=== PATIENT | female | born 1965 | race Caucasian/White ===

== ENCOUNTER 2023-07-28 06:09 | Outpatient (REF) | payer OTHER, SELFPAY ==
--- NOTE | ~2023-07-28 | US_ITS ---
EXAMINATION: US ABDOMEN COMPLETE CLINICAL INFORMATION: Chest pain. COMPARISON: None available. TECHNIQUE: Real-time imaging of the abdominal viscera. FINDINGS: PANCREAS: Visualized portions of the pancreas are unremarkable however portions are obscured by bowel gas limiting evaluation. ABDOMINAL AORTA: The proximal, mid, and distal segments are nonaneurysmal in caliber. INFERIOR VENA CAVA: Visualized portions are normal. LIVER: The liver is normal in size. The liver contour is normal. Parenchymal echogenicity is normal. No focal hepatic lesion. There is no intrahepatic biliary duct dilatation seen. GALLBLADDER: Gallbladder polyps measuring up to 4 mm. The gallbladder is physiologically distended without evidence of stones, sludge, wall thickening or pericholecystic fluid. COMMON BILE DUCT: Normal in caliber measuring 0.6 cm in diameter. RIGHT KIDNEY: Normal. No hydronephrosis. No renal calculi or focal parenchymal lesions. The kidney measures 11.1 cm in maximum dimension. LEFT KIDNEY: Normal. No hydronephrosis. No renal calculi or focal parenchymal lesions. The kidney measures 11.6 cm in maximum dimension. SPLEEN: Normal. The spleen measures 10.3 cm in maximum dimension. FREE FLUID: None. US/US abdomen complete IMPRESSION: Gallbladder polyps measuring up to 4 mm. Recommend follow-up ultrasound 6 months and one, 2, 3, 4, and 5 years.
== END 2023-07-28 06:10 | disposition home or self-care (01) ==
LOC: HO.UMASIMG 06:09
PROVIDERS: PCP Family Medicine; Visit Provider Family Medicine
DX: R07.9 Chest pain, unspecified (principal)
CPT/HCPCS: 76700

== ENCOUNTER 2023-08-25 09:43 | Outpatient (REF) | payer OTHER, SELFPAY ==
--- NOTE | ~2023-08-25 | US_ITS ---
EXAMINATION: US CHEST CLINICAL INFORMATION: Left upper chest lump of approximately 3 cm in size palpable. COMPARISON: None available. TECHNIQUE: Targeted ultrasound images were obtained by the glass wool blanket machine feeder of the area of concern as indicated by the patient in the anterior left shoulder. Radiologist was not in attendance. Images were later provided for interpretation. FINDINGS: No discrete mass or fluid collection identified in the area of concern indicated by the patient to the glass wool blanket machine feeder along the anterior aspect of the left shoulder. US/US chest IMPRESSION: 1. No discrete mass or fluid collection identified in the area of concern indicated by the patient to the glass wool blanket machine feeder along the anterior aspect of the left shoulder. 2. Decisions regarding further management such as additional imaging with MRI should be based on the clinical exam, as not all abnormalities are detectable on ultrasound studies.
== END 2023-08-25 09:44 | disposition home or self-care (01) ==
LOC: HO.UMASIMG 09:43
PROVIDERS: Visit Provider Family Medicine
DX: R07.9 Chest pain, unspecified (principal); K21.9 Gastro-esophageal reflux disease without esophagitis; M79.602 Pain in left arm; J02.9 Acute pharyngitis, unspecified; R07.81 Pleurodynia; H66.92 Otitis media, unspecified, left ear
CPT/HCPCS: 76604

== ENCOUNTER 2023-09-05 14:01 | Outpatient (AMB) | payer OTHER, SELFPAY ==
[2023-09-05 14:12] VITALS: BP 140/81; PULSE 72; BMI 40.0
--- NOTE | 2023-09-05 14:12 | MHC.OFFVIS ---
Intake Vital Signs 09/05/23 14:12 Height 5 ft 5 in Weight 240 lb 4.862 oz BMI 40.0 BP 140/81 H Blood Pressure Location Rt brachial Position Sitting Pulse 72 Intake Visit Reasons: r/s from 08/10 GERD Intake Note: New patient in office for evaluation and management of GERD. CC:Patient c/o acid reflux, epigastric pressure and feeling like she can't take a deep breath, epigastric pain, fullness sensation after eating from upper abdomen. Also, reports occasional lose stools. 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 History of colonoscopy benign polyp in 2019. Patient is here today for initial consultation. Patient was seen in the past by Dr. Caruso, however would like to switch to this office. Patient reports postprandial epigastric discomfort and fullness. Patient reports that she has symptoms of feeling breathless like in the evening when she lays down. Patient does not eat late at night. Patient reports that she feels better after burping. Patient states that she is not on any particular diet. In 2019 patient had sleep study and ABBEY was ruled out. Since then patient states that she gain weight. Patient states that she has an appointment for another sleep study soon. Patient was diagnosed with hiatal hernia on upper endoscopy in the past. Patient has not had barium swallow done to rule out acid reflux, GE stricture, sliding hiatal hernia. Currently patient is on omeprazole 20 mg daily and she is using famotidine on as needed basis. Patient denies any nausea or vomiting. Patient brought all her lab work from her PCP. Her A1c was 5.3. Patient had normal liver enzymes and normal lipase. [facility] Medical History (Updated 09/05/23 @ 15:02 by RENETTA Love) Hiatal hernia Fibromyalgia Surgical History (Updated 09/05/23 @ 15:02 by SALINAS LoveJABARI) S/P laparoscopy Hx of tonsillectomy History of esophagogastroduodenoscopy (EGD) H/O colonoscopy Social History Alcohol intake: former Patient Tobacco Use Status: Never used Tobacco Review of Systems Const Denies weight gain and Denies weight loss ENT Reports no additional complaints, Denies dysphagia and Denies odynophagia Card Reports no additional complaints Resp Reports no additional complaints GI Denies abdominal pain, Denies belching, Denies melena, Denies bloating, Denies change in bowel habits, Denies dysphagia, Denies excessive flatus, Denies dyspepsia, Denies heartburn, Denies diarrhea, Denies loose stools, Denies nausea, Denies odynophagia and Denies vomiting Musc Reports no additional complaints Neuro Reports no additional complaints Psych Reports no additional complaints Endo Reports no additional complaints Physical Exam Vital Signs: BMI result Body Mass Index 40.0 Const General: healthy appearing, no acute distress and well developed Nutritional Appearance: well nourished Orientation/consciousness: patient oriented x3 Resp Effort & Inspection: normal respiratory effort, able to speak in complete sentences, no tracheal deviation and symmetric chest movement Auscultation: clear to auscultation bilaterally Cardio Rate: regular rate GI Inspection: Yes normal to inspection and No distended Palpation (GI): Soft to palpation, not firm, nontender and No hepatosplenomegaly present Auscultation: normal bowel sounds General: Yes no CVA tenderness Back/Spine/Pelvis Back: no CVA tenderness Skin General skin exam: elasticity normal, turgor normal and dry skin Neuro General: patient oriented x3 Psych Appearance: grossly normal Mental Status: mental status grossly normal Assessment & Plan Assessment & Plan (1) Postprandial epigastric pain: Code(s): R10.13 - Epigastric pain (2) GERD (gastroesophageal reflux disease): Code(s): K21.9 - Gastro-esophageal reflux disease without esophagitis Qualifiers: Esophagitis presence: esophagitis presence not specified Qualified Code(s): K21.9 - Gastro-esophageal reflux disease without esophagitis (3) Hiatal hernia: Code(s): K44.9 - Diaphragmatic hernia without obstruction or gangrene (4) Postprandial abdominal bloating: Code(s): R14.0 - Abdominal distension (gaseous) Plan Last EGD in 2019 showed inactive gastritis, no Lofton's no H pylori. Patient currently is on omeprazole 20 mg. Will stop that and start her on pantoprazole 40 mg every morning. Patient was encouraged to avoid dietary triggers and snacking. Staying upright for minimum 3 hours after meals discussed with patient. Patient does report feeling breathless, better after burping. Suspicion for sliding hiatal hernia versus reflux does not managed. Will send her for upper endoscopy to rule out Lofton's, esophagitis, gastritis, peptic or gastric ulcers, H pylori. We will send her also for for barium swallow to rule out reflux, sliding hiatal hernia. Will send her for blood work. Will check H pylori, rule out pancreatic insufficiency. Patient does report bloating. Her lipase was normal. Will rule out celiac. I will see patient after upper endoscopy. Patient had colonoscopy the same time as she had her upper endoscopy and benign polyps found. Ten year recall recommended. Patient is agreeable to current plan of care and verbalizes understanding of instructions. She was given the opportunity to ask questions and all questions answered Thank you for allowing me to participate in her care Orders: Orders FL barium swallow Today R13.10 - Dysphagia, unspecified Pancreatic Elastase-1 Today R10.9 - Unspecified abdominal pain H pylori Ag Stool Today K21.9 - Gastro-esophageal reflux disease without esophagitis Transglutaminase Ab IgG Today R10.9 - Unspecified abdominal pain Transglutaminase IgA Today R10.9 - Unspecified abdominal pain Medications: New pantoprazole take one tablet half an hour before breakfast 40 mg PO DAILY 30 tabs 2RF K21.9 - Gastro-esophageal reflux disease without esophagitis Coding Level of Care Code New Pt Level 4 (84743) Diagnoses Postprandial epigastric pain R10.13 Gastroesophageal reflux disease, unspecified whether esophagitis present K21.9 Esophagitis presence: esophagitis presence not specified Hiatal hernia K44.9 Postprandial abdominal bloating R14.0 Time Spent (min) 45 Comment 30 minutes spent with patient and additional 15 minutes spent reviewing her records
== END 2023-09-05 14:57 | disposition home or self-care (01) ==
PROVIDERS: PCP Family Medicine; Visit Provider Nurse Practitioner Family
DX: R10.13 Epigastric pain (principal); K21.9 Gastro-esophageal reflux disease without esophagitis; K44.9 Diaphragmatic hernia without obstruction or gangrene; R14.0 Abdominal distension (gaseous)
CPT/HCPCS: 99204

== ENCOUNTER → 2023-09-05 14:01 | Outpatient (BNVA) | payer OTHER, SELFPAY | PROVIDERS: PCP Family Medicine; Visit Provider Nurse Practitioner Family ==

== ENCOUNTER 2023-10-25 08:41 | Outpatient (REF) | payer OTHER, SELFPAY ==
--- NOTE | ~2023-10-25 | US_ITS ---
EXAMINATION: US EXTREMITY, NONVASCULAR CLINICAL INFORMATION: Palpable soft mass superior to the left medial malleolus with question of cyst or solid mass. COMPARISON: None available. TECHNIQUE: High-frequency linear ultrasound transducer was used to examine the area of clinical concern. FINDINGS: No abnormality is seen. No fluid collections or abnormal masses are identified. US/US extremity nonvascular IMPRESSION: No abnormality is seen in the area of clinical concern.
== END 2023-10-25 08:42 | disposition home or self-care (01) ==
LOC: HO.UMASIMG 08:41
PROVIDERS: Visit Provider Family Medicine
DX: R22.9 Localized swelling, mass and lump, unspecified (principal)
CPT/HCPCS: 76882

== ENCOUNTER 2023-12-15 08:15 | Outpatient (REF) | payer OTHER, SELFPAY ==
--- NOTE | ~2023-12-15 | FL_ITS ---
EXAMINATION: XR FLUOROSCOPY UPPER GI WITH AIR CLINICAL INFORMATION: Epigastric pain COMPARISON: None TECHNIQUE: Fluoroscopic air contrast upper GI examination was performed utilizing standard techniques with thin and thick barium and effervescent granules. Numerous spot images were obtained. FINDINGS: Dual and single contrast images of the esophagus demonstrate normal caliber, contour, and mucosal pattern. No evidence of stricture, mass, or ulcerations identified. Esophageal peristalsis was normal. A small type I hiatal hernia is present. Gastroesophageal reflux is seen up to the midesophagus. Dual contrast and single contrast images of the stomach demonstrated a normal contour. The gastric rugal folds have a mildly thickened appearance. No masses or ulcerations are seen. Contrast freely passed into the gastric antrum and duodenal bulb without delay. Single and air-contrast images of the duodenal bulb demonstrate no abnormality. The duodenal sweep has a normal appearance, course, and mucosal fold appearance. No malrotation. The imaged proximal jejunum has a normal fold pattern and caliber. FLUOROSCOPY TIME: 3 minutes 51 seconds Number of Spot Images: 14 Number of Cine: 10 DOSE AREA PRODUCT: 3019 uGy-m2 (microgray-meter squared) FL/FL barium swallow with air IMPRESSION: 1. Small type I hiatal hernia. 2. Moderate gastroesophageal reflux. 3. Mildly thickened gastric rugal folds could suggest suggest mild gastritis. This procedure was performed by Ramez Jones PA-C, and supervised by Dr. Chilel
== END 2023-12-15 08:16 | disposition home or self-care (01) ==
LOC: HO.XRAY 08:15
PROVIDERS: PCP Family Medicine; Visit Provider Nurse Practitioner Family
DX: R13.10 Dysphagia, unspecified (principal)
CPT/HCPCS: 74221

== ENCOUNTER → 2023-12-15 08:17 | Outpatient (BNV) | payer OTHER, SELFPAY | PROVIDERS: PCP Family Medicine; Visit Provider Physician Assistant Surgical | DX: R10.13 Epigastric pain (principal) | CPT/HCPCS: 74246 ==

== ENCOUNTER 2024-08-15 09:49 | Day surgery (SDC) | payer OTHER, SELFPAY ==
--- NOTE | 2024-08-14 09:19 | HO.ANESPROP2 ---
HPI - Anesthesia Eval Consult details Narrative: 59yo F for Upper Endoscopy PMFSH Past Medical History Medical History (System 12/20/23 @ 11:31 by Ana Tate) Hiatal hernia Fibromyalgia Surgical History Surgical History (System 12/20/23 @ 11:31 by Ana Tate) S/P laparoscopy Hx of tonsillectomy History of esophagogastroduodenoscopy (EGD) H/O colonoscopy Social History Social History (System 12/20/23 @ 11:31 by Ana Tate) Alcohol intake: former Patient Tobacco Use Status: Never used Tobacco Meds Allergies Allergy/AdvReac Type Severity Reaction Status Date / Time amoxicillin Allergy Severe GI distress Verified 12/20/23 11:31 clavulanic acid Allergy Severe GI distress Verified 12/20/23 11:31 [From Augmentin] Home Medications ?Medication ?Instructions ?Recorded ?Confirmed ?Last Taken ?Type atenolol 25 mg tablet 25 mg PO DAILY 09/05/23 09/05/23 Unknown History famotidine 20 mg tablet 20 mg PO DAILY 09/05/23 09/05/23 Unknown History lorazepam 0.5 mg tablet 0.5 mg PO DAILY PRN 09/05/23 09/05/23 Unknown History Assessment and Plan Assessment Anesthesia Assessment: Chart Reviewed
[2024-08-15 05:18] VITALS: BMI 40.1
[2024-08-15 10:25] VITALS: BP 164/91; PULSE 70; RESP 20; TEMP 36; O2SAT 99; BMI 40.7
--- NOTE | 2024-08-15 11:03 | HO.ANESPROP2 ---
[facility] Past Medical History Medical History Hiatal hernia Fibromyalgia Functional capacity: independent ambulation Patient : No Family History Family history of problems with anesthesia: No Surgical History Surgical History S/P laparoscopy Hx of tonsillectomy History of esophagogastroduodenoscopy (EGD) H/O colonoscopy History of Problems with Anesthesia: No Social History Social History Alcohol intake: former Patient Tobacco Use Status: Never used Tobacco Advance Directives: No Advance Directives Information Provided: Yes Meds Allergies Allergy/AdvReac Type Severity Reaction Status Date / Time amoxicillin Allergy Severe GI distress Verified 12/20/23 11:31 clavulanic acid Allergy Severe GI distress Verified 12/20/23 11:31 [From Augmentin] Active Medications: Current Medications Lactated Ringer's (Lr) 1,000 mls @ 100 mls/hr IVCONT .Q10H [facility] Home Medications ?Medication ?Instructions ?Recorded ?Confirmed ?Last Taken ?Type atenolol 25 mg tablet 25 mg PO DAILY 09/05/23 08/15/24 Unknown History famotidine 20 mg tablet 20 mg PO DAILY 09/05/23 08/15/24 Unknown History Exam Height,Weight and Vital Signs: Height 5 ft 5 in Weight 111 kg Last Vital Signs Temp 96.8 F 08/15/24 10:25 Pulse 70 08/15/24 10:25 Resp 20 08/15/24 10:25 BP 164/91 H 08/15/24 10:25 Pulse Ox 20 L 08/15/24 10:25 O2 Del Method Room Air 08/15/24 10:25 Airway Mallampati Class: II TM Dist: >3cm Neck ROM: Full Heart: RRR Lungs: CTA Assessment and Plan Assessment Anesthesia Assessment: Anesthesia Plan Discussed and Chart Reviewed Final Anesthetic Review Family History of Problems with Anesthesia: No History of Problems with Anesthesia: No NPO: Yes ASA Class: II Final Preanesthetic Review: Meds/Allgs Chart Reviewed, Consent Obtained/Reviewed and Anes Risks/Benef Reviewed Patient Risk: Low Procedure Risk: Low Anesthetic Plan Anesthetic Plan: MAC: Disposition: Standard PACU
--- NOTE | 2024-08-15 11:09 | MHC.SHP ---
Pre-Procedural Eval Section A - 24 Hr Update-Section A only Date of Service: 08/15/24 Section B - Complete if H&P > 30 days Chief Complaint: Gastro-esophageal reflux disease without esophagit Relevant Family History (Specify if Yes): No Relevant Social History: None Present Medications: see Short Stay Collaborative assessment Medical History: Significant History (Hiatal hernia Fibromyalgia) History of Previous Operations: Relevant previous surgery/procedure and date(s) (S/P laparoscopy Hx of tonsillectomy History of esophagogastroduodenoscopy (EGD) H/O colonoscopy) Allergies: Allergies Allergy/AdvReac Type Severity Reaction Status Date / Time amoxicillin Allergy Severe GI distress Verified 12/20/23 11:31 clavulanic acid Allergy Severe GI distress Verified 12/20/23 11:31 [From Augmentin] Review of Systems Sugical H&P ROS: Negative: Constitution, Cardiovascular, Respiratory, Neurological, Psychiatric, Hem-Onc, Allergic/Immunologic, Gastrointestinal, Genitourinary, Musculoskeletal, Integumentary, Endocrine and Eyes/Ears/Nose/Throat Exam Surgical H&P Exam: Normal: HEENT, Normal: Heart, Normal: Lungs, Normal: Extremities, Normal: Abdomen, Normal: Skin and Normal: Neurological Plan Diagnosis/Plan: Unchanged I have reviewed the history and physical and performed a pertinent physical examination on my patient. No changes have occurred unless specified. Time Spent With Patient Time: Total time managing care of this patient today ____ minutes.
[2024-08-15] MEDS: Lactated Ringers 1,000 ML 100 ML IVCONT (11:10)
--- OUTSIDE RECORDS SUMMARY | 2024-08-15 11:24 | XMS_ITS | Data Portability ---
Author Organization [facility], , [facility] Address [address] [place] [address] Assessment No assessment recorded. Plan of Treatment Reminders Order Date Submit Date Provider Last Modified By Organization Details Last Modified Time Details Appointments None record ed. Lab None record ed. Referral None record ed. Procedures None record ed. Surgeries None record ed. Imaging None record ed. Medication Orders None record ed. Patient TargetsNo targets recorded. Patient InstructionsNo instructions recorded. Reason for Referral None Reported. Results Created Date Observation Date Name Description Value Unit Range Abnormal Flag Note LastModifiedBy Organization Detail LastModifiedTime Result Notes None recorded. Problems Name Problem SNOMED Code Status Onset Date Resolution Date Notes Provider Name and Address Organization Details Recorded Time Essential hypertensi on 10350259 Active 2001 Not Available [facility] 3 03:09:42 Gastroesop hageal reflux disease 876921724 Active 2002 Not Available [facility] 3 03:09:42 Contact dermatitis 77087723 Completed 200205/23/2013 Not Available [facility] 3 02:02:37 Migraine without aura 49488364 Active 2001 Not Available [facility] 3 03:09:42 Palpitatio ns 33283627 Active 2002 Not Available [facility] 3 03:09:42 Migraine with aura 9080368 Active 2001 Not Available [facility] 3 03:09:42 Acute cystitis 49993380 Completed 200105/23/2013 Not Available [facility] 3 02:02:32 Benign essential hypertensi on 4525622 Active 2001 Not Available [facility] 3 03:09:42 Skin sensation disturbanc e 91357833 Completed 200305/23/2013 Not Available [facility] 3 02:03:10 Impacted cerumen 43430083 Completed 200105/23/2013 Not Available [facility] 3 02:02:11 Anxiety state 322978689 Active 2001 Not Available [facility] 3 03:09:42 Sprain of spinal ligament 822818048 Completed 200005/23/2013 Not Available [facility] 3 02:04:07 Insomnia 310066321 Active 2001 Not Available [facility] 3 03:09:42 Atopic dermatitis 25268501 Active 2002 Not Available [facility] 3 03:09:42 Nonvenomou s insect bite of multiple sites 439580064 Completed 200205/23/2013 Not Available [facility] 3 02:02:58 Common cold 59756464 Completed 200105/23/2013 Not Available [facility] 3 02:00:26 Knee pain Completed 200405/23/2013 Not Available [facility] 3 02:00:40 Panic disorder without agoraphobi a 41577744 Active 2001 Not Available [facility] 3 03:09:42 Dysmenorrh ea 572612261 Completed 200105/23/2013 Not Available [facility] 3 02:03:01 On examinatio n - a rash Completed 200205/23/2013 Not Available [facility] 3 02:00:47 Female genital organ symptoms 246631557 Completed 200105/23/2013 Not Available [facility] 3 02:03:07 Acute maxillary sinusitis 11020522 Completed 200205/23/2013 Not Available [facility] 3 02:01:41 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 Medical Equipment None Reported. Vitals None Recorded Social History None recorded. Functional Status None recorded. Mental Status None recorded. Family History Nothing Reported. Medical History No medical history recorded. Gynecological HistoryNo gynecological history recorded. Obstetrics History GPAL:G 0 P 0 0 0 0 Immunizations Vaccine Type Date Status Note Provider Nam e and Address Organization Details Recorded Time COVID-19, mRNA, LNP-S, PF, 100 mcg/0.5mL dose or 50 mcg/0.25mL dose 08/08/2020 completed LEE Scott [facility] 08/08/2020 11:11:24 COVID-19, mRNA, LNP-S, PF, 100 mcg/0.5mL dose or 50 mcg/0.25mL dose 09/06/2020 completed LEE Scott [facility] 09/06/2020 14:48:54 Past Encounters Encounter ID Performer Location Encounter Start Date Encounter Closed Date Diagnosis/Indication Diagnosis SNOMED-CT Code Diagnosis ICD10 Code Diagnosis Note [id number] [place] [facility] [place] [address] [place] [address] 05/26/2001 17:30:00 07/24/2008 02:02:29 [id number] [place] [facility] [place] [address] [place] [address] 07/19/2001 15:15:00 07/24/2008 02:02:29 [id number] [place] [facility] [place] [address] [place] [address] 1 07/21/2001 10:30:00 07/24/2008 02:02:29 [id number] [place] [facility] [place] [address] [place] [address] 1 10/10/2001 14:45:00 07/24/2008 02:02:29 [id number] [place] [facility] [place] [address] [place] [id number] 1 02/06/2002 15:23:05 07/24/2008 02:02:29 [id number] [facility], OFFICE [address] [place] [id number] 1 04/18/2002 16:45:04 07/24/2008 02:02:29 [id number] [place] [facility] [place] [address] [place] [id number] 1 04/16/2002 14:53:38 07/24/2008 02:02:29 [id number] [place] [facility] [place] [address] [place] [id number] 1 05/14/2002 11:04:10 07/24/2008 02:02:29 [id number] FP [facility] [place] [address] [place] [id number] 1 05/14/2002 10:32:27 07/24/2008 02:02:29 [id number] FP [facility] [place] [address] [place] [id number] 1 05/28/2002 16:51:58 07/24/2008 02:02:29 [id number] FP [facility] [place] [address] [place] [id number] 1 06/12/2002 16:59:44 07/24/2008 02:02:29 [id number] LAB - [address] [place] [id number] 1 06/29/2002 07:50:35 07/24/2008 02:02:29 [id number] [place] [facility] [place] [address] [place] [id number] 1 07/27/2002 16:41:59 07/24/2008 02:02:29 [id number] FP [facility] [place] [address] [place] [id number] 1 08/06/2002 16:30:32 07/24/2008 02:02:29 [id number] FP [facility] [place] [address] [place] [id number] 1 08/13/2002 16:53:55 07/24/2008 02:02:29 [id number] [place] [facility] [place] [address] [place] [id number] 1 08/15/2002 08:21:52 07/24/2008 02:02:29 [id number] [place] [facility] [place] [address] [place] [id number] 1 10/19/2002 16:43:16 07/24/2008 02:02:29 [id number] [place] [facility] [place] [address] [place] [id number] 1 10/29/2002 15:02:50 07/24/2008 02:02:29 [id number] [place] [facility] [place] [address] [place] [id number] 1 12/10/2002 14:59:06 07/24/2008 02:02:29 [id number] [place] [facility] [place] [address] [place] [id number] 1 12/21/2002 15:47:16 07/24/2008 02:02:29 [id number] [place] [facility] [place] [address] [place] [id number] 1 04/16/2003 16:35:08 04/17/2003 10:44:42 [id number] [place] [facility] [place] [address] [place] [id number] 1 07/23/2003 16:48:23 07/24/2003 08:55:20 [id number] [place] [facility] [place] [address] [place] [id number] 1 09/18/2003 17:08:36 09/20/2003 08:59:19 [id number] [place] [facility] [place] [address] [place] [id number] 1 09/19/2003 14:29:53 09/20/2003 09:22:55 [id number] [facility] [place] [address] [place] [id number] 1 09/19/2003 12:37:13 09/19/2003 13:34:23 [id number] [place] [facility] [place] [address] [place] [id number] 1 09/25/2003 16:26:37 09/26/2003 09:20:14 [id number] Physical Therapy, [facility] [address] [place] [id number] 08/17/2004 10:22:41 08/17/2004 16:53:47 [id number] Physical Therapy, [facility] [address] [place] [id number] 1 08/31/2004 13:28:51 08/31/2004 16:56:57 [id number] Physical Therapy, [facility] [place] [id number] 08/16/2007 09:58:35 08/16/2007 09:58:38 [id number] Physical Therapy, [facility] [place] [id number] 08/25/2007 07:21:07 08/25/2007 07:21:21 [id number] Physical Therapy, [facility] [place] [id number] 09/06/2007 08:16:51 09/06/2007 08:16:58 [id number] Physical Therapy, [facility] [place] [id number] 09/13/2007 09:20:25 09/13/2007 09:20:29 [id number] Physical Therapy, [facility] [place] [id number] 1 09/29/2007 08:29:22 09/29/2007 08:29:35 Health Concerns Section Related Observation LastModified by Organization Detai ls LastModified Time None Recorded Concern Status LastModified by Organization Details LastModified Time None Recorded Advance Directives Directive None Recorded Payers Encounter Date Sequence Insurance Name Policy Number Policy Alejandre Covered Member ID Alejandre Member ID Guarantor Name 08/15/2007 1 [facility] Jaime [id number] Katerin [place] Jaime 08/24/2007 1 [facility] Cameron Jaime [id number] Katerin [place] Jaime 09/05/2007 1 [facility] IN[employer] - [employer] Cameron Jaime [id number] Katerin A Jaime 09/12/2007 1 [facility] [employer] - [employer] Jaime [id number] Katerin A Jaime 09/28/2007 1 [facility] INDEMNITY PLAN - [facility] Cameron Jaime [id number] Katerin Nuñez Jaime OBGyn Episode No OBEpisode recorded.
--- NOTE | 2024-08-15 11:49 | W.PM.OPN ---
Operative Note Operative Note Date of Service: 08/15/24 Narrative: Procedure Description: EGD Indication: satiety Anesthesia: MAC FLEXIBLE TRANSORAL UPPER GASTROINTESTINAL ENDOSCOPY UPPER ENDOSCOPY Consent: Indications for the procedure and potential complications of bleeding, perforation, reaction to medications and missed diagnosis were discussed with the patient and informed consent was obtained. Instrument: Olympus GIF H 190 J mid size upper endoscope Monitoring: Vital signs and clinical assessment, continuous EKG monitoring, Pulse oximetry, Carbon Dioxide monitoring and blood pressure monitoring were done throughout the procedure. Procedure: The patient was placed in the left lateral decubitis position and pre-procedure medications were administered and a bite block was placed. The endoscope was inserted into the mouth and advanced under direct vision to the third part of duodenum. A careful inspection was made as the upper endoscope was withdrawn including a retroflexed examination of the proximal stomach; Findings and interventions are described below. Findings: Larynx:normal Esophagus: GE junction at 37 cm, diaphragm hiatus at 40 cm, consistent with 3 cm sliding hiatal hernia, with schatzki ring noted, polypoid lesion noted at GEJ about 5-7 mm removed with cold snare, bx also taken from GEJ to possible short segment barretts as well as distal and proximal esophagus. LES was lax Stomach: few fundic gland polyps noted with mild erythema . Biopsies were obtained. Grade 2 flap valve on retroflexed examination of the cardia. The outlet was a little tight and dilated using a wire guided balloon to 20 mm. No tears seen. Duodenum: mild bulbar duodenitis - bx taken Intervention: Biopsies as noted above, cold snare, balloon dilation Impression/Findings: gastritis fundic gland polyps possible barretts hiatal hernia schatzki ring lax LES PLAN: check PPI compliance GERD precautions consider GES if ongoing sx also consider referral for hernia repair and fundoplication
--- NOTE | 2024-08-15 11:51 | HO.ANESPROP2 ---
[facility] Past Medical History Medical History Hiatal hernia Fibromyalgia Functional capacity: independent ambulation Family History Family history of problems with anesthesia: No Surgical History Surgical History S/P laparoscopy Hx of tonsillectomy History of esophagogastroduodenoscopy (EGD) H/O colonoscopy History of Problems with Anesthesia: No Social History Social History Alcohol intake: former Patient Tobacco Use Status: Never used Tobacco Advance Directives: No Advance Directives Information Provided: Yes Patient : No Meds Allergies Allergy/AdvReac Type Severity Reaction Status Date / Time amoxicillin Allergy Severe GI distress Verified 12/20/23 11:31 clavulanic acid Allergy Severe GI distress Verified 12/20/23 11:31 [From Augmentin] Active Medications: Current Medications Lactated Ringer's (Lr) 1,000 mls @ 100 mls/hr IVCONT .Q10H GIOVANNA Last Admin: 08/15/24 11:10 Dose: 100 mls/hr Naloxone HCl (Naloxone Hcl 0.4 Mg/Ml Vial) 0.04 mg IVPUSH Q5M PRN PRN Reason: Excessive sedation or RR < 8 Home Medications ?Medication ?Instructions ?Recorded ?Confirmed ?Last Taken ?Type atenolol 25 mg tablet 25 mg PO DAILY 09/05/23 08/15/24 Unknown History famotidine 20 mg tablet 20 mg PO DAILY 09/05/23 08/15/24 Unknown History Exam Height,Weight and Vital Signs: Height 5 ft 5 in Weight 111 kg Last Vital Signs Temp 96.8 F 08/15/24 10:25 Pulse 70 08/15/24 10:25 Resp 20 08/15/24 10:25 BP 164/91 H 08/15/24 10:25 Pulse Ox 99 08/15/24 10:25 O2 Del Method Room Air 08/15/24 10:25 Airway Mallampati Class: III TM Dist: >3cm Neck ROM: Full Heart: RRR Lungs: CTA Assessment and Plan Assessment Anesthesia Assessment: Anesthesia Plan Discussed and Chart Reviewed Final Anesthetic Review Family History of Problems with Anesthesia: No History of Problems with Anesthesia: No NPO: Yes ASA Class: II Final Preanesthetic Review: Meds/Allgs Chart Reviewed, Consent Obtained/Reviewed and Anes Risks/Benef Reviewed Patient Risk: Low Procedure Risk: Low Anesthetic Plan Anesthetic Plan: MAC: Disposition: Standard PACU
[2024-08-15 11:59] VITALS: BP 118/79; PULSE 85; RESP 16; TEMP 36.1; O2SAT 98
[2024-08-15 12:14] VITALS: BP 124/80; PULSE 74; RESP 16; O2SAT 98
== END 2024-08-15 13:00 | disposition home or self-care (01) ==
PROVIDERS: PCP Family Medicine; Visit Provider Internal Medicine Gastroenterology
PROC: 0DJ08ZZ Inspection of Upper Intestinal Tract, Via Natural or Artificial Opening Endoscopic (ICD-10-PCS; CPT 43235; principal; 2024-08-15 12:50)
DX: K21.9 Gastro-esophageal reflux disease without esophagitis (principal); R68.81 Early satiety; K22.2 Esophageal obstruction; K20.80 Other esophagitis without bleeding; K29.80 Duodenitis without bleeding; K31.7 Polyp of stomach and duodenum; K29.50 Unspecified chronic gastritis without bleeding; K44.9 Diaphragmatic hernia without obstruction or gangrene; M79.7 Fibromyalgia; Z79.899 Other long term (current) drug therapy; Z88.1 Allergy status to other antibiotic agents; Z98.890 Other specified postprocedural states
CPT/HCPCS: 43251; 43245; 43239; 88305; 88313; 88342; C1726; J2003; J2704

== ENCOUNTER → 2024-08-15 09:49 | Outpatient (BNV) | payer OTHER, SELFPAY | PROVIDERS: PCP Family Medicine; Visit Provider Internal Medicine Gastroenterology | DX: R68.81 Early satiety (principal); K22.2 Esophageal obstruction; K31.7 Polyp of stomach and duodenum; K29.70 Gastritis, unspecified, without bleeding | CPT/HCPCS: 43239; 43249; 43251 ==

== ENCOUNTER 2024-08-29 07:57 | Outpatient (AMB) | payer OTHER, SELFPAY ==
--- OUTSIDE RECORDS SUMMARY | 2024-08-29 08:04 | XMS_ITS | Data Portability ---
Author Organization [facility], , [facility] Address [address] [place] [address] Assessment No assessment recorded. Plan of Treatment [...] Organization Details Recorded Time Essential hypertensi on 12802382 Active 2001 Not Available [facility] 3 03:09:42 Gastroesop hageal reflux disease 892036194 Active 2002 Not Available [facility] 3 03:09:42 Contact dermatitis 10486088 Completed 200205/23/2013 Not Available [facility] 3 02:02:37 Migraine without aura 26027637 Active 2001 Not Available [facility] 3 03:09:42 Palpitatio ns 59778394 Active 2002 Not Available [facility] 3 03:09:42 Migraine with aura 4967285 Active 2001 Not Available [facility] 3 03:09:42 Acute cystitis 91710683 Completed 200105/23/2013 Not Available [facility] 3 02:02:32 Benign essential hypertensi on 9467739 Active 2001 Not Available [facility] 3 03:09:42 Skin sensation disturbanc e 00848904 Completed 200305/23/2013 Not Available [facility] 3 02:03:10 Impacted cerumen 13652185 Completed 200105/23/2013 Not Available [facility] 3 02:02:11 Anxiety state 763164002 Active 2001 [facility] Available [facility] 3 03:09:42 Sprain of spinal ligament 094317572 Completed 200005/23/2013 Not Available [facility] 3 02:04:07 Insomnia 458589187 Active 2001 Not Available [facility] 3 03:09:42 Atopic dermatitis 91286220 Active 2002 Not Available [facility] 3 03:09:42 Nonvenomou s insect bite of multiple sites 257516435 Completed 200205/23/2013 Not Available [facility] 3 02:02:58 Common cold 62952944 Completed 200105/23/2013 Not Available [facility] 3 02:00:26 Knee pain Completed 200405/23/2013 Not Available [facility] 3 02:00:40 Panic disorder without agoraphobi a 92836252 Active 2001 Not Available [facility] 3 03:09:42 Dysmenorrh ea 933153260 Completed 200105/23/2013 Not Available [facility] 3 02:03:01 On examinatio n - a rash Completed 200205/23/2013 Not Available [facility] 3 02:00:47 Female genital organ symptoms 997923868 Completed 200105/23/2013 Not Available [facility] 3 02:03:07 Acute maxillary sinusitis 68624113 Completed 200205/23/2013 Not Available [facility] 3 02:01:41 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 Medical [...] 50 mcg/0.25mL dose 08/08/2020 completed LEE Scott [facility] 08/08/2020 11:11:24 COVID-19, mRNA, LNP-S, PF, 100 mcg/0.5mL dose or 50 mcg/0.25mL dose 09/06/2020 completed LEE Scott [facility] 09/06/2020 14:48:54 Past Encounters Encounter ID Performer Location Encounter Start Date Encounter Closed Date Diagnosis/Indication Diagnosis SNOMED-CT Code Diagnosis ICD10 Code Diagnosis Note [id number] ALICIA [facility] [place] [address] [place] [address] 05/26/2001 17:30:00 07/24/2008 02:02:[id number] [facility] [place] [place] [address] [place] [address] 1 07/19/2001 15:15:00 07/24/2008 02:02:[id number] [facility] [place] [place] [address] [place] [address] 1 07/21/2001 10:30:00 07/24/2008 02:02:[id number] [facility] [place] [place] [address] [place] [address] 1 10/10/2001 14:45:00 07/24/2008 02:02:[id number] [facility] [place] OFF[place] [address] [place] [id number] 1 02/06/2002 15:23:05 07/24/2008 02:02:29 [id number] [facility], OFFICE [address] [place] [id number] 1 04/18/2002 16:45:04 07/24/2008 02:02:[id number] [facility] [place] OFF[place] [address] [place] [id number] 1 04/16/2002 14:53:38 07/24/2008 02:02:29 [id number] LAB - [facility] [place] [address] [place] [id number] 1 05/14/2002 11:04:10 07/24/2008 02:02:[id number] [facility] [place] OFFICE [address] [place] [id number] 1 05/14/2002 10:32:27 07/24/2008 02:02:[id number] [facility] [place] OFFICE [address] [place] [id number] 1 05/28/2002 16:51:58 07/24/2008 02:02:[id number] [facility] [place] OFFICE [address] [place] [id number] 1 06/12/2002 16:59:44 07/24/2008 02:02:29 [id number] LAB - [address] [place] [id number] 1 06/29/2002 07:50:35 07/24/2008 02:02:[id number] [facility] [place] OFFICE [address] [place] [id number] 1 07/27/2002 16:41:59 07/24/2008 02:02:[id number] [facility] [place] OFF[place] [address] [place] [id number] 1 08/06/2002 16:30:32 07/24/2008 02:02:[id number] [facility] [place] OFFICE [address] [place] [id number] 1 08/13/2002 16:53:55 07/24/2008 02:02:29 [id number] LAB - [facility] [address] [place] [id number] 1 08/15/2002 08:21:52 07/24/2008 02:02:[id number] [facility] [place] OFF[place] [address] [place] [id number] 1 10/19/2002 16:43:16 07/24/2008 02:02:[id number] [facility] [place] OFF[place] [address] [place] [id number] 1 10/29/2002 15:02:50 07/24/2008 02:02:[id number] [facility] [place] OFF[place] [address] [place] [id number] 1 12/10/2002 14:59:06 07/24/2008 02:02:[id number] [facility] [place] [place] [address] [place] [id number] 1 12/21/2002 15:47:16 07/24/2008 02:02:[id number] [facility] [place] OFFICE [address] [place] [id number] 1 04/16/2003 16:35:08 04/17/2003 10:44:[id number] [facility] [place] OFFICE [address] [place] [id number] 1 07/23/2003 16:48:23 07/24/2003 08:55:[id number] [facility] [place] OFFICE [address] [place] [id number] 1 09/18/2003 17:08:36 09/20/2003 08:59:[id number] [facility] [place] OFFICE [address] [place] [id number] 1 09/19/2003 14:29:53 09/20/2003 09:22:55 [id number] [facility] - [facility] [address] [place] [id number] 1 09/19/2003 12:37:13 09/19/2003 13:34:[id number] [facility] [place] OFFICE [address] [place] [id number] 1 09/25/2003 16:26:37 09/26/2003 09:20:14 [id number] Physical Therapy, [facility] [address] [place] [id number] 08/17/2004 10:22:41 08/17/2004 16:53:47 [id number] Physical Therapy, [facility] [address] [place] [id number] 08/31/2004 13:28:51 08/31/2004 16:56:57 [id number] Physical Therapy, [facility] [place] [id number] 1 08/16/2007 09:58:35 08/16/2007 09:58:38 [id number] Physical Therapy, [facility] [place] [id number] 1 08/25/2007 07:21:07 08/25/2007 07:21:21 [id number] Physical Therapy, [facility] [place] [id number] 1 09/06/2007 08:16:51 09/06/2007 08:16:58 [id number] Physical Therapy, [facility] [place] [id number] 1 09/13/2007 09:20:25 09/13/2007 09:20:29 [id number] Physical Therapy, [facility] [place] [id number] 1 09/29/2007 08:29:22 09/29/2007 08:29:35 Health Concerns Section Related Observation LastModified by Organization Detai ls LastModified Time None Recorded Concern Status LastModified by Organization Details LastModified Time None Recorded Advance Directives Directive None Recorded Payers Encounter Date Sequence Insurance Name Policy Number Policy Alejandre Covered Member ID Alejandre Member ID Guarantor Name 08/15/2007 1 [facility] INDEMN[facility] PLAN - [facility] Cameron Jaime [id number] Katerin [place] Jaime 08/24/2007 1 [facility] Cameron Jaime [id number] Katerin [place] Jaime 09/05/2007 1 [facility] INDE[employer]ITY PLAN - [employer] Cameron Jaime [id number] Katerin A Jaime 09/12/2007 1 [facility] IN[employer] PL[employer] - UNICRE[employer]I Jaime [id number] Katerin A Jaime 09/28/2007 1 [facility] IN[facility]MNITY [facility] - [facility] Cameron Jaime [id number] Katerin Nuñez Jaime OBGyn Episode No OBEpisode recorded.
--- NOTE | 2024-08-29 08:06 | A.OFFVIS_ITS ---
Vital Signs 08/29/24 08:07 Height 5 ft 5 in Weight 243 lb 6.245 oz BMI 40.5 BP 142/78 H Blood Pressure Location Rt brachial Position Sitting Pulse 70 Pulse Source Pulse Oximeter Pulse Oximetry (%) 98 Oxygen Delivery Method Room Air Intake Visit Reasons: S/P EGD; Dr. Irwin Intake Note: ESTABLISHED PATIENT for s/p egd. Chief Complaint; c/o intermittent reflux sx which seem to be heavily affected by trigger foods. Pt is attempting lifestyle changes which seem to be helpful. Pt also wishes to discuss a particular apnea episode which occurred during the procedure. Director Of Recruitment Required: No Accompanied by: Self / Same As Patient Allergies amoxicillin Allergy (Severe, Verified 08/29/24 08:06) GI distress clavulanic acid [From Augmentin] Allergy (Severe, Verified 08/29/24 08:06) GI distress HPI HPI S/P EGD; Dr. Irwin: Details: LAST VISIT: Postprandial epigastric pain GERD (gastroesophageal reflux disease) Hiatal hernia Postprandial abdominal bloating Plan Last EGD in 2018 showed inactive gastritis, no Lofton's no H pylori. Patient currently is on omeprazole 20 mg. Will stop that and start her on pantoprazole 40 mg every morning. Patient was encouraged to avoid dietary triggers and snacking. Staying upright for minimum 3 hours after meals discussed with patient. Patient does report feeling breathless, better after burping. Suspicion for sliding hiatal hernia versus reflux does not managed. Will send her for upper endoscopy to rule out Lofton's, esophagitis, gastritis, peptic or gastric ulcers, H pylori. We will send her also for for barium swallow to rule out reflux, sliding hiatal hernia. Will send her for blood work. Will check H pylori, rule out pancreatic insufficiency. Patient does report bloating. Her l ipase was normal. Will rule out celiac. I will see patient after upper endoscopy. Patient had colonoscopy the same time as she had her upper endoscopy and benign polyps found. Ten year recall recommended. Patient is agreeable to current plan of care and verbalizes understanding of instructions. She was given the opportunity to ask questions and all questions answered ? Thank you for allowing me to participate in her care Orders Orders FL barium swallow Today R13.10 Pancreatic Elastase-1 Today R10.9 H pylori Ag Stool Today K21.9 Transglutaminase Ab IgG Today R10.9 Transglutaminase IgA Today R10.9 UPPER ENDOSCOPY: Findings: Larynx:normal Esophagus: GE junction at 37 cm, diaphragm hiatus at 40 cm, consistent with 3 cm sliding hiatal hernia, with schatzki ring noted, polypoid lesion noted at GEJ about 5-7 mm removed with cold snare, bx also taken from GEJ to possible short segment barretts as well as distal and proximal esophagus. LES was lax Stomach: few fundic gland polyps noted with mild erythema . Biopsies were obtained. Grade 2 flap valve on retroflexed examination of the cardia. The outlet was a little tight and dilated using a wire guided balloon to 20 mm. No tears seen. Duodenum: mild bulbar duodenitis - bx taken Intervention: Biopsies as noted above, cold snare, balloon dilation Impression/Findings: gastritis fundic gland polyps possible barretts hiatal hernia schatzki ring lax LES PLAN: check PPI compliance GERD precautions consider GES if ongoing sx also consider referral for hernia repair and fundoplication PATHOLOGY: Diagnosis A. Duodenum, biopsy: Duodenal mucosa within normal limits. B. Stomach, biopsy: Antral-type and oxyntic mucosa with mild chronic inactive inflammation; no Helicobacter organisms seen. C. GE junction, biopsy: - Cardiofundic-type mucosa with moderate chronic inactive inflammation; no intestinal metaplasia seen. - Squamous mucosa within normal limits. D. GE junction, polypectomies: - Cardiofundic-type mucosa with mild chronic inactive inflammation and surface hyperplastic changes; no intestinal metaplasia seen. - No squamous epithelium identified. E. Esophagus, distal, biopsy: Squamous epithelium within normal limits; no inflammation seen. F. Esophagus, proximal, biopsy: Squamous epithelium within normal limits; no inflammation seen TODAY'S VISIT: Patient is here today for follow-up and to discuss upper endoscopy results. Patient denies any ill effects from procedure or anesthesia, however patient was told that she had apneic episode during procedure and had to get medication to reverse it. Patient would like to get medical records for future reference. Patient reports that she will be going for 2nd opinion regarding her sleep apnea study. Patient was sent over a year ago for sleep study and she was diagnosed with mild sleep apnea then. Patient reports that her symptoms of acid reflux are suppressed for the most part with pantoprazole. Patient is taking that in the morning and takes famotidine at bedtime. Occasionally depending on what she eats patient is having epigastric pain and reflux. Patient is also reporting that she is going through a lot of stress at work. 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 Patient is otherwise doing well. Denies melena, hematochezia. Patient denies dysphagia or odynophagia. Patient is working on losing weight as well. [facility] Medical History Hiatal hernia Fibromyalgia Surgical History S/P laparoscopy Hx of tonsillectomy History of esophagogastroduodenoscopy (EGD) H/O colonoscopy Social History Alcohol intake: former Patient Tobacco Use Status: Never used Tobacco Review of Systems Const Denies weight gain and Denies weight loss ENT Reports no additional complaints, Denies dysphagia and Denies odynophagia Card Reports no additional complaints Resp Reports no additional complaints GI Denies abdominal pain, Denies belching, Denies melena, Reports bloating, Denies change in bowel habits, Denies dysphagia, Denies excessive flatus, Denies dyspepsia, Reports heartburn, Denies diarrhea, Denies loose stools, Denies nausea, Denies odynophagia and Denies vomiting Reports no additional complaints Musc Reports no additional complaints Neuro Reports no additional complaints Psych Reports no additional complaints Endo Reports no additional complaints Physical Exam Vital Signs: Last Vital Signs Pulse 70 08/29/24 08:07 BP 142/78 H 08/29/24 08:07 Pulse Ox 98 08/29/24 08:07 Oxygen Delivery Method Room Air 08/29/24 08:07 BMI result Body Mass Index 40.5 Const General: healthy appearing and no acute distress Nutritional Appearance: obese Orientation/consciousness: patient oriented x3 Resp Effort & Inspection: normal respiratory effort, able to speak in complete sentences, no tracheal deviation and symmetric chest movement Auscultation: clear to auscultation bilaterally Cardio Rate: regular rate GI Inspection: Yes normal to inspection, No distended and Yes obesity Palpation (GI): Soft to palpation, not firm, nontender and No hepatosplenomegaly present Auscultation: normal bowel sounds General: Yes no CVA tenderness Back/Spine/Pelvis Back: no CVA tenderness Skin General skin exam: elasticity normal, turgor normal and dry skin Neuro General: patient oriented x3 Psych Appearance: grossly normal Mental Status: mental status grossly normal Assessment & Plan Assessment & Plan (1) Postprandial epigastric pain: Code(s): R10.13 - Epigastric pain (2) GERD (gastroesophageal reflux disease): Code(s): K21.9 - Gastro-esophageal reflux disease without esophagitis Qualifiers: Esophagitis presence: without esophagitis Qualified Code(s): K21.9 - Gastro-esophageal reflux disease without esophagitis (3) Hiatal hernia: Code(s): K44.9 - Diaphragmatic hernia without obstruction or gangrene (4) Postprandial abdominal bloating: Code(s): R14.0 - Abdominal distension (gaseous) Plan Continue current treatment with pantoprazole and famotidine. Avoid dietary triggers and late night snacking. Staying upright for minimum 3 hours after meals discussed with patient. Patient will follow-up in 6 months, sooner on as needed basis. She is agreeable to this plan and verbalizes understanding of instructions. She was given the opportunity to ask questions and all questions answered. Thank you for allowing me to participate in her care Coding Level of Care Code Est Pt Level 4 (42481) Complex EM visit Add On G2211 Diagnoses Postprandial epigastric pain R10.13 Gastroesophageal reflux disease without esophagitis K21.9 Esophagitis presence: without esophagitis Hiatal hernia K44.9 Postprandial abdominal bloating R14.0 Time Spent (min) 34 Comment 20 minutes spent with patient and additional 15 minutes spent reviewing her records
[2024-08-29 08:07] VITALS: BP 142/78; PULSE 70; O2SAT 98; BMI 40.5
== END 2024-08-29 08:44 | disposition home or self-care (01) ==
PROVIDERS: PCP Family Medicine; Visit Provider Nurse Practitioner Family
DX: R10.13 Epigastric pain (principal); K21.9 Gastro-esophageal reflux disease without esophagitis; K44.9 Diaphragmatic hernia without obstruction or gangrene; R14.0 Abdominal distension (gaseous)
CPT/HCPCS: 99214

== ENCOUNTER → 2024-08-29 07:57 | Outpatient (BNVA) | payer OTHER, SELFPAY | PROVIDERS: PCP Family Medicine; Visit Provider Nurse Practitioner Family ==

== ENCOUNTER 2025-01-01 06:37 | Outpatient (REF) | payer OTHER, SELFPAY ==
--- NOTE | ~2025-01-01 | US_ITS ---
EXAMINATION: US RETROPERITONEUM HISTORY: MICROHEMATURIA TECHNIQUE: Real-time grayscale ultrasound imaging of the kidneys was performed and images were reviewed. COMPARISON: Correlation is made with an abdominal ultrasound dated 07/28/2023. FINDINGS: Right kidney: The right kidney measures 10.3 x 5.4 x 4.6 cm. Renal parenchymal echotexture and thickness are normal. There are no masses. There is no hydronephrosis or renal calculi. Left Kidney: The left kidney measures 12.0 x 6.0 x 5.7 cm. Renal parenchymal echotexture and thickness are normal. There are no masses. There is no hydronephrosis or renal calculi. The urinary bladder is unremarkable. Bilateral ureteral jets are identified. Before voiding, the urinary bladder measured 9.5 x 6.2 x 8.6 cm, for an estimated volume of 267 mL. After voiding, the urinary bladder measured 1.9 x 2.7 x 1.3 cm, for an estimated volume of 3.6 mL. US/US retroperitoneal comp IMPRESSION: Unremarkable retroperitoneal ultrasound. Post void bladder residual of 3.6 mL. Electronically signed by: Sukh Osborne MD 01/02/2025 06:57 AM EDT
--- OUTSIDE RECORDS SUMMARY | 2025-01-01 06:39 | XMS_ITS | Data Portability ---
Author Organization [facility], , [facility] Address [address] [place] [address] Assessment No assessment recorded. Plan of Treatment [...] Organization Details Recorded Time Essential hypertensi on 23022839 Active 2001 Not Available [facility] 3 03:09:42 Gastroesop hageal reflux disease 976601820 Active 2002 Not Available [facility] 3 03:09:42 Contact dermatitis 20538787 Completed 200205/23/2013 Not Available [facility] 3 02:02:37 Migraine without aura 46590110 Active 2001 Not Available [facility] 3 03:09:42 Palpitatio ns 24263016 Active 2002 Not Available [facility] 3 03:09:42 Migraine with aura 6905025 Active 2001 Not Available [facility] 3 03:09:42 Acute cystitis 22016922 Completed 200105/23/2013 Not Available [facility] 3 02:02:32 Benign essential hypertensi on 5115075 Active 2001 Not Available [facility] 3 03:09:42 Skin sensation disturbanc e 24735798 Completed 200305/23/2013 Not Available [facility] 3 02:03:10 Impacted cerumen 39942640 Completed 200105/23/2013 Not Available [facility] 3 02:02:11 Anxiety state 257685189 Active 2001 Not Available [facility] 3 03:09:42 Sprain of spinal ligament 544088020 Completed 200005/23/2013 Not Available [facility] 3 02:04:07 Insomnia 525106039 Active 2001 Not Available [facility] 3 03:09:42 Atopic dermatitis 51705559 Active 2002 Not Available [facility] 3 03:09:42 Nonvenomou s insect bite of multiple sites 771597491 Completed 200205/23/2013 Not Available [facility] 3 02:02:58 Common cold 06259601 Completed 200105/23/2013 Not Available [facility] 3 02:00:26 Knee pain Completed 200405/23/2013 Not Available [facility] 3 02:00:40 Panic disorder without agoraphobi a 99992212 Active 2001 Not Available [facility] 3 03:09:42 Dysmenorrh ea 162715006 Completed 200105/23/2013 Not Available [facility] 3 02:03:01 On examinatio n - a rash Completed 200205/23/2013 Not Available [facility] 3 02:00:47 Female genital organ symptoms 900502477 Completed 200105/23/2013 Not Available [facility] 3 02:03:07 Acute maxillary sinusitis 01568267 Completed 200205/23/2013 Not Available [facility] 3 02:01:41 Displaceme nt of interverte bral disc without myelopathy 06580161 Completed 200705/23/2013 Not Available [facility] 3 02:04:08 Elevated blood-pres sure reading without diagnosis of hypertensi on 606593537 Active 2001 Not Available [facility] 3 03:09:42 Abnormal cervical Papanicola ou smear with human papillomav irus deoxyribon ucleic acid detected 147203162 Active 2001 Not Available [facility] 3 03:09:42 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 Medical [...] 50 mcg/0.25mL dose 08/08/2020 completed LEE Scott [facility] 08/08/2020 11:11:24 COVID-19, mRNA, LNP-S, PF, 100 mcg/0.5mL dose or 50 mcg/0.25mL dose 09/06/2020 [facility] 14:48:54 Past Encounters Encounter ID Performer Location Encounter Start Date Encounter Closed Date Diagnosis/Indication Diagnosis SNOMED-CT Code Diagnosis ICD10 Code Diagnosis Note [id number] Erik Scott. , [facility], OFFICE [address] [place] [address] 05/26/2001 17:30:00 07/24/2008 02:02:29 [id number] Corinne Oconnor MD [facility], OFFICE [address] [place] [address] 07/19/2001 15:15:00 07/24/2008 02:02:29 [id number] TREATMENT NURSE [facility], OFFICE [address] [place] [address] 07/21/2001 10:30:00 07/24/2008 02:02:29 [id number] Corinne VARGAS, [facility], OFFICE [address] [place] [address] 10/10/2001 14:45:00 07/24/2008 02:02:29 [id number] Kevan Bernard MD , [facility], OFFICE [address] [place] [address] 02/06/2002 15:23:05 07/24/2008 02:02:29 [id number] Guadalupe VALDES , [facility], OFFICE [address] [place] [address] 04/18/2002 16:45:04 07/24/2008 02:02:29 [id number] FP TREATMENT NURSE [facility], [facility], OFFICE [address] [place] [address] 04/16/2002 14:53:38 07/24/2008 02:02:29 [id number] [facility] - [facility] [address] [place] [address] 05/14/2002 11:04:10 07/24/2008 02:02:29 [id number] Corinne VARGAS, [facility], OFFICE [address] [place] [address] 05/14/2002 10:32:27 07/24/2008 02:02:29 [id number] Corinne VARGAS, [facility], OFFICE [address] [place] [address] 05/28/2002 16:51:58 07/24/2008 02:02:29 [id number] Corinne VARGAS [facility], OFFICE [address] [place] [address] 06/12/2002 16:59:44 07/24/2008 02:02:29 [id number] [facility] - [facility] [address] [place] [id number] 06/29/2002 07:50:35 07/24/2008 02:02:29 [id number] Corinne VARGAS [facility], OFFICE [address] [place] [address] 07/27/2002 16:41:59 07/24/2008 02:02:29 [id number] Corinne VARGAS [facility], OFFICE [address] [place] [address] 08/06/2002 16:30:32 07/24/2008 02:02:29 [id number] Corinne VARGAS, [facility], OFFICE [address] [place] [address] [address] [place] [id number] 08/13/2002 16:53:55 07/24/2008 02:02:29 [id number] [facility] - [facility] [address] [place] [id number] 08/15/2002 08:21:52 07/24/2008 02:02:29 [id number] Corinne VARGAS, [facility] OFFICE [address] [place] [address] [address] [place] [id number] 10/19/2002 16:43:16 07/24/2008 02:02:29 [id number] Darvin Bradley PA-C , [facility], [address] [place] [address] 10/29/2002 15:02:50 07/24/2008 02:02:29 [id number] Corinne VARGAS [address] [place] [address] 12/10/2002 14:59:06 07/24/2008 02:02:29 [id number] Corinne VARGAS, [facility] OFFICE [address] [place] [address] [address] [place] [id number] 12/21/2002 15:47:16 07/24/2008 02:02:29 [id number] Darvin Bradley PA-C , [address] [place] [address] 04/16/2003 16:35:08 04/17/2003 10:44:42 [id number] Corinne VARGAS, [address] [place] [id number] 07/23/2003 16:48:23 07/24/2003 08:55:20 [id number] Erik Scott , [facility], [address] [place] [id number] 09/18/2003 17:08:36 09/20/2003 08:59:19 [id number] Jason Anderson III, MD , [facility], OFFICE [address] [place] [address] [address] [place] [id number] 09/19/2003 14:29:53 09/20/2003 09:22:55 [id number] [facility] - [address] [place] [id number] 09/19/2003 12:37:13 09/19/2003 13:34:23 [id number] Erik Scott. , [facility], OFFICE [address] [place] [address] 09/25/2003 16:26:37 09/26/2003 09:20:14 [id number] Ant Valiente i, PT Physical Therapy, [facility] [place] [address] 08/17/2004 10:22:41 08/17/2004 16:53:47 [id number] Ant Valiente i, PT Physical Therapy, [address] [place] [address] 08/31/2004 13:28:51 08/31/2004 16:56:57 [id number] Ant Valiente i, PT Physical Therapy, [address] [place] [address] 08/16/2007 09:58:35 08/16/2007 09:58:38 [id number] Ant Valiente i, PT Physical Therapy, [address] [place] [address] 08/25/2007 07:21:07 08/25/2007 07:21:21 [id number] Ant Valiente i, PT Physical Therapy, [facility] [place] [address] 09/06/2007 08:16:51 09/06/2007 08:16:58 [id number] Ant Valiente i, PT Physical Therapy, [address] [place] [address] 09/13/2007 09:20:25 09/13/2007 09:20:29 [id number] Ant Valiente i, PT Physical Therapy, [address] [place] [address] 09/29/2007 08:29:22 09/29/2007 08:29:35 Health Concerns Section Related Observation LastModified by Organization Detai ls LastModified Time None Recorded Concern Status LastModified by Organization Details LastModified Time None Recorded Advance Directives Directive None Recorded Payers Insurance Date Sequence Insurance Name Policy Number Policy Alejandre Covered Member ID Alejandre Member ID Guarantor Name 07/18/2020 1 [facility] [id number] Katerin Hernandez [id number] Katerin Jaime 09/28/2012 1 [facility] Cameron Jaime [id number] Katerin Jaime 09/08/2020 1 [facility] [id number] Cameron Jaime [id number] Katerin Jaime OBGyn Episode No OBEpisode recorded.
== END 2025-01-01 06:38 | disposition home or self-care (01) ==
LOC: HO.UMASIMG 06:37
PROVIDERS: Visit Provider Family Medicine
DX: R11.0 Nausea (principal)
CPT/HCPCS: 76770

== ENCOUNTER → 2025-01-01 15:30 | Outpatient (BNV) | payer OTHER, SELFPAY | PROVIDERS: Visit Provider Radiology Diagnostic Radiology | DX: R31.29 Other microscopic hematuria (principal) | CPT/HCPCS: 76770 ==

== ENCOUNTER → 2025-01-08 07:39 | Outpatient (BNV) | payer OTHER, SELFPAY | PROVIDERS: Visit Provider Radiology Diagnostic Radiology | DX: K82.4 Cholesterolosis of gallbladder (principal); K76.0 Fatty (change of) liver, not elsewhere classified; R16.0 Hepatomegaly, not elsewhere classified | CPT/HCPCS: 76705 ==

== ENCOUNTER 2025-01-08 08:16 | Outpatient (REF) | payer OTHER, SELFPAY ==
--- NOTE | ~2025-01-08 | US_ITS ---
EXAMINATION: US ABDOMEN LIMITED HISTORY: Gallbladder polyp TECHNIQUE: Real-time grayscale ultrasound imaging of the right upper quadrant was performed and images were reviewed. COMPARISON: There are no prior studies available for comparison. FINDINGS: Liver: The right lobe of the liver measures 16.4 cm in size. The left lobe of the liver measures 11.6 cm in size. The liver demonstrates increased echotexture, consistent with steatosis. No focal mass or intrahepatic biliary ductal dilatation is identified. There is normal hepatopedal flow in the portal vein. Gallbladder and biliary tree: There is a 7 mm gallbladder polyp. Previously a gallbladder polyp was measured at 4 mm. The gallbladder is otherwise unremarkable, without evidence of calculi, wall thickening, or pericholecystic fluid. There is no sonographic Choudhury sign. The common bile duct is normal in caliber measuring 3 mm. Pancreas: The pancreatic head, neck, and body are unremarkable. The pancreatic tail is obscured by bowel gas. Abdominal aorta and inferior vena cava: The visualized portions of the abdominal aorta and inferior vena cava are normal in caliber. There is no free fluid in the right upper quadrant. US/US abdomen limited IMPRESSION: 1. Hepatomegaly and hepatic steatosis. 2. 7 mm gallbladder polyp, previously measured at 4 mm. Continued follow-up is recommended. Electronically signed by: Sukh Osborne MD 01/08/2025 09:09 AM EDT
--- OUTSIDE RECORDS SUMMARY | 2025-01-08 08:19 | XMS_ITS | Data Portability ---
Author Organization [facility], , [facility] Address [address] [place] [address] Assessment No assessment recorded. Plan of Treatment [...] Organization Details Recorded Time Essential hypertensi on 92105203 Active 2001 Not Available [facility] 3 03:09:42 Gastroesop hageal reflux disease 525593841 Active 2002 Not Available [facility] 3 03:09:42 Contact dermatitis 97909783 Completed 200205/23/2013 Not Available [facility] 3 02:02:37 Migraine without aura 26025064 Active 2001 Not Available [facility] 3 03:09:42 Palpitatio ns 46729229 Active 2002 Not Available [facility] 3 03:09:42 Migraine with aura 0200324 Active 2001 Not Available [facility] 3 03:09:42 Acute cystitis 81501776 Completed 200105/23/2013 Not Available [facility] 3 02:02:32 Benign essential hypertensi on 7188647 Active 2001 Not Available [facility] 3 03:09:42 Skin sensation disturbanc e 22082149 Completed 200305/23/2013 Not Available [facility] 3 02:03:10 Impacted cerumen 68533853 Completed 200105/23/2013 Not Available [facility] 3 02:02:11 Anxiety state 417353629 Active 2001 Not Available [facility] 3 03:09:42 Sprain of spinal ligament 454035990 Completed 200005/23/2013 Not Available [facility] 3 02:04:07 Insomnia 661771903 Active 2001 Not Available [facility] 3 03:09:42 Atopic dermatitis 83057722 Active 2002 Not Available [facility] 3 03:09:42 Nonvenomou s insect bite of multiple sites 496553918 Completed 200205/23/2013 Not Available [facility] 3 02:02:58 Common cold 33285837 Completed 200105/23/2013 Not Available [facility] 3 02:00:26 Knee pain Completed 200405/23/2013 Not Available [facility] 3 02:00:40 Panic disorder without agoraphobi a 25468605 Active 2001 Not Available [facility] 3 03:09:42 Dysmenorrh ea 215315382 Completed 200105/23/2013 Not Available [facility] 3 02:03:01 On examinatio n - a rash Completed 200205/23/2013 Not Available [facility] 3 02:00:47 Female genital organ symptoms 580551559 Completed 200105/23/2013 Not Available [facility] 3 02:03:07 Acute maxillary sinusitis 56353521 Completed 200205/23/2013 Not Available [facility] 3 02:01:41 Displaceme nt of interverte bral disc without myelopathy 64064883 Completed 200705/23/2013 Not Available [facility] 3 02:04:08 Elevated blood-pres sure reading without diagnosis of hypertensi on 149214108 Active 2001 Not Available [facility] 3 03:09:42 Abnormal cervical Papanicola ou smear with human papillomav irus deoxyribon ucleic acid detected 816703223 Active 2001 Not Available [facility] 3 03:09:42 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 Medical [...] 50 mcg/0.25mL dose 08/08/[address] [facility] 08/08/2020 11:11:24 COVID-19, mRNA, LNP-S, PF, 100 mcg/0.5mL dose or 50 mcg/0.25mL dose 09/06/2020 [facility] 14:48:54 Past Encounters Encounter ID Performer Location Encounter Start Date Encounter Closed Date Diagnosis/Indication Diagnosis SNOMED-CT Code Diagnosis ICD10 Code Diagnosis Note [id number] Erik Scott. , [facility] [place], OFFICE [address] [place] [address] 05/26/2001 17:30:00 07/24/2008 02:02:29 [id number] Corinne Oconnor MD [facility], OFFICE [address] [place] [address] 07/19/2001 15:15:00 07/24/2008 02:02:29 [id number] TREATMENT NURSE [facility], OFFICE [address] [place] [address] 07/21/2001 10:30:00 07/24/2008 02:02:29 [id number] Corinne VARGAS, [facility] [place], OFFICE [address] [place] [address] 10/10/2001 14:45:00 07/24/2008 02:02:29 [id number] Kevan Bernard MD , [facility], OFFICE [address] [place] [address] 02/06/2002 15:23:05 07/24/2008 02:02:29 [id number] Guadalupe VALDES , [facility] [place], OFFICE [address] [place] [address] 04/18/2002 16:45:04 07/24/2008 02:02:29 [id number] FP TREATMENT NURSE [facility], [facility] [place], OFFICE [address] [place] [address] 04/16/2002 14:53:38 07/24/2008 02:02:29 [id number] [facility] - [facility] [address] [place] [id number] 05/14/2002 11:04:10 07/24/2008 02:02:29 [id number] Corinne VARGAS, [facility] [place], OFFICE [address] [place] [address] 05/14/2002 10:32:27 07/24/2008 02:02:29 [id number] Corinne VARGAS, [facility] [place], OFFICE [address] [place] [address] 05/28/2002 16:51:58 07/24/2008 02:02:29 [id number] Corinne VARGAS [facility] [place], OFFICE [address] [place] [address] 06/12/2002 16:59:44 07/24/2008 02:02:29 [id number] [facility] - [facility] [place] [address] [place] [id number] 06/29/2002 07:50:35 07/24/2008 02:02:29 [id number] Corinne VARGAS [facility] [place], OFFICE [address] [place] [address] 07/27/2002 16:41:59 07/24/2008 02:02:29 [id number] Corinne VARGAS [facility] [place], OFFICE [address] [place] [address] 08/06/2002 16:30:32 07/24/2008 02:02:29 [id number] Corinne VARGAS, [facility] [place], OFFICE [address] [place] [address] [address] [place] [id number] 08/13/2002 16:53:55 07/24/2008 02:02:29 [id number] [facility] - [facility] [place] [address] [place] [id number] 08/15/2002 08:21:52 07/24/2008 02:02:29 [id number] Corinne VARGAS, [facility] OFFICE [address] [place] [address] DR [place]ima DAS[place] [id number] 10/19/2002 16:43:16 07/24/2008 02:02:29 [id number] Darvin Bradley PA-C , [facility] [place], [address] [place] [id number] 10/29/2002 15:02:50 07/24/2008 02:02:29 [id number] Corinne VARGAS [address] [place] [id number] 12/10/2002 14:59:06 07/24/2008 02:02:29 [id number] Corinne VARGAS, [facility] OFFICE [address] [place] [address] DR [place]ima [place] [id number] 12/21/2002 15:47:16 07/24/2008 02:02:29 [id number] Darvin Bradley PA-C , [address] [place]I[address] [id number] 04/16/2003 16:35:08 04/17/2003 10:44:42 [id number] Corinne VARGAS, [address] [place] [id number] 07/23/2003 16:48:23 07/24/2003 08:55:20 [id number] Erik Scott , [facility] [place], [address] [place] [id number] 09/18/2003 17:08:36 09/20/2003 08:59:19 [id number] Jason Anderson III, MD , [facility] [place], OFFICE [address] [place] [address] [address] [place] [id number] 09/19/2003 14:29:53 09/20/2003 09:22:55 [id number] [facility] - [address] [place] [id number] 09/19/2003 12:37:13 09/19/2003 13:34:23 [id number] Erik Scott. , [facility] [place], OFFICE [address] [place] [address] 09/25/2003 16:26:37 09/26/2003 09:20:14 [id number] Ant Valiente i, PT Physical Therapy, [facility] [place] [address] 08/17/2004 10:22:41 08/17/2004 16:53:47 [id number] Ant Valiente i, PT Physical Therapy, [address] [place] [address] 08/31/2004 13:28:51 08/31/2004 16:56:57 [id number] Ant Valiente i, PT Physical Therapy, [address] [place] [address] 08/16/2007 09:58:35 08/16/2007 09:58:38 [id number] Ant Valiente i, PT Physical Therapy, [address] [place] [address] 08/25/2007 07:21:07 08/25/2007 07:21:21 [id number] Ant Valiente i, PT Physical Therapy, [facility] [place] [address] 09/06/2007 08:16:51 09/06/2007 08:16:58 [id number] Ant Valiente i, PT Physical Therapy, [address] [place] [address] 09/13/2007 09:20:25 09/13/2007 09:20:29 [id number] Ant Valiente i, PT Physical Therapy, [address] [place] [address] 09/29/2007 08:29:22 09/29/2007 08:29:35 Health Concerns Section Related Observation LastModified by Organization Detai ls LastModified Time None Recorded Concern Status LastModified by Organization Details LastModified Time None Recorded Advance Directives Directive None Recorded Payers Insurance Date Sequence Insurance Name Policy Number Policy Alejandre Covered Member ID Alejandre Member ID Guarantor Name 07/18/2020 1 [facility] [id number] Katerin Hernandez [id number] Katerin Jaime 09/28/2012 1 [facility] Cameron Jaime [id number] Katerin Jaime 09/08/2020 1 [facility] [id number] Cameron Jaime [id number] Katerin Jaime OBGyn Episode No OBEpisode recorded.
--- OUTSIDE RECORDS SUMMARY | 2025-01-08 08:19 | XMS_ITS | Patient Health Record ---
Author Organization [facility] Address [address] [place] [address] Care Team Providers Care Beef Killer Name Role Phone SEAN CRAIG Primary Care Provider Sukh Hall [phone] Allergies Allergen (clinical drug ingredient) Drug/Non Drug Allergy documented on EMR Reaction Allergy Type Onset Date Status amoxicillin / clavulanate Augmentin Unknown Drug Allergy Active amoxicillin Amoxicillin Unknown Drug Allergy Act ivan fentanyl Fentanyl (uncoded) N/V Allergy A ctive some adhesives (uncoded) Unknown Allergy Active Reason For Referral No Information Medications Medication SIG (Take, Route, Fr equency, Duration) Notes Start Date End Date Status Gabapentin 500 mg 1 tablet QHS Once a day Active Omeprazole 20 MG TAKE 1 CAPSULE BY [facility] EVERY DAY IN THE MORNING for 90 Active Vitamin B12 1000 MCG 1 tablet Orally Once a day Active Ranitidine HCl 150 MG 1 capsule Orally T wice a day for 30 day(s) 12/06/2018 Active Vitamin D 2000 UNIT 1 tablet Orally Once a day Active Immunizations Vaccine Route Administration Date Status Comme nts Influenza Unknown 06/20/2018 Administered Social History Tobacco Use: Social History Observation Description Date Details (start date - stop date) Never Smoker NA - NA Tobacco Use/Smoking Question Answer Notes Patient is a nonsmoker Alcohol Screen Question Answer Notes Did you have a drink containing alcohol in the p ast year? No Points 0 Interpretation Negative Section Notes: Nonsmoker; no sig alcohol Nonsmoker; no sig alcohol Problems Problem Type SNOMED Code ICD Code Onset Dates Problem Status W/U Status Risk Notes Problem 017225720 Encounter for screening for malignant neoplasm of colon (Z12.11) Active confirmed Problem 419279119 Gastroesophageal reflux disease without esophagitis (K21.9) Active confirmed Problem 92508274 Constipation, unspecified constipation type (K59.00) Active confirmed Problem 0961718 Chronic gastriti s without bleeding, unspecified gastritis type (K29.50) Active confirmed Plan Of Treatment Future Test Test Name Order Date COLONOSCOPY 06/20/2018 Insurance Providers Payer Name Payer Address Payer Phone Subscriber Number Group Number Insured Name Patient Relationship to Insured Coverage Start Date Coverage End Date [facility] [address] [place] [address] [id number] RAMOS LOBATO Self - patient is the insured Medical (General) History Medical History History ICD Code Melanoma Denies ID,DM,CVA,Lung disease,renal dise ase Mild sleep apnea--not using CPAP Negative EGD(small hiatal he rnia) and Colonoscopy in 11/2009 at [facility] with Dr. Solorzano---normal esophageal and colon biopsies Vestibiular migraines and Fibromyalgia-- -takes Gabapentin Colonoscopy August of 2018-nonadenomat ous polyps EGD in 08/2018--small hiatal hernia and gastritis, but no esophagitis-- biopsies negative for H. pylori and Lofton's esophagus, Surgical History Surgery Date(Month/Year) Laproscopy - endometreosis 2002 Melanoma--left calf 2008
== END 2025-01-08 08:17 | disposition home or self-care (01) ==
LOC: HO.UMASIMG 08:16
PROVIDERS: Visit Provider Family Medicine
DX: R11.0 Nausea (principal)
CPT/HCPCS: 76705

== ENCOUNTER 2025-01-15 06:40 | Outpatient (REF) | payer OTHER, SELFPAY ==
--- NOTE | ~2025-01-15 | US_ITS ---
EXAMINATION: US ABDOMEN LIMITED CLINICAL INFORMATION: Hepatomegaly.. COMPARISON: January 08, 2025 TECHNIQUE: Real-time ultrasound upper quadrant abdomen using grayscale technique. FINDINGS: Liver measures 15 cm there are technologist. Coarse echotexture. No gross solid or cystic lesion detected. No intrahepatic biliary ductal dilatation. Spleen measures 10 cm. No focal lesion. No peripancreatic fluid collections. No gross ascites. US/US abdomen limited IMPRESSION: Normal liver size, according toTechnologist measurements. Normal-sized spleen. No ascites. Electronically signed by: Adryan Isaac MD 01/15/2025 12:58 PM EDT
== END 2025-01-15 06:41 | disposition home or self-care (01) ==
LOC: HO.UMASIMG 06:40
PROVIDERS: Visit Provider Family Medicine
DX: K76.0 Fatty (change of) liver, not elsewhere classified (principal)
CPT/HCPCS: 76705

== ENCOUNTER → 2025-01-15 08:39 | Outpatient (BNV) | payer OTHER, SELFPAY | PROVIDERS: Visit Provider Radiology Diagnostic Radiology | DX: R16.0 Hepatomegaly, not elsewhere classified (principal) | CPT/HCPCS: 76705 ==

== ENCOUNTER 2025-05-14 12:24 | Outpatient (AMB) | payer OTHER, SELFPAY ==
--- NOTE | 2025-05-14 12:25 | A.OFFVIS_ITS ---
Vital Signs 05/14/25 12:26 Height 5 ft 5 in Weight 233 lb BMI 38.8 BP 140/82 H Blood Pressure Location Rt brachial Position Sitting Pulse 70 Pulse Source Pulse Oximeter Pulse Oximetry (%) 99 Oxygen Delivery Method Room Air Intake Visit Reasons: pt requested new provider, gerd, fatty liver Intake Note: Est pt for mgmt of GERD + fatty liver. CC; Pt wishes to discuss new diagnosis of fatty liver per most recent US in December of this year. Reports that she has been taking steps to address this on her own while waiting for the appt. Has seen a high energy forming equipment operator and is working on losing weight. Pt also wishes to discuss gallbladder polyp which appears to have increased in size since last imaging according to the most recent report. Oil Winterizer Required: No Accompanied by: Self / Same As Patient Allergies amoxicillin Allergy (Severe, Verified 05/14/25 12:26) GI distress clavulanic acid (From Augmentin) Allergy (Severe, Verified 05/14/25 12:26) GI distress HPI HPI pt requested new provider, gerd, fatty liver: Details: 60-year-old female seen in the past by Ivy talbert here for a 2nd opinion for management of GERD and fatty liver. Her primary care provider is [facility]. PMX Obesity Fibromyalgia syndrome Migraines Anxiety GERD Cervical degenerative disc disease Paresthesias of the upper extremities * SURGICAL HISTORY Laparoscopy for endometriosis Tonsillectomy EGD 2019-son Colonoscopy 2019-son normal * ALLERGIES Augmentin [employer] LABS: Labs from [facility] 07/06/2023 relatively unremarkable CBC with mildly elevated MCH but no anemia per se, normal renal panel, the AST/ALT TSH 2.139, B12 normal at over 1000 US ABD 01/15/2025 FINDINGS: Liver measures 15 cm there are technologist. Coarse echotexture. No gross solid or cystic lesion detected. No intrahepatic biliary ductal dilatation. Spleen measures 10 cm. No focal lesion. No peripancreatic fluid collections. No gross ascites. US/US abdomen limited IMPRESSION: Normal liver size, according toTechnologist measurements. Normal-sized spleen. No ascites. TODAYS VISIT [facility] Medical History Hiatal hernia Fibromyalgia Surgical History S/P laparoscopy Hx of tonsillectomy History of esophagogastroduodenoscopy (EGD) H/O colonoscopy Social History Alcohol intake: former Patient Tobacco Use Status: Never used Tobacco Review of Systems Const Denies fatigue, Denies fever(s), Denies night sweats, Denies poor appetite and Reports weight loss (Intentional dieting) Eyes Details: glasses Reports requires corrective lenses ENT Reports Normal hearing present, Denies dental pain, Denies dysphagia, Denies hearing loss, Denies mouth pain, Denies odynophagia, Denies throat swelling, Denies tongue swelling and Reports other (Dentition adequate) Card Reports no additional complaints Resp Reports no additional complaints GI Details: Denies abdominal pain, Denies melena, Denies bloating, Denies hematochezia, Denies constipation, Denies GI cramping, Denies dysphagia, Denies excessive flatus, Denies early satiety, Reports heartburn, Denies diarrhea, Reports loose stools, Denies nausea, Denies odynophagia, Denies vomiting and Denies hematemesis Skin/Breast Denies pruritus, Denies lesions, Denies rash and Denies jaundice Neuro Reports Normal hearing present and Denies Abnormal speech present Endo Denies fatigue Aller/Immun Denies throat swelling and Denies tongue swelling Physical Exam Vital Signs: Last Vital Signs Pulse 70 05/14/25 12:26 BP 140/82 H 05/14/25 12:26 Pulse Ox 99 05/14/25 12:26 Oxygen Delivery Method Room Air 05/14/25 12:26 BMI result Body Mass Index 38.8 Const General: cooperative, no acute distress, well developed and well groomed Nutritional Appearance: well nourished and obese Orientation/consciousness: oriented to person, oriented to place and oriented to time Limitations: No language barrier HEENT Head: Yes normocephalic and Yes atraumatic Eyes General: appearance normal, both eyes and all related structures Pupils: Equal, round and reactive pupils present Neck Neck: Yes normal visual inspection and Yes no lymphadenopathy Thyroid: Thyroid normal Resp Effort & Inspection: normal respiratory effort and able to speak in complete sentences Auscultation: clear to auscultation bilaterally Cardio Rate: regular rate Rhythm: regular rhythm Heart sounds: Normal, physiologic split S2 sound present Peripheral pulses: radial pulses present and posterior tibial pulses present GI Inspection: No distended, No Abdominal panniculus present and Yes obesity Palpation (GI): Soft to palpation, nontender, no guarding, not rigid and No hepatosplenomegaly present Percussion: Yes normal to percussion Auscultation: normal bowel sounds Rectal Exam - Female: deferred Skin General skin exam: no rashes or lesions noted, turgor normal, skin not dry, no jaundice, No spider nevi and no striae Rashes: no rashes Nails: normal Neuro General: oriented to person, oriented to place and oriented to time Cranial nerves: Yes Equal, round and reactive pupils present and Yes Normal hearing present Speech: No Abnormal speech present Extrem General: Yes normal to inspection, No clubbing, No cyanosis and No edema Psych Appearance: grossly normal and well kempt Mental Status: mental status grossly normal Speech and movement: Normal speech and movement present Affect: normal affect Attitude: cooperative Thought process: Normal thought process present and not confabulating Thought content: Normal thought content present Insight: Good insight present (Psych) Judgement: Good judgement present (Psych) Assessment & Plan Assessment & Plan (1) Hepatic steatosis: Code(s): K76.0 - Fatty (change of) liver, not elsewhere classified Category: Medical Plan A 60-YEAR-OLD FEMALE seen in the past by Ivy Gonzalez and treated in the past for GERD and gastritis history discuss new concerns a possible fatty liver and a gallbladder polyp. Apparently, she was upset after her endoscopy because the nurse practitioner at that time, when she asked about why they used ketamine on her told her that they absolutely would not do that and that did not happen. However, it is clearly in her record that they did utilize ketamine because she had apneic periods for the propofol. I reassure her that I can see this in her record and I am not questioning her report. Unfortunately, this seem to adversely affect the patient provider relationship so she requested CBCs different provider. She continues to do well on her pantoprazole in the morning and famotidine at night. 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 She is currently in the process of losing weight, mostly in response to her be en told she had fatty liver, and this may help to control her GERD and we could then discuss PPI weaning strategies. She was educated about the PPI rebound effect. With regards to the gallbladder polyp it appears it was about 4 mm a year 2 ago (she gets a lot of her testing done at [facility] so the inclusive 80 in the chart is sketchy) but a repeat ultrasound by her primary care provider seems to indicate has grown to 7 mm. We discussed the differential diagnosis for this, this could potentially be a calcification similar to a gallstone growing with her weight loss but the worse case scenario would be that it was a form of gallbladder cancer. She is very much against the idea of cholecystectomy. Apparently she worked in [employer] for many years and she seems to feel that most people suffer greatly after having a cholecystectomy. I explained to her that too many people do suffer because they over produce bile and no one seems to remember that a simple bile binding agent only cholestyramine or sucralfate can treat this problem. However, she is agreeable to getting a little more of a workup in terms of an autoimmune workup to exclude CBC etc.. Her last ultrasound does not show fatty replacement but does so some coarse contours of the liver with it mildly enlarged. This could just be genetic, but we will get a fibrosis panel to try to give her a better idea about this. It appears that her transaminases were normal about a year ago. She is educated that most people who go on to develop cirrhosis and liver cancer with fatty liver tend to be those that either gain a great deal more weight, drink alcohol daily basis, or have uncontrolled blood sugars. It is also possible that there is another confounding factor like an undiagnosed autoimmune problems etc.. However those things aside only tend to 20% of people who have fatty liver we will go on to develop cirrhosis or liver cancer in their lifetime. I say this because she was very upset about the diagnosis and was feeling very guilty that she ruined her own health. I believe that she should continue her dietary restrictions for her best overall health but I do not think she needs guilt or anxiety around this particular condition. She has had some changes in her bowels recently from softer stools to at times loose stools but this may be related to her more healthful diet. Prior to this she was undergoing a great deal of stress at work and was eating more on the run, snacking and generally not participating in his helpful a diet. Being that her last colonoscopy was fiber less years ago I do not think this is a harbinger of any severe disease. At this time her primary care provider is ordering her ultrasounds and prescribing her acid reducing therapy. But she would like to follow with our service for the gallbladder polyp and I recommend that repeat repeat the ultrasound or even consider CAT scan sometime mid next summer. The meantime I will see her again in a few weeks to go over the blood tests I am ordering today. Return office visit in 4-6 weeks Orders: Orders Mitochondrial Antibody Today K76.0 - Fatty (change of) liver, not elsewhere classified Liver Fibrosis Pnl Today K76.0 - Fatty (change of) liver, not elsewhere classified EMILEE Reflex Titer and Pattern Today K76.0 - Fatty (change of) liver, not elsewhere classified Smooth Muscle Antibody Today K76.0 - Fatty (change of) liver, not elsewhere classified Liver Panel Today K76.0 - Fatty (change of) liver, not elsewhere classified Coding Level of Care Code Est Pt Level 4 (16606) Diagnoses Hepatic steatosis K76.0 Time Spent (min) 45
[2025-05-14 12:26] VITALS: BP 140/82; PULSE 70; O2SAT 99; BMI 38.8
--- OUTSIDE RECORDS SUMMARY | 2025-05-14 14:10 | XMS_ITS | Encounter Summary ---
Author Organization [facility] Address [address] [place] [address] Phone Care Team Providers Care Oral Surgery Physician Name Role Phone Evens Escalante MD Unavailable [phone] Indy Gaytan MD Unavailable [phone] Wendy Torres MD Primary Care Provider + Encounter Details Date Type Department Care Team (Late st Contact Info) Description 09/13/2023 Procedure Pass [facility] [place] [address] Social History Tobacco Use Types Packs/Day Years Used Date Smoking Tobacco: Never Passive Smoke Exposure: Never Smokeless Tobacco: Never Alcohol Use Standard Drinks/Week Comments No 0 (1 standard drink = 0.6 oz pur e alcohol) Education Answer Date Recorded Are you interested in more education? Not on héctor e 10/28/2022 Are you concerned about learning? Not on file 10/28/2022 No 10/28/2022 No 10/28/2022 Digital Access Answer Date Recorded No 11/27/2022 No 11/27/2022 Reliable internet access at home? Not on file 11/27/2022 Device with a working camera? Not on file Intimate Partner Violence Answer Date R ecorded Are you denied basic needs s uch as food, clothing, or medical care? No 07/15/2023 In the past 12 months have y ou been in a relationship with a person who hurts, threatens, or tries to control you? No 07/15/2023 Are you denied basic needs s uch as food, clothing, or medical care? No 07/15/2023 In the past 12 months have y ou been in a relationship with a person who hurts, threatens, or tries to control you? No 07/15/2023 Comments No Sex and Gender Information Value Date Recorded Sex Assigned at Female 03/29/2018 9:50 AM EDT Legal Sex Female 6:49 PM EST Gender Identity Female 03/29/2018 9:50 AM EDT Sexual Orientation Straight 03/29/2018 9: 50 AM EDT documented as of this encounter Plan of Treatment Upcoming Encounters Date Type Department Care Team (Late st Contact Info) Description 07/12/2024 Procedure Pass [address] [address] 06/14/2025 2:15 PM EST Office Visit [facility] [address] [place] [address] Wendy Torres MD [address] [place] [phone] [email or web address] Chris Barrientos, PT [address] [place] [address] 07/02/2025 2:15 PM EST Office Visit [facility] [address] [place] [address] Wendy Torres MD [address] [place] [phone] [email or web address] Chris Barrientos, PT [address] [place] [address] 07/05/2025 8:15 AM EST Appointment [address] [address] Todd Breen MD [address] [place] [address], [address] [place] [address] 07/10/2025 10:30 AM EST Office Visit [address] [address] Wendy Torres MD [address] [place] [phone] [email or web address] Chris Barrientos, PT [address] [place] [address] 07/12/2025 10:30 AM EST Office Visit [address] [address] Wendy Torres MD [address] [place] [phone] [email or web address] Chris Barrientos, PT [address] [place] [address] 07/16/2025 10:30 AM EST Office Visit [address] [address] Wendy Torres MD [address] [place] [address] [email or web address] Chris Barrientos, PT [address] [place] [address] 07/18/2025 10:30 AM EST Office Visit [address] [phone] Wendy Torres MD [address] [place] [address] [email or web address] Chris Barrientos, PT [address] [place] [address] 07/24/2025 10:30 AM EST Office Visit [address] [address] Wendy Torres MD [address] [place] [address] [email or web address] Chris Barrientos, PT [address] [place] [address] 07/26/2025 10:30 AM EST Office Visit [address] [address] Wendy Torres MD [address] [place] [phone] [email or web address] Chris Barrientos, PT [address] [place] [address] 08/08/2025 12:00 PM EST Office Visit [facility] [address] [place] [address] Todd Bailey MD [address] [place] [address], 2nd [place] [address] 08/28/2025 9:30 AM EST Office Visit [facility] [address] [place] [address] Srinivas Pemberton MD [address] [place] [phone] 09/02/2025 11:00 AM EST Office Visit [facility] [address] [place] [address] Raheem Vaughn MD [address] [place] [phone] documented as of this encounter Visit Diagnoses Not on filedocumented in this encounter Care Teams Oral Surgery Physician Relationship Specialty Start Date End Date Wendy Torres MD [address] [place] [address] PCP - General Family Medicine 05/14/21 Evens Esaclante MD [address] [place] [address], [address] [place] [address] Historical LMR Provider 04/24/17 Indy Gaytan MD [address] [place] [address] Orthopedics & Sports Medicine, [place] [address] Historical LMR Provider 04/24/17 documented as of this encounter Additional Source Comments The information contained in this document represents components of the legal health record. It is not the complete legal health record.[facility]
--- OUTSIDE RECORDS SUMMARY | 2025-05-14 14:10 | XMS_ITS | Encounter Summary ---
Author Organization [facility] Address [address] [place] [address] Phone Care Team Providers Care Photographer'S Model Name Role Phone Evens Escalante MD Unavailable [phone] Indy Gaytan MD Unavailable [phone] Wendy Torres MD Primary Care Provider + Encounter Details Date Type Department Care Team (Late st Contact Info) Description 06/09/2023 Procedure Pass [facility] - [address] [place] [address] Social History Tobacco Use Types Packs/Day Years Used Date Smoking Tobacco: Never Smokeless Tobacco: Never Alcohol Use Standard [...] with a working camera? Not on file Comments No Sex and Gender Information Value Date Recorded Sex Assigned at Female 03/29/2018 9:50 AM EDT Legal Sex Female 6:49 PM EST Gender Identity Female 03/29/2018 9:50 AM EDT Sexual Orientation Straight 03/29/2018 9: 50 AM EDT documented as of this encounter Plan of Treatment Upcoming Encounters Date Type Department Care Team (Late st Contact Info) Description 07/12/2024 Procedure Pass [address] [address] 06/14/2025 2:15 PM EST Office Visit [facility] [address] [place] [address] Wendy Torres MD [address] [place] [phone] [email or web address] Chris Barrientos, PT [address] [place] [address] 07/02/2025 2:15 PM EST Office Visit [address] [address] Wendy Torres MD [address] [place] [address] [email or web address] Chris Barrientos, PT [address] [place] [address] 07/05/2025 8:15 AM EST Appointment [address] [address] Todd Breen MD [address] [place] [address], [facility] [address] [place] [address] 07/10/2025 10:30 AM EST Office Visit [address] [address] Wendy Torres MD [address] [place] [phone] [email or web address] Chris Barrientos, PT [address] [place] [address] [email or web address] 07/12/2025 10:30 AM EST Office Visit [address] [address] Wendy Torres MD [address] [place] [address] [email or web address] Chris Barrientos, PT [address] [place] [address] [email or web address] 07/16/2025 10:30 AM EST Office Visit [address] [address] Wendy Torres MD [address] [place] [phone] [email or web address] Chris Barrientos, PT [address] [place] [address] [email or web address] 07/18/2025 10:30 AM EST Office Visit [address] [address] Wendy Torres MD [address] [place] [address] [email or web address] Chris Barrientos, PT [address] [place] [address] [email or web address] 07/24/2025 10:30 AM EST Office Visit [address] [phone] Wendy Torres MD [address] [place] [phone] [email or web address] IlianaChris, PT [address] [place] [address] 07/26/2025 10:30 AM EST Office Visit [facility] [address] [place] [address] Wendy Torres MD [address] [place] [address] [email or web address] Iliana Chris, PT [address] [place] [address] 08/08/2025 12:00 PM EST Office Visit [facility] [address] [place] [address] Todd Bailey MD [address] [place] [address] 08/28/2025 9:30 AM EST Office Visit [facility] [address] [place] [address] Srinivas Pemberton MD [address] [place] [address] 09/02/2025 11:00 AM EST Office Visit [facility] [address] [place] [address] Raheem Vaughn MD [address] [place] [phone] documented as of this encounter Visit Diagnoses Not on filedocumented in this encounter Care Teams Photographer'S Model Relationship Specialty Start Date End Date Wendy Torres MD [address] [place] [address] PCP - General Family Medicine 05/14/21 Evens Escalante MD [address] [place] [address] [address] [place] [address] Historical LMR Provider 04/24/17 Indy Gaytan MD [address] [place] [address] Orthopedics & Sports Medicine, [place] [address] Historical LMR Provider 04/24/17 documented as of this encounter Additional Source Comments The information contained in this document represents components of the legal health record. It is not the complete legal health record.[facility]
--- OUTSIDE RECORDS SUMMARY | 2025-05-14 14:10 | XMS_ITS | Encounter Summary ---
Author Organization [facility] Address [address] [place] [address] Phone Care Team Providers Care Office Machines Wirer Name Role Phone Jamila Steele MD Unavailable [email or web address] Gisel Liu MD Unavailable [phone] Evens Escalante MD Unavailable [phone] Indy Gaytan MD Unavailable [phone] Wendy Torres MD Primary Care Provider + Wendy Torres MD Primary Care Provider + Encounter Details Date Type Department Care Team (Late st Contact Info) Description 09/01/2018 Transcribe Orders [address] [place] [address] Wendy Torres MD [address] [place] [address] [email or web address] General medical exam (Primary Dx); Encounter for immunization; Gastroesophageal reflux disease without esophagitis; Fibromyalgia Social History Tobacco Use Types Packs/Day Years Used Date Smoking Tobacco: Never Smokeless Tobacco: Never Alcohol Use Standard Drinks/Week Comments No 0 (1 standard drink = 0.6 oz pur e alcohol) Comments No Sex and Gender Information Value Date Recorded Sex Assigned at Female 03/29/2018 9:50 AM EDT Legal Sex Female 6:49 PM EST Gender Identity Female 03/29/2018 9:50 AM EDT Sexual Orientation Straight 03/29/2018 9: 50 AM EDT documented as of this encounter Plan of Treatment Upcoming Encounters Date Type Department Care Team (Late st Contact Info) Description 07/12/2024 Procedure Pass [facility], [address] [address] 06/14/2025 2:15 PM EST Office Visit [facility] Services [address] [place] [address] Wendy Torres MD [address] [place] [address] [email or web address] Chris Barrientos, PT [address] [place] [address] [email or web address] 07/02/2025 2:15 PM EST Office Visit [facility] Services [address] [place] [address] Wendy Torres MD [address] [place] [address] [email or web address] Chris Barrientos, PT [address] [place] [address] [email or web address] 07/05/2025 8:15 AM EST Appointment [facility], [address] [address] Todd Breen MD [address] [place] [address], [facility] [address] [place] [address] 07/10/2025 10:30 AM EST Office Visit [address] [address] Wendy Torres MD [address] [place] [address] [place] [address] [email or web address] Chris Barrientos, PT [address] [place] [address] 07/12/2025 10:30 AM EST Office Visit [address] [address] Wendy Torres MD [address] [place] [address] [email or web address] Chris Barrientos, PT [address] [place] [address] 07/16/2025 10:30 AM EST Office Visit [address] [address] Wendy Torres MD [address] [place] [address] [email or web address] Chris Barrientos, PT 4 [place] [address] [email or web address] 07/18/2025 10:30 AM EST Office Visit [address] [address] Wendy Torres MD [address] [place] [address] [email or web address] Chris Barrientos, PT [address] [place] [address] 07/24/2025 10:30 AM EST Office Visit [address] [address] Wendy Torres MD [address] [place] [address] [email or web address] Chris Barrientos, PT [address] [place] [address] 07/26/2025 10:30 AM EST Office Visit [facility] [address] [place] [address] Wendy Torres MD [address] [place] [address] [email or web address] Chris Barrientos, PT [address] [place] [address] 08/08/2025 12:00 PM EST Office Visit [facility] Neurology [address] [place] [address] Todd Bailey MD [address] [place] [address] 08/28/2025 9:30 AM EST Office Visit [facility] [address] [place] [address] Srinivas Pemberton MD [address] [place] [address] 09/02/2025 11:00 AM EST Office Visit [facility] [address] [place] [address] Raheem Vaughn MD [address] [place] [address] documented as of this encounter Results * 25-OH vitamin D (09/01/2018 7:40 AM EST) 25 [place] VIT D (TOTAL) 47 30 - 60 ng/mL [facility] Blood 09/01/2018 7:40 AM EST 09/01/2018 7:44 AM EST us Wendy Torres MD LAB BLOOD BKR ORDERABLES Final Result Performing Organization Address [facility] Co de Phone Number [address] [address] * Vitamin B12 (09/01/2018 7:40 AM EST) Pathologist [facility] VITAMIN B12 618 232 - 1,245 pg/mL [facility] Blood 09/01/2018 7:40 AM EST 09/01/2018 7:44 AM EST us Wendy Torres MD LAB BLOOD BKR ORDERABLES Final Result Performing Organization Address [facility] Co de Phone Number [address] [address] * TSH with reflex (09/01/2018 7:40 AM EST) Pathologist [facility] TSH 3.48 0.27 - 4.20 uIU/mL [facility] Blood 09/01/2018 7:40 AM EST 09/01/2018 7:44 AM EST us Wendy Torres MD LAB BLOOD BKR ORDERABLES Final Result Performing Organization Address [facility] Co de Phone Number [address] [address] * (ABNORMAL) Lipid panel (09/01/2018 7:40 AM EST) Pathologist [facility] HDL 67 mg/dL [facility] Comment: Interpretation <40 mg/dL: Low HDL cholesterol (major risk factor for CHD) Greater than or equal to 60 mg/dL: High HDL cholesterol ( negative risk factor for CHD) HDL - cholesterol is affected by a number of factors, e.g. smoking, excerise, hormones, sex and age. CHOLESTEROL 171 0 - 240 mg/dL [facility] TRIGLYCERIDES 49 30 - 160 mg/dL [facility] LDL 94 50 - 129 mg/dL [facility] Comment: LDL levels in terms of risk for coronary heart disease: <100 mg/dL: Optimal 100-129 mg/dL: Near or above optimal 130-159 mg/dL: Borderline high 160-189 mg/dL: High >190 mg/dL: Very High CARDIAC RISK RATIO 2.6(L) 3.3 - 4.4 C [facility] Blood 09/01/2018 7:40 AM EST 09/01/2018 7:44 AM EST us Wendy Torres MD LAB BLOOD BKR ORDERABLES Final Result [facility] [address] [place] [address] * Comprehensive metabolic panel (09/01/2018 7:40 AM EST) SODIUM 142 133 - 146 mmol/L [facility] POTASSIUM 4.3 3.3 - 5.1 mmol/L [facility] CHLORIDE 105 96 - 108 mmol/L [facility] CO2 27 21 - 35 mmol/L [facility] BUN 12 6 - 19 mg/dL [facility] CREATININE 0.60 0.5 - 1.5 mg/dL [facility] GLUCOSE 86 70 - 99 mg/dL [facility] ALBUMIN 4.7 3.9 - 4.8 g/dL [facility] TOTAL PROTEIN 7.2 6.5 - 8.0 g/dL [facility] CALCIUM 9.5 8.4 - 10.3 mg/dL [facility] ALKALINE PHOSPHATASE 93 39 - 117 U/L [facility] TOTAL BILIRUBIN 0.3 0.0 - 1.2 mg/dL [facility] Comment: Results from certain multiple myeloma patients may show a positive bias in recovery. Not all multiple myeloma patients show the bias and severity of the bias may vary between patients. In very rare cases, gammopathy, in particular type IgM (Waldenstrom's macroglobulinemia), may cause unreliable results. AST 20 0 - 37 U/L [facility] ALT 20 0 - 40 U/L [facility] GLOBULIN 2.5 1 - 4.8 g/dL [facility] EGFR 106 >59 mL/min/1.7 3m2 [facility] Comment:If patient is black, multiply result by 1.159. Estimated glomerular filtration rate calculated using the CKD-EPI equation. ANION GAP 14 10 - 20 mmol/L [facility] Blood 09/01/2018 7:40 AM EST 09/01/2018 7:44 AM EST us Wendy Torres MD LAB BLOOD BKR ORDERABLES Final Result [address] [address] * (ABNORMAL) CBC and differential (09/01/2018 7:40 AM EST) WBC 3.85 3.40 - 11.20 K/uL [facility] RBC 3.65(L) 3.80 - 4.80 M/uL [facility] HGB 12.2 12.0 - 15.0 g/dL [facility] HCT 36.1 36.0 - 46.0 % [facility] PLT 226 130 - 400 K/uL [facility] MCV 98.9(H) 79.0 - 98.0 fL [facility] MCH 33.4 27.0 - 34.8 pg [facility] MCHC 33.8 31.5 - 36.0 g/dL [facility] RDW 11.7 10.8 - 14.6 % [facility] MPV 10.2 9.4 - 12.4 fl [facility] NRBC 0.00 0.00 /100 WBCs [facility] ABSOLUTE NRBC 0.00 0.00 K/uL [facility] DIFF METHOD Auto [facility] NEUTS 51.5 45.30 - 77.70 % [facility] LYMPHS 35.1 12.30 - 39.70 % [facility] MONOS 9.4 4.10 - 12.80 % [facility] EOS 2.1 0 - 7.2 % [facility] BASOS 1.6 0 - 2.80 % [facility] Granulocytes, immature (%) 0.3 0.0 - 0.9 % [facility] ABSOLUTE NEUTS 1.99 1.40 - 7.70 K/uL [facility] ABSOLUTE LYMPHS 1.35 0.60 - 3.20 K/uL [facility] ABSOLUTE MONOS 0.36 0.11 - 0.59 K/uL [facility] ABSOLUTE EOS 0.08 0.01 - 0.50 K/uL [facility] ABSOLUTE BASOS 0.06 0.00 - 0.08 K/uL [facility] Granulocytes, immature 0.01 0.00 - 0.05 K/uL [facility] Blood 09/01/2018 7:40 AM EST 09/01/2018 7:44 AM EST us Wendy Torres MD LAB BLOOD BKR ORDERABLES Final Result Performing Organization Address City/State/[facility] Co de Phone Number [address] [address] documented in this encounter Visit Diagnoses Diagnosis General medical exam- Primary Unspecified general medical examination Encounter for immunization Gastroesophageal reflux disease without esophagitis Esophageal reflux Fibromyalgia Unspecified myalgia and myositis documented in this encounter Care Teams Office Machines Wirer Relationship Specialty Start Date End Date Wendy Torres MD [address] [place] [address] [email or web address] PCP - General Family Medicine 03/17/18 05/13/21 Wendy Torres MD [address] [place] [address] PCP - General Family Medicine 05/14/21 Jamila Steele MD [email or web address] Historical LMR Provider 04/24/1707/11 Gisel Liu MD [address] [facility], 2nd [place] [address] Historical LMR Provider 04/24/17 Evens Escalante MD [address] [facility], [address] [place] [address] Historical LMR Provider 04/24/17 Indy Gaytan MD [address] [place] [address] [facility], [place] [address] Historical LMR Provider 04/24/17 documented as of this encounter Additional Source Comments The information contained in this document represents components of the legal health record. It is not the complete legal health record.[facility]
--- OUTSIDE RECORDS SUMMARY | 2025-05-14 14:10 | XMS_ITS | Encounter Summary ---
Author Organization [facility] Address [address] [place] [address] Phone Care Team Providers Care Wig Stylist Name Role Phone Evens Escalante MD Unavailable [phone] Indy Gaytan MD Unavailable Wendy Torres MD Primary Care Provider + Encounter Details Date Type Department Care Team (Late st Contact Info) Description 06/09/2023 Transcribe Orders Virtual Department 30 [place] [address] Wendy Torres MD [address] [place] [address] [email or web address] Breast screening (Primary Dx) Social History Tobacco Use Types Packs/Day Years [...] st Contact Info) Description 07/12/2024 Procedure Pass [address] [address] 06/14/2025 2:15 PM EST Office Visit [address] [address] Wendy Torres MD [address] [place] [address] [email or web address] Chris Barrientos, PT 4 [place] [address] 07/02/2025 2:15 PM EST Office Visit [address] [address] Wendy Torres MD [address] [place] [address] [email or web address] Chris Barrientos, PT 4 [place] [address] 07/05/2025 8:15 AM EST Appointment [address] [address] Todd Breen MD [address] [place] [address], [address] [place] [address] 07/10/2025 10:30 AM EST Office Visit [facility] Services [address] [place] [address] Wendy Torres MD [address] [place] [address] [email or web address] Chris Barrientos, PT 4 [place] [address] 07/12/2025 10:30 AM EST Office Visit [address] [address] Wendy Torres MD [address] [place] [address] [email or web address] Chris Barrientos, PT 4 [place] [address] 07/16/2025 10:30 AM EST Office Visit [address] [address] Wendy Torres MD [address] [place] [address] [email or web address] Chris Barrientos, PT [address] [place] [address] 07/18/2025 10:30 AM EST Office Visit [address] [address] Wendy Torres MD [address] [place] [address] [email or web address] Chris Barrientos, PT 4 [place] [address] 07/24/2025 10:30 AM EST Office Visit [address] [address] Wendy Torres MD [address] [place] [address] [email or web address] Chris Barrientos, PT 4 [place] [address] 07/26/2025 10:30 AM EST Office Visit [facility] [address] [place] [address] Wendy Torres MD [address] [place] [address] [email or web address] Chris Barrientos, PT 4 [place] [address] 08/08/2025 12:00 PM EST Office Visit [facility] Neurology [address] [place] [address] Todd Bailey MD [address] [place] [address] 08/28/2025 9:30 AM EST Office Visit [facility] [address] [place] [address] Srinivas Pemberton MD [address] [place] [address] 09/02/2025 11:00 AM EST Office Visit [facility] [address] [place] [address] Raheem Vaughn MD [address] [place] [address] documented as of this encounter Results * BI MAMMOGRAM SCREENING WITH TOMOSYNTHESIS WITH CAD (BILATERAL) (07/29/2023 7:38 AM EST) Anatomical Region Laterality Modality Breast Left, Breast Right, Breast Bilateral Bila teral Mammography 08/02/2023 10:3 0 AM EST Impressions 08/02/2023 4:34 PM EST No mammographic signs of malignancy. Annual screening is recommended. BI-RADS CATEGORY: 1 - Negative. DENSITY: There are scattered fibroglandular densities. Narrative 08/02/2023 4:34 PM EST Bilateral mammography is performed in conjunction with computed aided detection. 3-D tomography along with 2-D C view imaging was also performed. Comparison made to previous dated as far back as 05/27/2017 and as recent as 06/07/2022. No suspicious masses, areas of architectural distortion or suspicious microcalcifications. Procedure Note Marco Antonio Lyman MD - 08/02/2023 Bilateral mammography is performed in conjunction with computed aideddetection. 3-D tomography along with 2-D C view imaging was alsoperformed. Comparison made to previous dated as far back as 05/27/2017 andas recent as 06/07/2022. No suspicious masses, areas of architectural distortion or suspiciousmicrocalcifications. IMPRESSION: No mammographic signs of malignancy. Annual screening is recommended. BI-RADS CATEGORY: 1 - Negative. DENSITY: There are scattered fibroglandular densities. us Wendy Torres MD IMG MG EXAMS Final Re sult documented in this encounter Visit Diagnoses Diagnosis Breast screening- Primary Breast screening, unspecified Breast screening Breast screening, unspecified documented in this encounter Care Teams Wig Stylist Relationship Specialty Start Date End Date Wendy Torres MD [address] [place] [address] PCP - General Family Medicine 05/14/21 Evens Escalante MD [address] [facility], [address] [place] [address] [email or web address] Historical LMR Provider 04/24/17 Indy Gaytan MD [address] [place] [address] Orthopedics & Sports Medicine, [place] [address] [email or web address] Historical LMR Provider 04/24/17 documented as of this encounter Additional Source Comments The information contained in this document represents components of the legal health record. It is not the complete legal health record.[facility]
--- OUTSIDE RECORDS SUMMARY | 2025-05-14 14:10 | XMS_ITS | Encounter Summary ---
Author Organization [facility] Address [address] [facility] [address] [place] [address] Phone Care Team Providers Care Manager Physical Name Role Phone Evens Escalante MD Unavailable [phone] Indy Gaytan MD Unavailable Wendy Torres MD Primary Care Provider + Encounter Details Date Type Department Care Team (Late st Contact Info) Description 08/18/2023 Transcribe Orders Virtual Department 30 [place] [address] Wendy Torres MD [address] [place] [address] [email or web address] Localized swelling, mass and lump, trunk (Primary Dx) Social History Tobacco Use Types [...] st Contact Info) Description 07/12/2024 Procedure Pass [facility], Ct Scan - [address] [address] 06/14/2025 2:15 PM EST Office Visit [facility] [address] [place] [address] Wendy Torres MD [address] [place] [address] [email or web address] Chris Barrientos, PT 4 [place] [address] 07/02/2025 2:15 PM EST Office Visit [facility] [address] [place] [phone] Wendy Torres MD [address] [place] [address] [email or web address] Chris Barrientos, PT 4 [place] [address] 07/05/2025 8:15 AM EST Appointment [facility], Ct Scan - [address] [address] Todd Breen MD 22 [facility], [address] [place] [address] 07/10/2025 10:30 AM EST Office Visit [address] [address] Wendy Torres MD [address] [place] [address] [email or web address] Chris Barrientos, PT 4 [place] [address] 07/12/2025 10:30 AM EST Office Visit [address] [address] Wendy Torres MD [address] [place] [address] [email or web address] Chris Barrientos, PT 4 [place] [address] 07/16/2025 10:30 AM EST Office Visit [address] [address] Wendy Torres MD [address] [place] [address] [email or web address] Chris Barrientos, PT 4 [place] [address] 07/18/2025 10:30 AM EST Office Visit [address] [address] Wendy Torres MD [address] [place] [address] [email or web address] Chris Barrientos, PT 4 [place] [address] 07/24/2025 10:30 AM EST Office Visit [address] [address] Wendy Torres MD [address] [place] [address] [email or web address] Chris Barrientos, PT 4 [place] [address] 07/26/2025 10:30 AM EST Office Visit [address] [address] Wendy Torres MD [address] [place] [address] [email or web address] Chris Barrientos, PT 4 [place] [address] 08/08/2025 12:00 PM EST Office Visit [facility] Neurology [address] [place] [address] Todd Bailey MD [address] [place] [address], 2nd [place] [address] 08/28/2025 9:30 AM EST Office Visit [facility] [address] [place] [address] Srinivas Pemberton MD 30 [place] [address] 09/02/2025 11:00 AM EST Office Visit [facility] Medicine [address] [facility] [place] [address] [place] [address] Raheem Vaughn MD 10 [facility] 2nd [place] [address] documented as of this encounter Visit Diagnoses Diagnosis Localized swelling, mass and lump, trunk- Primary documented in this encounter Care Teams Manager Physical Relationship Specialty Start Date End Date Wendy Torres MD [address] [place] [address] PCP - General Family Medicine 05/14/21 Evens Escalante MD [address] [address] Historical LMR Provider 04/24/17 Indy Gaytan MD [address] [place] [address] Orthopedics & Sports Medicine, [facility] [place] [address] Historical LMR Provider 04/24/17 documented as of this encounter Additional Source Comments The information contained in this document represents components of the legal health record. It is not the complete legal health record.[facility]
--- OUTSIDE RECORDS SUMMARY | 2025-05-14 14:12 | XMS_ITS | Encounter Summary ---
Author Organization [facility] Address [address] [place] [address] Phone Care Team Providers Care Proofsheet Corrector Name Role Phone Evens Escalante MD Unavailable [phone] Indy Gaytan MD Unavailable [phone] Wendy Torres MD Primary Care Provider + Encounter Details Date Type Department Care Team (Late st Contact Info) Description 07/26/2023 Transcribe [facility] [address] [place] [address] 3rd Floor, [address] [place] [address] Wendy Torres MD [address] [place] [address] [email or web address] Social History Tobacco Use Types Packs/Day Years [...] st Contact Info) Description 07/12/2024 Procedure Pass [facility], Ct Scan - [address] [address] 06/14/2025 2:15 PM EST Office Visit [facility] [address] [place] [address] Wnedy Torres MD [address] [place] [address] [email or web address] Chris Barrientos, PT 4 [place] [address] 07/02/2025 2:15 PM EST Office Visit [facility] [address] [place] [address] [phone] Wendy Torres MD [address] [place] [address] [email or web address] Chris Barrientos, PT 4 [place] [address] 07/05/2025 8:15 AM EST Appointment [facility], Ct Scan - [address] [address] Todd Breen MD [address] [place] [address], [address] [place] [address] 07/10/2025 10:30 AM EST Office Visit [facility] [address] [place] [address] Wendy Torres MD [address] [place] [address] [email or web address] Chris Barrientos, PT 4 [place] [address] 07/12/2025 10:30 AM EST Office Visit [address] [address] Wendy Torres MD [address] [place] [address] [email or web address] Chris Barrientos, PT 4 [place] [address] 07/16/2025 10:30 AM EST Office Visit [address] [address] Wendy Torres MD [address] [place] [address] [email or web address] Chris Barrientos, PT 4 [place] [address] 07/18/2025 10:30 AM EST Office Visit [address] [address] Wendy Torres MD [address] [place] [address] [email or web address] Chris Barrientos, PT 4 [place] [address] 07/24/2025 10:30 AM EST Office Visit [address] [address] Wendy Torres MD [address] [place] [address] [email or web address] Chris Barrientos, PT 4 [place] [address] 07/26/2025 10:30 AM EST Office Visit [address] [address] Wendy Torres MD [address] [place] [address] [email or web address] Chris Barrientos, PT 4 [place] [address] 08/08/2025 12:00 PM EST Office Visit [facility] [address] [place] [address] Todd Bailey MD [address] [place] [address], 2nd [place] [address] 08/28/2025 9:30 AM EST Office Visit [facility] [address] [place] [address] Srinivas Pemberton MD [address] [place] [address] 09/02/2025 11:00 AM EST Office Visit [facility] [address] [facility] [address] [place] [address] Raheem Vaughn MD [address] [facility] 2nd [place] [address] documented as of this encounter Visit Diagnoses Not on filedocumented in this encounter Care Teams Proofsheet Corrector Relationship Specialty Start Date End Date Wendy Torres MD [address] [place] [address] PCP - General Family Medicine 05/14/21 Evens Escalanet MD [address] [place] [address] [address] [place] [address] Historical LMR Provider 04/24/17 Indy Gaytan MD [address] [place] [address] [facility] [place] [address] Historical LMR Provider 04/24/17 documented as of this encounter Additional Source Comments The information contained in this document represents components of the legal health record. It is not the complete legal health record.[facility]
--- OUTSIDE RECORDS SUMMARY | 2025-05-14 14:12 | XMS_ITS | Encounter Summary ---
Author Organization [facility] Address [address] [place] [address] Phone Care Team Providers Care Book Agent Name Role Phone Jamila Steele MD Unavailable [email or web address] Gisel Liu MD Unavailable [phone] Evens Escalante MD Unavailable [phone] Indy Gaytan MD Unavailable [phone] Jamila Steele MD Primary Care Provider [email or web address] Wendy Torres MD Primary Care Provider + Wendy Torres MD Primary Care Provider + Reason for Referral * Physical Therapy (Elective) - Closed Specialty Diagnoses / Procedures Referred By Gamaliel farrar Referred To Contact Physical Therapy Diagnoses Encounter for rehabilitation Low Back Pain Procedures Evaluate & Treat Wendy Torres MD Phone: tel: fax: [email or web address] [address] [address] Phone: tel: Referral ID Status Reason Start Date Expiration Date Visits Re quested Visits Authorized [id number] Closed 02/23/2018 09/10/2018 16 16 Encounter Details Date Type Department Care Team (Latest Contact Info) Description 02/23/2018 Transcribe Orders [facility] [address] [place] [address] Wendy Torres MD [address] [place] [address] [email or web address] Encounter for rehabilitation (Primary Dx) Social History Tobacco Use Types Packs/Day Years Used Date Smoking Tobacco: Never Assessed Comments No Sex and Gender Information Value Date Recorded Sex Assigned at Female 03/29/2018 9:50 AM EDT Legal Sex Female 6:49 PM EST Gender Identity Female 03/29/2018 9:50 AM EDT Sexual Orientation Straight 03/29/2018 9: 50 AM EDT documented as of this encounter Plan of Treatment Upcoming Encounters Date Type Department Care Team (Late st Contact Info) Description 07/12/2024 Procedure Pass [facility], Ct Scan - [address] [address] 06/14/2025 2:15 PM EST Office Visit [facility] [address] [place] [address] Wendy Torres MD [address] [place] [address] [email or web address] Chris Barrientos, PT 4 [place] [address] 07/02/2025 2:15 PM EST Office Visit [address] [address] Wendy Torres MD [address] [place] [address] [email or web address] Chris Barrientos, PT 4 [place] [address] 07/05/2025 8:15 AM EST Appointment [facility], Ct Scan - [address] [address] Todd Breen MD [address] [facility] [address] [place] [address] 07/10/2025 10:30 AM EST Office Visit [facility] [address] [place] [address] Wendy Torres MD [address] [place] [address] [email or web address] Chris Barrientos, PT 4 [place] [address] 07/12/2025 10:30 AM EST Office Visit [address] [address] Wendy Torres MD [address] [place] [address] [email or web address] Chris Barrientos, PT 4 [place] [address] 07/16/2025 10:30 AM EST Office Visit [address] [address] Wendy Torres MD [address] [place] [address] [email or web address] Chris Barrientos, PT 4 [place] [address] 07/18/2025 10:30 AM EST Office Visit [address] [address] Wendy Torres MD [address] [place] [address] [email or web address] Chris Barrientos, PT 4 [place] [address] 07/24/2025 10:30 AM EST Office Visit [address] [address] Wendy Torres MD [address] [place] [address] [email or web address] Chris Barrientos, PT 4 [place] [address] 07/26/2025 10:30 AM EST Office Visit [address] [address] Wendy Torres MD [address] [place] [address] [email or web address] Chris Barrientos, PT 4 [place] [address] 08/08/2025 12:00 PM EST Office Visit [facility] Neu[facility] [address] [place] [address] Todd Bailey MD [address] [place] [address], 2nd Floor [place], [place] [phone] 08/28/2025 9:30 AM EST Office Visit [facility] [address] [place] [address] Srinivas Pemberton MD [address] [place] [address] 09/02/2025 11:00 AM EST Office Visit [facility] 10 [place] [address] Raheem Vaughn MD [address] [address] Scheduled Referrals Name Type Priority Associated Diagnoses Orde r Schedule Ambulatory referral to [facility] Physical Therapy Outpatient Referral Routine Encounter for rehabilitation Ordered: 02/23/2018 documented as of this encounter Visit Diagnoses Diagnosis Encounter for rehabilitation- Primary documented in this encounter Care Teams Book Agent Relationship Specialty Start Date End Date Jamila Steele MD [address] [place] [address] [facility], [place] [address] [email or web address] PCP - General Family Medicine 05/27/17 03/16/18 Wendy Torres MD [address] [place] [address] PCP - General Family Medicine 03/17/18 05/13/21 Wendy Torres MD [address] [place] [address] PCP - General Family Medicine 05/14/21 Jamila Steele MD [email or web address] Historical LMR Provider 04/24/1707/11 Gisel Liu MD [address] [place] [address] Historical LMR Provider 04/24/17 Evens Escalante MD [address] [place] [address], [address] [place] [address] [email or web address] Historical LMR Provider 04/24/17 Indy Gaytan MD [address] [place] [address] [facility], [place] [address] [email or web address] Historical LMR Provider 04/24/17 documented as of this encounter Additional Source Comments The information contained in this document represents components of the legal health record. It is not the complete legal health record.[facility]
--- OUTSIDE RECORDS SUMMARY | 2025-05-14 14:12 | XMS_ITS | Encounter Summary ---
Author Organization [facility] Address [address] [place] [address] Phone Care Team Providers Care Pencil Sorter Name Role Phone Jamila Steele MD Unavailable [email or web address] Gisel Liu MD Unavailable [phone] Evens Escalante MD Unavailable [phone] Indy Gaytan MD Unavailable [phone] Wendy Torres MD Primary Care Provider + Wendy Torres MD Primary Care Provider + Encounter Details Date Type Department Care Team (Late st Contact Info) Description 03/17/2018 Ancillary Orders Virtual Department [address] [place] [address] Wendy Torres MD [address] [place] [address] [email or web address] Breast screening Social History Tobacco Use Types Packs/Day Years [...] st Contact Info) Description 07/12/2024 Procedure Pass [address] [address] 06/14/2025 2:15 PM EST Office Visit [address] [address] Wendy Torres MD [address] [place] [address] [email or web address] Chris Barrientos, PT 4 [place] [address] 07/02/2025 2:15 PM EST Office Visit [address] [address] Wendy Torres MD [address] [place] [address] [email or web address] Chris Barrientos, PT 4 [place] [address] 07/05/2025 8:15 AM EST Appointment [address] [address] Todd Breen MD [address] [place] [address], [address] [place] [address] 07/10/2025 10:30 AM EST Office Visit [address] [address] Wendy Torres MD [address] [place] [address] [email or web address] Chris Barrientos, PT 4 [place] [address] 07/12/2025 10:30 AM EST Office Visit [address] [phone] Wendy Torres MD [address] [place] [address] [email or web address] Chris Barrientos, PT 4 [place] [address] 07/16/2025 10:30 AM EST Office Visit [address] [address] Wendy Torres MD [address] [place] [address] [email or web address] Chris Barrientos, PT 4 [place] [address] 07/18/2025 10:30 AM EST Office Visit [address] [address] Wendy Torres MD [address] [place] [address] [email or web address] Chris Barrientos, PT 4 [place] [address] 07/24/2025 10:30 AM EST Office Visit [address] [phone] Wendy Torres MD [address] [place] [address] [email or web address] Chris Barrientos, PT 4 [place] [address] 07/26/2025 10:30 AM EST Office Visit [facility] 4 [place] [address] Wendy Torres MD [address] [place] [address] [email or web address] Chris Barrientos, PT 4 [place] [address] 08/08/2025 12:00 PM EST Office Visit [facility] [address] [place] [address] Todd Bailey MD [address] [place] [address] 08/28/2025 9:30 AM EST Office Visit [facility] 10 [place] [address] Srinivas Pemberton MD [address] [place] [address] 09/02/2025 11:00 AM EST Office Visit [facility] [address] [place] [address] Raheem Vaughn MD [address] [place] [address] documented as of this encounter Results * BI MAMMOGRAM SCREENING WITH TOMOSYNTHESIS WITH CAD (BILATERAL) (05/29/2018 8:04 AM EST) Anatomical Region Laterality Modality Breast Left, Breast Right, Breast Bilateral Bila teral Mammography 05/29/2018 8:59 AM EST Impressions 05/29/2018 9:01 AM EST No mammographic change indicative of malignancy. Annual screening is recommended. BI-RADS CATEGORY: 1 - Negative. DENSITY: There are scattered fibroglandular densities. POS -CDHMAMA Narrative 05/29/2018 9:01 AM EST Bilateral full-field digital screening mammography is obtained and read in conjunction with computer-aided detection. Tomosynthesis as well as 2-D C view imaging of both breasts in two planes also obtained. Comparison made to multiple prior, most recent 05/27/2017, and most remote 05/10/2012. No dominant mass, architectural distortion, worrisome asymmetry, or suspicious calcification is identified. No skin or nipple finding of concern is appreciated. Procedure Note Carleen Chao MD - 05/29/2018 Bilateral full-field digital screening mammography is obtained and read inconjunction with computer-aided detection. Tomosynthesis as well as 2-D Cview imaging of both breasts in two planes also obtained. Comparison madeto multiple prior, most recent 05/27/2017, and most remote 05/10/2012. No dominant mass, architectural distortion, worrisome asymmetry, orsuspicious calcification is identified. No skin or nipple finding ofconcern is appreciated. IMPRESSION: No mammographic change indicative of malignancy. Annual screening isrecommended. BI-RADS CATEGORY: 1 - Negative. DENSITY: There are scattered fibroglandular densities. POS -CDHMAMA us Wendy Torres MD IMG MG EXAMS Final Re sult documented in this encounter Visit Diagnoses Diagnosis Breast screening Breast screening, unspecified Breast screening Breast screening, unspecified documented in this encounter Care Teams Pencil Sorter Relationship Specialty Start Date End Date Wendy Torres MD [address] [place] [address] PCP - General Family Medicine 03/17/18 05/13/21 Wendy Torres MD [address] [place] [address] PCP - General Family Medicine 05/14/21 Jamila Steele MD [email or web address] Historical LMR Provider 04/24/1707/11 Gisel Liu MD [address] [facility], 2nd [place] [address] Historical LMR Provider 04/24/17 Evens Escalante MD [address] [facility], [address] [place] [address] Historical LMR Provider 04/24/17 Indy Gaytan MD [address] [place] [address] [facility], [place] [address] Historical LMR Provider 04/24/17 documented as of this encounter Additional Source Comments The information contained in this document represents components of the legal health record. It is not the complete legal health record.[facility]
--- OUTSIDE RECORDS SUMMARY | 2025-05-14 14:13 | XMS_ITS | Clinical Summary ---
Author Organization [facility] Address [email or web address] [place] [address] Phone Care Team Providers Care Quantitative Analyst Developer Name Role Phone Evens Escalante MD Unavailable [phone] Indy Gaytan MD Unavailable [phone] Wendy Torres MD Primary Care Provider + Allergies Active Allergy Reactions Criticality Noted Date Comments Amoxicillin GI Upset 12/08/2016 Amoxicillin-Pot Clavulanate GI Upset 12/09/19 17 Medications cyanocobalamin (VITAMIN B-12) 1000 MCG tablet 1 tablet under the tongue and allow to dissolve Orally Once a day Active Medication-Free Text daily. Vitamin D 2000 UNIT Tablet, Sig: as directed Orally Active ondansetron (ZOFRAN-ODT) 8 MG disintegrating tabletIndications: Benign paroxysmal positional vertigo, unspecified laterality Take 1 tablet (8 mg total) by mouth every 8 (eight) hours as needed for nausea. 30 tablet 1 08/30/19 20 Active ascorbic acid (VITAMIN C ORAL) Take 500 mg by mouth daily. Active cetirizine (ZYRTEC) 10 MG tablet Take 10 mg by mouth as needed. Active fluticasone propionate (FLONASE) 50 mcg/actuation nasal spray 2 sprays by Nasal route as needed. Active meclizine (ANTIVERT) 25 mg tabletIndications: Benign paroxysmal positional vertigo, unspecified laterality Take 1 tablet (25 mg total) by mouth 3 (three) times a day as needed. 30 tablet 1 07/23/19 22 Active ZOLMitriptan (ZOMIG) 2.5 MG tabletIndications: Intractable migraine without aura and without status migrainosus TAKE 1 TABLET (2.5 MG TOTAL) BY MOUTH NEEDED FOR MIGRAINE. May repeat a dose in 2 hours if needed. Do not exceed 5mg per day. 6 tablet 11 03/22/20 22 Active Additional Information Patient not taking.Reported on 03/06/2025 atenolol (TENORMIN) 25 MG tablet Take 25 mg by mouth daily. Active cyclobenzaprine (FLEXERIL) 5 MG tablet as needed. 09/09/19 24 Active famotidine (PEPCID) 20 MG tablet Take 20 mg by mouth nightly at bedtime. 08/18/19 24 Active pantoprazole (PROTONIX) 40 MG tablet Take 40 mg by mouth daily. Active ubrogepant (UBRELVY) 100 mg tabletIndications: Intractable migraine without aura and without status migrainosus Take 1 tablet (100 mg total) by mouth once as needed for migraine. May repeat in 2 hrs if needed. Do not exceed 200mg in a day. 10 tablet 5 05/11/20 24 Active eszopiclone (LUNESTA) 2 MG Tab Take 1 tablet (2 mg total) by mouth daily. Take immediately before bedtime 1 tablet 03/06/20 Active Active Problems Problem Noted Date Diagnosed Date GERD (gastroesophageal reflux disease) Right upper lobe pulmonary nodule 02/25/2025 Chronic GERD 02/25/2025 Allergic rhinitis 02/25/2025 Encounters Date Type Department Care Team Description 05/01/2025 Transcribe Orders [facility] Rehabilitation Services [address] [place] [address] Wendy Torres MD Encounter for rehabilitation (Primary Dx) 03/18/2025 Telephone [facility] All[facility] Critical [facility] Medicine [address] [place], [place] [id number] Raheem Vaughn MD 03/12/2025 5:18 PM EDT - 03/12/2025 7:05 PM EDT Emergency [facility] [address] [place] [address] Pradeep Chavarria MD Discharge Disposition: Home or Self Care 03/07/2025 Telephone [facility] [address] [place] [address] Raheem Vaughn MD Sleep Study (HST internal); PA 03/06/2025 10:00 AM EDT Office Visit [facility] [address] [place] [address] Raheem Vaughn MD ABBEY (obstructive sleep apnea) (Primary Dx) 02/25/2025 1:00 PM EDT Office Visit [facility] [address] [place] [address] Srinivas Pemberton MD Right upper lobe pulmonary nodule (Primary Dx); Pulmonary nodule, right; Chronic GERD; Allergic rhinitis, unspecified seasonality, unspecified trigger from Last 3 Months Family History Medical History Relation Comments Breast cancer Cousin Hypertension Father Breast cancer Maternal Aunt postmenopausal Cancer Maternal Aunt Ovarian cancer Maternal Aunt Breast cancer Maternal Grandmother postmenopau renetta Diabetes mellitus Maternal Grandmother Hypertension Mother Breast cancer Paternal Aunt Cancer Paternal Aunt Diabetes mellitus Paternal Grandmother Relation Status Comments Cousin Father Alive Maternal Aunt Maternal Grandmother Mother Alive Paternal Aunt Paternal Grandmother Social History Tobacco Use Types Packs/Day Years Used Date Smoking Tobacco: Never Passive Smoke Exposure: Never Smokeless Tobacco: Never Tobacco Cessation:Counseling Given: Not Answered Alcohol Use Standard Drinks/Week Comments No 0 [...] as food, clothing, or medical care? No 03/12/2025 In the past 12 months have y ou been in a relationship with a person who hurts, threatens, or tries to control you? No 03/12/2025 Are you denied basic needs s uch as food, clothing, or medical care? No 03/12/2025 In the past 12 months have y ou been in a relationship with a person who hurts, threatens, or tries to control you? No 03/12/2025 Comments No Sex and Gender Information Value Date Recorded Sex Assigned at Female 03/29/2018 9:50 AM EDT Legal Sex Female 6:49 PM EST Gender Identity Female 03/29/2018 9:50 AM EDT Sexual Orientation Straight 03/29/2018 9: 50 AM EDT Last Filed Vital Signs Vital Sign Reading Time Taken Comments Blood Pressure 129/79 03/12/2025 6:20 PM EDT Pulse 70 03/12/2025 6:20 PM EDT Temperature 36.6 C (97.8 F) 03/12/2025 6:20 PM EDT Respiratory Rate 10 03/12/2025 6:20 PM EDT Oxygen Saturation 98% 03/12/2025 6:20 PM EDT Inhaled Oxygen Concentration - - Weight 109.5 kg (241 lb 4.8 oz) 03/12/2025 3:38 PM EDT Height 166.4 cm (5' 5.5 ) 03/12/2025 3:38 PM EDT Body Mass Index 39.54 03/12/2025 3:38 PM EDT Plan of Treatment Upcoming Encounters Date Type Department Care Team (Late st Contact Info) Description 07/12/2024 Procedure Pass [facility], Ct Scan - [address] [address] 06/14/2025 2:15 PM EST Office Visit [facility] Rehabilitation Services [address] [place] [address] Wendy Torres MD [address] [place] [phone] [email or web address] Chris Barrientos, PT [address] [place] [address] [email or web address] 07/02/2025 2:15 PM EST Office Visit [address] [address] Wendy Torres MD [address] [place] [phone] [email or web address] Chris Barrientos, PT [address] [place] [address] 07/05/2025 8:15 AM EST Appointment [facility], Ct Scan - [address] [address] Todd Breen MD [address] [place] [phone] 07/10/2025 10:30 AM EST Office Visit [address] [address] Wendy Torres MD [address] [place] [phone] [email or web address] Chris Barrientos, PT [address] [place] [address] [email or web address] 07/12/2025 10:30 AM EST Office Visit [address] [address] Wendy Torres MD [address] [place] [phone] [email or web address] Chris Barrientos, PT [address] [place], [place] [phone] 07/16/2025 10:30 AM EST Office Visit [address] [phone] LazWendy Man MD [address] [place] [phone] [email or web address] Chris Barrientos, PT [address] [place] [address] [email or web address] 07/18/2025 10:30 AM EST Office Visit [address] [address] Wendy Torres MD [address] [place] [phone] [email or web address] Chris Barrientos, PT [address] [place] [phone] [email or web address] 07/24/2025 10:30 AM EST Office Visit [address] [address] Wendy Torres MD [address] [place] [address] [email or web address] Chris Barrientos, PT [address] [place] [phone] [email or web address] 07/26/2025 10:30 AM EST Office Visit [address] [address] Wendy Torres MD [address] [place] [phone] [email or web address] Chris Barrientos, PT [address] [place] [address] [email or web address] 08/08/2025 12:00 PM EST Office Visit [facility] Neurology [address] [place] [address] Todd Bailey MD [address] [place] [phone] 08/28/2025 9:30 AM EST Office Visit [facility] [address] [place] [address] Srinivas Pemberton MD [address] [place] [address] 09/02/2025 11:00 AM EST Office Visit [facility] [address] [place] [address] Raheem Vaughn MD [address] [place] [address] Health Maintenance Due Date Last Done Comments DEPRESSION SCREENING 12/23/1978 HEPATITIS C SCREENING 12/23/1984 HIV ONE-TIME SCREENING (18-65 YEARS) 12/23/1984 COLOGUARD 12/24/2011 COLONOSCOPY 12/24/2011 COLORECTAL CANCER SCREENING 12/24/2011 FIT TEST 12/24/2011 FOBT 12/24/2011 SIGMOIDOSCOPY 12/24/2011 VIRTUAL COLONOSCOPY 12/24/2011 PNEUMOCOCCAL VACCINES (50+ years) (1 of 1 - PCV) 12/23/2016 ZOSTER VACCINES (1 of 2) 12/23/2016 LIPID PANEL 09/02/2023 09/01/2018, 06/29/2002 INFLUENZA VACCINE (#1) 2025 06/06/2023 COVID-19 VACCINE ( season) 2025 06/11/2021, 09/06/2020, 08/08/2020 PAP SMEAR 08/05/2026 08/05/2023, 07/04, 07/13/2018, Additional history exists MAMMOGRAM 10/03/2026 10/03/2024, 07/05, 06/07/2022, Additional history exists SCREENING FOR DIABETES 03/12/2028 03/12/2025 Adult Td,Tdap Booster 07/10/2028 07/10/2018 RSV VACCINE (1 - 1-dose 75+ series) 12/23/2041 SMOKING STATUS SCREENING (Once After 26 Yrs) Completed 03/12/2025 HEPATITIS A VACCINES Aged Out No long er eligible based on patient's age to complete this topic HIB VACCINES Aged Out No longer eligi ble based on patient's age to complete this topic IPV VACCINES Aged Out No longer eligi ble based on patient's age to complete this topic MENINGOCOCCAL VACCINES (ACWY) Aged Out No longer eligible based on patient's age to complete this topic MENINGOCOCCAL VACCINES (B) Aged Out N o longer eligible based on patient's age to complete this topic Medical Devices Not on file Procedures Procedure Name Priority Date/Time Associated Diagnosis Comments AMB REFERRAL TO [facility] PULMONOLOGY Routine 03/18/2025 7:18 AM EDT TROPONIN STAT 03/12/2025 6:12 PM EDT TROPONIN STAT 03/12/2025 5:19 PM EDT BASIC METABOLIC PANEL (BMP) STAT 03/12/2025 5:19 PM EDT CBC AND DIFFERENTIAL STAT 03/12/2025 5:19 PM EDT ECG 12-LEAD STAT 03/12/2025 3:41 PM EDT BI MAMMOGRAM DIAGNOSTIC WITH TOMOSYNTHESIS WITH CAD (BILATERAL) Routine 10/03/2024 3:17 PM EDT Disorder of the skin and subcutaneous tissue, unspecified Skin lesion PAP TEST Routine 08/05/2023 12:00 AM EST LIPID PANEL Routine 09/01/2018 7:40 AM EST General medical exam Encounter for immunization Gastroesophageal reflux disease without esophagitis Fibromyalgia from Last 3 Months or Most Recently Relevant to Health Maintenance Results * Ambulatory referral to [facility] Pulmonology (03/18/2025 7:18 AM EDT) Other us Wendy M Lazarz-Ciesla MD [facility]B [facility] REFERRALS Final Result * Troponin (03/12/2025 6:12 PM EDT) Only the most recent of2 resultswithin the time period is included. Troponin-T, HS Gen5 9 0 - 9 ng/L [facility] Blood 03/12/2025 6:12 PM EDT 03/12/2025 6:17 PM EDT us Erick Castellanos MD LAB BLOOD BKR ORDERABLES Final Result [address] [phone] * (ABNORMAL) CBC and differential (03/12/2025 5:19 PM EDT) WBC 6.90 4.00 - 11.00 K/uL [facility] RBC 4.08 4.00 - 5.20 M/uL [facility] HGB 13.0 12.0 - 16.0 g/dL [facility] HCT 39.1 36.0 - 46.0 % [facility] PLT 275 150 - 450 K/uL [facility] MCV 95.8 80.0 - 100.0 fL [facility] MCH 31.9(H) 27.0 - 31.0 pg [facility] MCHC 33.2 32.0 - 36.0 g/dL [facility] RDW 12.6 11.5 - 14.5 % [facility] MPV 9.5 8.4 - 12.0 fL [facility] NRBC 0.00 0.00 /100 WBCs [facility] ABSOLUTE NRBC 0.00 0.00 K/uL [facility] DIFF METHOD Auto [facility] NEUTS 65.6 48.0 - 76.0 % [facility] LYMPHS 26.1 18.0 - 41.0 % [facility] MONOS 6.1 4.0 - 11.0 % [facility] EOS 1.4 0.0 - 5.0 % [facility] BASOS 0.7 0.0 - 1.5 % [facility] Granulocytes, immature (%) 0.1 0.0 - 0.9 % [facility] ABSOLUTE NEUTS 4.52 1.92 - 7.60 K/uL [facility] ABSOLUTE LYMPHS 1.80 0.72 - 4.10 K/uL [facility] ABSOLUTE MONOS 0.42 0.16 - 1.10 K/uL [facility] ABSOLUTE EOS 0.10 0.00 - 0.50 K/uL [facility] ABSOLUTE BASOS 0.05 0.00 - 0.15 K/uL [facility] Granulocytes, immature 0.01 0.00 - 0.09 K/uL [facility] Blood 03/12/2025 5:19 PM EDT 03/12/2025 5:24 PM EDT us Erick Castellanos MD LAB BLOOD BKR ORDERABLES Final Result Performing Organization Address City/State/[facility] Co de Phone Number [address] [address] * (ABNORMAL) Basic metabolic panel (03/12/2025 5:19 PM EDT) SODIUM 142 133 - 146 mmol/L [facility] CHLORIDE 106 96 - 108 mmol/L [facility] POTASSIUM 4.8 3.3 - 5.1 mmol/L [facility] CO2 26 21 - 35 mmol/L [facility] BUN 13 6 - 19 mg/dL [facility] CREATININE 0.60 0.5 - 1.5 mg/dL [facility] GLUCOSE 108(H) 70 - 99 mg/dL [facility] CALCIUM 9.8 8.4 - 10.3 mg/dL [facility] EGFR 104 >59 mL/min/1.7 3m2 [facility] Comment:Estimated glomerular filtration rate calculated using the CKD-EPI refit equation. ANION GAP 15 10 - 20 mmol/L [facility] Blood 03/12/2025 5:19 PM EDT 03/12/2025 5:24 PM EDT us Erick Castellanos MD LAB BLOOD BKR ORDERABLES Final Result Performing Organization Address City/State/[facility] Co de Phone Number [facility] [address] [place] [address] * ECG 12-LEAD (03/12/2025 3:41 PM EDT) Ventricular Rate EKG/MIN 60 BPM [facility] Atrial Rate 60 BPM [facility] AK Interval 170 ms [facility] QRS Duration 80 ms [facility] QT Interval 400 ms [facility] QTC Interval 400 ms [facility] P Adamant 57 degrees [facility] R Wave Adamant -7 degrees [facility] T Wave Adamant 5 degrees [facility] 03/12/2025 3:41 PM EDT 03/13/2025 11:47 AM EDT Narrative [facility] - 03/13/2025 11:47 AM EDT Normal sinus rhythm Normal ECG When compared with ECG of 15-Jul-2023 05:38, No significant change was found Confirmed by Ricardo John ([id number]) on 03/13/2025 11:47:07 AM us Erick Castellanos MD ECG ORDERABLES Final Re sult Performing Organization Address [facility] Co de Phone Number [email or web address] * BI MAMMOGRAM DIAGNOSTIC WITH TOMOSYNTHESIS WITH CAD (BILATERAL) (10/03/2024 3:17 PM EDT) Anatomical Region Laterality Modality Breast Left, Breast Right, Breast Bilateral Bila teral Mammography 10/03/2024 3:31 PM EDT Impressions 10/03/2024 4:11 PM EDT 5 mm linear area of hypoechogenicity within the skin of the right breast at the 4:00 position 7 cm deep to the nipple which may be a trace of intradermal fluid. No imaging findings suspicious for breast malignancy. Clinical follow-up recommended. Bilateral screening mammography recommended in one year. BI-RADS 2 BENIGN Results and recommendations were communicated to the patient at time of examination. Narrative 10/03/2024 4:11 PM EDT BI MAMMOGRAM DIAGNOSTIC WITH TOMOSYNTHESIS WITH CAD (BILATERAL), BI US BREAST LIMITED (RIGHT) Additional patient information: Focal area of skin change in superficial palpable lump in the 5:00 position of the right breast COMPARISON: Comparison is made with relevant prior imaging. Breast composition: There are scattered areas of fibroglandular density. FINDINGS: Right Mammogram: No abnormal masses, suspicious calcifications, or other significant findings are identified mammographically in the right breast. There is no change since previous examination. Right Ultrasound: Targeted ultrasound was performed in the area of clinical concern as indicated by the patient. Located within the skin at the 4:00 position 7 cm deep to the nipple correlating with the palpable lump is a 5 mm x 4 mm x 1 mm linear area of hypoechogenicity, possibly a trace of fluid. No other abnormalities demonstrated. Left Mammogram: No abnormal masses, suspicious calcifications, or other significant findings are identified mammographically in the left breast. There is no change since previous examination. us Wendy Torres MD IMG MG EXAMS Final Re sult * Pap Test (08/05/2023 12:00 AM EST) [place] [address] Blower Operator: Wendy Dunn MD BOND WRITER Cytology Report FINAL DIAGNOSIS A. PAP SMEAR (SUREPATH) CE: SPECIMEN ADEQUACY: Satisfactory for evaluation; transformation zone present. INTERPRETATION: NEGATIVE FOR INTRAEPITHELIAL LESION OR MALIGNANCY. Electronically Signed Out By: RADAMES Rothman(ASCP) The Pap test is a screening test primarily for squamous cancers and precursors and has associated false-negative and false-positive results. New technologies such as liquid-based preparations may decrease but will not eliminate all false-negative results. Regular sampling and follow-up of unexplained clinical signs and symptoms are recommended to minimize false negative results. PROCEDURES/ADDENDA HPV Testing (Requested) Ordered Date: 08/08/2023 A. PAP SMEAR (SUREPATH) CE: Human Papilloma Virus Test NEGATIVE for high-risk Human Papilloma Virus types 16, 18, 45 and the Other high risk probe set (Includes 31, 33, 35, 39, 51, 52, 56, 58, 59, 66, 68) Note: Testing performed by [employer] HR-HPV analysis. Clinical correlation is advised. This HPV test was performed at [facility], [address] [place] [address]. This test has been FDA approved for SurePath cervical cytology specimens. The accuracy and precision of this test for all other specimen sources has been verified in the Cytopathology Laboratory of the [facility] and has not been cleared or approved by the U.S. Food and Drug Administration. Clinical correlation is advised. CLINICAL HISTORY Date of Last Menstrual Period: Not Provided Menstrual History: Post Menopausal Other Clinical Conditions: Screening Pap SPECIMEN SOURCE A: PAP SMEAR (SUREPATH) CE Patient Name: RAMOS LOBATO : 12/23/1964 (Age: 58) Sex: F Institution: [facility] Location: [facility] Date of Collection: 08/05/2023 Date of Reported: 08/10/2023 13:14 Results to: Evens Escalante MD, BS [facility] Final Diagnosis A. PAP SMEAR (SUREPATH) CE: SPECIMEN ADEQUACY: Satisfactory for evaluation; transformation zone present. INTERPRETATION: NEGATIVE FOR INTRAEPITHELIAL LESION OR MALIGNANCY. [facility] Results\Inter pretation A. PAP SMEAR (SUREPATH) CE: Human Papilloma Virus TestNEGATIVE for high-risk Human Papilloma Virus types 16, 18, 45 and the Other high risk probe set (Includes 31, 33, 35, 39, 51, 52, 56, 58, 59, 66, 68)Note: Testing performed by [employer] HR-HPV analysis. Clinical correlation is advised. This HPV test was performed at [facility], [address] [place] [address]. This test has been FDA approved for SurePath cervical cytology specimens. The accuracy and precision of this test for all other specimen sources has been verified in the Cytopathology Laboratory of the [facility] and has not been cleared or approved by the U.S. Food and Drug Administration. Clinical correlation is advised. [facility] Conversion Type (Conversion Source) 08/05/2023 08/08/2023 9:35 AM EST us Evens Escalante MD CYTOLOGY ORDERABLES Edited Re sult - Final Performing Organization Address [facility]/ZIP Co de Phone Number [address] [address] * (ABNORMAL) Lipid panel (09/01/2018 7:40 AM EST) HDL 67 mg/dL [facility] Comment: Interpretation <40 mg/dL: Low HDL cholesterol (major risk factor for CHD) Greater than or equal to 60 mg/dL: High HDL cholesterol ( negative risk factor for CHD) HDL - cholesterol is affected by a number of factors, e.g. smoking, excerise, hormones, sex and age. CHOLESTEROL 171 0 - 240 mg/dL [facility] TRIGLYCERIDES 49 30 - 160 mg/dL [facility] LDL 94 50 - 129 mg/dL [facility] Comment: LDL levels in terms of risk for coronary heart disease: <100 mg/dL: Optimal 100-129 mg/dL: Near or above optimal 130-159 mg/dL: Borderline high 160-189 mg/dL: High >190 mg/dL: Very High CARDIAC RISK RATIO 2.6(L) 3.3 - 4.4 [facility] Blood 09/01/2018 7:40 AM EST 09/01/2018 7:44 AM EST us Wendy Torres MD LAB BLOOD BKR ORDERABLES Final Result Performing Organization Address [facility] Co de Phone Number [address] [address] from Last 3 Months or Most Recently Relevant to Health Maintenance [facility] [employer] TOTAL CHOICE INDEMNITY [employer] TOTAL CHOICE INDEMNITY [employer] TOTAL CHOICE INDEMNITY [employer] TOTAL CHOICE INDEMNITY [employer] TOTAL CHOICE INDEMNITY [employer] TOTAL CHOICE INDEMNITY [employer] TOTAL CHOICE INDEMNITY [facility] TOTAL CHOICE INDEMNITY [employer] Care Teams Quantitative Analyst Developer Relationship Specialty Start Date End Date Wendy Torres MD [address] [place] [phone] PCP - General Family Medicine 05/14/21 Evens Escalante MD [address] [place] [address], [address] [place] [address] Historical LMR Provider 04/24/17 Indy Gaytan MD [address] [place] [address] Orthopedics & Sports Medicine, [place] [address] Historical LMR Provider 04/24/17 Additional Source Comments The information contained in this document represents components of the legal health record. It is not the complete legal health record.[facility]
--- OUTSIDE RECORDS SUMMARY | 2025-05-14 14:13 | XMS_ITS | Encounter Summary ---
Author Organization [facility] Address [address] [place] [address] Phone Care Team Providers Care Director Of Social Media Marketing Name Role Phone Evens Escalante MD Unavailable [phone] Indy Gaytan MD Unavailable [phone] Wendy Torres MD Primary Care Provider + Encounter Details Date Type Department Care Team (Late st Contact Info) Description 05/05/2022 Procedure Pass [facility] - [address] [place] [address] Social History Tobacco Use Types Packs/Day Years [...] st Contact Info) Description 07/12/2024 [facility] Ct Scan - [facility] [address] [place] [address] 06/14/2025 2:15 PM EST Office Visit [facility] [address] [place] [address] Wendy Torres MD [address] [place] [address] [email or web address] Chris Barrientos, PT 4 [place] [address] 07/02/2025 2:15 PM EST Office Visit [address] [address] Wendy Torres MD [address] [place] [address] [email or web address] Chris Barrientos, PT 4 [place] [address] 07/05/2025 8:15 AM EST Appointment [facility] - [address] [address] Todd Breen MD [address] [place] [address], [address] [address] 07/10/2025 10:30 AM EST Office Visit [address] [address] Wendy Torres MD [address] [place] [address] [email or web address] Chris Barrientos, PT 4 [place] [address] 07/12/2025 10:30 AM EST Office Visit [address] [address] Wendy Torres MD [address] [place] [address] [email or web address] Chris Barrientos, PT 4 [place] [address] 07/16/2025 10:30 AM EST Office Visit [address] [address] Wendy Torres MD [address] [place] [address] [email or web address] Chris Barrientos, PT 4 [place] [address] 07/18/2025 10:30 AM EST Office Visit [address] [address] Wendy Torres MD [address] [place] [address] [email or web address] Chris Barrientos, PT 4 [place] [address] 07/24/2025 10:30 AM EST Office Visit [address] [address] Wendy Torres MD [address] [place] [address] [email or web address] Chris Barrientos, PT 4 [place] [address] 07/26/2025 10:30 AM EST Office Visit [address] [address] Wendy Torres MD [address] [place] [address] [email or web address] Chris Barrientos, PT 4 [place] [address] 08/08/2025 12:00 PM EST Office Visit [facility] [address] [place] [address] Todd Bailey MD [address] [place] [address] 08/28/2025 9:30 AM EST Office Visit [facility] [address] [place] [address] Srinivas Pemberton MD [address] [place] [address] 09/02/2025 11:00 AM EST Office Visit [facility] [address] [place] [address] Raheem Vaughn MD [address] [place] [address] documented as of this encounter Visit Diagnoses Not on filedocumented in this encounter Care Teams Director Of Social Media Marketing Relationship Specialty Start Date End Date Wendy Torres MD [address] [place] [address] PCP - General Family Medicine 05/14/21 Evens Escalante MD [address] [place] [address], [address] [address] Historical LMR Provider 04/24/17 Indy Gaytan MD [address] [place] [address] Orthopedics & Sports Medicine, [facility] [place] [address] [email or web address] Historical LMR Provider 04/24/17 documented as of this encounter Additional Source Comments The information contained in this document represents components of the legal health record. It is not the complete legal health record.[facility]
--- OUTSIDE RECORDS SUMMARY | 2025-05-14 14:13 | XMS_ITS | Encounter Summary ---
Author Organization [facility] Address [address] [place] [address] Phone Care Team Providers Care Contracting Analyst Name Role Phone Evens Escalante MD Unavailable [phone] Indy Gaytan MD Unavailable [phone] Wendy Torres MD Primary Care Provider + Encounter Details Date Type Department Care Team (Late st Contact Info) Description 01/12/2024 Procedure Pass [facility], Ct Scan - [address] [id number] Social History Tobacco Use Types Packs/Day Years [...] st Contact Info) Description 07/12/2024 Procedure Pass [address] [address] 06/14/2025 2:15 PM EST Office Visit [facility] [address] [place] [address] Wendy Torres MD [address] [place] [address] [email or web address] Chris Barrientos, PT 4 [place] [address] 07/02/2025 2:15 PM EST Office Visit [facility] [address] [place] [address] Wendy Torres MD [address] [place] [address] [email or web address] Chris Barrientos, PT 4 [place] [address] 07/05/2025 8:15 AM EST Appointment [address] [address] Todd Breen MD [address] [facility], [address] [place] [address] 07/10/2025 10:30 AM EST Office Visit [address] [address] Wendy Torres MD [address] [place] [address] [email or web address] Chris Barrientos, PT 4 [place] [address] 07/12/2025 10:30 AM EST Office Visit [address] [address] Wendy Torres MD [address] [place] [address] [email or web address] Chris Barrientos, PT 4 [place] [address] 07/16/2025 10:30 AM EST Office Visit [address] [address] Wendy Torres MD [address] [place] [address] [email or web address] Chris Barrientos, PT 4 [place] [address] 07/18/2025 10:30 AM EST Office Visit [address] [address] Wendy Torres MD [address] [place] [address] [email or web address] Chris Barrientos, PT 4 [place] [address] 07/24/2025 10:30 AM EST Office Visit [address] [address] Wendy Torres MD [address] [place] [address] [email or web address] Chris Barrientos, PT 4 [place] [address] 07/26/2025 10:30 AM EST Office Visit [address] [address] Wendy Torres MD [address] [place] [address] [email or web address] Chris Barrientos, PT 4 [place] [address] 08/08/2025 12:00 PM EST Office Visit [facility] Neurology [address] [place] [address] Todd Bailey MD [address] [place] [address], 2nd [place] [address] 08/28/2025 9:30 AM EST Office Visit [facility] [address] [place] [address] Srinivas Pemberton MD [address] [place] [address] 09/02/2025 11:00 AM EST Office Visit [facility] [address] [place] [address] Raheem Vaughn MD [address] [place] [address] 2nd [place] [address] documented as of this encounter Visit Diagnoses Not on filedocumented in this encounter Care Teams Contracting Analyst Relationship Specialty Start Date End Date Wendy Torres MD [address] [place] [address] PCP - General Family Medicine 05/14/21 Evens Escalante MD [address] [place] [address] Historical LMR Provider 04/24/17 Indy Gaytan MD [address] [place] [address] Orthopedics & Sports Medicine, [facility] [place] [address] Historical LMR Provider 04/24/17 documented as of this encounter Additional Source Comments The information contained in this document represents components of the legal health record. It is not the complete legal health record.[facility]
--- OUTSIDE RECORDS SUMMARY | 2025-05-14 14:13 | XMS_ITS | Encounter Summary ---
Author Organization [facility] Address [address] [place] [address] Phone Care Team Providers Care Employment Director Name Role Phone Jamila Steele MD Unavailable [email or web address] Gisel Liu MD Unavailable [phone] Evens Escalante MD Unavailable [phone] Indy Gaytan MD Unavailable [phone] Wendy Torres MD Primary Care Provider + Encounter Details Date Type Department Care Team (Late st Contact Info) Description 05/14/2021 Procedure Pass [facility] - [address] [place] [address] Social History Tobacco Use Types Packs/Day Years [...] st Contact Info) Description 07/12/2024 Procedure Pass [facility], Ct Scan - [address] [address] 06/14/2025 2:15 PM EST Office Visit [address] [address] Wendy Torres MD [address] [place] [address] [email or web address] Chris Barrientos, PT 4 [place] [address] 07/02/2025 2:15 PM EST Office Visit [address] [address] Wendy Torres MD [address] [place] [address] [email or web address] Chris Barrientos, PT 4 [place] [address] 07/05/2025 8:15 AM EST Appointment [facility], Ct Scan - [address] [address] Todd Breen MD [address] [place] [address], [address] [address] 07/10/2025 10:30 AM EST Office Visit [address] [address] Wendy Torres MD [address] [place] [address] [email or web address] Chris Barrientos, PT 4 [place] [address] 07/12/2025 10:30 AM EST Office Visit [address] [address] Wendy Torres MD [address] [place] [address] [email or web address] Chris Barrientos, PT 4 [place] [address] 07/16/2025 10:30 AM EST Office Visit [address] [address] Wendy Torres MD [address] [place] [address] [email or web address] Chris Barrientos, PT 4 [place] [address] 07/18/2025 10:30 AM EST Office Visit [address] [address] Wendy Torres MD [address] [place] [address] [email or web address] Chris Barrientos, PT 4 [place] [address] 07/24/2025 10:30 AM EST Office Visit [address] [address] Wendy Torres MD [address] [place] [address] [email or web address] Chris Barrientos, PT 4 [place] [address] 07/26/2025 10:30 AM EST Office Visit [address] [address] Wendy Torres MD [address] [place] [address] [email or web address] Iliana Chris, PT 4 [place] [address] 08/08/2025 12:00 PM EST Office Visit [facility] Neurology [address] [place] [address] Todd Bailey MD [address] [place] [address] 08/28/2025 9:30 AM EST Office Visit [facility] 10 [place] [address] Srinivas Pemberton MD [address] [place] [address] 09/02/2025 11:00 AM EST Office Visit [facility] 10 [place] [address] Raheem Vaughn MD [address] [place] [address] documented as of this encounter Visit Diagnoses Not on filedocumented in this encounter Care Teams Employment Director Relationship Specialty Start Date End Date Wendy Torres MD [address] [place] [address] PCP - General Family Medicine 05/14/21 Jamila Steele MD [email or web address] Historical LMR Provider 04/24/1707/11 Gisel Liu MD [address] [facility], 2nd [place] [address] Historical LMR Provider 04/24/17 Evens Escalante MD [address] [facility], [address] [place] [address] Historical LMR Provider 04/24/17 Indy Gaytan MD [address] [place] [address] Orthopedics & Sports Medicine, [place] [address] Historical LMR Provider 04/24/17 documented as of this encounter Additional Source Comments The information contained in this document represents components of the legal health record. It is not the complete legal health record.[facility]
--- OUTSIDE RECORDS SUMMARY | 2025-05-14 14:13 | XMS_ITS | Encounter Summary ---
Author Organization [facility] Address [address] [place] [address] Phone Care Team Providers Care Process Design Engineer Name Role Phone Jamila Steele MD Unavailable [email or web address] Gisel Liu MD Unavailable [phone] Evens Escalante MD Unavailable [phone] Indy Gaytan MD Unavailable [phone] Wendy Torres MD Primary Care Provider + Wendy Torres MD Primary Care Provider + Reason for Referral * Physical Therapy (Elective) - Closed Specialty Diagnoses / Procedures Referred By Contac t Referred To Contact Physical Therapy Diagnoses Encounter for rehabilitation Neck & Upper/Mid Back Procedures Evaluate & Treat System, Provider Not In, PhD [address] [place] [address] Phone: tel: Referral ID Status Reason Start Date Expiration Date Visits Re quested Visits Authorized [id number] Closed 07/25/2018 01/22/2019 16 16 Encounter Details Date Type Department Care Team (Latest Contact Info) Description 07/12/2018 Transcribe Orders [facility] [address] [place] [address] Wendy Torres MD [address] [place] [address] [email or web address] Encounter for rehabilitation (Primary Dx) Social History [...] st Contact Info) Description 07/12/2024 Procedure Pass [facility], Ct Scan [address] [address] 06/14/2025 2:15 PM EST Office Visit [facility] [address] [place] [address] Wendy Torres MD [address] [place] [address] [email or web address] Chris Barrientos, PT 4 [place] [address] 07/02/2025 2:15 PM EST Office Visit [facility] [address] [place] [address] Wendy Torres MD [address] [place] [address] [email or web address] Chris Barrientos, PT 4 [place] [address] 07/05/2025 8:15 AM EST Appointment [facility], Ct Scan - [address] [address] Todd Breen MD [address] [facility], [address] [place] [address] 07/10/2025 10:30 AM EST Office Visit [facility] [address] [place] [address] Wendy Torres MD [address] [place] [address] [email or web address] Chris Barrientos, PT 4 [place] [address] 07/12/2025 10:30 AM EST Office Visit [address] [address] Wendy Torres MD [address] [place] [address] [email or web address] Chris Barrientos, PT 4 [place] [address] 07/16/2025 10:30 AM EST Office Visit [address] [address] Wendy Torres MD [address] [place] [address] [email or web address] Chris Barrientos, PT 4 [place] [address] 07/18/2025 10:30 AM EST Office Visit [address] [address] Wendy Torres MD [address] [place] [address] [email or web address] Chris Barrientos, PT 4 [place] [address] 07/24/2025 10:30 AM EST Office Visit [address] [address] Wendy Torres MD [address] [place] [address] [email or web address] Chris Barrientos, PT 4 [place] [address] 07/26/2025 10:30 AM EST Office Visit [address] [address] Wendy Torres MD [address] [place] [address] [email or web address] Chris Barrientos, PT 4 [place] [address] 08/08/2025 12:00 PM EST Office Visit [facility] Neu[facility] [address] [place] [address] Todd Bailey MD [address] [place] [address] 08/28/2025 9:30 AM EST Office Visit [facility] [address] [place] [address] Srinivas Pemberton MD [address] [place] [address] 09/02/2025 11:00 AM EST Office Visit [facility] [address] [facility] [place] [address] Raheem Vaughn MD [address] [place] [address] documented as of this encounter Procedures Procedure Name Priority Date/Time Associated Diagnosis Comments AMB REFERRAL TO [facility] PHYSICAL THERAPY Routine 07/25/2018 8:21 AM EST Encounter for rehabilitation documented in this encounter Results * Ambulatory referral to [facility] Physical Therapy (07/25/2018 8:21 AM EST) us Provider Not In System PhD AMB [facility] REFERRALS Fin al Result documented in this encounter Visit Diagnoses Diagnosis Encounter for rehabilitation- Primary documented in this encounter Care Teams Process Design Engineer Relationship Specialty Start Date End Date Wendy Torres MD [address] [place] [address] PCP - General Family Medicine 03/17/18 05/13/21 Wendy Torres MD [address] [place] [address] PCP - General Family Medicine 05/14/21 Jamila Steele MD [email or web address] Historical LMR Provider 04/24/1707/11 Gisel Liu MD [address] [facility], 2nd [place] [address] [email or web address] Historical LMR Provider 04/24/17 Evens Escalante MD [address] [facility], [address] [place] [address] Historical LMR Provider 04/24/17 Indy Gaytan MD [address] [place] [address] Orthopedics & Sports Medicine, [place] [address] [email or web address] Historical LMR Provider 04/24/17 documented as of this encounter Additional Source Comments The information contained in this document represents components of the legal health record. It is not the complete legal health record.[facility]
--- OUTSIDE RECORDS SUMMARY | 2025-05-14 14:13 | XMS_ITS | Encounter Summary ---
Author Organization [facility] Address [email or web address] [place] [address] Phone Care Team Providers Care Lens Coating Technician Name Role Phone Evens Escalante MD Unavailable [phone] Indy Gaytan MD Unavailable [phone] Wendy Torres MD Primary Care Provider + Encounter Details Date Type Department Care Team (Late st Contact Info) Description 09/24/2022 Procedure Pass [facility], [address] [address] Social History Tobacco Use Types Packs/Day Years [...] st Contact Info) Description 07/12/2024 Procedure Pass [facility], Ct Scan - [address] [address] 06/14/2025 2:15 PM EST Office Visit [facility] [address] [place] [address] Wendy Torres MD [address] [place] [address] [email or web address] Chris Barrientos, PT 4 [place] [address] 07/02/2025 2:15 PM EST Office Visit [address] [address] Wendy Torres MD [address] [place] [address] [email or web address] Chris Barrientos, PT 4 [place] [address] [email or web address] 07/05/2025 8:15 AM EST Appointment [facility], Ct Scan - [address] [address] Todd Breen MD [address] [place] [address], [address] [address] 07/10/2025 10:30 AM EST Office Visit [address] [address] Wendy Torres MD [address] [place] [address] [email or web address] Chris Barrientos, PT 4 [place] [address] 07/12/2025 10:30 AM EST Office Visit [address] [address] Wendy Torres MD [address] [place] [address] [email or web address] Chris Barrientos, PT 4 [place] [address] 07/16/2025 10:30 AM EST Office Visit [address] [address] Wendy Torres MD [address] [place] [address] [email or web address] Chris Barrientos, PT 4 [place] [address] 07/18/2025 10:30 AM EST Office Visit [address] [address] Wendy Torres MD [address] [place] [address] [email or web address] Chris Barrientos, PT 4 [place] [address] 07/24/2025 10:30 AM EST Office Visit [address] [address] Wendy Torres MD [address] [place] [address] [email or web address] Chris Barrientos, PT 4 [place] [address] 07/26/2025 10:30 AM EST Office Visit [address] [address] Wendy Torres MD [address] [place] [address] [email or web address] Chris Barrientos, PT 4 [place] [address] 08/08/2025 12:00 PM EST Office Visit [facility] Neurology [address] [place] [address] Todd Bailey MD [address] [place] [address] 08/28/2025 9:30 AM EST Office Visit [facility] [address] [place] [address] Srinivas Pemberton MD [address] [place] [address] 09/02/2025 11:00 AM EST Office Visit [facility] [address] [place] [address] Raheem Vaughn MD [address] [place] [address] documented as of this encounter Visit Diagnoses Not on filedocumented in this encounter Care Teams Lens Coating Technician Relationship Specialty Start Date End Date Wendy Torres MD [address] [place] [address] PCP - General Family Medicine 05/14/21 Evens Escalante MD [address] [place] [address] Historical LMR Provider 04/24/17 Indy Gaytan MD [address] [place] [address] Orthopedics & Sports Medicine, [place] [address] [email or web address] Historical LMR Provider 04/24/17 documented as of this encounter Additional Source Comments The information contained in this document represents components of the legal health record. It is not the complete legal health record.[facility]
--- OUTSIDE RECORDS SUMMARY | 2025-05-14 14:13 | XMS_ITS | Encounter Summary ---
Author Organization [facility] Address [address] [place] [address] Phone Care Team Providers Care Steamfitter Name Role Phone Evens Escalante MD Unavailable [phone] Indy Gaytan MD Unavailable [phone] Wendy Torres MD Primary Care Provider + Reason for Referral * Outpatient Procedure - Closed Specialty Diagnoses / Procedures Referred By Contac t Referred To Contact Radiology Diagnoses Edema, unspecified type Procedures US Lower Extremity Veins Duplex (Right) Marci Ross CNP [address] [place] [address] Phone: tel: fax: mailto: Referral ID Status Reason Start Date Expiration Date Visits Re quested Visits Authorized [id number] Closed 03/15/2024 03/15/2025 1 1 Encounter Details Date Type Department Care Team (Late st Contact Info) Description 03/15/2024 Transcribe Orders Virtual Department 30 [place] [address] Marci Ross CNP [address] [place] [address] Edema, unspecified type (Primary Dx) Social History Tobacco Use Types [...] st Contact Info) Description 07/12/2024 Procedure Pass [facility], Ct Scan - [facility] [address] [place] [address] 06/14/2025 2:15 PM EST Office Visit [facility] Rehabilitation Services [address] [place] [address] Wendy Torres MD [address] [place] [address] [email or web address] Chris Barrientos, PT 4 [place] [address] 07/02/2025 2:15 PM EST Office Visit [address] [address] Wendy Torres MD [address] [place] [address] [email or web address] Chris Barrientos, PT 4 [place] [address] 07/05/2025 8:15 AM EST Appointment [facility], Ct Scan - [address] [address] Todd Breen MD [address] [place] [address], [address] [address] 07/10/2025 10:30 AM EST Office Visit [address] [address] Wendy Torres MD [address] [place] [address] [email or web address] Chris Barrientos, PT 4 [place] [address] 07/12/2025 10:30 AM EST Office Visit [address] [address] Wendy Torres MD [address] [place] [address] [email or web address] Chris Barrientos, PT 4 [place] [address] 07/16/2025 10:30 AM EST Office Visit [address] [address] Wendy Torres MD [address] [place] [address] [email or web address] Chris Barrientos, PT 4 [place] [address] 07/18/2025 10:30 AM EST Office Visit [address] [address] Wendy Torres MD [address] [place] [address] [email or web address] Chris Barrientos, PT 4 [place] [address] 07/24/2025 10:30 AM EST Office Visit [address] [address] Wendy Torres MD [address] [place] [address] [email or web address] Chris Barrientos, PT 4 [place] [address] 07/26/2025 10:30 AM EST Office Visit [address] [address] Wendy Torres MD [address] [place] [address] [email or web address] Chris Barrientos, PT 4 [place] [address] 08/08/2025 12:00 PM EST Office Visit [facility] Neurology [address] [place] [address] Todd Bailey MD [address] [address] 08/28/2025 9:30 AM EST Office Visit [facility], Allergy and Critical Care Medicine 10 [place] [address] Srinivas Pemberton MD [address] [place] [address] 09/02/2025 11:00 AM EST Office Visit [facility], Allergy and Critical Care Medicine 10 [place] [address] Raheem Vaughn MD [address] [place] [address] documented as of this encounter Results * US Lower Extremity Veins Duplex (Right) (03/16/2024 2:06 PM EDT) Anatomical Region Laterality Modality Hip Right, Thigh Right, Knee Right, Leg Right, Ankle Right, Foot Right Ultrasound 03/16/2024 3:17 PM EDT Impressions 03/16/2024 3:42 PM EDT * No evidence of deep or superficial venous thrombosis in the visualized veins of the right lower extremity. Narrative 03/16/2024 3:42 PM EDT US LOWER EXTREMITY VEINS DUPLEX (RIGHT) Referring clinician's provided indication for this examination in Epic: Outside Radiology Order; edema TECHNIQUE: Lower extremity venous ultrasound with color and spectral Doppler. COMPARISON: None. FINDINGS: Exam Quality: Technically adequate exam demonstrates: Right lower extremity Common femoral vein: Normal compressibility and flow characteristics. Femoral vein: Normal compressibility and flow characteristics. Proximal profunda femoral vein: Normal compressibility. Popliteal vein: Normal compressibility and flow characteristics. Posterior tibial veins: Normal compressibility. Peroneal veins: Normal compressibility. Great saphenous vein: Normal compressibility at the saphenofemoral junction. Contralateral common femoral vein: Normal compressibility. Procedure Note Maximo Shannon MD, HUYEN - 03/16/2024 US LOWER EXTREMITY VEINS DUPLEX (RIGHT) Referring clinician's provided indication for this examination in Epic:Outside Radiology Order; edema TECHNIQUE: Lower extremity venous ultrasound with color and spectralDoppler. COMPARISON: None. FINDINGS: Exam Quality: Technically adequate exam demonstrates: Right lower extremity Common femoral vein: Normal compressibility and flow characteristics. Femoral vein: Normal compressibility and flow characteristics. Proximal profunda femoral vein: Normal compressibility. Popliteal vein: Normal compressibility and flow characteristics. Posterior tibial veins: Normal compressibility. Peroneal veins: Normal compressibility. Great saphenous vein: Normal compressibility at the saphenofemoraljunction. Contralateral common femoral vein: Normal compressibility. IMPRESSION: * No evidence of deep or superficial venous thrombosis in the visualizedveins of the right lower extremity. Marci Ross EMAIL ENGINEER CV US VASCULAR Final Res ult documented in this encounter Visit Diagnoses Diagnosis Edema, unspecified type- Primary Edema, unspecified type documented in this encounter Care Teams Steamfitter Relationship Specialty Start Date End Date Wendy Torres MD [address] [place] [address] PCP - General Family Medicine 05/14/21 Evens Escalante MD [address] [place] [address], [address] [place] [address] Historical LMR Provider 04/24/17 Indy Gaytan MD [address] [place] [address] Orthopedics & Sports Medicine, [place] [address] [email or web address] Historical LMR Provider 04/24/17 documented as of this encounter Additional Source Comments The information contained in this document represents components of the legal health record. It is not the complete legal health record.[facility]
--- OUTSIDE RECORDS SUMMARY | 2025-05-14 14:13 | XMS_ITS | Encounter Summary ---
Author Organization [facility] Address [address] [place] [address] Phone Care Team Providers Care Rehab Technician Name Role Phone Evens Escalante MD Unavailable Indy Gaytan MD Unavailable [phone] Wendy Torres MD Primary Care Provider + Encounter Details Date Type Department Care Team (Late st Contact Info) Description 05/01/2024 Transcribe Orders Virtual Department 30 [place] [address] Wendy Torres MD [address] [place] [address] [email or web address] Breast screening (Primary Dx) Social History [...] st Contact Info) Description 07/12/2024 Procedure Pass [facility], Ct Scan - [address] [address] 06/14/2025 2:15 PM EST Office Visit [facility] Services [address] [place] [address] Wendy Torres MD [address] [place] [address] [email or web address] Chris Barrientos, PT 4 [place] [address] 07/02/2025 2:15 PM EST Office Visit [facility] Services [address] [place] [address] [phone] Wendy Torres MD [address] [place] [address] [email or web address] Chris Barrientos, PT 4 [place] [address] 07/05/2025 8:15 AM EST Appointment [facility], Ct Scan - [address] [address] Todd Breen MD [address] [facility], [address] [place] [address] 07/10/2025 10:30 AM EST Office Visit [address] [address] Wendy Torres MD [address] [place] [address] [email or web address] Chris Barrientos, PT 4 [place] [address] 07/12/2025 10:30 AM EST Office Visit [address] [address] Wendy Torres MD [address] [place] [address] [email or web address] Chris Barrientos, PT 4 [place] [address] 07/16/2025 10:30 AM EST Office Visit [address] [address] Wendy Torres MD [address] [place] [address] [email or web address] Chris Barrientos, PT 4 [place] [address] 07/18/2025 10:30 AM EST Office Visit [address] [place] [address] Wendy Torres MD [address] [place] [address] [email or web address] Chris Barrientos, PT 4 [place] [address] 07/24/2025 10:30 AM EST Office Visit [address] [address] Wendy Torres MD [address] [place] [address] [email or web address] Chris Barrientos, PT 4 [place] [address] 07/26/2025 10:30 AM EST Office Visit [address] [address] Wendy Torres MD [address] [place] [address] [email or web address] Chris Barrientos, PT 4 [place] [address] 08/08/2025 12:00 PM EST Office Visit [facility] Neurology [address] [place] [address] Todd Bailey MD [address] [place] [address], 2[address] [place] [address] 08/28/2025 9:30 AM EST Office Visit [facility] Pulmonary, Allergy and Critical Care Medicine [address] [place] [address] [phone] Srinivas Pemberton MD [address] [place] [address] 09/02/2025 11:00 AM EST Office Visit [facility] Pulmonary, Allergy and Critical Care Medicine [address] [facility] [place] [address] [place] [address] Raheem Vaughn MD 10 [facility] 2nd [place] [address] documented as of this encounter Visit Diagnoses Diagnosis Breast screening- Primary Breast screening, unspecified documented in this encounter Care Teams Rehab Technician Relationship Specialty Start Date End Date Wendy Torres MD [address] [place] [address] PCP - General Family Medicine 05/14/21 Evens Escalante MD [address] [place] [address] Historical LMR Provider 04/24/17 Indy Gaytan MD [address] [place] [address] [facility] [place] [address] Historical LMR Provider 04/24/17 documented as of this encounter Additional Source Comments The information contained in this document represents components of the legal health record. It is not the complete legal health record.[facility]
--- OUTSIDE RECORDS SUMMARY | 2025-05-14 14:13 | XMS_ITS | Encounter Summary ---
Author Organization [facility] Address [address] [place] [address] Phone Care Team Providers Care Animated Cartoons Painter Name Role Phone Unknown, Unknown Primary Care Provider Jamila Gonzalez MD Unavailable [email or web address] Gisel Liu MD Unavailable [phone] Evens Escalante MD Unavailable [phone] Indy Gaytan MD Unavailable [phone] Jamila Steele MD Primary Care Provider [email or web address] Wendy Torres MD Primary Care Provider + Wendy Torres MD Primary Care Provider + Encounter Details Date Type Department Care Team (Late st Contact Info) Description 04/23/2017 Ancillary Orders [address] [address] Jamila Steele MD [email or web address] Screening breast examination Social History Tobacco Use Types Packs/Day Years Used Date Smoking Tobacco: Never Assessed Comments Unknown Sex and Gender Information Value Date Recorded Sex Assigned at Female 03/29/2018 9:50 AM EDT Legal Sex Female 6:49 PM EST Gender Identity Female 03/29/2018 9:50 AM EDT Sexual Orientation Straight 03/29/2018 9: 50 AM EDT documented as of this encounter Plan of Treatment Upcoming Encounters Date Type Department Care Team (Late st Contact Info) Description 07/12/2024 Procedure Pass [address] [address] 06/14/2025 2:15 PM EST Office Visit [address] [address] Wendy Torres MD [address] [place] [address] [email or web address] Chris Barrientos, PT 4 [place] [address] 07/02/2025 2:15 PM EST Office Visit [address] [address] Wendy Torres MD [address] [place] [address] [email or web address] Chris Barrientos, PT 4 [place] [address] 07/05/2025 8:15 AM EST Appointment [address] [address] Todd Breen MD [address] [place] [address], [address] [place] [address] 07/10/2025 10:30 AM EST Office Visit [address] [address] Wendy Torres MD [address] [place] [address] [email or web address] Chris Barrientos, PT 4 [place] [address] 07/12/2025 10:30 AM EST Office Visit [address] [phone] Wendy Torres MD [address] [place] [address] [email or web address] Chris Barrientos, PT 4 [place] [address] 07/16/2025 10:30 AM EST Office Visit [address] [address] Wendy Torres MD [address] [place] [address] [email or web address] Chris Barrientos, PT 4 [place] [address] 07/18/2025 10:30 AM EST Office Visit [address] [address] Wendy Torres MD [address] [place] [address] [email or web address] Chris Barrientos, PT 4 [place] [address] 07/24/2025 10:30 AM EST Office Visit [address] [phone] Wendy Torres MD [address] [place] [address] [email or web address] Chris Barrientos, PT 4 [place] [address] 07/26/2025 10:30 AM EST Office Visit [facility] Services 4 [place] [address] Wendy Torres MD [address] [place] [address] [email or web address] Chris Barrientos, PT 4 [place] [address] 08/08/2025 12:00 PM EST Office Visit [facility] Neurology [address] [place] [address] Todd Bailey MD [address] [place] [address] 08/28/2025 9:30 AM EST Office Visit [facility] Pulmonary, Allergy and Critical Care Medicine [address] [place] [address] Srinivas Pemberton MD [address] [place] [address] 09/02/2025 11:00 AM EST Office Visit [facility] Pulmonary, Allergy and Critical Care Medicine [address] [place] [address] Raheem Vaughn MD [address] [place] [place] [address] documented as of this encounter Results * BI MAMMOGRAM SCREENING WITH TOMOSYNTHESIS WITH CAD (BILATERAL) (05/27/2017 11:25 AM EST) Anatomical Region Laterality Modality Breast Left, Breast Right, Breast Bilateral Bila teral Mammography 05/27/2017 11:5 9 AM EST Impressions 05/27/2017 12:03 PM EST Stable appearance of the breasts. No radiographic evidence of malignancy. In the absence of a suspicious palpable abnormality, annual screening mammography is recommended. BI-RADS CATEGORY: 1 - Negative. DENSITY: There are scattered fibroglandular densities. POS CDHMAMA Narrative 05/27/2017 12:03 PM EST COMPARISON: 04/29/2010 through 05/25/2016. Bilateral 3-D tomosynthesis with 2-D reconstructions in the CC and MLO projection of each breast was obtained. Computer-aided detection system also utilized. The overall appearance of the breasts is unchanged. No new mass, asymmetry, calcifications, or skin findings of concern have become apparent. Procedure Note Kevan Echols MD - 05/27/2017 COMPARISON: 04/29/2010 through 05/25/2016. Bilateral 3-D tomosynthesis with 2-D reconstructions in the CC and MLOprojection of each breast was obtained. Computer-aided detection systemalso utilized. The overall appearance of the breasts is unchanged. No new mass,asymmetry, calcifications, or skin findings of concern have becomeapparent. IMPRESSION: Stable appearance of the breasts. No radiographic evidence of malignancy.In the absence of a suspicious palpable abnormality, annual screeningmammography is recommended. BI-RADS CATEGORY: 1 - Negative. DENSITY: There are scattered fibroglandular densities. POS CDHMAMA Jamila Steele MD IM MG EXAMS Final Result documented in this encounter Visit Diagnoses Diagnosis Screening breast examination Other screening breast examination Screening breast examination Other screening breast examination documented in this encounter Care Teams Animated Cartoons Painter Relationship Specialty Start Date End Date Unknown, Unknown, MD PCP - General 04/23/17 05/26/17 Jamila Steele MD [address] [place] [address] Orthopedics & Sports Medicine, [facility] [place] [address] [email or web address] PCP - General Family Medicine 05/27/17 03/16/18 Wendy Torres MD [address] [place] [address] PCP - General Family Medicine 03/17/18 05/13/21 Wendy Torres MD [address] [place] [address] PCP - General Family Medicine 05/14/21 Jamila Steele MD [email or web address] Historical LMR Provider 04/24/1707/11 Gisel Liu MD [address] [place] [address], 2nd [place] [address] Historical LMR Provider 04/24/17 Evens Escalante MD 22 [facility], [address] [place] [address] Historical LMR Provider 04/24/17 Indy Gaytan MD [address] [place] [address] Orthopedics & Sports Medicine, [place] [address] Historical LMR Provider 04/24/17 documented as of this encounter Additional Source Comments The information contained in this document represents components of the legal health record. It is not the complete legal health record.[facility]
--- OUTSIDE RECORDS SUMMARY | 2025-05-14 14:15 | XMS_ITS | Encounter Summary ---
Author Organization [facility] Address [address] [place] [address] Phone Care Team Providers Care Salesperson Parts Name Role Phone Evens Escalante MD Unavailable Indy Gaytan MD Unavailable [phone] Wendy Torres MD Primary Care Provider + Encounter Details Date Type Department Care Team (Late st Contact Info) Description 05/05/2022 Transcribe Orders Virtual Department 30 [place] [address] Wendy Torres MD [address] [place] [address] [email or web address] Breast screening (Primary Dx) Social History [...] st Contact Info) Description 07/12/2024 Procedure Pass [facility], Ct Scan [address] [address] 06/14/2025 2:15 PM EST Office Visit [address] [address] Wendy Torres MD [address] [place] [address] [email or web address] Chris Barrientos, PT 4 [place] [address] 07/02/2025 2:15 PM EST Office Visit [address] [address] Wendy Torres MD [address] [place] [address] [email or web address] Chris Barrientos, PT 4 [place] [address] 07/05/2025 8:15 AM EST Appointment [address] [address] Todd Breen MD [address] [place] [address], [facility] [address] [place] [address] 07/10/2025 10:30 AM EST Office Visit [address] [address] Wendy Torres MD [address] [place] [address] [email or web address] Chris Barrientos, PT 4 [place] [address] 07/12/2025 10:30 AM EST Office Visit [address] [address] Wendy Torres MD [address] [place] [address] [email or web address] Chris Barrientos, PT 4 [place] [address] 07/16/2025 10:30 AM EST Office Visit [address] [address] Wendy Torres MD [address] [place] [address] [email or web address] Chris Barrientos, PT 4 [place] [address] 07/18/2025 10:30 AM EST Office Visit [address] [address] Wendy Torres MD [address] [place] [address] [email or web address] Chris Barrientos, PT 4 [place] [address] 07/24/2025 10:30 AM EST Office Visit [address] [address] Wendy Torres MD [address] [place] [address] [email or web address] Chris Barrientos, PT 4 [place] [address] 07/26/2025 10:30 AM EST Office Visit [facility] Services 4 [place] [address] Wendy Torres MD [address] [place] [address] [email or web address] Chris Barrientos, PT 4 [place] [address] 08/08/2025 12:00 PM EST Office Visit [facility] Neurology [address] [place] [address] Todd Bailey MD [address] [place] [address] 08/28/2025 9:30 AM EST Office [facility], Allergy and Critical Care Medicine [address] [place] [address] Srinivas Pemberton MD [address] [place] [address] 09/02/2025 11:00 AM EST Office [facility]monary, Allergy and Critical Care Medicine [address] [place] [address] Raheem Vaughn MD [address] [place] [address] documented as of this encounter Results * BI MAMMOGRAM SCREENING WITH TOMOSYNTHESIS WITH CAD (BILATERAL) (06/07/2022 7:44 AM EST) Anatomical Region Laterality Modality Breast Left, Breast Right, Breast Bilateral Bila teral Mammography 06/08/2022 3:35 PM EST Impressions 06/08/2022 4:42 PM EST No mammographic signs of malignancy. Annual screening is recommended. BI-RADS CATEGORY: 1 - Negative. DENSITY: There are scattered fibroglandular densities. Narrative 06/08/2022 4:42 PM EST Bilateral mammography is performed in conjunction with computed aided detection. 3-D tomography along with 2-D C view imaging was also performed. Comparison made to previous dated as far back as 02/16/2005 and as recent as 06/05/2021. No suspicious masses, areas of architectural distortion or suspicious microcalcifications. Procedure Note Marco Antonio Lyman MD - 06/08/2022 Bilateral mammography is performed in conjunction with computed aideddetection. 3-D tomography along with 2-D C view imaging was alsoperformed. Comparison made to previous dated as far back as 02/16/2005 andas recent as 06/05/2021. No suspicious masses, areas of architectural distortion [...] unspecified documented in this encounter Care Teams Salesperson Parts Relationship Specialty Start Date End Date Wendy Torres MD [address] [place] [address] PCP - General Family Medicine 05/14/21 Evens Escalante MD [address] [place] [address], [address] [place] [address] Historical LMR Provider 04/24/17 Indy Gaytan MD [address] [place] [address] Orthopedics & Sports Medicine, [place] [address] [email or web address] Historical LMR Provider 04/24/17 documented as of this encounter Additional Source Comments The information contained in this document represents components of the legal health record. It is not the complete legal health record.[facility]
--- OUTSIDE RECORDS SUMMARY | 2025-05-14 14:15 | XMS_ITS | Encounter Summary ---
Author Organization [facility] Address [address] [place] [address] Phone Care Team Providers Care Software Quality Tester Name Role Phone Evens Escalante MD Unavailable [phone] Indy Gaytan MD Unavailable [phone] Wendy Torres MD Primary Care Provider + Encounter Details Date Type Department Care Team (Late st Contact Info) Description 11/23/2023 Procedure Pass [facility], Ct Scan - [address] [id number] Social History Tobacco Use Types Packs/Day Years [...] st Contact Info) Description 07/12/2024 Procedure Pass [address] [address] 06/14/2025 2:15 PM EST Office Visit [facility] [address] [place] [address] Wendy Torres MD [address] [place] [address] [email or web address] Chris Barrientos, PT 4 [place] [address] 07/02/2025 2:15 PM EST Office Visit [facility] [address] [place] [address] Wendy Torres MD [address] [place] [address] [email or web address] Chris Barrientos, PT 4 [place] [address] 07/05/2025 8:15 AM EST Appointment [address] [address] Todd Breen MD [address] [facility], [address] [place] [address] 07/10/2025 10:30 AM EST Office Visit [address] [address] Wendy Torres MD [address] [place] [address] [email or web address] Chris Barrientos, PT 4 [place] [address] 07/12/2025 10:30 AM EST Office Visit [address] [address] Wendy Torres MD [address] [place] [address] [email or web address] Chris Barrientos, PT 4 [place] [address] 07/16/2025 10:30 AM EST Office Visit [address] [address] Wendy Torres MD [address] [place] [address] [email or web address] Chris Barrientos, PT 4 [place] [address] 07/18/2025 10:30 AM EST Office Visit [address] [address] Wendy Torres MD [address] [place] [address] [email or web address] Chris Barrientos, PT 4 [place] [address] 07/24/2025 10:30 AM EST Office Visit [address] [address] Wendy Torres MD [address] [place] [address] [email or web address] Chris Barrientos, PT 4 [place] [address] 07/26/2025 10:30 AM EST Office Visit [address] [address] Wendy Torres MD [address] [place] [address] [email or web address] Chris Barrientos, PT 4 [place] [address] 08/08/2025 12:00 PM EST Office Visit [facility] Neurology [address] [place] [address] Todd Bailey MD [address] [place] [address], 2nd [place] [address] 08/28/2025 9:30 AM EST Office Visit [facility] 10 [place] [address] Srinivas Pemberton MD [address] [place] [address] 09/02/2025 11:00 AM EST Office Visit [facility] 10 [place] [address] Raheem Vaughn MD [address] [place] [address] 2nd [place] [address] documented as of this encounter Visit Diagnoses Not on filedocumented in this encounter Care Teams Software Quality Tester Relationship Specialty Start Date End Date Wendy Torres MD [address] [place] [address] PCP - General Family Medicine 05/14/21 Evens Escalante MD [address] [place] [address] Historical LMR Provider 04/24/17 Indy Gaytan MD [address] [place] [address] Orthopedics & Sports Medicine, [facility] [place] [address] Historical LMR Provider 04/24/17 documented as of this encounter Additional Source Comments The information contained in this document represents components of the legal health record. It is not the complete legal health record.[facility]
--- OUTSIDE RECORDS SUMMARY | 2025-05-14 14:15 | XMS_ITS | Encounter Summary ---
Author Organization [facility] Address [address] [place] [address] Phone Care Team Providers Care Slot Ambassador Name Role Phone Jamila Steele MD Unavailable [email or web address] Gisel Liu MD Unavailable [phone] Evens Escalante MD Unavailable [phone] Indy Gaytan MD Unavailable [phone] Wendy Torres MD Primary Care Provider + Wendy Torres MD Primary Care Provider + Encounter Details Date Type Department Care Team (Late st Contact Info) Description 03/24/2020 Procedure Pass [facility] - [address] [place] [address] Social History Tobacco Use Types Packs/Day Years [...] st Contact Info) Description 07/12/2024 Procedure Pass [facility], Ct Scan [address] [address] 06/14/2025 2:15 PM EST Office Visit [address] [address] Wendy Torres MD [address] [place] [address] [email or web address] Chris Barrientos, PT 4 [place] [address] 07/02/2025 2:15 PM EST Office Visit [address] [address] Wendy Torres MD [address] [place] [address] [email or web address] Chris Barrientos, PT 4 [place] [address] 07/05/2025 8:15 AM EST Appointment [place], Ct Scan [address] [address] Todd Breen MD [address] [place] [address], [address] [place] [address] 07/10/2025 10:30 AM EST Office Visit [address] [address] Wendy Torres MD [address] [place] [address] [email or web address] Chris Barrientos, PT 4 [place] [address] 07/12/2025 10:30 AM EST Office Visit [address] [address] Wendy Torres MD [address] [place] [address] [email or web address] Chris Barrientos, PT 4 [place] [address] 07/16/2025 10:30 AM EST Office Visit [address] [address] Wendy Torres MD [address] [place] [address] [email or web address] Chris Barrientos, PT 4 [place] [address] 07/18/2025 10:30 AM EST Office Visit [address] [address] Wendy Torres MD [address] [place] [address] [email or web address] Chris Barrientos, PT 4 [place] [address] 07/24/2025 10:30 AM EST Office Visit [address] [address] Wendy Torres MD [address] [place] [address] [email or web address] Chris Barrientos, PT 4 [place] [address] 07/26/2025 10:30 AM EST Office Visit [facility] 4 [place] [address] Wendy Torres MD [address] [place] [address] [email or web address] Chris Barrientos, PT 4 [place] [address] 08/08/2025 12:00 PM EST Office Visit [facility] Neurology [address] [place] [address] Todd Bailey MD [address] [place] [address] 08/28/2025 9:30 AM EST Office Visit [facility] 10 [place] [address] Srinivas Pemberton MD [address] [place] [address] 09/02/2025 11:00 AM EST Office Visit [facility] 10 [place] [address] Raheem Vaughn MD [address] [place] [address] documented as of this encounter Visit Diagnoses Not on filedocumented in this encounter Care Teams Slot Ambassador Relationship Specialty Start Date End Date Wendy Torres MD [address] [place] [address] PCP - General Family Medicine 03/17/18 05/13/21 Wendy Torres MD [address] [place] [address] PCP - General Family Medicine 05/14/21 Jamila Steele MD [email or web address] Historical LMR Provider 04/24/1707/11 Gisel Liu MD [address] [facility], 2nd [place] [address] Historical LMR Provider 04/24/17 Evens Escalante MD 22 [facility], [address] [place] [address] Historical LMR Provider 04/24/17 Indy Gaytan MD [address] [place] [address] Orthopedics & Sports Medicine, [place] [address] Historical LMR Provider 04/24/17 documented as of this encounter Additional Source Comments The information contained in this document represents components of the legal health record. It is not the complete legal health record.[facility]
--- OUTSIDE RECORDS SUMMARY | 2025-05-14 14:15 | XMS_ITS | Encounter Summary ---
Author Organization [facility] Address [address] [place] [address] Phone Care Team Providers Care Engineering Programmer Name Role Phone Jamila Steele MD Unavailable [email or web address] Gisel Liu MD Unavailable [phone] Evens Escalante MD Unavailable [phone] Indy Gaytan MD Unavailable [phone] Wendy Torres MD Primary Care Provider + Wendy Torres MD Primary Care Provider + Encounter Details Date Type Department Care Team (Late st Contact Info) Description 03/24/2020 Ancillary Orders Virtual Department 30 [place] [address] Wendy Torres MD [address] [place] [address] [email or web address] Breast screening Social History Tobacco [...] st Contact Info) Description 07/12/2024 Procedure Pass [address] [address] 06/14/2025 2:15 PM EST Office Visit [facility] [address] [place] [address] Wendy Torres MD [address] [place] [address] [email or web address] Chris Barrientos, PT 4 [place] [address] 07/02/2025 2:15 PM EST Office Visit [facility] [address] [place] [address] Wendy Torres MD [address] [place] [address] [email or web address] Chris Barrientos, PT 4 [place] [address] 07/05/2025 8:15 AM EST Appointment [address] [address] Todd Breen MD [address] [place] [address], [address] [place] [address] 07/10/2025 10:30 AM EST Office Visit [address] [address] Wendy Torres MD [address] [place] [address] [email or web address] Chris Barrientos, PT 4 [place] [address] 07/12/2025 10:30 AM EST Office Visit [address] [address] Wendy Torres MD [address] [place] [address] [email or web address] Chris Barrientos, PT 4 [place] [address] 07/16/2025 10:30 AM EST Office Visit [address] [address] Wendy Torres MD [address] [place] [address] [email or web address] Chris Barrientos, PT 4 [place] [address] 07/18/2025 10:30 AM EST Office Visit [address] [address] Wendy Torres MD [address] [place] [address] [email or web address] Chris Barrientos, PT 4 [place] [address] 07/24/2025 10:30 AM EST Office Visit [address] [address] Wendy Torres MD [address] [place] [address] [email or web address] Chris Barrientos, PT 4 [place] [address] 07/26/2025 10:30 AM EST Office Visit [facility] [address] [place] [address] Wendy Torres MD [address] [place] [address] [email or web address] Chris Barrientos, PT 4 [place] [address] 08/08/2025 12:00 PM EST Office Visit [facility] Neurology [address] [place] [address] Todd Bailey MD [address] [place] [address] 08/28/2025 9:30 AM EST Office Visit [facility] [address] [place] [address] Srinivas Pemberton MD [address] [place] [address] 09/02/2025 11:00 AM EST Office Visit [facility] [address] [place] [address] Raheem Vaughn MD [address] [place] [address] documented as of this encounter Results * BI MAMMOGRAM SCREENING WITH TOMOSYNTHESIS WITH CAD (BILATERAL) (06/04/2020 11:42 AM EST) Anatomical Region Laterality Modality Breast Left, Breast Right, Breast Bilateral Bila teral Mammography 06/04/2020 4:24 PM EST Impressions 06/04/2020 4:27 PM EST BILATERAL BREASTS: Negative, no evidence of malignancy. Normal interval follow- up is recommended in 12 months. Bi-RADS: BI-RADS CATEGORY: 1 - Negative. DENSITY: There are scattered fibroglandular densities. Narrative 06/04/2020 4:27 PM EST STUDY: Bilateral screening mammography with tomosynthesis and CAD TECHNIQUE: Bilateral full-field digital screening mammography is obtained and read in conjunction with computer-aided detection. Tomosynthesis as well as 2-D C view imaging were obtained. COMPARISON: Comparison made to multiple prior, most recent May 30, 2019, and most remote May 20, 2014. BREAST COMPOSITION: There are scattered areas of fibroglandular density BILATERAL BREASTS: No significant masses, suspicious calcifications or other abnormalities are seen. Procedure Note Bala Handley MD - 06/04/2020 STUDY: Bilateral screening mammography with tomosynthesis and CAD TECHNIQUE: Bilateral full-field digital screening mammography is obtainedand read in conjunction with computer-aided detection. Tomosynthesis aswell as 2-D C view imaging were obtained. COMPARISON: Comparison made to multiple prior, most recent May, and most remote May 20, 2014. BREAST COMPOSITION: There are scattered areas of fibroglandulardensity BILATERAL BREASTS: No significant masses, suspicious calcifications orother abnormalities are seen. IMPRESSION: BILATERAL BREASTS: Negative, no evidence of malignancy. Normal intervalfollow-up is recommended in 12 months. Bi-RADS: BI-RADS CATEGORY: 1 - Negative. DENSITY: There are scattered fibroglandular densities. us Wendy Torres MD IMG MG EXAMS Final Re sult documented in this encounter Visit Diagnoses Diagnosis Breast screening Breast screening, unspecified Breast screening Breast screening, unspecified documented in this encounter Care Teams Engineering Programmer Relationship Specialty Start Date End Date Wendy Torres MD [address] [place] [address] PCP - General Family Medicine 03/17/18 05/13/21 Wendy Torres MD [address] [place] [address] PCP - General Family Medicine 05/14/21 Jamila Steele MD [email or web address] Historical LMR Provider 04/24/1707/11 Gisel Liu MD [address] [place] [address], 2nd [place] [address] Historical LMR Provider 04/24/17 Evens Escalante MD [address] [facility], [address] [place] [address] Historical LMR Provider 04/24/17 Indy Gaytan MD [address] [place] [address] Orthopedics & Sports Medicine, [place] [address] Historical LMR Provider 04/24/17 documented as of this encounter Additional Source Comments The information contained in this document represents components of the legal health record. It is not the complete legal health record.[facility]
--- OUTSIDE RECORDS SUMMARY | 2025-05-14 14:15 | XMS_ITS | Encounter Summary ---
Author Organization [facility] Address [address] [facility] [address] [place] [address] Phone Care Team Providers Care Slabber Light Name Role Phone Jamila Steele MD Unavailable [email or web address] Gisel Liu MD Unavailable [phone] Evens Escalante MD Unavailable [phone] Indy Gaytan MD Unavailable [phone] Jamila Steele MD Primary Care Provider [email or web address] Wendy Torres MD Primary Care Provider + Wendy Torres MD Primary Care Provider + Reason for Referral * Physical Therapy (Routine) - Closed Specialty Diagnoses / Procedures Referred By Gamaliel farrar Referred To Contact Physical Therapy Diagnoses Encounter for rehabilitation Neck and Arm Pain Procedures Evaluate and Treat Sandee Mosqueda, VINCENT [address] [facility] [address] [place] [address] Phone: tel: fax: [email or web address] [address] [place] [address] Phone: tel: Referral ID Status Reason Start Date Expiration Date Visits Re quested Visits Authorized [id number] Closed 07/21/2017 09/04/2017 10 10 Encounter Details Date Type Department Care Team (Latest Contact Info) Description 07/15/2017 Transcribe Orders [facility] [address] [place] [address] Sandee Mosqueda NP [address] [facility] [address] [place] [address] [email or web address] Encounter for rehabilitation (Primary Dx) Social History [...] st Contact Info) Description 07/12/2024 Procedure Pass [facility], Ct Scan - [facility] [address] [place] [address] 06/14/2025 2:15 PM EST Office Visit [facility] [address] [place] [address] Wendy Torres MD [address] [place] [address] [email or web address] Chris Barrientos, PT 4 [place] [address] 07/02/2025 2:15 PM EST Office Visit [address] [phone] Wendy Torres MD [address] [place] [address] [email or web address] Chris Barrientos, PT 4 [place] [address] [email or web address] 07/05/2025 8:15 AM EST Appointment [facility], Ct Scan - [address] [address] Todd Breen MD [address] [place] [address], [address] [place] [address] 07/10/2025 10:30 AM EST Office Visit [address] [address] Wendy Torres MD [address] [place] [address] [email or web address] Chris Barrientos, PT 4 [place] [address] [email or web address] 07/12/2025 10:30 AM EST Office Visit [address] [address] Wendy Torres MD [address] [place] [address] [email or web address] Chris Barrientos, PT 4 [place] [address] 07/16/2025 10:30 AM EST Office Visit [address] [address] Wendy Torres MD [address] [place] [address] [email or web address] Chris Barrientos, PT 4 [place] [address] 07/18/2025 10:30 AM EST Office Visit [address] [address] Wendy Torres MD [address] [place] [address] [email or web address] Chris Barrientos, PT 4 [place] [address] 07/24/2025 10:30 AM EST Office Visit [address] [address] Wendy Torres MD [address] [place] [address] [email or web address] Chris Barrientos, PT 4 [place] [address] 07/26/2025 10:30 AM EST Office Visit [address] [address] Wendy Torres MD [address] [place] [address] [email or web address] Chris Barrientos, PT 4 [place] [address] 08/08/2025 12:00 PM EST Office Visit [facility] Neurology [address] [place] [address] Todd Bailey MD [address] [place] [address], 2nd [place] [address] 08/28/2025 9:30 AM EST Office Visit [facility] [address] [place] [address] Srinivas Pemberton MD [address] [place] [address] 09/02/2025 11:00 AM EST Office Visit [facility] 10 [place] [address] Raheem Vaughn MD [address] [address] documented as of this encounter Procedures Procedure Name Priority Date/Time Associated Diagnosis Comments AMB REFERRAL TO [facility] PHYSICAL THERAPY Routine 07/21/2017 9:00 AM EST Encounter for rehabilitation documented in this encounter Results * Ambulatory referral to [facility] Physical Therapy (07/21/2017 9:00 AM EST) Sandee Mosqueda CYTOLOGIST [facility]B [facility] REFERRALS Final Result documented in this encounter Visit Diagnoses Diagnosis Encounter for rehabilitation- Primary documented in this encounter Care Teams Slabber Light Relationship Specialty Start Date End Date Jamila Steele MD [address] [place] [address] Orthopedics & Sports Medicine, [facility] [place] [address] [email or web address] PCP - General Family Medicine 05/27/17 03/16/18 Wendy Torres MD [address] [place] [address] PCP - General Family Medicine 03/17/18 05/13/21 Wendy Torres MD [address] [place] [address] PCP - General Family Medicine 05/14/21 Jamila Steele MD [email or web address] Historical LMR Provider 04/24/1707/11 Gisel Liu MD [address] [place] [address] [place] [address] Historical LMR Provider 04/24/17 Evens Escalante MD [address] [facility], [address] [place] [address] Historical LMR Provider 04/24/17 Indy Gaytan MD [address] [place] [address] Orthopedics & Sports Medicine, [place] [address] [email or web address] Historical LMR Provider 04/24/17 documented as of this encounter Additional Source Comments The information contained in this document represents components of the legal health record. It is not the complete legal health record.[facility]
--- OUTSIDE RECORDS SUMMARY | 2025-05-14 14:15 | XMS_ITS | Encounter Summary ---
Author Organization [facility] Address [address] [place] [address] Phone Care Team Providers Care Product Development Actuary Name Role Phone Evens Escalante MD Unavailable [phone] Indy Gaytan MD Unavailable [phone] Wendy Torres MD Primary Care Provider + Reason for Referral * Physical Therapy (Routine) - Closed Specialty Diagnoses / Procedures Referred By Gamaliel farrar Referred To Contact Physical Therapy Diagnoses Encounter for rehabilitation low back pain Procedures evaluate & treat Shavonne Vazquez PA-C Phone: tel: fax: [email or web address] [address] [address] Phone: tel: Referral ID Status Reason Start Date Expiration Date Visits Re quested Visits Authorized [id number] Closed 03/29/2022 07/03/2022 20 20 Encounter Details Date Type Department Care Team (Latest Contact Info) Description 02/17/2022 Transcribe Orders [facility] [address] [place] [address] Shavonne Vazquez PA-C [address] [place] [address] [email or web address] Encounter for rehabilitation (Primary Dx) Social History [...] st Contact Info) Description 07/12/2024 Procedure Pass [facility], [address] [address] 06/14/2025 2:15 PM EST Office Visit [facility] [address] [place] [address] Wendy Torres MD 150 [place] [address] [email or web address] Chris Barrientos, PT 4 [place] [address] [email or web address] 07/02/2025 2:15 PM EST Office Visit [facility] [address] [place] [address] Wendy Torres MD 150 [place] [address] [email or web address] Chris Barrientos, PT 4 [place] [address] [email or web address] 07/05/2025 8:15 AM EST Appointment [facility], [address] [address] Todd Breen MD 22 [facility], [address] [place] [address] 07/10/2025 10:30 AM EST Office Visit [address] [address] Wendy Torres MD [address] [place] [address] [email or web address] Chris Barrientos, PT 4 [place] [address] [email or web address] 07/12/2025 10:30 AM EST Office Visit [address] [address] Wendy Torres MD [address] [place] [address] [email or web address] Chris Barrientos, PT 4 [place] [address] [email or web address] 07/16/2025 10:30 AM EST Office Visit [address] [address] Wendy Torres MD [address] [place] [address] [email or web address] Chris Barrientos, PT 4 [place] [address] [email or web address] 07/18/2025 10:30 AM EST Office Visit [address] [address] Wendy Torres MD [address] [place] [address] [email or web address] Chris Barrientos, PT 4 [place] [address] 07/24/2025 10:30 AM EST Office Visit [address] [address] Wendy Torres MD [address] [place] [address] [email or web address] Chris Barrientos, PT 4 [place] [address] 07/26/2025 10:30 AM EST Office Visit [address] [address] Wendy Torres MD [address] [place] [address] [email or web address] Chris Barrientos, PT 4 [place] [address] 08/08/2025 12:00 PM EST Office Visit [facility] Neurology [address] [place] [address] Todd Bailey MD [address] [place] [address] 08/28/2025 9:30 AM EST Office Visit [facility] [address] [place] [address] Srinivas Pemberton MD [address] [place] [address] 09/02/2025 11:00 AM EST Office Visit [facility] 10 [facility] [place] [address] Raheem Vaughn MD 10 [facility] 2nd [place] [address] Scheduled Referrals Name Type Priority Associated Diagnoses Orde r Schedule Ambulatory referral to [facility] Physical Therapy Outpatient Referral Routine Encounter for rehabilitation Ordered: 02/17/2022 documented as of this encounter Visit Diagnoses Diagnosis Encounter for rehabilitation- Primary documented in this encounter Care Teams Product Development Actuary Relationship Specialty Start Date End Date Wendy Torres MD [address] [place] [address] PCP - General Family Medicine 05/14/21 Evens Escalante MD [address] [place] [address] Historical LMR Provider 04/24/17 Indy Gaytan MD [address] [place] [address] Orthopedics & Sports Medicine, [facility] [place] [address] Historical LMR Provider 04/24/17 documented as of this encounter Additional Source Comments The information contained in this document represents components of the legal health record. It is not the complete legal health record.[facility]
--- OUTSIDE RECORDS SUMMARY | 2025-05-14 14:15 | XMS_ITS | Encounter Summary ---
Author Organization [facility] Address [address] [address] [facility] [address] [place] [address] Phone Care Team Providers Care Automotive Power Electronics Engineer Name Role Phone Evens Escalante MD Unavailable [phone] Indy Gaytan MD Unavailable [phone] Wendy Torres MD Primary Care Provider + Encounter Details Date Type Department Care Team (Late st Contact Info) Description 08/30/2024 Procedure Pass [facility], [address] [id number] Social History Tobacco Use Types Packs/Day Years [...] st Contact Info) Description 07/12/2024 Procedure Pass [address] [address] 06/14/2025 2:15 PM EST Office Visit [facility] [address] [place] [address] Wendy Torres MD [address] [place] [address] [email or web address] Chris Barrientos, PT 4 [place] [address] [email or web address] 07/02/2025 2:15 PM EST Office Visit [facility] [address] [place] [address] Wendy Torres MD [address] [place] [address] [email or web address] Chris Barrientos, PT 4 [place] [address] [email or web address] 07/05/2025 8:15 AM EST Appointment [address] [address] Todd Breen MD 22 [facility], [address] [place] [address] 07/10/2025 10:30 AM EST Office Visit [address] [address] Wendy Torres MD [address] [place] [address] [email or web address] Chris Barrientos, PT 4 [place] [address] [email or web address] 07/12/2025 10:30 AM EST Office Visit [address] [address] Wendy Torres MD [address] [place] [address] [email or web address] Chris Barrientos, PT 4 [place] [address] [email or web address] 07/16/2025 10:30 AM EST Office Visit [address] [address] Wendy Torres MD [address] [place] [address] [email or web address] Chris Barrientos, PT 4 [place] [address] [email or web address] 07/18/2025 10:30 AM EST Office Visit [address] [address] Wendy Torres MD [address] [place] [address] [email or web address] Chris Barrientos, PT 4 [place] [address] 07/24/2025 10:30 AM EST Office Visit [address] [address] Wendy Torres MD [address] [place] [address] [email or web address] Chris Barrientos, PT 4 [place] [address] 07/26/2025 10:30 AM EST Office Visit [address] [address] Wendy Torres MD [address] [place] [address] [email or web address] Chris Barrientos, PT 4 [place] [address] 08/08/2025 12:00 PM EST Office Visit [facility] Neurology [address] [place] [address] Todd Bailey MD [address] [place] [address], 2nd [place] [address] 08/28/2025 9:30 AM EST Office Visit [facility] 10 [place] [address] Srinivas Pemberton MD [address] [place] [address] 09/02/2025 11:00 AM EST Office Visit [facility] 10 [place] [address] Raheem Vaughn MD 10 [facility] 2nd [place] [address] documented as of this encounter Visit Diagnoses Not on filedocumented in this encounter Care Teams Automotive Power Electronics Engineer Relationship Specialty Start Date End Date Wendy Torres MD [address] [place] [address] PCP - General Family Medicine 05/14/21 Evens Escalante MD [address] [place] [address] Historical LMR Provider 04/24/17 Indy Gaytan MD [address] [place] [address] Orthopedics & Sports Medicine, [facility] [place] [address] Historical LMR Provider 04/24/17 documented as of this encounter Additional Source Comments The information contained in this document represents components of the legal health record. It is not the complete legal health record.[facility]
--- OUTSIDE RECORDS SUMMARY | 2025-05-14 14:15 | XMS_ITS | Encounter Summary ---
Author Organization [facility] Address [address] [place] [address] Phone Care Team Providers Care Software Test Engineer Name Role Phone Evens Escalante MD Unavailable [phone] Indy Gaytan MD Unavailable [phone] Wendy Torres MD Primary Care Provider + Encounter Details Date Type Department Care Team (Late st Contact Info) Description 08/30/2024 Procedure Pass [facility], [address] [phone] Social History Tobacco Use Types Packs/Day Years [...] st Contact Info) Description 07/12/2024 Procedure Pass [address] [address] 06/14/2025 2:15 PM EST Office Visit [facility] [address] [place] [address] Wendy Torres MD [address] [place] [address] [email or web address] Chris Barrientos, PT 4 [place] [address] [email or web address] 07/02/2025 2:15 PM EST Office Visit [facility] [address] [place] [address] Wendy Torres MD [address] [place] [address] [email or web address] Chris Barrientos, PT 4 [place] [address] [email or web address] 07/05/2025 8:15 AM EST Appointment [address] [address] Todd Breen MD 22 [facility], [address] [place] [address] 07/10/2025 10:30 AM EST Office Visit [address] [address] Wendy Torres MD [address] [place] [address] [email or web address] Chris Barrientos, PT 4 [place] [address] [email or web address] 07/12/2025 10:30 AM EST Office Visit [address] [address] Wendy Torres MD [address] [place] [address] [email or web address] Chris Barrientos, PT 4 [place] [address] [email or web address] 07/16/2025 10:30 AM EST Office Visit [address] [address] Wendy Torres MD [address] [place] [address] [email or web address] Chris Barrientos, PT 4 [place] [address] [email or web address] 07/18/2025 10:30 AM EST Office Visit [address] [address] Wendy Torres MD [address] [place] [address] [email or web address] Chris Barrientos, PT 4 [place] [address] 07/24/2025 10:30 AM EST Office Visit [address] [address] Wendy Torres MD [address] [place] [address] [email or web address] Chris Barrientos, PT 4 [place] [address] 07/26/2025 10:30 AM EST Office Visit [address] [address] Wendy Torres MD [address] [place] [address] [email or web address] Chris Barrientos, PT 4 [place] [address] 08/08/2025 12:00 PM EST Office Visit [facility] Neurology [address] [place] [address] Todd Bailey MD [address] [place] [address], 2nd [place] [address] 08/28/2025 9:30 AM EST Office Visit [facility] 10 [place] [address] Srinivas Pemberton MD [address] [place] [address] 09/02/2025 11:00 AM EST Office Visit [facility] 10 [place] [address] Raheem Vaughn MD 10 [facility] 2nd [place] [address] documented as of this encounter Visit Diagnoses Not on filedocumented in this encounter Care Teams Software Test Engineer Relationship Specialty Start Date End Date Wendy Torres MD [address] [place] [address] PCP - General Family Medicine 05/14/21 Evens Escalante MD [address] [place] [address] Historical LMR Provider 04/24/17 Indy Gaytan MD [address] [place] [address] Orthopedics & Sports Medicine, [facility] [place] [address] Historical LMR Provider 04/24/17 documented as of this encounter Additional Source Comments The information contained in this document represents components of the legal health record. It is not the complete legal health record.[facility]
--- OUTSIDE RECORDS SUMMARY | 2025-05-14 14:15 | XMS_ITS | Encounter Summary ---
Author Organization [facility] Address [address] [place] [address] Phone Care Team Providers Care Product Marketer Name Role Phone Evens Escalante MD Unavailable [phone] Indy Gaytan MD Unavailable [phone] Wendy Torres MD Primary Care Provider + Encounter Details Date Type Department Care Team (Late st Contact Info) Description 12/13/2023 Procedure Pass [address] [place] [address] Social History Tobacco Use Types Packs/Day Years [...] st Contact Info) Description 07/12/2024 Procedure Pass [address] [address] 06/14/2025 2:15 PM EST Office Visit [facility] [address] [place] [address] Wendy Torres MD [address] [place] [address] [email or web address] Chris Barrientos, PT 4 [place] [address] [email or web address] 07/02/2025 2:15 PM EST Office Visit [facility] [address] [place] [address] Wendy Torres MD [address] [place] [address] [email or web address] Chris Barrientos, PT 4 [place] [address] [email or web address] 07/05/2025 8:15 AM EST Appointment [address] [address] Todd Breen MD 22 [facility], [address] [place] [address] 07/10/2025 10:30 AM EST Office Visit [address] [address] Wendy Torres MD [address] [place] [address] [email or web address] Chris Barrientos, PT 4 [place] [address] [email or web address] 07/12/2025 10:30 AM EST Office Visit [address] [address] Wendy Torres MD [address] [place] [address] [email or web address] Chris Barrientos, PT 4 [place] [address] [email or web address] 07/16/2025 10:30 AM EST Office Visit [address] [address] Wendy Torres MD [address] [place] [address] [email or web address] Chris Barrientos, PT 4 [place], [place] 9491088 [email or web address] 07/18/2025 10:30 AM EST Office Visit [address] [phone] Wendy Torres MD [address] [place] [address] [email or web address] Chris Barrientos, PT 4 [place] [address] 07/24/2025 10:30 AM EST Office Visit [address] [address] Wendy Torres MD [address] [place] [address] [email or web address] Chris Barrientos, PT 4 [place] [address] 07/26/2025 10:30 AM EST Office Visit [address] [address] Wendy Torres MD [address] [place] [address] [email or web address] Chris Barrientos, PT 4 [place] [address] 08/08/2025 12:00 PM EST Office Visit [facility] Neurology [address] [place] [address] Todd Bailey MD [address] [place] [address], 2nd [place] [address] 08/28/2025 9:30 AM EST Office Visit [facility] 10 [place] [address] Srinivas Pemberton MD [address] [place] [address] 09/02/2025 11:00 AM EST Office Visit [facility] 10 [place] [address] Raheem Vaughn MD [address] [place] [address] documented as of this encounter Visit Diagnoses Not on filedocumented in this encounter Care Teams Product Marketer Relationship Specialty Start Date End Date Wendy Torres MD [address] [place] [address] PCP - General Family Medicine 05/14/21 Evens Escalante MD [address] [place] [address] Historical LMR Provider 04/24/17 Indy Gaytan MD [address] [place] [address] Orthopedics & Sports Medicine, [facility] [place] [address] Historical LMR Provider 04/24/17 documented as of this encounter Additional Source Comments The information contained in this document represents components of the legal health record. It is not the complete legal health record.[facility]
--- OUTSIDE RECORDS SUMMARY | 2025-05-14 14:17 | XMS_ITS | Encounter Summary ---
Author Organization [facility] Address [address] [facility] [address] [place] [address] Phone Care Team Providers Care Jackhammer Operator Name Role Phone Jamila Steele MD Unavailable [email or web address] Gisel Liu MD Unavailable [phone] Evens Escalante MD Unavailable [phone] Indy Gaytan MD Unavailable [phone] Wendy Torres MD Primary Care Provider + Wendy Torres MD Primary Care Provider + Reason for Referral * Physical Therapy (Elective) - Closed Specialty Diagnoses / Procedures Referred By Contac t Referred To Contact Physical Therapy Diagnoses Encounter for rehabilitation Samia Meraz NP Phone: tel: fax: [email or web address]:[email or web address] [facility] 30 [place] [address] Phone: tel: Referral ID Status Reason Start Date Expiration Date Visits Re quested Visits Authorized [id number] Closed 07/20/2019 01/01/2020 30 30 Encounter Details Date Type Department Care Team (Latest Contact Info) Description 07/05/2019 Transcribe Orders [facility] [address] [place] [address] Samia Meraz, DIRECTOR WOMEN [address] [place] [phone] [email or web address] Encounter for rehabilitation (Primary Dx) Social History [...] st Contact Info) Description 07/12/2024 Procedure Pass [facility], [facility] - [address] [address] 06/14/2025 2:15 PM EST Office Visit [address] [address] Wendy Torres MD [address] [place] [address] [email or web address] Chris Barrientos, PT 4 [place] [address] 07/02/2025 2:15 PM EST Office Visit [address] [address] Wendy Torres MD [address] [place] [address] [email or web address] Chris Barrientos, PT 4 [place] [address] 07/05/2025 8:15 AM EST Appointment [facility], Ct [facility] - [address] [address] Todd Breen MD [address] [place] [address], [address] [place] [address] 07/10/2025 10:30 AM EST Office Visit [facility] [address] [place] [address] Wendy Torres MD [address] [place] [address] [email or web address] Chris Barrientos, PT 4 [place] [address] 07/12/2025 10:30 AM EST Office Visit [address] [address] Wendy Torres MD [address] [place] [address] [email or web address] Chris Barrientos, PT 4 [place] [address] 07/16/2025 10:30 AM EST Office Visit [address] [address] Wendy Torres MD [address] [place] [address] [email or web address] Chris Barrientos, PT 4 [place] [address] 07/18/2025 10:30 AM EST Office Visit [address] [phone] Wendy Torres MD 150 [place] [address] [email or web address] Chris Barrientos, PT 4 [place] [address] 07/24/2025 10:30 AM EST Office Visit [address] [address] Wendy Torres MD [address] [place] [address] [email or web address] Chris Barrientos, PT 4 [place] [address] 07/26/2025 10:30 AM EST Office Visit [address] [address] Wendy Torres MD [address] [place] [address] [email or web address] Chris Barrientos, PT 4 [place] [address] 08/08/2025 12:00 PM EST Office Visit [facility] Neurology [address] [place] [address] Todd Bailey MD [address] [place] [address], 2nd [place] [address] 08/28/2025 9:30 AM EST Office Visit [facility] [address] [place] [address] Srinivas Pemberton MD 30 [place], [place] [phone] 09/02/2025 11:00 AM EST Office Visit [facility] 10 [place] [address] Raheem Vaughn MD [address] [address] documented as of this encounter Procedures Procedure Name Priority Date/Time Associated Diagnosis Comments AMB REFERRAL TO [facility] PHYSICAL THERAPY Routine 07/20/2019 9:18 AM EST Encounter for rehabilitation documented in this encounter Results * Ambulatory referral to [facility] Physical Therapy (07/20/2019 9:18 AM EST) us Samia Meraz DIRECTOR WOMEN [facility]B [facility] REFERRALS Final Result documented in this encounter Visit Diagnoses Diagnosis Encounter for rehabilitation- Primary documented in this encounter Care Teams Jackhammer Operator Relationship Specialty Start Date End Date Wendy Torres MD [address] [place] [address] PCP - General Family Medicine 03/17/18 05/13/21 Wendy Torres MD [address] [place] [address] PCP - General Family Medicine 05/14/21 Jamila Steele MD [email or web address] Historical LMR Provider 04/24/1707/11 Gisel Liu MD 15 [facility], [address] [place] [address] Historical LMR Provider 04/24/17 Evens Escalante MD [address], [address] [place] [address] Historical LMR Provider 04/24/17 Indy Gaytan MD [address] [place] [address] Orthopedics & Sports Medicine, [facility] [place] [address] [email or web address] Historical LMR Provider 04/24/17 documented as of this encounter Additional Source Comments The information contained in this document represents components of the legal health record. It is not the complete legal health record.[facility]
--- OUTSIDE RECORDS SUMMARY | 2025-05-14 14:17 | XMS_ITS | Encounter Summary ---
Author Organization [facility] Address [address] [place] [address] Phone Care Team Providers Care Assembler Dielectric Heater Name Role Phone Jamila Steele MD Unavailable [email or web address] Gisel Liu MD Unavailable [phone] Evens Escalante MD Unavailable [phone] Indy Gaytan MD Unavailable [phone] Wendy Torres MD Primary Care Provider + Wendy Torres MD Primary Care Provider + Encounter Details Date Type Department Care Team (Late st Contact Info) Description 06/04/2019 Ancillary Orders [facility]- [address] [address] Wendy Torres MD [address] [place] [address] [email or web address] Breast screening Social History Tobacco [...] st Contact Info) Description 07/12/2024 Procedure Pass [address] [address] 06/14/2025 2:15 PM EST Office Visit [facility] [address] [place] [address] Wendy Torres MD [address] [place] [address] [email or web address] Chris Barrientos, PT [address] [place] [address] 07/02/2025 2:15 PM EST Office Visit [facility] [address] [place] [address] Wendy Torres MD [address] [place] [address] [email or web address] Chris Barrientos, PT [address] [place] [address] 07/05/2025 8:15 AM EST Appointment [address] [address] Todd Breen MD [address] [place] [address], [facility] [address] [place] [address] 07/10/2025 10:30 AM EST Office Visit [address] [address] Wendy Torres MD [address] [place] [address] [email or web address] Crhis Barrientos, PT [address] [place] [address] 07/12/2025 10:30 AM EST Office Visit [address] [address] Wendy Torres MD [address] [place] [address] [email or web address] Chris Barrientos, PT [address] [place] [address] 07/16/2025 10:30 AM EST Office Visit [address] [address] Wendy Torres MD [address] [place] [address] [email or web address] Chris Barrientos, PT [address] [place] [address] 07/18/2025 10:30 AM EST Office Visit [address] [address] Wendy Torres MD [address] [place] [address] [email or web address] Chris Barrientos, PT [address] [place] [address] 07/24/2025 10:30 AM EST Office Visit [address] [address] Wendy Torres MD [address] [place] [address] [email or web address] Chris Barrientos, PT [address] [place] [address] 07/26/2025 10:30 AM EST Office Visit [facility] [address] [place] [address] Wendy Torres MD [address] [place] [address] [email or web address] Chris Barrientos, PT [address] [place] [address] 08/08/2025 12:00 PM EST Office Visit [facility] Neurology [address] [place] [address] Todd Bailey MD [address] [place] [address] 08/28/2025 9:30 AM EST Office Visit [facility] Allergy and Critical Care Medicine [address] [place] [address] Srinivas Pemberton MD [address] [place] [address] 09/02/2025 11:00 AM EST Office Visit [facility], Allergy and Critical Care Medicine [address] [place] [address] Raheem Vaughn MD [address] [place] [address] documented as of this encounter Results * BI MAMMOGRAM SCREENING WITH TOMOSYNTHESIS WITH CAD (BILATERAL) (05/30/2019 7:57 AM EST) Anatomical Region Laterality Modality Breast Left, Breast Right, Breast Bilateral Bila teral Mammography Impressions 05/30/2019 8:10 AM EST No mammographic evidence of malignancy. Recommend routine annual surveillance. BI-RADS CATEGORY: 1 - Negative. DENSITY: There are scattered fibroglandular densities. POS - [id number] Narrative 05/30/2019 8:10 AM EST 54-year-old female with no current breast symptoms. Comparison made to previous on 05/29/2018 and as far back as 05/17/2013. Interpretation made in conjunction with computer-aided detection and tomosynthesis. There are scattered areas of fibroglandular density. There are no suspicious masses, areas of architectural distortion, or suspicious clusters of microcalcifications. us Wendy Torres MD IMG MG EXAMS Edited R esult - Final documented in this encounter Visit Diagnoses Diagnosis Breast screening Breast screening, unspecified Breast screening Breast screening, unspecified documented in this encounter Care Teams Assembler Dielectric Heater Relationship Specialty Start Date End Date Wendy Torres MD [address] [place] [address] PCP - General Family Medicine 03/17/18 05/13/21 Wendy Torres MD [address] [place] [address] PCP - General Family Medicine 05/14/21 Jamila Steele MD [email or web address] Historical LMR Provider 04/24/1707/11 Gisel Liu MD [address] [place] [address], 2nd [place] [address] Historical LMR Provider 04/24/17 Evens Escalante MD [address] [place] [address], [address] [place] [address] [email or web address] Historical LMR Provider 04/24/17 Indy Gaytan MD [address] [place] [address] Orthopedics & Sports Medicine, [place] [address] [email or web address] Historical LMR Provider 04/24/17 documented as of this encounter Additional Source Comments The information contained in this document represents components of the legal health record. It is not the complete legal health record.[facility]
--- OUTSIDE RECORDS SUMMARY | 2025-05-14 14:17 | XMS_ITS | Encounter Summary ---
Author Organization [facility] Address [address] [place] [address] [place] [address] Phone Care Team Providers Care Real Estate Acquisition Analyst Name Role Phone Jamila Steele MD Unavailable [email or web address] Gisel Liu MD Unavailable [phone] Evens Escalante MD Unavailable [phone] Indy Gaytan MD Unavailable [phone] Wendy Torres MD Primary Care Provider + Wendy Torres MD Primary Care Provider + Encounter Details Date Type Department Care Team (Late st Contact Info) Description 04/30/2019 Telephone [facility] Internal Medicine [address] [place] [address] Wendy Torres MD [address] [place] [address] Social History Tobacco Use Types Packs/Day Years [...] st Contact Info) Description 07/12/2024 Procedure Pass [facility], [address] [address] 06/14/2025 2:15 PM EST Office Visit [facility] [address] [place] [address] Wendy Torres MD [address] [place] [address] [email or web address] Chris Barrientos, PT [address] [place] [address] 07/02/2025 2:15 PM EST Office Visit [facility] [address] [place] [address] Wendy Torres MD [address] [place] [address] [email or web address] Chris Barrientos, PT [address] [place] [address] 07/05/2025 8:15 AM EST Appointment [address] [address] Todd Breen MD [address] [place] [address], [address] [place] [address] 07/10/2025 10:30 AM EST Office Visit [address] [address] Wendy Torres MD [address] [place] [address] [email or web address] Chris Barrientos, PT [address] [place] [address] 07/12/2025 10:30 AM EST Office Visit [address] [address] Wendy Torres MD [address] [place] [address] [email or web address] Chris Barrientos, PT [address] [place] [address] 07/16/2025 10:30 AM EST Office Visit [address] [address] Wendy Torres MD [address] [place] [address] [email or web address] Chris Barrientos, PT [address] [place] [address] 07/18/2025 10:30 AM EST Office Visit [address] [address] Wendy Torres MD [address] [place] [address] [email or web address] Chris Barrientos, PT [address] [place] [address] 07/24/2025 10:30 AM EST Office Visit [address] [address] Wendy Torres MD [address] [place] [address] [email or web address] Chris Barrientos, PT [address] [place] [address] 07/26/2025 10:30 AM EST Office Visit [facility] Services [address] [place] [address] Wendy Torres MD [address] [place] [address] [email or web address] Chris Barrientos, PT [address] [place] [address] 08/08/2025 12:00 PM EST Office Visit [facility] Neurology [address] [place] [address] Todd Bailey MD [address] [place] [address] 08/28/2025 9:30 AM EST Office Visit [facility] Pulmonary, Allergy and Critical Care Medicine [address] [place] [address] Srinivas Pemberton MD [address] [place] [address] 09/02/2025 11:00 AM EST Office Visit [facility] Pulmonary, Allergy and Critical Care Medicine [address] [place] [address] Raheem Vaughn MD [address] [place] [address] documented as of this encounter Visit Diagnoses Not on filedocumented in this encounter Care Teams Real Estate Acquisition Analyst Relationship Specialty Start Date End Date Wendy Torres MD [address] [place] [address] PCP - General Family Medicine 03/17/18 05/13/21 Wendy Torres MD [address] [place] [address] PCP - General Family Medicine 05/14/21 Jamila Steele MD [email or web address] Historical LMR Provider 04/24/1707/11 Gisel Liu MD [address] [place] [address], 2nd [place] [address] Historical LMR Provider 04/24/17 Evens Escalante MD [address] [facility], [address] [place] [address] Historical LMR Provider 04/24/17 Indy Gaytan MD [address] [place] [address] Orthopedics & Sports Medicine, [place] [address] Historical LMR Provider 04/24/17 documented as of this encounter Additional Source Comments The information contained in this document represents components of the legal health record. It is not the complete legal health record.[facility]
--- OUTSIDE RECORDS SUMMARY | 2025-05-14 14:18 | XMS_ITS | Encounter Summary ---
Author Organization [facility] Address [address] [place] [address] Phone Care Team Providers Care Numerical Control Operator Name Role Phone Evens Escalante MD Unavailable Indy Gaytan MD Unavailable Wendy Torres MD Primary Care Provider + Encounter Details Date Type Department Care Team (Late st Contact Info) Description 12/14/2021 Transcribe Orders Virtual Department [address] [place] [address] Wendy Torres MD [address] [place] [address] [email or web address] Right leg pain (Primary Dx) Social History Tobacco Use Types [...] st Contact Info) Description 07/12/2024 Procedure Pass [facility], Ct Scan [address] [address] 06/14/2025 2:15 PM EST Office Visit [address] [address] Wendy Torres MD [address] [place] [address] [email or web address] Chris Barrientos, PT 4 [place] [address] 07/02/2025 2:15 PM EST Office Visit [address] [address] Wendy Torres MD [address] [place] [address] [email or web address] Chris Barrientos, PT 4 [place] [address] 07/05/2025 8:15 AM EST Appointment [address] [address] Todd Breen MD [address] [place] [address], [facility] [address] [place] [address] 07/10/2025 10:30 AM EST Office Visit [address] [address] Wendy Torres MD [address] [place] [address] [email or web address] Chris Barrientos, PT 4 [place] [address] 07/12/2025 10:30 AM EST Office Visit [address] [address] Wendy oTrres MD [address] [place] [address] [email or web address] Chris Barrientos, PT [address] [place] [address] 07/16/2025 10:30 AM EST Office Visit [address] [address] Wendy Torres MD [address] [place] [address] [email or web address] Chris Barrientos, PT 4 [place] [address] 07/18/2025 10:30 AM EST Office Visit [address] [address] Wendy Torres MD [address] [place] [address] [email or web address] Chris Barrientos, PT 4 [place] [address] 07/24/2025 10:30 AM EST Office Visit [address] [address] Wendy Torres MD [address] [place] [address] [email or web address] Chris Barrientos, PT 4 [place] [address] 07/26/2025 10:30 AM EST Office Visit [facility] Services 4 [place] [address] Wendy Torres MD [address] [place] [address] [email or web address] Chris Barrientos, PT 4 [place] [address] 08/08/2025 12:00 PM EST Office Visit [facility] Neurology [address] [place] [address] Todd Bailey MD [address] [place] [address] 08/28/2025 9:30 AM EST Office Visit [facility] Pulmonary, Allergy and Critical Care Medicine [address] [place] [address] Srinivas Pemberton MD [address] [place] [address] 09/02/2025 11:00 AM EST Office Visit [facility] Pulmonary, Allergy and Critical Care Medicine 10 [place] [address] Raheem Vaughn MD [address] [place] [address] documented as of this encounter Results * XR Tibia Fibula 2 Views (Right) (12/21/2021 9:11 AM EDT) Anatomical Region Laterality Modality Leg Right Computed Radiogr aphy 12/21/2021 6:07 PM EDT Impressions 12/21/2021 6:08 PM EDT No fracture or dislocation. Narrative 12/21/2021 6:08 PM EDT XR TIBIA FIBULA 2 VIEWS (RIGHT) COMPARISON: None FINDINGS: No fracture. Normal alignment. No lytic or blastic lesion. Visualized portion of the knee and ankle appear normal. No soft tissue swelling. Procedure Note Rosemarie Ventura MD - 12/21/2021 XR TIBIA FIBULA 2 VIEWS (RIGHT) COMPARISON: None FINDINGS: No fracture. Normal alignment. No lytic or blastic lesion. Visualizedportion of the knee and ankle appear normal. No soft tissue swelling. IMPRESSION: No fracture or dislocation. Wendy Torres MD IMG XR LOWER EXTREMITY F inal Result documented in this encounter Visit Diagnoses Diagnosis Right leg pain- Primary Pain in soft tissues of limb Right leg pain Pain in soft tissues of limb documented in this encounter Care Teams Numerical Control Operator Relationship Specialty Start Date End Date Wendy Torres MD [address] [place] [address] PCP - General Family Medicine 05/14/21 Evens Escalante MD [address] [place] [address], [address] [place] [address] Historical LMR Provider 04/24/17 Indy Gaytan MD [address] [place] [address] Orth[facility]ics [facility] Sports Medicine, [place] [address] Historical LMR Provider 04/24/17 documented as of this encounter Additional Source Comments The information contained in this document represents components of the legal health record. It is not the complete legal health record.[facility]
--- OUTSIDE RECORDS SUMMARY | 2025-05-14 14:18 | XMS_ITS | Encounter Summary ---
Author Organization [facility] Address [address] [place] [address] Phone Care Team Providers Care Telesales Professional Name Role Phone Jamila Steele MD Unavailable [email or web address] Gisel Liu MD Unavailable [phone] Evens Escalante MD Unavailable [phone] Indy Gaytan MD Unavailable [phone] Wendy Torres MD Primary Care Provider + Wendy Torres MD Primary Care Provider + Reason for Referral * Hospital - Outpatient - Closed Specialty Diagnoses / Procedures Referred By Contac t Referred To Contact Diagnoses Jaw pain Elevated blood pressure reading without diagnosis of hypertension Fibromyalgia Migraine without aura, not intractable, without status migrainosus Viral upper respiratory tract infection Procedures Stress Test Exercise Wendy Torres MD Phone: tel: fax: [email or web address] Referral ID Status Reason Start Date Expiration Date Visits Re quested Visits Authorized [id number] Closed 07/26/2019 07/25/2020 1 1 Encounter Details Date Type Department Care Team (Late st Contact Info) Description 07/26/2019 Transcribe Orders Virtual Department 30 [place] [address] Wendy Torres MD [address] [place] [address] [email or web address] Jaw pain (Primary Dx); Elevated blood pressure reading without diagnosis of hypertension; Fibromyalgia; Migraine without aura, not intractable, without status migrainosus; Viral upper respiratory tract infection Social History Tobacco Use Types Packs/Day Years [...] Encounters Date Type Department Care Team (Late Contact Info) Description 07/12/2024 Procedure Pass [facility], Ct Scan - [facility] [address] [place] [address] 06/14/2025 2:15 PM EST Office Visit [facility] Services [address] [place] [address] Wendy Torres MD [address] [place] [address] [email or web address] Chris Barrientos, PT 4 [place] [address] 07/02/2025 2:15 PM EST Office Visit [facility] [address] [place] [address] Wendy Torres MD [address] [place] [address] [email or web address] Chris Barrientos, PT 4 [place] [address] 07/05/2025 8:15 AM EST Appointment [facility], Ct Scan - [address] [address] Todd Breen MD [address] [place] [address], [address] [place] [address] 07/10/2025 10:30 AM EST Office Visit [facility] [address] [place] [address] [phone] Wendy Torres MD [address] [place] [address] [email or web address] Chris Barrientos, PT 4 [place] [address] 07/12/2025 10:30 AM EST Office Visit [address] [phone] Wendy Torres MD [address] [place] [address] [email or web address] Chris Barrientos, PT 4 [place] [address] 07/16/2025 10:30 AM EST Office Visit [address] [phone] Wendy Torres MD [address] [place] [address] [email or web address] Chris Barrientos, PT 4 [place], [place] [phone] 07/18/2025 10:30 AM EST Office Visit [address] [address] Wendy Torres MD [address] [place] [address] [email or web address] Chris Barrientos, PT 4 [place] [address] 07/24/2025 10:30 AM EST Office Visit [address] [address] Wendy Torres MD [address] [place] [address] [email or web address] Chris Barrientos, PT 4 [place] [address] 07/26/2025 10:30 AM EST Office Visit [address] [address] Wendy Torres MD [address] [place] [address] [email or web address] Chris Barrientos, PT 4 [place] [address] 08/08/2025 12:00 PM EST Office Visit [facility] Neurology [address] [place] [address] Todd Bailey MD [address] [place] [address], 2nd [place] [address] 08/28/2025 9:30 AM EST Office Visit [facility] Pulmonary, Allergy and Critical Care Medicine [address] [place] [address] Srinivas Pemberton MD 30 [place] [address] 09/02/2025 11:00 AM EST Office Visit [facility] Critical [facility] Medicine 10 [place] [address] Raheem Vaughn MD [address] [place] [address] [email or web address] documented as of this encounter Results * Stress Test Exercise (09/11/2019 9:28 AM EDT) Max BP Systolic 180 mmHg [facility] Max BP Diastolic 84 mmHg [facility] Max HR 169 BPM [facility] Resting HR 83 BPM [facility] Resting BP Systolic 136 mmHg [facility] Resting BP Diastolic 86 mmHg [facility] Peak METS 10.1 METS [facility] Peak HR 160 BPM [facility] Peak BP Systolic 180 mmHg [facility] Peak BP Diastolic 84 mmHg [facility] Anatomical Region Laterality Modality Heart Other 09/11/2019 8:53 AM EDT 09/11/2019 9:29 AM EDT Narrative 09/11/2019 1:18 PM EDT Response to Stress The patient exercised for minutes seconds, achieving 10.1 METS at peak exercise. Baseline blood pressure was 136/86 mmHg, and baseline heart rate was 83 bpm. Peak blood pressure was 180/84 mmHg. The patient achieved a peak heart rate of 160 bpm, which is% of their maximum predicted heart rate. [place] pressure product was [address]. REPORT: Patient exercised for 9:00 minutes on a standard Mikey protocol achieving 10.4 METs and 100% MPHR (169 BPM). The test was terminated due to fatigue. SUMMARY: 1. RESTING ECG: sinus rhythm HR 71 bpm with possible septal infarct. 2. EXERCISE ECG: no ischemic ECG changes. 3. SYMPTOMS: no chest pain or jaw pain. 4. PHYSIOLOGY: Appropriate exercise physiology. Resting heart rate of 83 bpm jennifer to a max heart rate of 169 bpm, this represents 100% MPHR. Resting BP of 138/86 jennifer to a max BP of 180/84. Vital signs stable and returned to baseline prior to discharge from the lab. Achieved 10.4 METs consistent with good functional capacity for age. 5. ARRHYTHMIA: some sinus arrhythmia, infrequent isolated PVCs, rare ventricular couplets and single ventricular triplet. CONCLUSION: Normal ETT without ECG changes suggestive of ischemia and without symptoms concerning for angina. Appropriate exercise physiology. Good functional capacity. Green treadmill score of +9 consistent with low risk. Melinda Pena PA-C with Dr. Washburn . us Wendy Torres MD CV STRESS ORDERABLES Fin al Result documented in this encounter Visit Diagnoses Diagnosis Jaw pain- Primary Elevated blood pressure reading without diagnosis of hypertension Fibromyalgia Unspecified myalgia and myositis Migraine without aura, not intractable, without status migrainosus Viral upper respiratory tract infection Acute upper respiratory infections of unspecified site Jaw pain Elevated blood pressure reading without diagnosis of hypertension Fibromyalgia Unspecified myalgia and myositis Migraine without aura, not intractable, without status migrainosus Viral upper respiratory tract infection Acute upper respiratory infections of unspecified site documented in this encounter Care Teams Telesales Professional Relationship Specialty Start Date End Date Wendy Torres MD [address] [place] [address] PCP - General Family Medicine 03/17/18 05/13/21 Wendy Torres MD [address] [place] [address] PCP - General Family Medicine 05/14/21 Jamila Steele MD [email or web address] Historical LMR Provider 04/24/1707/11 Gisel Liu MD [address] [place] [address], [address] [place] [address] Historical LMR Provider 04/24/17 Evens Escalante MD [address] [place] [address], [address] [place] [address] Historical LMR Provider 04/24/17 Indy Gaytan MD [address] [place] [address] [facility] Sports Medicine, [place] [address] [email or web address] Historical LMR Provider 04/24/17 documented as of this encounter Additional Source Comments The information contained in this document represents components of the legal health record. It is not the complete legal health record.[facility]
--- OUTSIDE RECORDS SUMMARY | 2025-05-14 14:19 | XMS_ITS | Patient Health Record ---
Author Organization [facility] Address [address] [place] [address] Care Team Providers Care Ball Winder Name Role Phone SEAN CRAIG Primary Care Provider Sukh Hall [phone] Allergies Allergen (clinical drug ingredient) Drug/Non Drug [...] 20 MG TAKE 1 CAPSULE BY MO UT EVERY DAY IN THE MORNING; Duration: 90 Active Vitamin B12 1000 MCG 1 tablet Orally Once a day Active Ranitidine HCl 150 MG 1 capsule Orally T wice a day; Duration: 30 day(s) 12/06/2018 Active Vitamin D 2000 [...] Problem Status W/U Status Risk Notes Problem Screening for malignant neoplasm of colon (614017021) Encounter for screening for malignant neoplasm of colon (Z12.11) Active confirmed Problem Gastroesophageal reflux disease without esophagitis (932929370) Gastroesophageal reflux disease without esophagitis (K21.9) Active confirmed Problem Constipation (20478890) Constipation, unspecified constipation type (K59.00) Active confirmed Problem Atrophic gastritis (79593429) Chronic gastritis without bleeding, unspecified gastritis type (K29.50) Active confirmed Plan Of Treatment Future Test Test Name Order Date COLONOSCOPY 06/20/2018 Insurance Providers Payer Name Payer Address Payer Phone Subscriber Number Group Number Insured Name Patient Relationship to Insured Coverage Start Date Coverage End Date [facility] [address] [place] [address] [id number] RAMOS LOBATO Self - patient is the insured Medical (General) History Medical History History ICD Code Melanoma Denies TN,DM,CVA,Lung disease,renal dise ase Mild sleep apnea--not using CPAP Negative EGD(small hiatal he rnia) and Colonoscopy in 11/2009 at [facility] with Dr. Solorzano---normal esophageal and colon biopsies Vestibiular migraines and Fibromyalgia-- -takes Gabapentin Colonoscopy August of 2018-nonadenomat ous polyps EGD in 08/2018--small hiatal hernia and gastritis, but no esophagitis-- biopsies negative for H. pylori and Lofton's esophagus, Surgical History Surgery Date(Month/Year) Laproscopy - endometreosis 2002 Melanoma--left calf 2009
--- OUTSIDE RECORDS SUMMARY | 2025-05-14 14:19 | XMS_ITS | Encounter Summary ---
Author Organization [facility] Address [address] [place] [address] Phone Care Team Providers Care Supervisor Computer Operations Name Role Phone Evens Escalante MD Unavailable [phone] Indy Gaytan MD Unavailable [phone] Wendy Torres MD Primary Care Provider + Reason for Referral * MRI/CAT Scan - Closed Specialty Diagnoses / Procedures Referred By Contac t Referred To Contact Radiology Diagnoses Cervicalgia Disorder of skin and subcutaneous tissue Right knee pain, unspecified chronicity Migraine without aura and without status migrainosus, not intractable Procedures MRI Cervical Spine CHG MRI, CERV SPINE COMBO CHG MRI, CERV SPINE CONTRAST Wendy Torres MD [address] [place] [address] Phone: tel: fax: [email or web address] Referral ID Status Reason Start Date Expiration Date Visits Re quested Visits Authorized [id number] Closed 12/13/2023 01/11/2024 1 1 Encounter Details Date Type Department Care Team (Late st Contact Info) Description 12/13/2023 Transcribe Orders [facility] Department [address] [place] [address] Wendy Torres MD [address] [place] [phone] [email or web address] Cervicalgia (Primary Dx); Disorder of skin and subcutaneous tissue; Right knee pain, unspecified chronicity; Migraine without aura and without status migrainosus, not intractable Social History Tobacco Use Types Packs/Day Years [...] st Contact Info) Description 07/12/2024 Procedure Pass [facility], Ct Scan - [facility] [address] [place] [address] 06/14/2025 2:15 PM EST Office Visit [address] [address] Wendy Torres MD [address] [place] [address] [email or web address] Chris Barrientos, PT [address] [place] [address] 07/02/2025 2:15 PM EST Office Visit [address] [address] Wendy Torres MD [address] [place] [address] [email or web address] Chris Barrientos, PT [address] [place] [address] 07/05/2025 8:15 AM EST Appointment [facility], Ct Scan - [address] [address] Todd Breen MD [address] [place] [address], [address] [address] 07/10/2025 10:30 AM EST Office Visit [address] [address] Wendy Torres MD [address] [place] [address] [email or web address] Chris Barrientos, PT [address] [place] [address] 07/12/2025 10:30 AM EST Office Visit [address] [address] Wendy Torres MD [address] [place] [address] [email or web address] Chris Barrientos, PT [address] [place] [address] [email or web address] 07/16/2025 10:30 AM EST Office Visit [address] [address] Wendy Torres MD [address] [place] [address] [email or web address] Chris Barrientos, PT [address] [place] [address] [email or web address] 07/18/2025 10:30 AM EST Office Visit [address] [address] Wendy Torres MD [address] [place] [address] [email or web address] Chris Barrientos, PT [address] [place] [address] [email or web address] 07/24/2025 10:30 AM EST Office Visit [address] [address] Wendy Torres MD [address] [place] [address] [email or web address] Chris Barrientos, PT [address] [place] [address] 07/26/2025 10:30 AM EST Office Visit [address] [address] Wendy Torres MD [address] [place] [address] [email or web address] Iliana Chris, PT [address] [place] [address] 08/08/2025 12:00 PM EST Office Visit [facility] Neurology [address] [place] [address] Todd Bailey MD [address] [place] [address] 08/28/2025 9:30 AM EST Office Visit [facility] [address] [place] [address] Srinivas Pemberton MD [address] [place] [address] 09/02/2025 11:00 AM EST Office Visit [facility] [address] [place] [address] Raheem Vaughn MD [address] [place] [address] documented as of this encounter Results * MRI CERVICAL SPINE (NEURO) FOCUS WITHOUT CONTRAST (12/26/2023 8:32 AM EDT) Anatomical Region Laterality Modality C-spine Magnetic Resonan ce 12/30/2023 10:0 9 AM EDT Impressions 12/30/2023 10:16 AM EDT 1. Small to moderate-sized broad-based/left paramedian disc spur complex at C6-7 narrowing the left lateral recess and neural foramen, which could be correlated with any associated clinical findings of radiculopathy. 2. Small broad-based disc spur complex at C5-6 without canal stenosis or neural foraminal compromise. 3. Mild right C3-4 neural foraminal narrowing. Narrative 12/30/2023 10:16 AM EDT MRI CERVICAL SPINE (NEURO) FOCUS WITHOUT CONTRAST Referring clinician's provided indication for this examination in [facility]: Outside Radiology Order; left side neck pain TECHNIQUE: MRI CERVICAL SPINE (NEURO) FOCUS WITHOUT CONTRAST Multi-sequence, multi-planar MRI of the cervical spine was performed without intravenous contrast. COMPARISON: None FINDINGS: CERVICAL SPINE: Alignment and Vertebrae: Normal alignment. No compression fracture. Marrow: No bone marrow replacing lesion. Discs and Endplates: Disc space narrowing at C5-6 and C6-7. Remaining discs preserved in height. Spinal Cord: No spinal cord compression or signal abnormality. Soft Tissue: No prevertebral edema or paraspinal soft tissue mass apparent. Findings by level: C2-C3: No focal disc protrusion, central canal stenosis, or neural foraminal compromise. C3-C4: No focal disc protrusion or central canal stenosis. Mild right neural foraminal narrowing. Left neural foramen patent. C4-C5: No focal disc protrusion, central canal stenosis, or neural foraminal narrowing. C5-C6: Small broad-based disc spur complex flattening the ventral aspect of the thecal sac but not contacting the cord. No central canal stenosis or significant neural foraminal narrowing. C6-C7: Small to moderate-sized broad-based disc spur complex slightly eccentric to the left approximated not clearly contacting the ventral margin of the cord. No bony central canal stenosis. Left neural foraminal narrowing due to uncovertebral spurring and disc bulge narrowing the lateral recess. Right neural foramen patent. C7-T1: No focal disc protrusion, central canal stenosis, or neural foraminal compromise. No focal disc protrusion or canal stenosis suggested at T1-T2, T2-3, or T3-4 on sagittal sequences. Procedure Note Cameron Gramajo MD - 12/30/2023 MRI CERVICAL SPINE (NEURO) FOCUS WITHOUT CONTRAST Referring clinician's provided indication for this examination in [facility]:Outside Radiology Order; left side neck pain TECHNIQUE: MRI CERVICAL SPINE (NEURO) FOCUS WITHOUT CONTRAST Multi-sequence, multi-planar MRI of the cervical spine was performedwithout intravenous contrast. COMPARISON: None FINDINGS: CERVICAL SPINE: Alignment and Vertebrae: Normal alignment. No compression fracture. Marrow: No bone marrow replacing lesion. Discs and Endplates: Disc space narrowing at C5-6 and C6-7. Remainingdiscs preserved in height. Spinal Cord: No spinal cord compression or signal abnormality. Soft Tissue: No prevertebral edema or paraspinal soft tissue massapparent. Findings by level: C2-C3: No focal disc protrusion, central canal stenosis, or neuralforaminal compromise. C3-C4: No focal disc protrusion or central canal stenosis. Mild rightneural foraminal narrowing. Left neural foramen patent. C4-C5: No focal disc protrusion, central canal stenosis, or neuralforaminal narrowing. C5-C6: Small broad-based disc spur complex flattening the ventral aspectof the thecal sac but not contacting the cord. No central canal stenosisor significant neural foraminal narrowing. C6-C7: Small to moderate-sized broad-based disc spur complex slightlyeccentric to the left approximated not clearly contacting the ventralmargin of the cord. No bony central canal stenosis. Left neural foraminalnarrowing due to uncovertebral spurring and disc bulge narrowing thelateral recess. Right neural foramen patent. C7-T1: No focal disc protrusion, central canal stenosis, or neuralforaminal compromise. No focal disc protrusion or canal stenosis suggested at T1-T2, T2-3, orT3-4 on sagittal sequences. IMPRESSION: 1. Small to moderate-sized broad-based/left paramedian disc spur complexat C6-7 narrowing the left lateral recess and neural foramen, which couldbe correlated with any associated clinical findings of radiculopathy. 2. Small broad-based disc spur complex at C5-6 without canal stenosis orneural foraminal compromise. 3. Mild right C3-4 neural foraminal narrowing. us Wendy Torres MD IMG MR XSPECIALTY Final Result documented in this encounter Visit Diagnoses Diagnosis Cervicalgia- Primary Disorder of skin and subcutaneous tissue Unspecified disorder of skin and subcutaneous tissue Right knee pain, unspecified chronicity Migraine without aura and without status migrainosus, not intractable Cervicalgia Disorder of skin and subcutaneous tissue Unspecified disorder of skin and subcutaneous tissue Right knee pain, unspecified chronicity Migraine without aura and without status migrainosus, not intractable documented in this encounter Care Teams Supervisor Computer Operations Relationship Specialty Start Date End Date Wendy Torres MD [address] [place] [address] PCP - General Family Medicine 05/14/21 Evens Escalante MD [address] [place] [address], [address] [place] [address] Historical LMR Provider 04/24/17 Indy Gaytan MD [address] [place] [address] Orthopedics & Sports Medicine, [place] [address] Historical LMR Provider 04/24/17 documented as of this encounter Additional Source Comments The information contained in this document represents components of the legal health record. It is not the complete legal health record.[facility]
--- OUTSIDE RECORDS SUMMARY | 2025-05-14 14:19 | XMS_ITS | Encounter Summary ---
Author Organization [facility] Address [address] [place] [address] Phone Care Team Providers Care Corporate Treasurer Name Role Phone Jamila Steele MD Unavailable [email or web address] Gisel Liu MD Unavailable [phone] Evens Escalante MD Unavailable [phone] Indy Gaytan MD Unavailable Wendy Torres MD Primary Care Provider + Wendy Torres MD Primary Care Provider + Encounter Details Date Type Department Care Team (Late st Contact Info) Description 03/21/2019 Ancillary Orders Virtual Department [address] [place] [address] Wendy Torres MD [address] [place] [address] [email or web address] Breast screening Social History Tobacco [...] st Contact Info) Description 07/12/2024 Procedure Pass [address] [address] 06/14/2025 2:15 PM EST Office Visit [facility] [address] [place] [address] Wendy Torres MD [address] [place] [address] [email or web address] Chris Barrientos, PT [address] [place] [address] 07/02/2025 2:15 PM EST Office Visit [facility] [address] [place] [address] Wendy Torres MD [address] [place] [address] [email or web address] Chris Barrientos, PT [address] [place] [address] 07/05/2025 8:15 AM EST Appointment [address] [address] Todd Breen MD [address] [place] [address], [address] [place] [address] 07/10/2025 10:30 AM EST Office Visit [address] [address] Wendy Torres MD [address] [place] [address] [email or web address] Chris Barrientos, PT [address] [place] [address] 07/12/2025 10:30 AM EST Office Visit [address] [address] Wendy Torres MD [address] [place] [address] [email or web address] Chris Barrientos, PT [address] [place] [address] 07/16/2025 10:30 AM EST Office Visit [address] [address] Wendy Torres MD [address] [place] [address] [email or web address] Chris Barrientos, PT [address] [place] [address] 07/18/2025 10:30 AM EST Office Visit [address] [address] Wendy Torres MD [address] [place] [address] [email or web address] Chris Barrientos, PT [address] [place] [address] 07/24/2025 10:30 AM EST Office Visit [address] [address] Wendy Torres MD [address] [place] [address] [email or web address] Chris Barrientos, PT [address] [place] [address] 07/26/2025 10:30 AM EST Office Visit [facility] [address] [place] [address] Wendy Torres MD [address] [place] [address] [email or web address] Chris Barrientos, PT [address] [place] [address] 08/08/2025 12:00 PM EST Office Visit [facility] Neurology [address] [place] [address] Todd Bailey MD [address] [place] [address] 08/28/2025 9:30 AM EST Office Visit [facility] [address] [place] [address] Srinivas Pemberton MD [address] [place] [address] 09/02/2025 11:00 AM EST Office Visit [facility] [address] [place] [address] Raheem Vaughn MD [address] [place] [address] documented as of this encounter Visit Diagnoses Diagnosis Breast screening Breast screening, unspecified documented in this encounter Care Teams Corporate Treasurer Relationship Specialty Start Date End Date Wendy Torres MD [address] [place] [address] PCP - General Family Medicine 03/17/18 05/13/21 Wendy Torres MD [address] [place] [address] PCP - General Family Medicine 05/14/21 Jamila Steele MD [email or web address] Historical LMR Provider 04/24/1707/11 Gisel Liu MD [address] [place] [address], [address] [place] [address] Historical LMR Provider 04/24/17 Evens Escalante MD [address] [place] [address], [address] [place] [address] Historical LMR Provider 04/24/17 Indy Gaytan MD [address] [place] [address] Orth[facility]ics [facility] Sports Medicine, [place] [address] Historical LMR Provider 04/24/17 documented as of this encounter Additional Source Comments The information contained in this document represents components of the legal health record. It is not the complete legal health record.[facility]
== END 2025-05-14 13:35 | disposition home or self-care (01) ==
LOC: HO.HGI 12:24
PROVIDERS: Visit Provider Nurse Practitioner
DX: K76.0 Fatty (change of) liver, not elsewhere classified (principal)
CPT/HCPCS: 99214

== ENCOUNTER 2025-05-14 12:24 | Outpatient (REF) | payer OTHER, SELFPAY ==
[2025-05-14 16:15] LABS: Alanine Aminotransferase 37 U/L (0-31); Albumin Level 4.7 g/dL (3.5-5.0); Alkaline Phosphatase 128 U/L (39-117); Aspartate Amino Transferase 32 U/L (5-31); Total Protein 7.8 g/dL (6.5-8.0)
[2025-05-19 23:48] LABS: Anti Nuclear Antibody Screen POSITIVE (NEGATIVE); Anti Nuclear Antibody Titer 1:80 titer
[2025-05-21 17:34] LABS: FIB-ALT 27 U/L (6-29); FIB-Alpha-2-Macroglobulin 92 mg/dL (106-279); FIB-Apolipoprotein A1 175 mg/dL (101-198); FIB-GGT 31 U/L (3-70); FIB-Haptoglobin 163 mg/dL (43-212); FIB-Total Bilirubin 0.5 mg/dL (0.2-1.2); Liver Fibrosis Score 0.04; Liver Fibrosis Stage F0; Nec Inflam Act Grade A0; Nec Inflam Act Score 0.09
== END 2025-05-14 12:25 | disposition home or self-care (01) ==
LOC: HO.LAB 12:24
PROVIDERS: PCP Family Medicine; Visit Provider Nurse Practitioner
DX: K76.0 Fatty (change of) liver, not elsewhere classified (principal); Z01.84 Encounter for antibody response examination
CPT/HCPCS: 36415; 80076; 81596; 86015; 86038; 86039; 86381

== ENCOUNTER 2025-06-19 14:57 | Outpatient (AMB) | payer OTHER, SELFPAY ==
--- OUTSIDE RECORDS SUMMARY | 2025-06-14 14:15 | XMS_ITS | Encounter Summary ---
Author Organization [facility] Address [address] [place] [address] Phone Care Team Providers Care Senior Information Security Architect Name Role Phone Evens Escalante MD Unavailable [phone] Indy Gaytan MD Unavailable [phone] Wendy Torres MD Primary Care Provider + Reason for Visit * Reason Comments Mid Back Pain * Physical Therapy (Routine) - Authorized Specialty Diagnoses / Procedures Referred By Gamaliel farrar Referred To Contact Physical Therapy Diagnoses Encounter for rehabilitation Wendy Torres MD [address] [place] [address] Phone: tel: fax: mailto:[email or web address] [address] [place] [address] Phone: tel: Referral ID Status Reason Start Date Expiration Date V isits Requested Visits Authorized [id number] Authorized 05/01/2025 12/31/2025 30 30 Encounter Details Date Type Department Care Team (Late st Contact Info) Description 06/14/2025 2:15 PM EST Office Visit [facility] [address] [place] [address] Wendy Torres MD [address] [place] [address] [email or web address] Chris Barrientos, PT [address] [place] [address] Chronic bilateral thoracic back pain (Primary Dx) Social History Tobacco Use [...] AM EDT documented as of this encounter Progress Notes * Chris Barrientos, PT - 06/14/2025 2:15 PM EST Physical Therapy Evaluation PHYSICAL THERAPY INITIAL EVALUATION Subject Line: Evaluation Visit: 1 Patient Name: Katerin Jaime Date of : 12/23/1964 Referring MD: Wendy Torres MD [address] [place] [address] Evaluation Date: 06/14/2025 Diagnosis: Chronic bilateral thoracic back pain [M54.6, G89.29] Subjective/History of Present Illness: 60 y/o female has neck and upper back pain. This patient is well known to me and I have treated her in the past for this similar pain. Better: new pillows, not having to sit at a desk all day, exercise Worse: prolonged sitting Pt works out with [employer] 1x/week and 2x/week with [employer], and 1x/week at home Pt might get surgery R medial meniscus Pertinent Medical History and Co-morbidities: Depression with anxiety History of chickenpox Hx of migraines Hypertension Anemia Fibromyalgia GERD (gastroesophageal reflux disease) Vasovagal episode Costochondritis H/O mammogram - 05/29/2018 Screening for cervical cancer - 05/2016 Melanoma Oral contraceptive use UNCODED SURGICAL HISTORY UNCODED SURGICAL HISTORY UNCODED SURGICAL HISTORY UNCODED SURGICAL HISTORY UNCODED SURGICAL HISTORY Precautions/Safety: none Previous Functional Level: no loss of function Occupation: 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 yes Pain Comments: up to a 6/10 at worst Objective Measures: Posture/Observation: Slight forward head, sidebent R in sitting Range of Motion: Cervical AROM (degrees): flexion: 35, pulls, tight, extension: 50, rotation R: 70, rotation L: 53, sidebending R: 25, sidebending L: 35 Thoracic AROM (degrees): rotation = mild loss bilaterally, moderate loss of extension Shoulder AROM: wnl bilaterally Strength: UE myotomes: bilateral shoulder ER: 4/5, otherwise wnl and symmetrical Rhomboids/mid traps: 4-/5 bilaterally Lower traps: 3-/5 bilaterally Neurological Testing: UE DTR: 2+ bilaterally ULNTT: (-) bilaterally Palpation: Tenderness to palpation: bilateral levator scapulae, rhomboids, cervical paraspinals Hypomobility T4-6 with PA glide Special Tests: Craniocervical flexion endurance test: 20 seconds Cervical flexion rotation test: wnl bilaterally Cervical distraction test: (-) for pain Gait: wnl Functional Mobility Comments: no loss of functional mobility Outcome Measures: NDI: not completed Barriers to Learning: none Prognosis: Good Clinical Assessment: This 60 y/o female with chronic, recurrent neck and upper back pain. Pt has the following impairments: poor posture, decreased AROM, decreased strength, and soft tissue and jointhypomobility. Goals: GOAL (Short Term): To be achieved in 2-3 weeks... - Pt will have a good understanding, compliance and performance of HEP. - Pt will have decreased tenderness to palpation of cervical and periscapula region. - Pt will restore cervical and thoracic rotation, flexion, and extension AROM with pain <3/10 inorder to perform ADLs and IADLs with little to no limitations. - Pt will improve their posture in order to reduce symptoms and pain by 50% throughout the day. - Pt will be able to sleep comfortably for longer duration and less pain. - Pt will have centralization of symptoms and a decrease in pain by 25-50% per NPRS. OUTCOME (Feller Buncher Operator): To be achieved in 4-6 weeks... -Pt will manage and prevent another episode of cervical pain through continuation of an independent, comprehensive HEP. - Pt will have improved posture, muscle endurance and strength to support their spine and improve functional mobility. -Pt will have symmetrical and functional cervical spine AROM so they can perform all ADLs without compensation and with less pain. -Pt will achieve a clinically significant change in Neck Disability Index Score. Patient Stated Goal: Reduce pain PLAN Frequency and Duration: Patient will be seen 1-2 times per week for 4-6 weeks. Treatment will include: - Manual therapy: STM, stretching, joint mobilization, traction - Therapeutic exercise: cervical stabilization, periscapular strengthening, stretching, self mobilization, postural correction - Pt education and activity modification - HEP - Modalities: MHP The complexity of this evaluation is based on standardized patient assessment instruments and/or standardized measurable functional outcome. Personal factors and co-morbidities that impact plan of care: see PMH Education and/or treatment provided today: pt education on today's findings and plan of care Frequency & Duration of Treatment Plan: Frequency: 1-2 x per week Duration: for 4-6 weeks The Patient/Family is in agreement with the plan of care. Thank you for this referral. Chris Barrientos PT [id number] documented in this encounter Plan of Treatment Upcoming Encounters Date Type Department Care Team (Late st Contact Info) Description 07/12/2024 Procedure Pass [facility], Ct Scan - [address] [address] 06/26/2025 9:45 AM EST Office Visit [facility] [address] [address] Wendy Torres MD [address] [place] [address] [email or web address] Campa, PT [address] [place] [address] 07/02/2025 2:15 PM EST Office Visit [facility] [address] [address] Wendy Torres MD [address] [place] [address] [email or web address] Campa, PT [address] [place] [address] 07/05/2025 8:15 AM EST Appointment [facility], Ct Scan - [address] [address] Todd Breen MD [address] [place] [address], [address] [address] 07/10/2025 10:30 AM EST Office Visit [facility] [address] [address] Wendy Torres MD [address] [place] [address] [email or web address] Chris Campa, PT [address] [place] [address] 07/12/2025 10:30 AM EST Office Visit [facility] [address] [address] Wendy Torres MD [address] [place] [address] [email or web address] Campa, PT [address] [place] [address] 07/16/2025 10:30 AM EST Office Visit [facility] [address] [address] Wendy Torres MD [address] [place] [address] [email or web address] Chris Campa, PT [address] [place] [address] 07/18/2025 10:30 AM EST Office Visit [facility] [address] [address] Wendy Torres MD [address] [place] [address] [email or web address] Chris Campa, PT [address] [place] [address] 07/24/2025 10:30 AM EST Office Visit [facility] [address] [address] Wendy Torres MD [address] [place] [address] [email or web address] Campa, PT [address] [place] [address] 07/26/2025 10:30 AM EST Office Visit [facility] [address] [place] [address] Wendy Torres MD [address] [place] [address] [email or web address], PT [address] [place] [address] 08/08/2025 12:00 PM EST Office Visit [facility] [address] [place] [address] Todd Bailey MD [address] [place] [address] 08/28/2025 9:30 AM EST Office Visit [facility] [address] [place] [address] Srinivas Pemberton MD [address] [place] [address] 09/02/2025 11:00 AM EST Office Visit [facility] [address] [place] [address] Raheem Vaughn MD [address] [place] [address] documented as of this encounter Procedures Procedure Name Priority Date/Time Associated Diagnosis Comments AMB REFERRAL TO [facility] PHYSICAL THERAPY Routine 06/15/2025 10:16 AM EST Encounter for rehabilitation documented in this encounter Results * Ambulatory referral to [facility] Physical Therapy (06/15/2025 10:16 AM EST) Other us Wendy Torres MD AMB [facility] REFERRALS Final Result documented in this encounter Visit Diagnoses Diagnosis Chronic bilateral thoracic back pain- Primary documented in this encounter Care Teams Senior Information Security Architect Relationship Specialty Start Date End Date Wendy Torres MD [address] [place] [address] PCP - General Family Medicine 05/14/21 Evens Escalante MD [address] [place] [address], [address] [place] [address] Historical LMR Provider 04/24/17 Indy Gaytan MD [address] [place] [address] Orthopedics [facility] Sports Medicine, [place] [address] Historical LMR Provider 04/24/17 documented as of this encounter Additional Source Comments The information contained in this document represents components of the legal health record. It is not the complete legal health record.[facility]
--- OUTSIDE RECORDS SUMMARY | 2025-06-18 09:00 | XMS_ITS | Encounter Summary ---
Author Organization [facility] Address [address] [place] [address] Phone Care Team Providers Care Puttier Name Role Phone Evens Escalante MD Unavailable [phone] Indy Gaytan MD Unavailable [phone] Wendy Torres MD Primary Care Provider + Reason for Visit * Physical Therapy (Routine) - Authorized Specialty Diagnoses / Procedures Referred By Gamaliel farrar Referred To Contact Physical Therapy Diagnoses Encounter for rehabilitation Wendy Torres MD [address] [place] [address] Phone: tel: fax: mailto:[email or web address] [facility] [address] [place] [address] Phone: tel: Referral ID Status Reason Start Date Expiration Date V isits Requested Visits Authorized [id number] Authorized 05/01/2025 12/31/2025 30 30 Encounter Details Date Type Department Care Team (Late st Contact Info) Description 06/18/2025 9:00 AM EST Office Visit [facility] [address] [place] [address] Wendy Torres MD [address] [place] [address] [email or web address] Chris Barrientos, PT [address] [place] [address] Chronic bilateral thoracic back pain (Primary Dx) [...] Progress Notes * Chris Barrientos, PT - 06/18/2025 9:00 AM EST Physical Therapy Treatment Note Patient Name: Katerin Jaime Date of : 12/23/1964 This patient has attended 2 visits since the onset Physical Therapy. Referring MD: Wendy Torres MD [address] [place] [address] Chronic bilateral thoracic back pain [M54.6, G89.29] Precautions: none Subjective comments: Pt states she has exercise class after today's treatment. No new reports. Pain comments pre-treatment: Neck and upper back pain Objective Measures: Posture/Observation: Slight forward head, sidebent [...] Mobility Comments: no loss of functional mobility Interventions: See encounter report for minutes associated with each intervention. STM to cervical paraspinals, upper trap, suboccipitals, levator scapulae, periscapula ms PA joint mobs T 4-6 grade 3 stretch mobs x 3 reps each Thoracic extension over foam roller 3 areas mid back x 3 reps Prone on incline bench I and T 1 set of 15 reps 2.5 lbs Seated shoulder ER with towel roll b/w scapulae in upright supported bench red band Home Exercise Program: Access Code: [email or web address] URL: [email or web address] Date: 06/18/2025 Prepared by: Chris Barrientos Exercises - Doorway Pec Stretch at 90 Degrees Abduction - 1 x daily - 2-3 x weekly - 1 sets - 3 reps - 15 seconds hold - Thoracic Extension Mobilization on Foam Roll - 1 x daily - 2-3 x weekly - 10 reps - Prone Horizontal Abduction with Palms Down - 1 x daily - 2-3 x weekly - 1-2 sets - 15 reps - Prone Shoulder Extension with Dumbbells - 1 x daily - 2-3 x weekly - 1-2 sets - 15 reps Assessment: Pt has soft tissue trigger points. Pt tolerated today's therex very well. Plan: Progress as tolerated. Chris Barrientos, [place] [id number] documented in this encounter Plan of Treatment Upcoming Encounters Date Type Department Care Team (Late st Contact Info) Description 07/12/2024 Procedure Pass [address] [phone] 06/26/2025 9:45 AM EST Office Visit [facility] [address] [place] [address] Wendy Torres MD [address] [place] [address] [email or web address] Chris Campa, PT [address] [place] [address] 07/02/2025 2:15 PM EST Office Visit [facility] [address] [place] [address] Wendy Torres MD [address] [place] [address] [email or web address] Campa, PT [address] [place] [address] 07/05/2025 8:15 AM EST Appointment [address] [address] Todd Breen MD [address] [place] [address], [address] [place] [address] 07/10/2025 10:30 AM EST Office Visit [facility] [address] [place] [address] Wendy Torres MD [address] [place] [address] [email or web address] Chris Campa, PT [address] [place] [address] 07/12/2025 10:30 AM EST Office Visit [facility] [address] [place] [address] Wendy Torres MD [address] [place] [address] [email or web address] Campa, PT [address] [place] [address] 07/16/2025 10:30 AM EST Office Visit [facility] [address] [address] Wendy Torres MD [address] [place] [address] [email or web address] Chris Campa, PT [address] [place] [address] 07/18/2025 10:30 AM EST Office Visit [facility] [address] [address] Wendy Torres MD [address] [place] [address] [email or web address] Campa, PT [address] [place] [address] 07/24/2025 10:30 AM EST Office Visit [facility] [address] [place] [address] Wendy Torres MD [address] [place] [address] [email or web address] Campa, PT [address] [place] [address] 07/26/2025 10:30 AM EST Office Visit [facility] [address] [place] [address] Wendy Torres MD [address] [place] [address] [email or web address] Campa, PT [address] [place] [address] 08/08/2025 12:00 PM EST Office Visit [facility] [address] [place] [address] Todd Bailey MD [address] [place] [address] 08/28/2025 9:30 AM EST Office Visit [facility] [address] [place] [address] Srinivas Pemberton MD [address] [place] [address] 09/02/2025 11:00 AM EST Office Visit [facility] [address] [place] [address] Raheem Vaughn MD [address] [place] [address] documented as of this encounter Visit Diagnoses Diagnosis Chronic bilateral thoracic back pain- Primary documented in this encounter Care Teams Puttier Relationship Specialty Start Date End Date Wendy Torres MD [address] [place] [address] PCP - General Family Medicine 05/14/21 Evens Escalante MD [address] [place] [address], [address] [place] [address] Historical LMR Provider 04/24/17 Indy Gaytan MD [address] [place] [address] Orth[facility]ics [facility] Sports Medicine, [place] [address] Historical LMR Provider 04/24/17 documented as of this encounter Additional Source Comments The information contained in this document represents components of the legal health record. It is not the complete legal health record.[facility]
--- NOTE | 2025-06-19 15:04 | A.OFFVIS_ITS ---
Vital Signs 06/19/25 15:08 Height 5 ft 5 in Weight 232 lb BMI 38.6 BP 110/56 L Blood Pressure Location Lt brachial Position Sitting Pulse 69 Intake Visit Reasons: Follow up labs Intake Note: Patient in office today for follow up of labs. CC: Patient denies having any new GI symptoms or concerns today. [place] Required: No Accompanied by: Self / Same As Patient Allergies amoxicillin Allergy (Severe, Verified 06/19/25 15:12) GI distress clavulanic acid (From Augmentin) Allergy (Severe, Verified 06/19/25 15:12) GI distress HPI HPI Follow up labs: Details: Assessment & Plan (1) Hepatic steatosis: Code(s): K76.0 - Fatty (change of) liver, not elsewhere classified Category: Medical Plan A 60-YEAR-OLD FEMALE seen in the past by Ivy Gonzalez and treated in the past for GERD and gastritis history discuss new concerns a possible fatty liver and a gallbladder polyp. Apparently, she was upset after her endoscopy because the nurse practitioner at that time, when she asked about why they used ketamine on her told her that they absolutely would not do that and that did not happen. However, it is clearly in her record that they did utilize ketamine because she had apneic periods for the propofol. I reassure her that I can see this in her record and I am not questioning her report. Unfortunately, this seem to adversely affect the patient provider relationship so she requested CBCs different provider. She continues to do well on her pantoprazole in the morning and famotidine at night. 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 She is currently in the process of losing weight, mostly in response to her been told she had fatty liver, and this may help to control her GERD and we could then discuss PPI weaning strategies. She was educated about the PPI rebound effect. With regards to the gallbladder polyp it appears it was about 4 mm a year 2 ago (she gets a lot of her testing done at [facility] so the inclusive 80 in the chart is sketchy) but a repeat ultrasound by her primary care provider seems to indicate has grown to 7 mm. We discussed the differential diagnosis for this, this could potentially be a calcification similar to a gallstone growing with her weight loss but the worse case scenario would be that it was a form of gallbladder cancer. She is very much against the idea of cholecystectomy. Apparently she worked in [employer] for many years and she seems to feel that most people suffer greatly after having a cholecystectomy. I explained to her that too many people do suffer because they over produce bile and no one seems to remember that a simple bile b inding agent only cholestyramine or sucralfate can treat this problem. However, she is agreeable to getting a little more of a workup in terms of an autoimmune workup to exclude CBC etc.. Her last ultrasound does not show fatty replacement but does so some coarse contours of the liver with it mildly enlarged. This could just be genetic, but we will get a fibrosis panel to try to give her a better idea about this. It appears that her transaminases were normal about a year ago. She is educated that most people who go on to develop cirrhosis and liver cancer with fatty liver tend to be those that either gain a great deal more weight, drink alcohol daily basis, or have uncontrolled blood sugars. It is also possible that there is another confounding factor like an undiagnosed autoimmune problems etc.. However those things aside only tend to 20% of people who have fatty liver we will go on to develop cirrhosis or liver cancer in their lifetime. I say this because she was very upset about the diagnosis and was feeling very guilty that she ruined her own health. I believe that she should continue her dietary restrictions for her best overall health but I do not think she needs guilt or anxiety around this particular condition. She has had some changes in her bowels recently from softer stools to at times loose stools but this may be related to her more healthful diet. Prior to this she was undergoing a great deal of stress at work and was eating more on the run, snacking and generally not participating in his helpful a diet. Being that her last colonoscopy was fiber less years ago I do not think this is a harbinger of any severe disease. At this time her primary care provider is ordering her ultrasounds and prescribing her acid reducing therapy. But she would like to follow with our service for the gallbladder polyp and I recommend that repeat repeat the ultrasound or even consider CAT scan sometime mid next summer. The meantime I will see her again in a few weeks to go over the blood tests I am ordering today. Return office visit in 4-6 weeks Orders: Orders Mitochondrial Antibody Today K76.0 - Fatty (change of) liver, not elsewhere classified Liver Fibrosis Pnl Today K76.0 - Fatty (change of) liver, not elsewhere classified EMILEE Reflex Titer and Pattern Today K76.0 - Fatty (change of) liver, not elsewhere classified Smooth Muscle Antibody Today K76.0 - Fatty (change of) liver, not elsewhere classified Liver Panel Today K76.0 - Fatty (change of) liver, not elsewhere classified LABS: Laboratory Tests 05/14/25 13:56 Direct Bilirubin 0.2 AST 32 H ALT 37 H Alkaline Phosphatase 128 H Liver Fibrosis Stage F0 EMILEE Screen POSITIVE A Anti-Mitochondrial Ab NEGATIVE Anti-Smooth Muscle Ab <20 TODAY'S VISIT [facility] Medical History Hiatal hernia Fibromyalgia Surgical History S/P laparoscopy Hx of tonsillectomy History of esophagogastroduodenoscopy (EGD) H/O colonoscopy Social History Alcohol intake: former Patient Tobacco Use Status: Never used Tobacco Review of Systems Eyes Details: glasses Physical Exam Vital Signs: Last Vital Signs Pulse 69 06/19/25 15:08 BP 110/56 L 06/19/25 15:08 BMI result Body Mass Index 38.6 Assessment & Plan Assessment & Plan (1) SAVAGE (nonalcoholic steatohepatitis): Code(s): K75.81 - Nonalcoholic steatohepatitis (SAVAGE) Category: Medical (2) Obesity (BMI 35.0-39.9 without comorbidity): Code(s): E66.9 - Obesity, unspecified Category: Medical Plan Subjective Patient presents to review recent liver-related laboratory testing and imaging. I discussed that results are most consistent with a metabolic fatty liver pattern. She reports ongoing intentional weight loss averaging 1 lb/week since January 01 and denies alcohol use. She expressed concern about a recent blood pressure reading of 110/56 and possible low diastolic values while on antihypertensive therapy; I provided reassurance. We reviewed a history of gallbladder polyp that has increased in size (approximately 4 mm to 7 mm) on prior ultrasounds. She is on pantoprazole with bedtime famotidine for reflux; prior endoscopy noted possible Lofton?s, but pathology was negative. She asked about timing for next colonoscopy and options for interim noninvasive screening; past colonoscopies (2009 and 2018) did not show adenomatous polyps (one inflammatory polyp previously). She has noticed looser stools since transitioning to a largely vegetarian diet; we discussed dietary fiber effects on stool consistency. Relevant Past Medical, Social, and Family History - Personal history notable for metabolic fatty liver. No alcohol use. On antihypertensive medication. Prior non-adenomatous colonic polyp. Objective - Blood pressure 110/56. - FibroSure indicates fibrosis stage 0; no evidence of liver damage. - Autoimmune liver panels negative for primary biliary cholangitis and autoimmune hepatitis. - EMILEE screen mildly elevated with a pattern more associated with lupus/Sj?g joseph?s; low-level and not liver-related. - Prior abdominal ultrasounds: hepatic steatosis; gallbladder polyp enlarged from approximately 4 mm to 7 mm. One ultrasound had reported hepatomegaly, with repeat a week later within normal limits. Assessment & Plan Metabolic fatty liver (steatotic liver disease): Findings consistent with metabolic fatty liver; no fibrosis (FibroSure stage 0) and autoimmune liver disease markers negative. - Continue gradual weight loss as tolerated. - Avoid regular alcohol use. - Maintain close glycemic control if diabetes develops. - Arrange repeat liver ultrasound in approximately 6 months (to be ordered through PCP per patient preference) and obtain updated liver-related blood work prior to follow-up. - Follow up with me in 6 months to review results, or sooner if LFTs/imaging worsen. Gallbladder polyp: Previously increased from ~4 mm to ~7 mm on ultrasound; requires surveillance. - Reassess with the same 6-month ultrasound. 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 - If enlargement persists or concerning features are present, discuss cholecystectomy with pathologic evaluation. Gastroesophageal reflux disease, Lofton?s not confirmed: Endoscopic impression of possible Lofton?s with negative pathology. Currently on pantoprazole and bedtime famotidine. - May consider a gradual taper of pantoprazole as weight loss progresses to minimize rebound acid hypersecretion; avoid abrupt cessation. - Long-term PPI use has not demonstrated harm in prospective studies; OTC duration limits are to prevent masking serious disease, not due to proven toxicity. Blood pressure concern while on antihypertensive therapy: Isolated diastolic 56 mmHg with systolic 110 mmHg discussed. - Do not act on single readings; monitor trends. 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 - May need antihypertensive dose reduction or discontinuation if blood pressures trend lower; coordinate with cardiology/PCP. Colorectal cancer screening: History of inflammatory (non-adenomatous) polyp; no adenomas documented (2009 pathology negative for adenomas; 2018 colonoscopy with 10-year recall). - Next screening colonoscopy due in 2028 per guidelines, barring symptoms. - Eligible for stool DNA testing (Cologuard) if desired before next colonoscopy; discussed potential insurance differences between screening vs diagnostic testing. Change in stool consistency with dietary shift to vegetarian diet: Likely related to increased osmotic effect of plant-based fibers and starches. - Reassurance provided; monitor symptoms. Seek evaluation if alarm features develop (e.g., bleeding, weight loss unrelated to intentional efforts, nocturnal symptoms, anemia). Coding Level of Care Code Est Pt Level 3 (36620) Diagnoses SAVAGE (nonalcoholic steatohepatitis) K75.81 Obesity (BMI 35.0-39.9 without comorbidity) E66.9
[2025-06-19 15:08] VITALS: BP 110/56; PULSE 69; BMI 38.6
--- OUTSIDE RECORDS SUMMARY | 2025-06-19 19:55 | XMS_ITS | Encounter Summary ---
Author Organization [facility] Address [address] [place] [address] Phone Care Team Providers Care Solution Developer Name Role Phone Jamila Steele MD Unavailable [email or web address] Gisel Liu MD Unavailable [phone] Evens Escalante MD Unavailable [phone] Indy Gaytan MD Unavailable [phone] Wendy Torres MD Primary Care Provider + Wendy Torres MD Primary Care Provider + Encounter Details Date Type Department Care Team (Late st Contact Info) Description 09/01/2018 Transcribe Orders [address] [place] [address] Wendy Torres MD [address] [place] [phone] [email or web address] General medical exam (Primary Dx); Encounter [...] st Contact Info) Description 07/12/2024 Procedure Pass [address] [address] 06/26/2025 9:45 AM EST Office Visit [facility] [address] [place] [address] Wendy Torres MD [address] [place] [phone] [email or web address], PT [address] [place] [address] 07/02/2025 2:15 PM EST Office Visit [facility] [address] [place] [address] Wendy Torres MD [address] [place] [phone] [email or web address], PT [address] [place] [address] 07/05/2025 8:15 AM EST Appointment [address] [address] Todd Breen MD [address] [place] [address], [address] [place] [address] 07/10/2025 10:30 AM EST Office Visit [facility] [address] [place] [address] Wendy Torres MD [address] [place] [phone] [email or web address], PT [address] [place] [address] 07/12/2025 10:30 AM EST Office Visit [facility] [address] [address] Wendy Torres MD [address] [place] [phone] [email or web address], PT [address] [place] [address] 07/16/2025 10:30 AM EST Office Visit [facility] [address] [address] Wendy Torres MD [address] [place] [phone] [email or web address], PT [address] [place] [address] 07/18/2025 10:30 AM EST Office Visit [facility] [address] [address] Wendy Torres MD [address] [place] [phone] [email or web address], PT [address] [place] [address] 07/24/2025 10:30 AM EST Office Visit [facility] [address] [address] Wendy Torres MD [address] [place] [phone] [email or web address], PT [address] [place] [address] 07/26/2025 10:30 AM EST Office Visit [facility] [address] [place] [address] Wendy Torres MD [address] [place] [phone] [email or web address], PT [address] [place] [address] 08/08/2025 12:00 PM EST Office Visit [facility] [address] [address] Todd Bailey MD [address] [place] [phone] 08/28/2025 9:30 AM EST Office Visit [facility] [address] [place] [address] Srinivas Pemberton MD [address] [place] [address] 09/02/2025 11:00 AM EST Office Visit [facility] [address] [place] [phone] Raheem Vaughn MD [address] [place] [phone] documented as of this encounter Results * 25-OH vitamin D (09/01/2018 7:40 AM EST) 25 [place] VIT D (TOTAL) 47 30 - 60 ng/mL [facility] Blood 09/01/2018 7:40 AM EST 09/01/2018 7:44 AM EST us Wendy Torres MD LAB BLOOD BKR ORDERABLES Final Result Performing Organization Address [facility] Co de Phone Number [address] [address] * Vitamin B12 (09/01/2018 7:40 AM EST) Pathologist [facility] VITAMIN B12 618 232 - 1,245 pg/mL [facility] Blood 09/01/2018 7:40 AM EST 09/01/2018 7:44 AM EST us Wendy Torres MD LAB BLOOD BKR ORDERABLES Final Result Performing Organization Address [facility] Co de Phone Number [address] [address] * TSH with reflex (09/01/2018 7:40 AM EST) Pathologist [facility] TSH 3.48 0.27 - 4.20 uIU/mL [facility] Blood 09/01/2018 7:40 AM EST 09/01/2018 7:44 AM EST us Wendy Torres MD LAB BLOOD BKR ORDERABLES Final Result Performing Organization Address [facility] Co de Phone Number [address] [address] * (ABNORMAL) Lipid panel (09/01/2018 7:40 AM EST) Pathologist [facility] HDL 67 mg/dL [facility] Comment: Interpretation <40 mg/dL: Low HDL cholesterol (major risk factor for CHD) Greater than or equal to 60 mg/dL: High HDL cholesterol ( negative risk factor for CHD) HDL - cholesterol is affected by a number of factors, e.g. smoking, excerise, hormones, sex and age. CHOLESTEROL 171 0 - 240 mg/dL [facility] TRIGLYCERIDES 49 30 - 160 mg/dL [facility] LDL 94 50 - 129 mg/dL [facility] Comment: LDL levels in terms of risk for coronary heart disease: <100 mg/dL: Optimal 100-129 mg/dL: Near or above optimal 130-159 mg/dL: Borderline high 160-189 mg/dL: High >190 mg/dL: Very High CARDIAC RISK RATIO 2.6(L) 3.3 - 4.4 C [facility] Blood 09/01/2018 7:40 AM EST 09/01/2018 7:44 AM EST us Wendy Torres MD LAB BLOOD BKR ORDERABLES Final Result [facility] [address] [place] [address] * Comprehensive metabolic panel (09/01/2018 7:40 AM EST) SODIUM 142 133 - 146 mmol/L [facility] POTASSIUM 4.3 3.3 - 5.1 mmol/L [facility] CHLORIDE 105 96 - 108 mmol/L [facility] CO2 27 21 - 35 mmol/L [facility] BUN 12 6 - 19 mg/dL [facility] CREATININE 0.60 0.5 - 1.5 mg/dL [facility] GLUCOSE 86 70 - 99 mg/dL [facility] ALBUMIN 4.7 3.9 - 4.8 g/dL [facility] TOTAL PROTEIN 7.2 6.5 - 8.0 g/dL [facility] CALCIUM 9.5 8.4 - 10.3 mg/dL [facility] ALKALINE PHOSPHATASE 93 39 - 117 U/L [facility] TOTAL BILIRUBIN 0.3 0.0 - 1.2 mg/dL [facility] Comment: Results from certain multiple myeloma patients may show a positive bias in recovery. Not all multiple myeloma patients show the bias and severity of the bias may vary between patients. In very rare cases, gammopathy, in particular type IgM (Waldenstrom's macroglobulinemia), may cause unreliable results. AST 20 0 - 37 U/L [facility] ALT 20 0 - 40 U/L [facility] GLOBULIN 2.5 1 - 4.8 g/dL [facility] EGFR 106 >59 mL/min/1.7 3m2 [facility] Comment:If patient is black, multiply result by 1.159. Estimated glomerular filtration rate calculated using the CKD-EPI equation. ANION GAP 14 10 - 20 mmol/L [facility] Blood 09/01/2018 7:40 AM EST 09/01/2018 7:44 AM EST us Wendy Torres MD LAB BLOOD BKR ORDERABLES Final Result [address] [address] * (ABNORMAL) CBC and differential (09/01/2018 7:40 AM EST) WBC 3.85 3.40 - 11.20 K/uL [facility] RBC 3.65(L) 3.80 - 4.80 M/uL [facility] HGB 12.2 12.0 - 15.0 g/dL [facility] HCT 36.1 36.0 - 46.0 % [facility] PLT 226 130 - 400 K/uL [facility] MCV 98.9(H) 79.0 - 98.0 fL [facility] MCH 33.4 27.0 - 34.8 pg [facility] MCHC 33.8 31.5 - 36.0 g/dL [facility] RDW 11.7 10.8 - 14.6 % [facility] MPV 10.2 9.4 - 12.4 fl [facility] NRBC 0.00 0.00 /100 WBCs [facility] ABSOLUTE NRBC 0.00 0.00 K/uL [facility] DIFF METHOD Auto [facility] NEUTS 51.5 45.30 - 77.70 % [facility] LYMPHS 35.1 12.30 - 39.70 % [facility] MONOS 9.4 4.10 - 12.80 % [facility] EOS 2.1 0 - 7.2 % [facility] BASOS 1.6 0 - 2.80 % [facility] Granulocytes, immature (%) 0.3 0.0 - 0.9 % [facility] ABSOLUTE NEUTS 1.99 1.40 - 7.70 K/uL [facility] ABSOLUTE LYMPHS 1.35 0.60 - 3.20 K/uL [facility] ABSOLUTE MONOS 0.36 0.11 - 0.59 K/uL [facility] ABSOLUTE EOS 0.08 0.01 - 0.50 K/uL [facility] ABSOLUTE BASOS 0.06 0.00 - 0.08 K/uL [facility] Granulocytes, immature 0.01 0.00 - 0.05 K/uL [facility] Blood 09/01/2018 7:40 AM EST 09/01/2018 7:44 AM EST us Wendy Torres MD LAB BLOOD BKR ORDERABLES Final Result Performing Organization Address City/State/[facility] Co de Phone Number [address] [address] documented in this encounter Visit Diagnoses Diagnosis General medical exam- Primary Unspecified general medical examination Encounter for immunization Gastroesophageal reflux disease without esophagitis Esophageal reflux Fibromyalgia Unspecified myalgia and myositis documented in this encounter Care Teams Solution Developer Relationship Specialty Start Date End Date Wendy Torres MD [address] [place] [address] [email or web address] PCP - General Family Medicine 03/17/18 05/13/21 Wendy Torres MD [address] [place] [address] PCP - General Family Medicine 05/14/21 Jamila Steele MD [email or web address] Historical LMR Provider 04/24/1707/11 Gisel Liu MD [address] [facility]nd [place] [address] Historical LMR Provider 04/24/17 Evens Escalante MD [address], [address] [place] [address] Historical LMR Provider 04/24/17 Indy Gaytan MD [address] [place] [address] [facility], [place] [address] Historical LMR Provider 04/24/17 documented as of this encounter Additional Source Comments The information contained in this document represents components of the legal health record. It is not the complete legal health record[facility]
--- OUTSIDE RECORDS SUMMARY | 2025-06-19 19:55 | XMS_ITS | Encounter Summary ---
Author Organization [facility] Address [address] [place] [address] Phone Care Team Providers Care Armature Connector Name Role Phone Jamila Steele MD Unavailable [email or web address] Gisel Liu MD Unavailable [phone] Evens Escalante MD Unavailable [phone] Indy Gaytan MD Unavailable [phone] Wendy Torres MD Primary Care Provider + Wendy Torres MD Primary Care Provider + Reason for Referral * Physical Therapy (Elective) - Closed Specialty Diagnoses / Procedures Referred By Gamaliel farrar Referred To Contact Physical Therapy Diagnoses Encounter for rehabilitation Neck & Upper/Mid Back Procedures Evaluate & Treat System, Provider Not In, PhD [id number] [place] [address] Phone: tel: Referral ID Status Reason Start Date Expiration Date Visits Re quested Visits Authorized [id number] Closed 07/25/2018 01/22/2019 16 16 Encounter Details Date Type Department Care Team (Late st Contact Info) Description 07/12/2018 Transcribe Orders [facility] [address] [place] [address] [phone] Wendy Torres MD [address] [place] [address] [email or web address] Encounter for rehabilitation (Primary Dx) Social [...] st Contact Info) Description 07/12/2024 Procedure Pass [address] [address] 06/26/2025 9:45 AM EST Office Visit [facility] [address] [place] [address] Wendy Torres MD [address] [place] [address] [email or web address], PT 4 [place] [address] [email or web address] 07/02/2025 2:15 PM EST Office Visit [facility] [address] [place] [address] Wendy Torres MD [address] [place] [address] [email or web address], PT 4 [place] [address] 07/05/2025 8:15 AM EST Appointment [address] [address] Todd Breen MD [address] [place] [address], [address] [place] [address] 07/10/2025 10:30 AM EST Office Visit [facility] Physical Therapy [address] [address] Wendy Torres MD [address] [place] [address] [email or web address], PT 4 [place] [address] 07/12/2025 10:30 AM EST Office Visit [facility] Physical Therapy [address] [address] Wendy Torres MD [address] [place] [address] [email or web address], PT 4 [place] [address] 07/16/2025 10:30 AM EST Office Visit [facility] Physical Therapy [address] [address] Wendy Torres MD [address] [place] [address] [email or web address], PT 4 [place] [address] 07/18/2025 10:30 AM EST Office Visit [facility] Physical Therapy [address] [address] Wendy Torres MD [address] [place] [address] [email or web address], PT 4 [place] [address] 07/24/2025 10:30 AM EST Office Visit [facility] [address] [address] Wendy Torres MD [address] [place] [address] [email or web address], PT 4 [place] [address] 07/26/2025 10:30 AM EST Office Visit [facility] Physical Therapy [address] [address] Wendy Torres MD [address] [place] [address] [email or web address], PT 4 [place] [address] 08/08/2025 12:00 PM EST Office Visit [facility] [address] [place] [address] Todd Bailey MD [address] [place] [address], 2nd [place] [address] 08/28/2025 9:30 AM EST Office Visit [facility] Pulmonology, [facility] [address] [place] [address] Srinivas Pemberton MD [address] [place] [address] 09/02/2025 11:00 AM EST Office Visit [facility] Pulmonology, [facility] [address] [place] [address] Raheem Vaughn MD [address] [place] [address] documented as of this encounter Procedures Procedure Name Priority Date/Time Associated Diagnosis Comments AMB REFERRAL TO [facility] PHYSICAL THERAPY Routine 07/25/2018 8:21 AM EST Encounter for rehabilitation documented in this encounter Results * Ambulatory referral to [facility] Physical Therapy (07/25/2018 8:21 AM EST) us Provider Not In System PhD AMB [facility] REFERRALS Fin al Result documented in this encounter Visit Diagnoses Diagnosis Encounter for rehabilitation- Primary documented in this encounter Care Teams Armature Connector Relationship Specialty Start Date End Date Wendy Torres MD [address] [place] [address] PCP - General Family Medicine 03/17/18 05/13/21 Wendy Torres MD [address] [place] [address] PCP - General Family Medicine 05/14/21 Jamila Steele MD [email or web address] Historical LMR Provider 04/24/1707/11 Gisel Liu MD [address] [facility], [address] [place] [address] Historical LMR Provider 04/24/17 Evens Escalante MD [address] [facility], [address] [place] [address] Historical LMR Provider 04/24/17 Indy Gaytan MD [address] [place] [address] Orthopedics & Sports Medicine, [facility] [place] [address] Historical LMR Provider 04/24/17 documented as of this encounter Additional Source Comments The information contained in this document represents components of the legal health record. It is not the complete legal health record.[facility]
--- OUTSIDE RECORDS SUMMARY | 2025-06-19 19:55 | XMS_ITS | Encounter Summary ---
Author Organization [facility] Address [address] [place] [address] Phone Care Team Providers Care Well Blower Name Role Phone Evens Escalante MD Unavailable [phone] Indy Gaytan MD Unavailable [phone] Wendy Torres MD Primary Care Provider + Encounter Details Date Type Department Care Team (Late st Contact Info) Description 09/13/2023 Procedure Pass [facility] [address] [place], [place] [phone] Social History Tobacco Use Types Packs/Day Years [...] st Contact Info) Description 07/12/2024 Procedure Pass [address] [address] 06/26/2025 9:45 AM EST Office Visit [facility] [address] [place] [address] Wendy Torres MD [address] [place] [address] [email or web address], PT 4 [place] [address] 07/02/2025 2:15 PM EST Office Visit [facility] [address] [place] [address] Wendy Torres MD [address] [place] [address] [email or web address], PT 4 [place] [address] [email or web address] 07/05/2025 8:15 AM EST Appointment [address] [address] Todd Breen MD [address] [place] [address], [address] [place] [address] 07/10/2025 10:30 AM EST Office Visit [facility] Physical Therapy [address] [address] Wendy Torres MD [address] [place] [address] [email or web address], PT [address] [place] [address] 07/12/2025 10:30 AM EST Office Visit [facility] Physical Therapy [address] [address] Wendy Torres MD [address] [place] [address] [email or web address], PT [address] [place] [address] 07/16/2025 10:30 AM EST Office Visit [facility] Physical Therapy [address] [address] Wendy Torres MD [address] [place] [address] [email or web address], PT [address] [place] [address] 07/18/2025 10:30 AM EST Office Visit [facility] Physical Therapy [address] [phone] Wendy Torres MD [address] [place] [address] [email or web address], PT 4 [place] [address] 07/24/2025 10:30 AM EST Office Visit [facility] [address] [place] [address] Wendy Torres MD [address] [place] [address] [email or web address], PT 4 [place] [address] 07/26/2025 10:30 AM EST Office Visit [facility] [address] [place] [address] Wendy Torres MD [address] [place] [address] [email or web address], PT [address] [place] [address] 08/08/2025 12:00 PM EST Office Visit [facility] [address] [place] [address] Todd Bailey MD [address] [place] [address], [address] [place] [address] 08/28/2025 9:30 AM EST Office Visit [facility] Pul[facility]ology, Allergy [facility] Medicine [facility] [address] [place] [address] Srinivas Pemberton MD [address] [place] [address] 09/02/2025 11:00 AM EST Office Visit [facility]ology, [facility] [address] [place] [address] Raheem Vaughn MD [address] [place] [address] documented as of this encounter Visit Diagnoses Not on filedocumented in this encounter Care Teams Well Blower Relationship Specialty Start Date End Date Wendy Torres MD [address] [place] [address] PCP - General Family Medicine 05/14/21 Evens Escalante MD [address] [place] [address], [address] [place] [address] Historical LMR Provider 04/24/17 Indy Gaytan MD [address] [place] [address] Orthopedics & Sports Medicine, [facility] [place] [address] Historical LMR Provider 04/24/17 documented as of this encounter Additional Source Comments The information contained in this document represents components of the legal health record. It is not the complete legal health record.[facility]
--- OUTSIDE RECORDS SUMMARY | 2025-06-19 19:55 | XMS_ITS | Encounter Summary ---
Author Organization [facility] Address [address] [place] [address] Phone Care Team Providers Care Business Transformation Manager Name Role Phone Evens Escalante MD Unavailable Indy Gaytan MD Unavailable Wendy Torres MD Primary Care Provider + Encounter Details Date Type Department Care Team (Late st Contact Info) Description 08/18/2023 Transcribe Orders Virtual Department 30 [place] [address] Wendy Torres MD [address] [place] [address] [email or web address] Localized swelling, mass and lump, trunk [...] with a working camera? Not on file 05 / Intimate Partner Violence Answer Date R ecorded [...] st Contact Info) Description 07/12/2024 Procedure Pass [facility], Ct Scan - [address] [address] 06/26/2025 9:45 AM EST Office Visit [facility] Physical Therapy Clinic [address] [place] [address] Wendy Torres MD [address] [place] [address] [email or web address], PT 4 [place] [address] 07/02/2025 2:15 PM EST Office Visit [facility] Therapy Clinic [address] [place] [address] Wendy Torres MD [address] [place] [address] [email or web address], PT 4 [place] [address] 07/05/2025 8:15 AM EST Appointment [facility], Ct Scan - [address] [address] Todd Breen MD [address] [place] [address], [address] [place] [address] 07/10/2025 10:30 AM EST Office Visit [facility] Therapy Clinic [address] [place] [address] Wendy Torres MD [address] [place] [address] [email or web address], PT 4 [place] [address] 07/12/2025 10:30 AM EST Office Visit [facility] Physical Therapy [address] [address] Wendy Torres MD [address] [place] [address] [email or web address], PT 4 [place] [address] 07/16/2025 10:30 AM EST Office Visit [facility] Physical Therapy [address] [address] Wendy Torres MD [address] [place] [address] [email or web address], PT 4 [place] [address] 07/18/2025 10:30 AM EST Office Visit [facility] Therapy Clinic [address] [place] [address] Wendy Torres MD [address] [place] [address] [email or web address], PT 4 [place] [address] 07/24/2025 10:30 AM EST Office Visit [facility] [address] [place] [address] Wendy Torres MD [address] [place] [address] [email or web address], PT 4 [place] [address] 07/26/2025 10:30 AM EST Office Visit [facility] [address] [place] [address] Wendy Torres MD [address] [place] [address] [email or web address], PT 4 [place] [address] 08/08/2025 12:00 PM EST Office Visit [facility] Neurology Clinic [address] [place] [address] Todd Bailey MD [address] [place] [address], 2nd [place], [place] [phone] 08/28/2025 9:30 AM EST Office Visit [facility] Pulmonology, Allergy and Critical Care Medicine Clinic [address] [place] [address] Srinivas Pemberton MD [address] [place] [address] 09/02/2025 11:00 AM EST Office Visit [facility] Pulmonology, Allergy and Critical Care Medicine Clinic [address] [place] [address] Raheem Vaughn MD 10 [facility] 2nd [place] [address] documented as of this encounter Visit Diagnoses Diagnosis Localized swelling, mass and lump, trunk- Primary documented in this encounter Care Teams Business Transformation Manager Relationship Specialty Start Date End Date Wendy Torres MD [address] [place] [address] PCP - General Family Medicine 05/14/21 Evens Escalante MD [address] [place] [address] [place] [address] Historical LMR Provider 04/24/17 Indy Gaytan MD [address] [place] [address] Orthopedics & Sports Medicine, [facility] [place] [place] [address] Historical LMR Provider 04/24/17 documented as of this encounter Additional Source Comments The information contained in this document represents components of the legal health record. It is not the complete legal health record.[facility]
--- OUTSIDE RECORDS SUMMARY | 2025-06-19 19:55 | XMS_ITS | Encounter Summary ---
Author Organization [facility] Address [address] [place] [address] Phone Care Team Providers Care Popcorn Vendor Name Role Phone Evens Escalante MD Unavailable [phone] Indy Gaytan MD Unavailable Wendy Torres MD Primary Care Provider + Encounter Details Date Type Department Care Team (Late st Contact Info) Description 06/09/2023 Transcribe Orders Virtual Department 30 [place] [address] Wendy Torres MD [address] [place] [address] [email or web address] Breast screening (Primary Dx) Social History [...] st Contact Info) Description 07/12/2024 Procedure Pass [facility], [address] [address] 06/26/2025 9:45 AM EST Office Visit [facility] [address] [place] [address] Wendy Torres MD [address] [place] [address] [email or web address], PT 4 [place] [address] 07/02/2025 2:15 PM EST Office Visit [facility] [address] [place] [address] Wendy Torres MD [address] [place] [address] [email or web address], PT 4 [place] [address] 07/05/2025 8:15 AM EST Appointment [address] [address] Todd Breen MD [address] [place] [address], [address] [place] [address] 07/10/2025 10:30 AM EST Office Visit [facility] [address] [place] [address] Wendy Torres MD [address] [place] [address] [email or web address], PT 4 [place] [address] 07/12/2025 10:30 AM EST Office Visit [facility] Physical Therapy [address] [address] Wendy Torres MD [address] [place] [address] [email or web address], PT 4 [place] [address] 07/16/2025 10:30 AM EST Office Visit [facility] Physical Therapy [address] [address] Wendy Torres MD [address] [place] [address] [email or web address], PT 4 [place] [address] 07/18/2025 10:30 AM EST Office Visit [facility] Physical Therapy [address] [address] Wendy Torres MD [address] [place] [address] [email or web address], PT 4 [place] [address] 07/24/2025 10:30 AM EST Office Visit [facility] Physical Therapy [address] [address] Wendy Torres MD [address] [place] [address] [email or web address], PT 4 [place] [address] 07/26/2025 10:30 AM EST Office Visit [facility] [address] [place] [address] Wendy Torres MD [address] [place] [address] [email or web address], PT 4 [place] [address] 08/08/2025 12:00 PM EST Office Visit [facility] Neurology [address] [address] Todd [place] MD [address] [place] [address] 08/28/2025 9:30 AM EST Office Visit [facility] Pulmonology, Allergy and Critical Care Medicine Clinic [address] [place] [address] Srinivas Pemberton MD [address] [place] [address] 09/02/2025 11:00 AM EST Office Visit [facility] Pulmonology, Allergy and Critical [facility] Medicine Clinic [address] [place] [address] Raheem Vaughn MD [address] [place] [address] documented as of this encounter Results * [...] unspecified documented in this encounter Care Teams Popcorn Vendor Relationship Specialty Start Date End Date Wendy Torres MD [address] [place] [address] PCP - General Family Medicine 05/14/21 Evesn Escalante MD [address] [facility] [place] [address] [email or web address] Historical LMR Provider 04/24/17 Indy Gaytan MD [address] [place] [address] Orthopedics & Sports Medicine, [place] [address] [email or web address] Historical LMR Provider 04/24/17 documented as of this encounter Additional Source Comments The information contained in this document represents components of the legal health record. It is not the complete legal health record.[facility]
--- OUTSIDE RECORDS SUMMARY | 2025-06-19 19:55 | XMS_ITS | Encounter Summary ---
Author Organization [facility] Address [address] [place] [address] Phone Care Team Providers Care And Taxi Instructor Bus Trolley Name Role Phone Jamila Steele MD Unavailable [email or web address] Gisel Liu MD Unavailable [phone] Evens Escalante MD Unavailable [phone] Indy Gaytan MD Unavailable [phone] Wendy Torres MD Primary Care Provider + Wendy Torres MD Primary Care Provider + Encounter Details Date Type Department Care Team (Late st Contact Info) Description 03/17/2018 Ancillary Orders Virtual Department [address] [place] [address] Wendy Torres MD [address] [place] [address] [email or web address] Breast screening Social History Tobacco Use [...] st Contact Info) Description 07/12/2024 Procedure Pass [facility], [address] [address] 06/26/2025 9:45 AM EST Office Visit [facility] Physical Therapy Clinic [address] [place] [address] Wendy Torres MD [address] [place] [address] [email or web address], PT 4 [place] [address] 07/02/2025 2:15 PM EST Office Visit [facility] Physical Therapy Clinic [address] [place] [address] Wendy Torres MD [address] [place] [address] [email or web address], PT 4 [place] [address] 07/05/2025 8:15 AM EST Appointment [address] [address] Todd Breen MD [address] [place] [address], [facility] [address] [place] [address] 07/10/2025 10:30 AM EST Office Visit [facility] Physical Therapy [address] [address] Wendy Torres MD [address] [place] [address] [email or web address], PT 4 [place], [place] 8062188 07/12/2025 10:30 AM EST Office Visit [facility] Physical Therapy [address] [address] Wendy Torres MD [address] [place] [address] [email or web address], PT 4 [place] [address] 07/16/2025 10:30 AM EST Office Visit [facility] Physical Therapy [address] [address] Wendy Torres MD [address] [place] [address] [email or web address], PT 4 [place] [address] 07/18/2025 10:30 AM EST Office Visit [facility] [address] [address] Wendy Torres MD [address] [place] [address] [email or web address], PT 4 [place] [address] 07/24/2025 10:30 AM EST Office Visit [facility] [address] [address] Wendy Torres MD [address] [place] [address] [email or web address], PT 4 [place] [address] 07/26/2025 10:30 AM EST Office Visit [facility] [address] [place] [address] Wendy Torres MD [address] [place] [address] [email or web address], PT 4 [place] [address] 08/08/2025 12:00 PM EST Office Visit [facility] Neurology [address] [address] Todd [place] MD [address] [place] [address] 08/28/2025 9:30 AM EST Office Visit [facility] Pulmonology, Allergy and Critical Care Medicine Clinic [address] [place] [address] Srinivas Pemberton MD [address] [place] [address] 09/02/2025 11:00 AM EST Office Visit [facility] Pulmonology, Allergy and Critical [facility] Medicine Clinic [address] [place] [address] Raheem Vaughn MD [address] [place] [address] documented as of this encounter Results * [...] unspecified documented in this encounter Care Teams And Taxi Instructor Bus Trolley Relationship Specialty Start Date End Date Wendy Torres MD [address] [place] [address] PCP - General Family Medicine 03/17/18 05/13/21 Wendy Torres MD [address] [place] [address] PCP - General Family Medicine 05/14/21 Jamila Steele MD [email or web address] Historical LMR Provider 04/24/1707/11 Gisel Liu MD [address] [facility], 2nd [place] [address] Historical LMR Provider 04/24/17 Evens Escalante MD [address] [facility], [address] [place] [address] Historical LMR Provider 04/24/17 Indy Gaytan MD [address] [place] [address] Orthopedics & Sports Medicine, [place] [address] Historical LMR Provider 04/24/17 documented as of this encounter Additional Source Comments The information contained in this document represents components of the legal health record. It is not the complete legal health record.[facility]
--- OUTSIDE RECORDS SUMMARY | 2025-06-19 19:55 | XMS_ITS | Encounter Summary ---
Author Organization [facility] Address [address] [place] [address] Phone Care Team Providers Care Lens Inspector Name Role Phone Evens Escalante MD Unavailable [phone] Indy Gaytan MD Unavailable [phone] Wendy Torres MD Primary Care Provider + Encounter Details Date Type Department Care Team (Late st Contact Info) Description 06/09/2023 Procedure Pass [facility] - [address] [place] [address] Social History Tobacco Use Types Packs/Day Years [...] st Contact Info) Description 07/12/2024 Procedure Pass [address] [address] 06/26/2025 9:45 AM EST Office Visit [facility] Physical Therapy [address] [address] Wendy Torres MD [address] [place] [address] [email or web address], PT 4 [place] [address] 07/02/2025 2:15 PM EST Office Visit [facility] Physical Therapy [address] [address] Wendy Torres MD [address] [place] [address] [email or web address], PT 4 [place] [address] 07/05/2025 8:15 AM EST Appointment [address] [address] Todd Breen MD [address] [place] [address], [address] [address] 07/10/2025 10:30 AM EST Office Visit [facility] Physical Therapy [address] [address] Wendy Torres MD [address] [place] [address] [email or web address], PT 4 [place] [address] 07/12/2025 10:30 AM EST Office Visit [facility] Physical Therapy [address] [address] Wendy Torres MD [address] [place] [address] [email or web address], PT 4 [place] [address] 07/16/2025 10:30 AM EST Office Visit [facility] Physical Therapy [address] [address] Wendy Torres MD [address] [place] [address] [email or web address], PT [address] [place] [address] 07/18/2025 10:30 AM EST Office Visit [facility] Physical Therapy [address] [address] Wendy Torres MD [address] [place] [address] [email or web address], PT [address] [place] [address] 07/24/2025 10:30 AM EST Office Visit [facility] Physical Therapy [address] [phone] Wendy Torres MD [address] [place] [address] [email or web address], PT 4 [place] [address] 07/26/2025 10:30 AM EST Office Visit [facility] [address] [place] [address] Wendy Torres MD [address] [place] [address] [email or web address], PT 4 [place] [address] 08/08/2025 12:00 PM EST Office Visit [facility] Neurology [address] [address] Todd Bailey MD [address] [place] [address] 08/28/2025 9:30 AM EST Office Visit [facility] Pulmonology[facility] [address] [place] [address] Srinivas Pemberton MD [address] [place] [address] 09/02/2025 11:00 AM EST Office Visit [facility]ology[facility] [address] [place] [address] Raheem Vaughn MD [address] [place] [address] documented as of this encounter Visit Diagnoses Not on filedocumented in this encounter Care Teams Lens Inspector Relationship Specialty Start Date End Date Wendy Torres MD [address] [place] [address] PCP - General Family Medicine 05/14/21 Evens Escalante MD [address] [place] [address] [address] [place] [address] Historical LMR Provider 04/24/17 Indy Gaytan MD [address] [place] [address] [facility] [place], [place] [address] Historical LMR Provider 04/24/17 documented as of this encounter Additional Source Comments The information contained in this document represents components of the legal health record. It is not the complete legal health record.[facility]
--- OUTSIDE RECORDS SUMMARY | 2025-06-19 19:55 | XMS_ITS | Encounter Summary ---
Author Organization [facility] Address [address] [place] [address] Phone Care Team Providers Care President And Cmo Name Role Phone Jamila Steele MD Unavailable [email or web address] Gisel Liu MD Unavailable [phone] Evens Escalante MD Unavailable [phone] Indy Gaytan MD Unavailable [phone] Jamila Steele MD Primary Care Provider [email or web address] Wendy Torres MD Primary Care Provider + Wendy Torres MD Primary Care Provider + Reason for Referral * Physical Therapy (Elective) - Closed Specialty Diagnoses / Procedures Referred By Contac t Referred To Contact Physical Therapy Diagnoses Encounter for rehabilitation Low Back Pain Procedures Evaluate & Treat Wendy Torres MD Phone: tel: fax: [email or web address]:[email or web address] [address] [address] Phone: tel: Referral ID Status Reason Start Date Expiration Date Visits Re quested Visits Authorized [id number] Closed 02/23/2018 09/10/2018 16 16 Encounter Details Date Type Department Care Team (Late st Contact Info) Description 02/23/2018 Transcribe Orders [facility] Physical Therapy [address] [address] Wendy Torres MD [address] [place] [address] [email or web address] Encounter for rehabilitation (Primary Dx) [...] (Late Contact Info) Description 07/12/2024 Procedure Pass [facility] Ct Scan - [address] [address] 06/26/2025 9:45 AM EST Office Visit [facility] Physical Therapy [address] [address] Wendy Torres MD [address] [place] [address] [email or web address], PT 4 [place] [address] 07/02/2025 2:15 PM EST Office Visit [facility] Physical Therapy [address] [address] Wendy Torres MD [address] [place] [address] [email or web address], PT 4 [place] [address] 07/05/2025 8:15 AM EST Appointment [facility], Ct Scan - [facility] [address] [place] [address] Todd Breen MD [address] [place] [address], [address] [place] [address] 07/10/2025 10:30 AM EST Office Visit [facility] Therapy Clinic [address] [place] [address] Wendy Torres MD [address] [place] [address] [email or web address], PT 4 [place] [address] 07/12/2025 10:30 AM EST Office Visit [facility] Physical Therapy [address] [address] Wendy Torres MD [address] [place] [address] [email or web address], PT 4 [place] [address] 07/16/2025 10:30 AM EST Office Visit [facility] Physical Therapy [address] [address] Wendy Torres MD [address] [place] [address] [email or web address], PT 4 [place] [address] 07/18/2025 10:30 AM EST Office Visit [facility] Physical Therapy [address] [address] Wendy Torres MD [address] [place] [address] [email or web address], PT 4 [place] [address] 07/24/2025 10:30 AM EST Office Visit [facility] [address] [place] [address] Wendy Torres MD [address] [place] [address] [email or web address], PT 4 [place] [address] 07/26/2025 10:30 AM EST Office Visit [facility] [address] [place] [address] Wendy Torres MD [address] [place] [address] [email or web address], PT 4 [place] [address] 08/08/2025 12:00 PM EST Office Visit [facility] Neurology Clinic [address] [place] [address] Todd Baliey MD [address] [place] [address], 2nd [place] [address] 08/28/2025 9:30 AM EST Office Visit [facility] Pulmonology[facility] [address] [place] [address] Srinivas Pemberton MD [address] [place] [address] 09/02/2025 11:00 AM EST Office Visit [facility] Pulmonology[facility] 10 [place] [address] Raheem Vaughn MD [address] [place] [address] Scheduled Referrals Name Type Priority Associated Diagnoses Orde r Schedule Ambulatory referral to [facility] Physical Therapy Outpatient Referral Routine Encounter for rehabilitation Ordered: 02/23/2018 documented as of this encounter Visit Diagnoses Diagnosis Encounter for rehabilitation- Primary documented in this encounter Care Teams President And Cmo Relationship Specialty Start Date End Date Jamila Steele MD [address] [place] [address] [facility], [place] [address] [email or web address] PCP - General Family Medicine 05/27/17 03/16/18 Wendy Torres MD [address] [place] [address] PCP - General Family Medicine 03/17/18 05/13/21 Wendy Torres MD [address] [place] [address] PCP - General Family Medicine 05/14/21 Jamila Steele MD [email or web address] Historical LMR Provider 04/24/1707/11 Gisel Liu MD [address] [address] Historical LMR Provider 04/24/17 Evens Escalante MD [address] [place] [address], [address] [place] [address] [email or web address] Historical LMR Provider 04/24/17 Indy Gaytan MD [address] [place] [address] [facility], [place] [address] [email or web address] Historical LMR Provider 04/24/17 documented as of this encounter Additional Source Comments The information contained in this document represents components of the legal health record. It is not the complete legal health record.[facility]
--- OUTSIDE RECORDS SUMMARY | 2025-06-19 19:55 | XMS_ITS | Encounter Summary ---
Author Organization [facility] Address [address] [place] [address] Phone Care Team Providers Care Master Plumber Name Role Phone Evens Escalante MD Unavailable Indy Gaytan MD Unavailable Wendy Torres MD Primary Care Provider + Encounter Details Date Type Department Care Team (Late st Contact Info) Description 07/26/2023 Transcribe Orders [facility] [address] [place] [address] Wendy Torres MD [address] [place] [address] [email or web address] Social History Tobacco Use Types Packs/Day [...] st Contact Info) Description 07/12/2024 Procedure Pass [facility] Scan - [address] [address] 06/26/2025 9:45 AM EST Office Visit [facility] Physical Therapy Clinic [address] [place] [address] Wendy Torres MD [address] [place] [address] [email or web address], PT 4 [place] [address] 07/02/2025 2:15 PM EST Office Visit [facility] Physical Therapy Clinic [address] [place] [address] Wendy Torres MD [address] [place] [address] [email or web address], PT 4 [place] [address] 07/05/2025 8:15 AM EST Appointment [facility] Scan - [facility] 30 [place] [address] Todd Breen MD [address] [place] [address], [facility] [address] [place] [address] 07/10/2025 10:30 AM EST Office Visit [facility] Physical Therapy [address] [address] Wendy Torres MD [address] [place] [address] [email or web address], PT 4 [place] [address] 07/12/2025 10:30 AM EST Office Visit [facility] Physical Therapy [address] [address] Wendy Torres MD [address] [place] [address] [email or web address], PT 4 [place] [address] 07/16/2025 10:30 AM EST Office Visit [facility] Physical Therapy [address] [address] Wendy Torres MD [address] [place] [address] [email or web address], PT 4 [place] [address] 07/18/2025 10:30 AM EST Office Visit [facility] Physical Therapy [address] [address] Wendy Torres MD [address] [place] [address] [email or web address], PT 4 [place] [address] 07/24/2025 10:30 AM EST Office Visit [facility] [address] [place] [address] Wendy Torres MD [address] [place] [address] [email or web address], PT 4 [place] [address] 07/26/2025 10:30 AM EST Office Visit [facility] [address] [place] [address] Wendy Torres MD [address] [place] [address] [email or web address], PT [address] [place] [address] 08/08/2025 12:00 PM EST Office Visit [facility] Neurology Clinic [address] [place] [address] Todd Bailey MD [address] [place] [address], 2nd [place] [address] 08/28/2025 9:30 AM EST Office Visit [facility] Pulmonology, All[facility] Clinic [address] [place] [address] Srinivas Pemberton MD [address] [place] [address] 09/02/2025 11:00 AM EST Office Visit [facility] Pulmonology, All[facility] Medicine Clinic [address] [facility] [place] [address] Raheem Vaughn MD [address] [facility] 2nd [place] [address] documented as of this encounter Visit Diagnoses Not on filedocumented in this encounter Care Teams Master Plumber Relationship Specialty Start Date End Date Wendy Torres MD [address] [place] [address] PCP - General Family Medicine 05/14/21 Evens Escalante MD [address] [place] [address] [place] [address] Historical LMR Provider 04/24/17 Indy Gaytan MD [address] [place] [address] [facility] [place] [address] Historical LMR Provider 04/24/17 documented as of this encounter Additional Source Comments The information contained in this document represents components of the legal health record. It is not the complete legal health record.[facility]
--- OUTSIDE RECORDS SUMMARY | 2025-06-19 19:57 | XMS_ITS | Encounter Summary ---
Author Organization [facility] Address [address] [place] [address] Phone Care Team Providers Care Tile Helper Name Role Phone Evens Escalante MD Unavailable [phone] Indy Gaytan MD Unavailable [phone] Wendy Torres MD Primary Care Provider + Encounter Details Date Type Department Care Team (Late st Contact Info) Description 05/05/2022 Procedure Pass [facility] - [address] [place] [address] Social History Tobacco Use Types Packs/Day Years [...] st Contact Info) Description 07/12/2024 Procedure Pass [facility] Ct Scan - [facility] 30 [place] [address] 06/26/2025 9:45 AM EST Office Visit [facility] Physical Therapy Clinic [address] [place] [address] Wendy Torres MD [address] [place] [address] [email or web address], PT 4 [place] [address] 07/02/2025 2:15 PM EST Office Visit [facility] Physical Therapy [address] [address] Wendy Torres MD [address] [place] [address] [email or web address], PT 4 [place] [address] 07/05/2025 8:15 AM EST Appointment [facility] Ct Scan [address] [address] Todd Breen MD [address] [place] [address], [address] [address] 07/10/2025 10:30 AM EST Office Visit [facility] Physical Therapy [address] [address] Wendy Torres MD [address] [place] [address] [email or web address], PT 4 [place] [address] 07/12/2025 10:30 AM EST Office Visit [facility] Physical Therapy [address] [address] Wendy Torres MD [address] [place] [address] [email or web address], PT 4 [place] [address] 07/16/2025 10:30 AM EST Office Visit [facility] Physical Therapy [address] [address] Wendy Torres MD [address] [place] [address] [email or web address], PT 4 [place] [address] 07/18/2025 10:30 AM EST Office Visit [facility] Physical Therapy [address] [address] Wendy Torres MD [address] [place] [address] [email or web address], PT 4 [place] [address] 07/24/2025 10:30 AM EST Office Visit [facility] Physical Therapy [address] [address] Wendy Torres MD [address] [place] [address] [email or web address], PT 4 [place] [address] 07/26/2025 10:30 AM EST Office Visit [facility] Physical Therapy [address] [address] Wendy Torres MD [address] [place] [address] [email or web address], PT 4 [place] [address] 08/08/2025 12:00 PM EST Office Visit [facility] Neurology [address] [address] Todd Bailye MD [address] [place] [address] 08/28/2025 9:30 AM EST Office Visit [facility] Pulmonology, All[facility] Clinic [address] [place] [address] Srinivas Pemberton MD [address] [place] [address] 09/02/2025 11:00 AM EST Office Visit [facility] Pulmonology, [facility] [address] [place] [address] Raheem Vaughn MD [address] [place] [address] documented as of this encounter Visit Diagnoses Not on filedocumented in this encounter Care Teams Tile Helper Relationship Specialty Start Date End Date Wendy Torres MD [address] [place] [address] PCP - General Family Medicine 05/14/21 Evens Escalante MD [address] [place] [address] Historical LMR Provider 04/24/17 Indy Gaytan MD [address] [place] [address] Orthopedics [facility] Sports Medicine, [facility] [place] [address] [email or web address] Historical LMR Provider 04/24/17 documented as of this encounter Additional Source Comments The information contained in this document represents components of the legal health record. It is not the complete legal health record.[facility]
--- OUTSIDE RECORDS SUMMARY | 2025-06-19 19:57 | XMS_ITS | Encounter Summary ---
Author Organization [facility] Address [address] [place] [address] Phone Care Team Providers Care Appeals Examiner Name Role Phone Jamila Steele MD Unavailable [email or web address] Gisel Liu MD Unavailable [phone] Evens Escalante MD Unavailable [phone] Indy Gaytan MD Unavailable [phone] Wendy Torres MD Primary Care Provider + Encounter Details Date Type Department Care Team (Late st Contact Info) Description 05/14/2021 Procedure Pass [facility] - [address] [address] Social History Tobacco Use Types Packs/Day Years [...] st Contact Info) Description 07/12/2024 Procedure Pass [facility], Ct Scan - [address] [address] 06/26/2025 9:45 AM EST Office Visit [facility] Physical Therapy [address] [address] Wendy Torres MD [address] [place] [address] [email or web address], PT 4 [place] [address] 07/02/2025 2:15 PM EST Office Visit [facility] Physical Therapy [address] [address] Wendy Torres MD [address] [place] [address] [email or web address], PT 4 [place] [address] 07/05/2025 8:15 AM EST Appointment [facility] Md Scan - [address] [address] Todd Breen MD [address] [place] [address] 07/10/2025 10:30 AM EST Office Visit [facility] Physical Therapy [address] [address] Wendy Torres MD [address] [place] [address] [email or web address], PT 4 [place], [place] 437[address] 07/12/2025 10:30 AM EST Office Visit [facility] Physical Therapy [address] [address] LazWendy Man MD [address] [place] [address] [email or web address], PT 4 [place] [address] 07/16/2025 10:30 AM EST Office Visit [facility] Physical Therapy [address] [address] Wendy Torres MD [address] [place] [address] [email or web address], PT [address] [place] [address] 07/18/2025 10:30 AM EST Office Visit [facility] Physical Therapy [address] [address] Wendy Torres MD [address] [place] [address] [email or web address], PT [address] [place] [address] 07/24/2025 10:30 AM EST Office Visit [facility] Physical Therapy [address] [address] Wendy Torres MD [address] [place] [address] [email or web address], PT 4 [place] [address] 07/26/2025 10:30 AM EST Office Visit [facility] Physical Therapy [address] [address] Wendy Torres MD [address] [place] [address] [email or web address], PT 4 [place] [address] 08/08/2025 12:00 PM EST Office Visit [facility] Neurology [address] [address] Todd Bailey MD [address] [place] [address] 08/28/2025 9:30 AM EST Office Visit [facility] Pulmonology, Allergy and Critical [facility] Medicine Clinic 10 [place] [address] Srinivas Pemberton MD [address] [place] [address] 09/02/2025 11:00 AM EST Office Visit [facility] Pulmonology, Allergy and Critical [facility] Medicine Clinic 10 [place] [address] Raheem Vaughn MD [address] [place] [address] documented as of this encounter Visit Diagnoses Not on filedocumented in this encounter Care Teams Appeals Examiner Relationship Specialty Start Date End Date Wendy Torres MD [address] [place] [address] PCP - General Family Medicine 05/14/21 Jamila Steele MD [email or web address] Historical LMR Provider 04/24/1707/11 Gisel Liu MD [address] [facility], 2nd [place] [address] Historical LMR Provider 04/24/17 Evens Escalante MD [address] [facility], [address] [place] [address] Historical LMR Provider 04/24/17 Indy Gaytan MD [address] [place] [address] [facility] Medicine, [place] [address] Historical LMR Provider 04/24/17 documented as of this encounter Additional Source Comments The information contained in this document represents components of the legal health record. It is not the complete legal health record.[facility]
--- OUTSIDE RECORDS SUMMARY | 2025-06-19 19:57 | XMS_ITS | Encounter Summary ---
Author Organization [facility] Address [address] [place] [address] Phone Care Team Providers Care Wheel Blocker Name Role Phone Evens Escalante MD Unavailable [phone] Indy Gaytan MD Unavailable [phone] Wendy Torres MD Primary Care Provider + Reason for Referral * Outpatient Procedure - Closed Specialty Diagnoses / Procedures Referred By Contac t Referred To Contact Radiology Diagnoses Edema, unspecified type Procedures US Lower Extremity Veins Duplex (Right) Marci Ross CNP [address] [place], [place] Phone: tel: fax: [email or web address] Referral ID Status Reason Start Date Expiration Date Visits Re quested Visits Authorized [id number] Closed 03/15/2024 03/15/2025 1 1 Encounter Details Date Type Department Care Team (Late st Contact Info) Description 03/15/2024 Transcribe Orders Virtual Department 30 [place] [address] Marci Ross CNP [address] [place] [address] [email or web address] Edema, unspecified type (Primary Dx) Social History [...] st Contact Info) Description 07/12/2024 Procedure Pass [facility], Ct Scan - [address] [address] 06/26/2025 9:45 AM EST Office Visit [facility] [address] [place] [address] Wendy Torres MD [address] [place] [address] [email or web address], PT 4 [place] [address] 07/02/2025 2:15 PM EST Office Visit [facility] Physical Therapy [address] [address] Wendy Torres MD [address] [place] [address] [email or web address], PT 4 [place] [address] 07/05/2025 8:15 AM EST Appointment [facility], Ct Scan - [address] [address] Todd Breen MD [address] [place] [address], [address] [address] 07/10/2025 10:30 AM EST Office Visit [facility] Physical Therapy [address] [address] Wendy Torres MD [address] [place] [address] [email or web address], PT 4 [place] [address] 07/12/2025 10:30 AM EST Office Visit [facility] Physical Therapy [address] [address] Wendy Torres MD [address] [place] [address] [email or web address], PT 4 [place] [address] 07/16/2025 10:30 AM EST Office Visit [facility] Physical Therapy [address] [place] [address] Wendy Torres MD [address] [place] [address] [email or web address], PT 4 [place] [address] 07/18/2025 10:30 AM EST Office Visit [facility] [address] [place] [address] Wendy Torres MD [address] [place] [address] [email or web address], PT 4 [place] [address] 07/24/2025 10:30 AM EST Office Visit [facility] [address] [address] Wendy Torres MD [address] [place] [address] [email or web address], PT 4 [place] [address] 07/26/2025 10:30 AM EST Office Visit [facility] [address] [address] Wendy Torres MD [address] [place] [address] [email or web address], PT 4 [place] [address] 08/08/2025 12:00 PM EST Office Visit [facility] Neurology Clinic 22 [place] [address] Todd Bailey MD 22 [facility], [address] [place] [address] 08/28/2025 9:30 AM EST Office Visit [facility] Pulmonology, Allergy [facility] Critical [facility] Medicine Clinic 10 [place] [address] Srinivas Pemberton MD [address] [place] [address] 09/02/2025 11:00 AM EST Office Visit [facility] Pulmonology, [facility] [address] [place] [address] Raheem Vaughn MD [address] [place] [address] [email or web address] documented as of this encounter Results [...] common femoral vein: Normal compressibility. Procedure Note Maxmio Shannon MD, HUYEN - 03/16/2024 US LOWER [...] of the right lower extremity. Marci Ross PATIENT ATTENDANT CV US VASCULAR Final Res ult documented in this encounter Visit Diagnoses Diagnosis Edema, unspecified type- Primary Edema, unspecified type documented in this encounter Care Teams Wheel Blocker Relationship Specialty Start Date End Date Wendy Torres MD [address] [place] [address] PCP - General Family Medicine 05/14/21 Evens Escalante MD [address] [place] [address], [address] [place] [address] Historical LMR Provider 04/24/17 Indy Gaytan MD [address] [place] [address] Orthopedics & Sports Medicine, [place] [address] [email or web address] Historical LMR Provider 04/24/17 documented as of this encounter Additional Source Comments The information contained in this document represents components of the legal health record. It is not the complete legal health record.[facility]
--- OUTSIDE RECORDS SUMMARY | 2025-06-19 19:57 | XMS_ITS | Encounter Summary ---
Author Organization [facility] Address [address] [place] [address] Phone Care Team Providers Care Electric Motor Assembler And Tester Name Role Phone Evens Esaclante MD Unavailable [phone] Indy Gaytan MD Unavailable [phone] Wendy Torres MD Primary Care Provider + Encounter Details Date Type Department Care Team (Late st Contact Info) Description 08/30/2024 Procedure Pass [facility], [address] [phone] Social History Tobacco Use Types Packs/Day Years [...] st Contact Info) Description 07/12/2024 Procedure Pass [address] [address] 06/26/2025 9:45 AM EST Office Visit [facility] Physical Therapy Clinic [address] [place] [address] Wendy Torres MD [address] [place] [address] [email or web address], PT 4 [place] [address] 07/02/2025 2:15 PM EST Office Visit [facility] Therapy Clinic [address] [place] [address] Wendy Torres MD [address] [place] [address] [email or web address], PT 4 [place] [address] 07/05/2025 8:15 AM EST Appointment [address] [address] Todd Breen MD [address] [place] [address], [address] [place] [address] 07/10/2025 10:30 AM EST Office Visit [facility] Physical Therapy [address] [address] Wendy Torres MD [address] [place] [address] [email or web address], PT 4 [place] [address] 07/12/2025 10:30 AM EST Office Visit [facility] Physical Therapy [address] [address] Wendy Torres MD [address] [place] [address] [email or web address], PT 4 [place] [address] 07/16/2025 10:30 AM EST Office Visit [facility] Physical Therapy [address] [address] Wendy Torres MD [address] [place] [address] [email or web address], PT 4 [place] [address] 07/18/2025 10:30 AM EST Office Visit [facility] Physical Therapy [address] [phone] Wendy Torres MD [address] [place] [address] [email or web address], PT 4 [place] [address] 07/24/2025 10:30 AM EST Office Visit [facility] [address] [place] [address] [phone] Wendy Torres MD [address] [place] [address] [email or web address], PT 4 [place] [address] 07/26/2025 10:30 AM EST Office Visit [facility] [address] [place] [address] Wendy Torres MD [address] [place] [phone] [email or web address], PT [address] [place] [address] 08/08/2025 12:00 PM EST Office Visit [facility] Neurology Clinic [address] [place] [address] Todd Bailey MD [address] [place] [address], [address] [place] [address] 08/28/2025 9:30 AM EST Office Visit [facility] Pulmonology, Allergy and Critical Care Medicine Clinic [address] [place] [address] Srinivas Pemberton MD [address] [place] [address] 09/02/2025 11:00 AM EST Office Visit [facility] Pulmonology, Allergy and Critical Care Medicine Clinic [address] [place] [address] Raheem Vaughn MD [address] [facility] 2nd [place] [address] documented as of this encounter Visit Diagnoses Not on filedocumented in this encounter Care Teams Electric Motor Assembler And Tester Relationship Specialty Start Date End Date Wendy Torres MD [address] [place] [address] PCP - General Family Medicine 05/14/21 Evens Escalante MD [address] [place] [address] Historical LMR Provider 04/24/17 Indy Gaytan MD [address] [place] [address] Orthopedics & Sports Medicine, [facility] [place] [address] Historical LMR Provider 04/24/17 documented as of this encounter Additional Source Comments The information contained in this document represents components of the legal health record. It is not the complete legal health record.[facility]
--- OUTSIDE RECORDS SUMMARY | 2025-06-19 19:57 | XMS_ITS | Encounter Summary ---
Author Organization [facility] Address [address] [facility] [address] [place] [address] Phone Care Team Providers Care Firebreak Cutter Name Role Phone Evens Escalante MD Unavailable Indy Gaytan MD Unavailable [phone] Wendy Torres MD Primary Care Provider + Encounter Details Date Type Department Care Team (Late st Contact Info) Description 08/30/2024 Procedure Pass [facility], [facility] 30 [place], [place] [phone] Social History Tobacco Use Types Packs/Day Years [...] Contact Info) Description 07/12/2024 Procedure Pass [address] [address] 06/26/2025 9:45 AM EST Office Visit [facility] Physical Therapy Clinic [address] [place] [address] Wendy Torres MD [address] [place] [address] [email or web address], PT 4 [place] [address] 07/02/2025 2:15 PM EST Office Visit [facility] Therapy [facility] [address] [place] [address] Wendy Torres MD [address] [place] [address] [email or web address], PT 4 [place] [address] 07/05/2025 8:15 AM EST Appointment [address] [address] Todd Breen MD [address] [place] [address], [address] [place] [address] 07/10/2025 10:30 AM EST Office Visit [facility] Physical Therapy [address] [address] Wendy Torres MD [address] [place] [address] [email or web address], PT 4 [place] [address] 07/12/2025 10:30 AM EST Office Visit [facility] Physical Therapy [address] [address] Wendy Torres MD [address] [place] [address] [email or web address], PT 4 [place] [address] 07/16/2025 10:30 AM EST Office Visit [facility] Physical Therapy [address] [address] Wendy Torres MD [address] [place] [address] [email or web address], PT 4 [place] [address] 07/18/2025 10:30 AM EST Office Visit [facility] Physical Therapy [address] [phone] Wendy Torres MD [address] [place] [address] [email or web address], PT 4 [place] [address] 07/24/2025 10:30 AM EST Office Visit [facility] [address] [place] [address] [phone] Wendy Torres MD [address] [place] [address] [email or web address], PT 4 [place] [address] 07/26/2025 10:30 AM EST Office Visit [facility] [address] [place] [address] Wendy Torres MD [address] [place] [address] [email or web address], PT [address] [place] [address] 08/08/2025 12:00 PM EST Office Visit [facility] Neurology Clinic [address] [place] [address] Todd Bailey MD [address] [place] [address], [address] [place] [address] 08/28/2025 9:30 AM EST Office Visit [facility] Pulmonology, Allergy and Critical Care Medicine Clinic [address] [place] [address] Srinivas Pemberton MD [address] [place] [address] 09/02/2025 11:00 AM EST Office Visit [facility] Pulmonology, Allergy and Critical Care Medicine Clinic [address] [place] [address] Raheem Vaughn MD [address] [facility] 2nd [place] [address] documented as of this encounter Visit Diagnoses Not on filedocumented in this encounter Care Teams Firebreak Cutter Relationship Specialty Start Date End Date Wendy Torres MD [address] [place] [address] PCP - General Family Medicine 05/14/21 Evens Escalante MD [address] [place] [address] Historical LMR Provider 04/24/17 Indy Gaytan MD [address] [place] [address] Orthopedics & Sports Medicine, [facility] [place] [address] Historical LMR Provider 04/24/17 documented as of this encounter Additional Source Comments The information contained in this document represents components of the legal health record. It is not the complete legal health record.[facility]
--- OUTSIDE RECORDS SUMMARY | 2025-06-19 19:57 | XMS_ITS | Encounter Summary ---
Author Organization [facility] Address [address] [place] [address] Phone Care Team Providers Care Cnc Lathe Programmer Name Role Phone Evens Escalante MD Unavailable Indy Gaytan MD Unavailable Wendy Torres MD Primary Care Provider + Encounter Details Date Type Department Care Team (Late st Contact Info) Description 05/01/2024 Transcribe Orders Virtual Department 30 [place] [address] Wendy Torres MD [address] [place] [address] [email or web address] Breast screening (Primary Dx) Social History [...] st Contact Info) Description 07/12/2024 Procedure Pass [facility], Ct Scan - [address] [address] 06/26/2025 9:45 AM EST Office Visit [facility] Physical Therapy Clinic [address] [place] [address] Wendy Torres MD [address] [place] [address] [email or web address], PT 4 [place] [address] 07/02/2025 2:15 PM EST Office Visit [facility] Physical Therapy Clinic [address] [place] [address] Wendy Torres MD [address] [place] [address] [email or web address], PT 4 [place] [address] 07/05/2025 8:15 AM EST Appointment [facility], Ct Scan - [facility] 30 [place] [address] Todd Breen MD [address] [place] [address], [facility] 301 [place] [address] 07/10/2025 10:30 AM EST Office Visit [facility] Physical Therapy [address] [address] Wendy Torres MD [address] [place] [address] [email or web address], PT 4 [place] [address] 07/12/2025 10:30 AM EST Office Visit [facility] Physical Therapy [address] [address] Wendy Torres MD [address] [place] [address] [email or web address], PT 4 [place] [address] 07/16/2025 10:30 AM EST Office Visit [facility] Physical Therapy [address] [address] Wendy Torres MD [address] [place] [address] [email or web address], PT 4 [place] [address] 07/18/2025 10:30 AM EST Office Visit [facility] Physical Therapy [address] [address] Wendy Torres MD [address] [place] [address] [email or web address], PT 4 [place] [address] 07/24/2025 10:30 AM EST Office Visit [facility] [address] [place] [address] Wendy Torres MD [address] [place] [address] [email or web address], PT 4 [place] [address] 07/26/2025 10:30 AM EST Office Visit [facility] [address] [place] [address] Wendy Torres MD [address] [place] [address] [email or web address], PT [address] [place] [address] 08/08/2025 12:00 PM EST Office Visit [facility] Neurology Clinic [address] [place] [address] Todd Bailey MD [address] [place] [address], 2nd [place] [address] 08/28/2025 9:30 AM EST Office Visit [facility] Pulmonology, Allergy and Critical Care Medicine Clinic [address] [place] [address] Srinivas Pemberton MD [address] [place] [address] 09/02/2025 11:00 AM EST Office Visit [facility] Pulmonology, Allergy and Critical Care Medicine Clinic [address] [place] [address] Raheem Vaughn MD 10 [facility] 2nd [place] [address] documented as of this encounter Visit Diagnoses Diagnosis Breast screening- Primary Breast screening, unspecified documented in this encounter Care Teams Cnc Lathe Programmer Relationship Specialty Start Date End Date Wendy Torres MD [address] [place] [address] PCP - General Family Medicine 05/14/21 Evens Escalante MD [address] [place] [address] Historical LMR Provider 04/24/17 Indy Gaytan MD [address] [place] [address] Orthopedics & Sports Medicine, [facility] [place] [address] Historical LMR Provider 04/24/17 documented as of this encounter Additional Source Comments The information contained in this document represents components of the legal health record. It is not the complete legal health record.[facility]
--- OUTSIDE RECORDS SUMMARY | 2025-06-19 19:57 | XMS_ITS | Encounter Summary ---
Author Organization [facility] Address [address] [place] [address] Phone Care Team Providers Care Athletic Field Custodian Name Role Phone Unknown, Unknown Primary Care Provider Jamila Gonzalez MD Unavailable [email or web address] Gisel Liu MD Unavailable [phone] Evens Escalante MD Unavailable [phone] Indy Gaytan MD Unavailable [phone] Jamila Steele MD Primary Care Provider [email or web address] Wendy Torres MD Primary Care Provider + Wendy Torres MD Primary Care Provider + Encounter Details Date Type Department Care Team (Late st Contact Info) Description 04/23/2017 Ancillary Orders [address] [address] Jamila Steele MD [email or web address] Screening breast examination Social History Tobacco Use [...] st Contact Info) Description 07/12/2024 Procedure Pass [address] [address] 06/26/2025 9:45 AM EST Office Visit [facility] Physical Therapy [address] [address] Wendy Torres MD [address] [place] [address] [email or web address], PT 4 [place] [address] 07/02/2025 2:15 PM EST Office Visit [facility] Physical Therapy [address] [address] Wendy Torres MD [address] [place] [address] [email or web address], PT 4 [place] [address] 07/05/2025 8:15 AM EST Appointment [address] [address] Todd Breen MD [address] [place] [address], [address] [place] [address] 07/10/2025 10:30 AM EST Office Visit [facility] Physical Therapy [address] [phone] Wendy Torres MD [address] [place] [address] [email or web address], PT 4 [place], [place] [phone] 07/12/2025 10:30 AM EST Office Visit [facility] [address] [address] Wendy Torres MD [address] [place] [address] [email or web address], PT 4 [place] [address] 07/16/2025 10:30 AM EST Office Visit [facility] Physical Therapy [address] [address] Wendy Torres MD [address] [place] [address] [email or web address], PT [address] [place] [address] 07/18/2025 10:30 AM EST Office Visit [facility] [address] [address] Wendy Torres MD [address] [place] [address] [email or web address], PT [address] [place] [address] 07/24/2025 10:30 AM EST Office Visit [facility] [address] [address] Wendy Torres MD [address] [place] [address] [email or web address], PT 4 [place] [address] 07/26/2025 10:30 AM EST Office Visit [facility] [address] [place] [address] [phone] Wendy Torres MD [address] [place] [address] [email or web address], PT 4 [place] [address] 08/08/2025 12:00 PM EST Office Visit [facility] Neurology [address] [address] Todd Bailey MD [address] [place] [address] 08/28/2025 9:30 AM EST Office Visit [facility] Pulmonology, Allergy and Critical Care Medicine Clinic [address] [place] [address] Srinivas Pemberton MD [address] [place] [address] 09/02/2025 11:00 AM EST Office Visit [facility] Pulmonology, Allergy and Critical [facility] Medicine Clinic [address] [place] [address] Raheem Vaughn MD [address] [place] [address] documented as of this encounter Results * [...] examination documented in this encounter Care Teams Athletic Field Custodian Relationship Specialty Start Date End Date Unknown, Unknown, MD PCP - General 04/23/17 05/26/17 Jamila Steele MD [address] [place] [address] Orthopedics & Sports Medicine, [facility] [place] [address] [email or web address] PCP - General Family Medicine 05/27/17 03/16/18 Wendy Torres MD [address] [place] [address] PCP - General Family Medicine 03/17/18 05/13/21 Wendy Torres MD [address] [place] [address] PCP - General Family Medicine 05/14/21 Jamila Steele MD [email or web address] Historical LMR Provider 04/24/1707/11 Gisel Liu MD [address] [place] [address], 2nd [place] [address] Historical LMR Provider 04/24/17 Evens Escalante MD [address] [facility], [address] [place] [address] Historical LMR Provider 04/24/17 Indy Gaytan MD [address] [place] [address] Orthopedics & Sports Medicine, [place] [address] Historical LMR Provider 04/24/17 documented as of this encounter Additional Source Comments The information contained in this document represents components of the legal health record. It is not the complete legal health record.[facility]
--- OUTSIDE RECORDS SUMMARY | 2025-06-19 19:57 | XMS_ITS | Encounter Summary ---
Author Organization [facility] Address [address] [place] [address] Phone Care Team Providers Care Ankle Patch Molder Name Role Phone Jamila Steele MD Unavailable [email or web address] Gisel Liu MD Unavailable [phone] Evens Escalante MD Unavailable [phone] Indy Gaytan MD Unavailable [phone] Jamila Steele MD Primary Care Provider [email or web address] Wendy Torres MD Primary Care Provider + Wendy Torres MD Primary Care Provider + Reason for Referral * Physical Therapy (Routine) - Closed Specialty Diagnoses / Procedures Referred By Contac t Referred To Contact Physical Therapy Diagnoses Encounter for rehabilitation Neck and Arm Pain Procedures Evaluate and Treat Sandee Mosqueda NP [address] [place] [address] Phone: tel: fax: [email or web address] Phone: tel: Referral ID Status Reason Start Date Expiration Date Visits Re quested Visits Authorized [id number] Closed 07/21/2017 09/04/2017 10 10 Encounter Details Date Type Department Care Team (Latest Contact Info) Description 07/15/2017 Transcribe Orders [facility] Physical Therapy [address] [address] Sandee Mosqueda, MATH INTERVENTIONIST [address] [facility] [address] [place] [address] [email or web address] Encounter for rehabilitation (Primary Dx) Social History [...] st Contact Info) Description 07/12/2024 Procedure Pass [facility], Ct Scan - [address] [address] 06/26/2025 9:45 AM EST Office Visit [facility] Physical Therapy [address] [address] Wendy Torres MD [address] [place] [address] [email or web address], PT 4 [place] [address] 07/02/2025 2:15 PM EST Office Visit [facility] [address] [place] [address] Wendy Torres MD [address] [place] [address] [email or web address], PT 4 [place] [address] 07/05/2025 8:15 AM EST Appointment [facility], Ct Scan - [facility] 30 [place] [address] Todd Breen MD [address] [place] [address], [address] [place] [address] 07/10/2025 10:30 AM EST Office Visit [facility] Clinic [address] [place] [address] Wendy Torres MD [address] [place] [address] [email or web address], PT 4 [place] [address] 07/12/2025 10:30 AM EST Office Visit [facility] Physical Therapy [address] [address] Wendy Torres MD [address] [place] [address] [email or web address], PT 4 [place] [address] 07/16/2025 10:30 AM EST Office Visit [facility] Physical Therapy [address] [address] Wendy Torres MD [address] [place] [address] [email or web address], PT 4 [place] [address] 07/18/2025 10:30 AM EST Office Visit [facility] Physical Therapy [address] [address] Wendy Torres MD [address] [place] [address] [email or web address], PT 4 [place] [address] 07/24/2025 10:30 AM EST Office Visit [facility] [address] [place] [address] Wendy Torres MD [address] [place] [address] [email or web address], PT 4 [place] [address] 07/26/2025 10:30 AM EST Office Visit [facility] [address] [place] [address] Wendy Torres MD [address] [place] [address] [email or web address], PT 4 [place] [address] 08/08/2025 12:00 PM EST Office Visit [facility] Neurology Clinic [address] [place] [address] Todd Bailey MD [address] [place] [address], 2nd [place] [address] 08/28/2025 9:30 AM EST Office Visit [facility] Pulmonology, Allergy and Critical Care Medicine Clinic [address] [place] [address] Srinivas Pemberton MD [address] [place] [address] 09/02/2025 11:00 AM EST Office Visit [facility] Pulmonology, Allergy and Critical Care Medicine Clinic 10 [place] [address] Raheem Vaughn MD [address] [address] documented as of this encounter Procedures Procedure Name Priority Date/Time Associated Diagnosis Comments AMB REFERRAL TO [facility] PHYSICAL THERAPY Routine 07/21/2017 9:00 AM EST Encounter for rehabilitation documented in this encounter Results * Ambulatory referral to [facility] Physical Therapy (07/21/2017 9:00 AM EST) Sandee Mosqueda MATH INTERVENTIONIST [facility] REFERRALS Final Result documented in this encounter Visit Diagnoses Diagnosis Encounter for rehabilitation- Primary documented in this encounter Care Teams Ankle Patch Molder Relationship Specialty Start Date End Date Jamila Steele MD [address] [place] [address] Orthopedics & Sports Medicine, [facility] [place] [address] [email or web address] PCP - General Family Medicine 05/27/17 03/16/18 Wendy Torres MD [address] [place] [address] PCP - General Family Medicine 03/17/18 05/13/21 Wendy Trores MD [address] [place] [address] PCP - General Family Medicine 05/14/21 Jamila Steele MD [email or web address] Historical LMR Provider 04/24/1707/11 Gisel Liu MD [address] [place] [address], [place] [address] Historical LMR Provider 04/24/17 Evens Escalante MD [address] [facility], [address] [place] [address] Historical LMR Provider 04/24/17 Indy Gaytan MD [address] [place] [address] Orthopedics & Sports Medicine, [place] [address] [email or web address] Historical LMR Provider 04/24/17 documented as of this encounter Additional Source Comments The information contained in this document represents components of the legal health record. It is not the complete legal health record.[facility]
--- OUTSIDE RECORDS SUMMARY | 2025-06-19 19:57 | XMS_ITS | Encounter Summary ---
Author Organization [facility] Address [address] [place] [address] Phone Care Team Providers Care Integration Assistant Name Role Phone Evens Escalante MD Unavailable [phone] Indy Gaytan MD Unavailable [phone] Wendy Torres MD Primary Care Provider + Encounter Details Date Type Department Care Team (Late st Contact Info) Description 01/12/2024 Procedure Pass [facility], Ct Scan - [address] [address] Social History Tobacco Use Types Packs/Day Years [...] st Contact Info) Description 07/12/2024 Procedure Pass [address] [address] 06/26/2025 9:45 AM EST Office Visit [facility] Physical Therapy Clinic [address] [place] [address] Wendy Torres MD [address] [place] [address] [email or web address], PT 4 [place] [address] 07/02/2025 2:15 PM EST Office Visit [facility] Physical Therapy Clinic [address] [place] [address] Wendy Torres MD [address] [place] [address] [email or web address], PT 4 [place] [address] 07/05/2025 8:15 AM EST Appointment [address] [address] Todd Breen MD [address] [place] [address], [address] [place] [address] 07/10/2025 10:30 AM EST Office Visit [facility] Physical Therapy [address] [address] Wendy Torres MD [address] [place] [address] [email or web address], PT 4 [place] [address] 07/12/2025 10:30 AM EST Office Visit [facility] Physical Therapy [address] [address] Wendy Torres MD [address] [place] [address] [email or web address], PT 4 [place] [address] 07/16/2025 10:30 AM EST Office Visit [facility] Physical Therapy [address] [address] Wendy Torres MD [address] [place] [address] [email or web address], PT 4 [place] [address] 07/18/2025 10:30 AM EST Office Visit [facility] Physical Therapy [address] [phone] Wendy Torres MD [address] [place] [address] [email or web address], PT 4 [place] [address] 07/24/2025 10:30 AM EST Office Visit [facility] [address] [place] [address] Wendy Torres MD [address] [place] [address] [email or web address], PT 4 [place] [address] 07/26/2025 10:30 AM EST Office Visit [facility] [address] [place] [address] Wendy Torres MD [address] [place] [address] [email or web address], PT 4 [place] [address] 08/08/2025 12:00 PM EST Office Visit [facility] Neurology Clinic [address] [place] [address] Todd Bailey MD [address] [place] [address], [address] [place] [address] 08/28/2025 9:30 AM EST Office Visit [facility] Pulmonology, Allergy and Critical Care Medicine Clinic [address] [place] [address] Srinivas Pemberton MD [address] [place] [address] 09/02/2025 11:00 AM EST Office Visit [facility] Pulmonology, Allergy and Critical Care Medicine Clinic [address] [place] [address] Raheem Vaughn MD [address] [place] [address] 2nd [place] [address] documented as of this encounter Visit Diagnoses Not on filedocumented in this encounter Care Teams Integration Assistant Relationship Specialty Start Date End Date Wendy Torres MD [address] [place] [address] PCP - General Family Medicine 05/14/21 Evens Escalante MD [address] [place] [address] Historical LMR Provider 04/24/17 Indy Gaytan MD [address] [place] [address] Orthopedics & Sports Medicine, [facility] [place] [address] Historical LMR Provider 04/24/17 documented as of this encounter Additional Source Comments The information contained in this document represents components of the legal health record. It is not the complete legal health record.[facility]
--- OUTSIDE RECORDS SUMMARY | 2025-06-19 19:57 | XMS_ITS | Encounter Summary ---
Author Organization [facility] Address [address] [place] [address] Phone Care Team Providers Care Taxonomist Name Role Phone Evens Escalante MD Unavailable [phone] Indy Gaytan MD Unavailable [phone] Wendy Torres MD Primary Care Provider + Encounter Details Date Type Department Care Team (Late st Contact Info) Description 09/24/2022 Procedure Pass [address] [address] Social History Tobacco Use Types Packs/Day Years [...] st Contact Info) Description 07/12/2024 Procedure Pass [facility], [address] [address] 06/26/2025 9:45 AM EST Office Visit [facility] Physical Therapy Clinic [address] [place] [address] Wendy Torres MD 150 [place] [address] [email or web address], PT 4 [place] [address] 07/02/2025 2:15 PM EST Office Visit [facility] Physical Therapy [address] [address] Wendy Torres MD 150 [place] [address] [email or web address], PT 4 [place] [address] 07/05/2025 8:15 AM EST Appointment [facility], Ct Scan [address] [address] Todd Breen MD [address] [place] [address], [address] [address] 07/10/2025 10:30 AM EST Office Visit [facility] Physical Therapy [address] [address] Wendy Torres MD [address] [place] [address] [email or web address], PT 4 [place] [address] 07/12/2025 10:30 AM EST Office Visit [facility] Physical Therapy [address] [address] Wendy Torres MD [address] [place] [address] [email or web address], PT 4 [place] [address] 07/16/2025 10:30 AM EST Office Visit [facility] Physical Therapy [address] [address] Wendy Torres MD [address] [place] [address] [email or web address], PT 4 [place] [address] 07/18/2025 10:30 AM EST Office Visit [facility] Physical Therapy [address] [address] Wendy Torres MD [address] [place] [address] [email or web address], PT 4 [place] [address] 07/24/2025 10:30 AM EST Office Visit [facility] Physical Therapy [address] [address] Wendy Torres MD [address] [place] [address] [email or web address], PT 4 [place] [address] 07/26/2025 10:30 AM EST Office Visit [facility] Physical Therapy [address] [address] Wendy Torres MD [address] [place] [address] [email or web address], PT 4 [place] [address] 08/08/2025 12:00 PM EST Office Visit [facility] Neurology [address] [address] Todd Bailey MD [address] [place] [address] 08/28/2025 9:30 AM EST Office Visit [facility] Pulmonology, Allergy and Critical Care Medicine Clinic [address] [place] [address] Srinivas Pemberton MD [address] [place] [address] 09/02/2025 11:00 AM EST Office Visit [facility] Pulmonology, Allergy and Critical Care Medicine Clinic [address] [place] [address] Raheem Vaughn MD [address] [place] [address] documented as of this encounter Visit Diagnoses Not on filedocumented in this encounter Care Teams Taxonomist Relationship Specialty Start Date End Date Wendy Torres MD [address] [place] [address] PCP - General Family Medicine 05/14/21 Evens Escalante MD [address] [place] [address] Historical LMR Provider 04/24/17 Indy Gaytan MD [address] [place] [address] Orthopedics & Sports Medicine, [facility] [place] [address] [email or web address] Historical LMR Provider 04/24/17 documented as of this encounter Additional Source Comments The information contained in this document represents components of the legal health record. It is not the complete legal health record.[facility]
--- OUTSIDE RECORDS SUMMARY | 2025-06-19 19:57 | XMS_ITS | Clinical Summary ---
Author Organization [facility] Address [address] [place] [address] Phone Care Team Providers Care Sales Representative Metals Name Role Phone Evens Escalante MD Unavailable [phone] Indy Gaytan MD Unavailable [phone] Wendy Torres MD Primary Care Provider + [...] Encounters Date Type Department Care Team Description 06/18/2025 9:00 AM EST Office Visit [facility] Physical Therapy Clinic [address] [place] [address] Wendy Torres MD Markey, Stephen, PT Chronic bilateral thoracic back pain (Primary Dx) 06/14/2025 2:15 PM EST Office Visit [facility] Physical Therapy Clinic [address] [place] [address] Wendy Torres MD Markey, Stephen, PT Chronic bilateral thoracic back pain (Primary Dx) 05/01/2025 Transcribe Orders [facility] Physical Therapy Clinic [address] [place] [address] Wendy Torres MD Encounter for rehabilitation (Primary Dx) from Last 3 Months Family History Medical [...] st Contact Info) Description 07/12/2024 Procedure Pass [address] [address] 06/26/2025 9:45 AM EST Office Visit [facility] Physical Therapy Clinic [address] [place] [address] Wendy Torres MD [address] [place] [address] [email or web address], PT 4 [place] [address] 07/02/2025 2:15 PM EST Office Visit [facility] Physical Therapy Clinic [address] [place] [address] Wendy Torres MD [address] [place] [address] [email or web address], PT 4 [place] [address] [email or web address] 07/05/2025 8:15 AM EST Appointment [address] [address] Todd Breen MD [address] [place] [address], [address] [place] [address] 07/10/2025 10:30 AM EST Office Visit [facility] Physical Therapy [address] [address] Wendy Torres MD [address] [place] [address] [email or web address], PT 4 [place] [address] 07/12/2025 10:30 AM EST Office Visit [facility] Physical Therapy [address] [address] Wendy Torres MD [address] [place] [address] [email or web address], PT 4 [place] [address] 07/16/2025 10:30 AM EST Office Visit [facility] Physical Therapy [address] [address] Wendy Torres MD [address] [place] [address] [email or web address], PT 4 [place] [address] 07/18/2025 10:30 AM EST Office Visit [facility] Physical Therapy [address] [phone] Wendy Torres MD [address] [place] [address] [email or web address], PT 4 [place] [address] 07/24/2025 10:30 AM EST Office Visit [facility] [address] [place] [address] Wendy Torres MD [address] [place] [address] [email or web address], PT 4 [place] [address] 07/26/2025 10:30 AM EST Office Visit [facility] [address] [place] [address] Wendy Torres MD [address] [place] [address] [email or web address], PT [address] [place] [address] 08/08/2025 12:00 PM EST Office Visit [facility] Neurology Clinic [address] [place] [address] Todd Bailey MD [address] [place] [address], 2[address] [place] [address] 08/28/2025 9:30 AM EST Office Visit [facility] Pulmonology, Allergy and Critical Care Medicine Clinic 10 [place] [address] Srinivas Pemberton MD [address] [place] [address] 09/02/2025 11:00 AM EST Office Visit [facility] Pulmonology, Allergy and Critical Care Medicine Clinic 10 [place] [address] Raheem Vaughn MD [address] [place] [address] 2nd [facility] DASHA Silva [address] [email or web address] Health Maintenance Due Date Last Done Comments [...] Date/Time Associated Diagnosis Comments AMB REFERRAL TO [facility] PHYSICAL THERAPY Routine 06/15/2025 10:16 AM EST Encounter for rehabilitation BI MAMMOGRAM DIAGNOSTIC WITH TOMOSYNTHESIS WITH CAD [...] Health Maintenance Results * Ambulatory referral to [facility] Physical Therapy (06/15/2025 10:16 AM EST) Other us Wendy Torres MD AMB [facility] REFERRALS Final Result * BI MAMMOGRAM DIAGNOSTIC WITH TOMOSYNTHESIS WITH [...] Pap Test (08/05/2023 12:00 AM EST) Report [address] [address] Software Support Analyst: Wendy Dunn MD TIP CEMENTER Cytology Report FINAL DIAGNOSIS A. PAP SMEAR [...] 59, 66, 68) Note: Testing performed by [employer] HR-HPV analysis. Clinical correlation is advised. This HPV test was performed at [facility], [address] [place] [address]. This test has been FDA approved for SurePath cervical cytology specimens. The accuracy and precision of this test for all other specimen sources has been verified in the Cytopathology Laboratory of the [facility] and has not been cleared or approved by the U.S. Food and Drug Administration. Clinical correlation is advised. CLINICAL HISTORY Date of Last Menstrual Period: Not Provided Menstrual History: Post Menopausal Other Clinical Conditions: Screening Pap SPECIMEN SOURCE A: PAP SMEAR (SUREPATH) CE Patient Name: RAMOS LOBATO : 12/23/1964 (Age: 58) Sex: F Institution: [facility] Date of Collection: 08/05/2023 Date of Reported: 08/10/2023 13:14 Results to: Evens Escalante MD, BS [facility] Final Diagnosis A. PAP SMEAR (SUREPATH) CE: SPECIMEN ADEQUACY: Satisfactory for evaluation; transformation zone present. INTERPRETATION: NEGATIVE FOR INTRAEPITHELIAL LESION OR MALIGNANCY. [facility] Results\Inter pretation A. PAP SMEAR (SUREPATH) CE: Human Papilloma Virus TestNEGATIVE for high-risk Human Papilloma Virus types 16, 18, 45 and the Other high risk probe set (Includes 31, 33, 35, 39, 51, 52, 56, 58, 59, 66, 68)Note: Testing performed by [employer] HR-HPV analysis. Clinical correlation is advised. This HPV test was performed at [facility], [address] [place] [address]. This test has been FDA approved for SurePath cervical cytology specimens. The accuracy and precision of this test for all other specimen sources has been verified in the Cytopathology Laboratory of the [facility] and has not been cleared or approved by the U.S. Food and Drug Administration. Clinical correlation is advised. [facility] Conversion Type (Conversion Source) 08/05/2023 08/08/2023 9:35 AM EST us Evens Escalante MD CYTOLOGY ORDERABLES Edited Re florian - Final [facility] [address] [place] [address] * (ABNORMAL) Lipid panel (09/01/2018 7:40 AM EST) HDL 67 mg/dL [facility] Comment: Interpretation <40 mg/dL: Low HDL cholesterol (major risk factor for CHD) Greater than or equal to 60 mg/dL: High HDL cholesterol ( negative risk factor for CHD) HDL - cholesterol is affected by a number of factors, e.g. smoking, excerise, hormones, sex and age. CHOLESTEROL 171 0 - 240 mg/dL [facility] TRIGLYCERIDES 49 30 - 160 mg/dL [facility] LDL 94 50 - 129 mg/dL [facility] Comment: LDL levels in terms of risk for coronary heart disease: <100 mg/dL: Optimal 100-129 mg/dL: Near or above optimal 130-159 mg/dL: Borderline high 160-189 mg/dL: High >190 mg/dL: Very High CARDIAC RISK RATIO 2.6(L) 3.3 - 4.4 C [facility] Blood 09/01/2018 7:40 AM EST 09/01/2018 7:44 AM EST us Wendy Torres MD LAB BLOOD BKR ORDERABLES Final Result [facility] [address] [place] [address] from Last 3 Months or Most Recently Relevant to Health Maintenance Insurance [facility] TOTAL CHOICE INDEMNITY [employer] TOTAL CHOICE INDEMNITY [employer] TOTAL CHOICE INDEMNITY [employer] TOTAL CHOICE INDEMNITY [employer] TOTAL CHOICE INDEMNITY [employer] TOTAL CHOICE INDEMNITY [employer] [facility] TOTAL CHOICE INDEMNITY [employer] [facility] TOTAL CHOICE INDEMNITY [facility] TOTAL CHOICE INDEMNITY [employer] Care Teams Sales Representative Metals Relationship Specialty Start Date End Date Wendy Torres MD [address] [place] [address] PCP - General Family Medicine 05/14/21 Evens Escalante MD [address] [place] [address], [address] [place] [address] Historical LMR Provider 04/24/17 Indy Gaytan MD [address] [place] [address] Orthopedics & Sports Medicine, [facility] [place] [address] [email or web address] Historical LMR Provider 04/24/17 Additional Source Comments The information contained in this document represents components of the legal health record. It is not the complete legal health record.[facility]
--- OUTSIDE RECORDS SUMMARY | 2025-06-19 19:58 | XMS_ITS | Encounter Summary ---
Author Organization [facility] Address [address] [place] [address] Phone Care Team Providers Care Import Export Manager Name Role Phone Evens Escalante MD Unavailable [phone] Indy Gaytan MD Unavailable [phone] Wendy Torres MD Primary Care Provider + Encounter Details Date Type Department Care Team (Late st Contact Info) Description 11/23/2023 Procedure Pass [facility], Ct Scan - [address] [address] Social History Tobacco Use Types Packs/Day Years [...] st Contact Info) Description 07/12/2024 Procedure Pass [address] [address] 06/26/2025 9:45 AM EST Office Visit [facility] [address] [place] [address] Wendy Torres MD [address] [place] [address] [email or web address], PT 4 [place] [address] 07/02/2025 2:15 PM EST Office Visit [facility] [address] [place] [address] Wendy Torres MD [address] [place] [address] [email or web address], PT 4 [place] [address] 07/05/2025 8:15 AM EST Appointment [address] [address] Todd Breen MD [address] [place] [address], [address] [place] [address] 07/10/2025 10:30 AM EST Office Visit [facility] Therapy [address] [address] Wendy Torres MD [address] [place] [address] [email or web address], PT 4 [place] [address] 07/12/2025 10:30 AM EST Office Visit [facility] [address] [address] Wendy Torrse MD [address] [place] [address] [email or web address], PT 4 [place] [address] 07/16/2025 10:30 AM EST Office Visit [facility] [address] [address] Wendy Torres MD [address] [place] [address] [email or web address], PT 4 [place] [address] 07/18/2025 10:30 AM EST Office Visit [facility] [address] [phone] Wendy Torres MD [address] [place] [address] [email or web address], PT 4 [place] [address] 07/24/2025 10:30 AM EST Office [facility] [address] [place] [address] Wendy Torres MD [address] [place] [address] [email or web address], PT 4 [place] [address] 07/26/2025 10:30 AM EST Office Visit [facility] [address] [place] [address] Wendy Torres MD [address] [place] [address] [email or web address], PT 4 [place] [address] 08/08/2025 12:00 PM EST Office Visit [facility] [address] [place] [address] Todd Bailey MD [address] [place] [address], [address] [place] [address] 08/28/2025 9:30 AM EST Office Visit [facility] Pulmonology, All[facility] Medicine [facility] [address] [place] [address] Srinivas Pemberton MD [address] [place] [address] 09/02/2025 11:00 AM EST Office Visit [facility] Pulmonology, [facility] [address] [place] [address] Raheem Vaughn MD [address] [place] [address] 2nd [place] [address] documented as of this encounter Visit Diagnoses Not on filedocumented in this encounter Care Teams Import Export Manager Relationship Specialty Start Date End Date Wendy Torres MD [address] [place] [address] PCP - General Family Medicine 05/14/21 Evens Escalante MD [address] [place] [address] Historical LMR Provider 04/24/17 Indy Gaytan MD [address] [place] [address] Orthopedics & Sports Medicine, [facility] [place] [address] Historical LMR Provider 04/24/17 documented as of this encounter Additional Source Comments The information contained in this document represents components of the legal health record. It is not the complete legal health record.[facility]
--- OUTSIDE RECORDS SUMMARY | 2025-06-19 19:58 | XMS_ITS | Encounter Summary ---
Author Organization [facility] Address [address] [place] [address] Phone Care Team Providers Care Mounter Clarinets Name Role Phone Jamila Steele MD Unavailable [email or web address] Gisel Liu MD Unavailable [phone] Evens Escalante MD Unavailable [phone] Indy Gaytan MD Unavailable [phone] Wendy Torres MD Primary Care Provider + [...] Exercise Wendy Torres MD Phone: tel: fax: mailto:[email or web address] Referral ID Status Reason Start Date Expiration Date Visits Re quested Visits Authorized [id number] Closed 07/26/2019 07/25/2020 1 1 Encounter Details Date Type Department Care Team (Late st Contact Info) Description 07/26/2019 Transcribe Orders Virtual Department 30 [place] [address] Wendy Torres MD [address] [place] [address] [email or web address] Jaw pain (Primary Dx); Elevated blood [...] st Contact Info) Description 07/12/2024 Procedure Pass [facility], Ct Scan - [address] [address] 06/26/2025 9:45 AM EST Office Visit [facility] [address] [place] [address] Wendy Torres MD [address] [place] [address] [email or web address], PT 4 [place] [address] 07/02/2025 2:15 PM EST Office Visit [facility] [address] [place] [address] Wendy Torres MD [address] [place] [address] [email or web address], PT 4 [place] [address] 07/05/2025 8:15 AM EST Appointment [facility], Ct Scan - [address] [address] Todd Breen MD [address] [facility], [address] [place] [address] 07/10/2025 10:30 AM EST Office Visit [facility] [address] [place] [address] Wendy Torres MD [address] [place] [address] [email or web address], PT 4 [place] [address] 07/12/2025 10:30 AM EST Office Visit [facility] Physical Therapy [address] [address] Wendy Torres MD [address] [place] [address] [email or web address], PT 4 [place] [address] 07/16/2025 10:30 AM EST Office Visit [facility] [address] [place] [address] Wendy Torres MD [address] [place] [address] [email or web address], PT 4 [place] [address] 07/18/2025 10:30 AM EST Office Visit [facility] [address] [place] [address] Wendy Torres MD [address] [place] [address] [email or web address], PT 4 [place] [address] 07/24/2025 10:30 AM EST Office Visit [facility] [address] [place] [address] Wendy Torres MD [address] [place] [address] [email or web address], PT 4 [place] [address] 07/26/2025 10:30 AM EST Office Visit [facility] [address] [place] [address] Wendy Torres MD [address] [place] [address] [email or web address], PT 4 [place] [address] 08/08/2025 12:00 PM EST Office Visit [facility] Neurology Clinic [address] [place] [address] Todd Bailey MD [address] [place] [address] 08/28/2025 9:30 AM EST Office Visit [facility] Pulmonology, Allergy and Critical [facility] Medicine Clinic [address] [place] [address] Srinivas Pemberton MD 30 [place] [address] 09/02/2025 11:00 AM EST Office Visit [facility] Pulmonology, All[facility] Medicine [facility] 10 [place] [address] Raheem Vaughn MD [address] [place] [address] [email or web address] documented as of this encounter Results * Stress Test Exercise (09/11/2019 9:28 AM EDT) Max BP Systolic 180 mmHg [facility] Max BP Diastolic 84 mmHg [facility] Max HR 169 BPM [facility] Resting HR 83 BPM [facility] Resting BP Systolic 136 mmHg [facility] Resting BP Diastolic 86 mmHg [facility] Peak METS 10.1 METS [facility] Peak HR 160 BPM [facility] Peak BP Systolic 180 mmHg [facility] Peak BP Diastolic 84 mmHg [facility] Anatomical Region Laterality Modality Heart Other 09/11/2019 [...] predicted heart rate. Rate pressure product was 98320. REPORT: Patient exercised for 9:00 minutes on [...] site documented in this encounter Care Teams Mounter Clarinets Relationship Specialty Start Date End Date Wendy Torres MD [address] [place] [address] PCP - General Family Medicine 03/17/18 05/13/21 Wendy Torres MD [address] [place] [address] PCP - General Family Medicine 05/14/21 Jamila Steele MD [email or web address] Historical LMR Provider 04/24/1707/11 Gisel Liu MD [address] [place] [address], [address] [place] [address] Historical LMR Provider 04/24/17 Evens Escalante MD [address] [place] [address], [address] [place] [address] Historical LMR Provider 04/24/17 Indy Gaytan MD [address] [place] [address] Orthopedics & Sports Medicine, [place] [address] [email or web address] Historical LMR Provider 04/24/17 documented as of this encounter Additional Source Comments The information contained in this document represents components of the legal health record. It is not the complete legal health record.[facility]
--- OUTSIDE RECORDS SUMMARY | 2025-06-19 19:58 | XMS_ITS | Encounter Summary ---
Author Organization [facility] Address [address] [place] [address] Phone Care Team Providers Care Technical Services Manager Name Role Phone Evens Escalante MD Unavailable [phone] Indy Gaytan MD Unavailable [phone] Wendy Torres MD Primary Care Provider + Reason for Referral * Physical Therapy (Routine) - Closed Specialty Diagnoses / Procedures Referred By Gamaliel farrar Referred To Contact Physical Therapy Diagnoses Encounter for rehabilitation low back pain Procedures evaluate & treat Shavonne Vazquez PA-C Phone: tel: fax: mailto:[email or web address] [address] [place] [address] Phone: tel: Referral ID Status Reason Start Date Expiration Date Visits Re quested Visits Authorized [id number] Closed 03/29/2022 07/03/2022 20 20 Encounter Details Date Type Department Care Team (Late st Contact Info) Description 02/17/2022 Transcribe Orders [facility] [address] [place] [address] Shavonne Vazquez PA-C [address] [place] [address] [email or web address] Encounter for rehabilitation (Primary Dx) Social History [...] st Contact Info) Description 07/12/2024 Procedure Pass [address] [address] 06/26/2025 9:45 AM EST Office Visit [facility] [address] [place] [address] Wendy Torres MD [address] [place] [address] [email or web address], PT 4 [place] [address] 07/02/2025 2:15 PM EST Office Visit [facility] [address] [place] [address] Wendy Torres MD [address] [place] [address] [email or web address], PT 4 [place] [address] 07/05/2025 8:15 AM EST Appointment [address] [address] Todd Breen MD [address] [place] [address] [address] 07/10/2025 10:30 AM EST Office Visit [facility] Physical Therapy [address] [address] Wendy Torres MD [address] [place] [address] [email or web address], PT 4 [place] [address] 07/12/2025 10:30 AM EST Office Visit [facility] Physical Therapy [address] [address] Wendy Torres MD [address] [place] [address] [email or web address], PT 4 [place], [place] [id number] 07/16/2025 10:30 AM EST Office Visit [facility] Physical Therapy [address] [address] Wendy Torres MD [address] [place] [address] [email or web address], PT 4 [place], [place] [id number] 07/18/2025 10:30 AM EST Office Visit [facility] Physical Therapy [address] [phone] Wendy Torres MD [address] [place] [address] [email or web address], PT 4 [place] [address] 07/24/2025 10:30 AM EST Office Visit [facility] [address] [place] [address] Wendy Torres MD [address] [place] [address] [email or web address], PT 4 [place] [address] 07/26/2025 10:30 AM EST Office Visit [facility] [address] [address] Wendy Torres MD [address] [place] [address] [email or web address], PT [address] [place] [address] 08/08/2025 12:00 PM EST Office Visit [facility] Neurology Clinic [address] [place] [address] Todd Bailey MD [address] [place] [address], 2nd [place] [address] 08/28/2025 9:30 AM EST Office Visit [facility] Pulmonology, Allergy and Critical Care Medicine Clinic [address] [place] [address] Srinivas Pemberton MD [address] [place] [address] 09/02/2025 11:00 AM EST Office Visit [facility] Pulmonology, Allergy and Critical Care Medicine Clinic [address] [facility] [place] [address] Raheem Vaughn MD [address] [facility] 2nd [place] [address] [email or web address] Scheduled Referrals Name Type Priority Associated Diagnoses Orde r Schedule Ambulatory referral to [facility] Physical Therapy Outpatient Referral Routine Encounter for rehabilitation Ordered: 02/17/2022 documented as of this encounter Visit Diagnoses Diagnosis Encounter for rehabilitation- Primary documented in this encounter Care Teams Technical Services Manager Relationship Specialty Start Date End Date Wendy Torres MD [address] [place] [address] PCP - General Family Medicine 05/14/21 Evens Escalante MD [address] [place] [address] Historical LMR Provider 04/24/17 Indy Gaytan MD [address] [place] [address] Orthopedics & Sports Medicine, [place] [address] Historical LMR Provider 04/24/17 documented as of this encounter Additional Source Comments The information contained in this document represents components of the legal health record. It is not the complete legal health record.[facility]
--- OUTSIDE RECORDS SUMMARY | 2025-06-19 19:58 | XMS_ITS | Encounter Summary ---
Author Organization [facility] Address [address] [place] [address] Phone Care Team Providers Care Zigzag Tunnel Elastic Operator Name Role Phone vEens Escalante MD Unavailable [phone] Indy Gaytan MD Unavailable Wendy Torres MD Primary Care Provider + Encounter Details Date Type Department Care Team (Late st Contact Info) Description 05/05/2022 Transcribe Orders Virtual Department 30 [place] [address] Wendy Torres MD [address] [place] [address] [email or web address] Breast screening (Primary Dx) Social History [...] st Contact Info) Description 07/12/2024 Procedure Pass [facility], Ct Scan - [facility] 30 [place] [address] 06/26/2025 9:45 AM EST Office Visit [facility] Physical Therapy [address] [address] Wendy Torres MD [address] [place] [address] [email or web address], PT 4 [place] [address] 07/02/2025 2:15 PM EST Office Visit [facility] Physical Therapy [address] [address] Wendy Torres MD [address] [place] [address] [email or web address], PT 4 [place] [address] 07/05/2025 8:15 AM EST Appointment [facility], Ct Scan - [address] [address] Todd Breen MD [address] [place] [address], [address] [address] 07/10/2025 10:30 AM EST Office Visit [facility] Physical Therapy [address] [address] Wendy Torres MD [address] [place] [address] [email or web address], PT 4 [place] [address] 07/12/2025 10:30 AM EST Office Visit [facility] Physical Therapy [address] [address] Wendy Torres MD [address] [place] [address] [email or web address], PT 4 [place] [address] 07/16/2025 10:30 AM EST Office Visit [facility] Physical Therapy [address] [address] Wendy Torres MD [address] [place] [address] [email or web address], PT [address] [place] [address] 07/18/2025 10:30 AM EST Office Visit [facility] Physical Therapy [address] [address] Wendy Torres MD [address] [place] [address] [email or web address], PT [address] [place] [address] 07/24/2025 10:30 AM EST Office Visit [facility] Physical Therapy [address] [address] Wendy Torres MD [address] [place] [address] [email or web address], PT 4 [place] [address] 07/26/2025 10:30 AM EST Office Visit [facility] Physical Therapy Clinic [address] [place] [address] Wendy Torres MD [address] [place] [address] [email or web address], PT 4 [place] [address] 08/08/2025 12:00 PM EST Office Visit [facility] Neurology [address] [address] Todd Bailey MD [address] [place] [address] 08/28/2025 9:30 AM EST Office Visit [facility] Pulmonology, Allergy and Critical Care Medicine Clinic [address] [place] [address] Srinivas Pemberton MD [address] [place] [address] 09/02/2025 11:00 AM EST Office Visit [facility] Pulmonology, Allergy and Critical Care Medicine Clinic [address] [place] [address] Raheem Vaughn MD [address] [place] [address] documented as of this encounter Results * [...] unspecified documented in this encounter Care Teams Zigzag Tunnel Elastic Operator Relationship Specialty Start Date End Date Wendy Torres MD [address] [place] [address] PCP - General Family Medicine 05/14/21 Evens Escalante MD [address] [place] [address], [address] [place] [address] Historical LMR Provider 04/24/17 Indy Gaytan MD [address] [place] [address] Orthopedics & Sports Medicine, [place] [address] [email or web address] Historical LMR Provider 04/24/17 documented as of this encounter Additional Source Comments The information contained in this document represents components of the legal health record. It is not the complete legal health record.[facility]
--- OUTSIDE RECORDS SUMMARY | 2025-06-19 19:58 | XMS_ITS | Encounter Summary ---
Author Organization [facility] Address [address] [place] [address] Phone Care Team Providers Care Conservation Policy Analyst Name Role Phone Jamila Steele MD Unavailable [email or web address] Gisel Liu MD Unavailable [phone] Evens Escalante MD Unavailable [phone] Indy Gaytan MD Unavailable [phone] Wendy Torres MD Primary Care Provider + Wendy Torres MD Primary Care Provider + Encounter Details Date Type Department Care Team (Late st Contact Info) Description 03/24/2020 Procedure Pass [facility] - [address] [place] [address] Social History Tobacco Use Types Packs/Day Years [...] st Contact Info) Description 07/12/2024 Procedure Pass [facility], Ct Scan - [address] [address] 06/26/2025 9:45 AM EST Office Visit [facility] Physical Therapy [address] [address] Wendy Torres MD [address] [place] [address] [email or web address], PT 4 [place] [address] 07/02/2025 2:15 PM EST Office Visit [facility] Physical Therapy [address] [address] Wendy Torres MD [address] [place] [address] [email or web address], PT 4 [place] [address] 07/05/2025 8:15 AM EST Appointment [facility] Sc Scan [address] [address] Todd Breen MD [address] [place] [address], [address] [address] 07/10/2025 10:30 AM EST Office Visit [facility] Physical Therapy [address] [address] Wendy Torres MD [address] [place] [address] [email or web address], PT 4 [place] [address] 07/12/2025 10:30 AM EST Office Visit [facility] Physical Therapy [address] [address] Wendy Torres MD [address] [place] [address] [email or web address], PT 4 [place] [address] 07/16/2025 10:30 AM EST Office Visit [facility] Physical Therapy [address] [address] Wendy Torres MD [address] [place] [address] [email or web address], PT [address] [place] [address] 07/18/2025 10:30 AM EST Office Visit [facility] Physical Therapy [address] [address] Wendy Torres MD [address] [place] [address] [email or web address], PT 4 [place] [address] 07/24/2025 10:30 AM EST Office Visit [facility] Physical Therapy [address] [address] Wendy Torres MD [address] [place] [address] [email or web address], PT 4 [place] [address] 07/26/2025 10:30 AM EST Office Visit [facility] Physical Therapy Clinic [address] [place] [address] Wendy Torres MD [address] [place] [address] [email or web address], PT 4 [place] [address] 08/08/2025 12:00 PM EST Office Visit [facility] Neurology [address] [address] Todd Bailey MD [address] [place] [address] 08/28/2025 9:30 AM EST Office Visit [facility] Pulmonology, Allergy and Critical Care Medicine Clinic [address] [place] [address] Srinivas Pemberton MD [address] [place] [address] 09/02/2025 11:00 AM EST Office Visit [facility] Pulmonology, Allergy and Critical Care Medicine Clinic [address] [place] [address] Raheem Vaughn MD [address] [place] [address] documented as of this encounter Visit Diagnoses Not on filedocumented in this encounter Care Teams Conservation Policy Analyst Relationship Specialty Start Date End Date Wendy Torres MD [address] [place] [address] PCP - General Family Medicine 03/17/18 05/13/21 Wendy Torres MD [address] [place] [address] PCP - General Family Medicine 05/14/21 Jamila Steele MD [email or web address] Historical LMR Provider 04/24/1707/11 Gisel Liu MD [address] [facility], 2nd [place] [address] Historical LMR Provider 04/24/17 Evens Escalante MD [address] [facility], [address] [place] [address] Historical LMR Provider 04/24/17 Indy Gaytan MD [address] [place] [address] Orthopedics & Sports Medicine, [place] [address] Historical LMR Provider 04/24/17 documented as of this encounter Additional Source Comments The information contained in this document represents components of the legal health record. It is not the complete legal health record.[facility]
--- OUTSIDE RECORDS SUMMARY | 2025-06-19 19:58 | XMS_ITS | Encounter Summary ---
Author Organization [facility] Address [address] [place] [address] Phone Care Team Providers Care Leather Stripping Machine Operator Name Role Phone Evens Escalante MD Unavailable Indy Gaytan MD Unavailable Wendy Torres MD Primary Care Provider + Encounter Details Date Type Department Care Team (Late st Contact Info) Description 12/14/2021 Transcribe Orders Virtual Department [address] [place] [address] Wendy Torres MD [address] [place] [address] [email or web address] Right leg pain (Primary Dx) Social [...] Pass [facility], Ct Scan - [facility] [address] [place] [address] 06/26/2025 9:45 AM EST Office Visit [facility] Physical Therapy [address] [address] Wendy Torres MD [address] [place] [address] [email or web address], PT [address] [place] [address] 07/02/2025 2:15 PM EST Office Visit [facility] Physical Therapy [address] [address] Wendy Torres MD [address] [place] [address] [email or web address], PT [address] [place] [address] 07/05/2025 8:15 AM EST Appointment [facility], Ct Scan - [address] [address] Todd Breen MD [address] [place] [address], [address] [address] 07/10/2025 10:30 AM EST Office Visit [facility] Physical Therapy [address] [address] Wendy Torres MD [address] [place] [address] [email or web address], PT [address] [place] [address] 07/12/2025 10:30 AM EST Office Visit [facility] Physical Therapy [address] [address] Wendy Torres MD [address] [place] [address] [email or web address], PT [address] [place] [address] 07/16/2025 10:30 AM EST Office Visit [facility] Physical Therapy [address] [address] Wendy Torres MD [address] [place] [address] [email or web address], PT [address] [place] [address] 07/18/2025 10:30 AM EST Office Visit [facility] Physical Therapy [address] [address] Wendy Torres MD [address] [place] [address] [email or web address], PT [address] [place] [address] 07/24/2025 10:30 AM EST Office Visit [facility] Physical Therapy [address] [address] Wendy Torres MD [address] [place] [address] [email or web address], PT [address] [place] [address] 07/26/2025 10:30 AM EST Office Visit [facility] Physical Therapy Clinic [address] [place] [address] Wendy Torres MD [address] [place] [address] [email or web address], PT [address] [place] [address] 08/08/2025 12:00 PM EST Office Visit [facility] Neurology [address] [address] Todd Bailey MD [address] [place] [address] 08/28/2025 9:30 AM EST Office Visit [facility] Pulmonology, [facility] [address] [place] [address] Srinivas Pemberton MD [address] [place] [address] 09/02/2025 11:00 AM EST Office Visit [facility] Pulmonology, [facility] [address] [place] [address] Raheem Vaughn MD [address] [place] [address] documented as of this encounter Results * [...] limb documented in this encounter Care Teams Leather Stripping Machine Operator Relationship Specialty Start Date End Date Wendy Torres MD [address] [place] [address] PCP - General Family Medicine 05/14/21 Evens Escalante MD [address] [place] [address], [address] [place] [address] Historical LMR Provider 04/24/17 Indy Gaytan MD [address] [place] [address] [facility] Medicine, [place] [address] Historical LMR Provider 04/24/17 documented as of this encounter Additional Source Comments The information contained in this document represents components of the legal health record. It is not the complete legal health record.[facility]
--- OUTSIDE RECORDS SUMMARY | 2025-06-19 19:58 | XMS_ITS | Encounter Summary ---
Author Organization [facility] Address [address] [place] [address] Phone Care Team Providers Care Nurses' Association Counselor Name Role Phone Evens Escalante MD Unavailable [phone] Indy Gaytan MD Unavailable [phone] Wendy Torres MD Primary Care Provider + Encounter Details Date Type Department Care Team (Late st Contact Info) Description 12/13/2023 Procedure Pass [facility], [address] [place] [address] Social History Tobacco Use Types Packs/Day Years [...] st Contact Info) Description 07/12/2024 Procedure Pass [address] [address] 06/26/2025 9:45 AM EST Office Visit [facility] Physical Therapy Clinic [address] [place] [address] Wendy Torres MD [address] [place] [address] [email or web address], PT 4 [place] [address] 07/02/2025 2:15 PM EST Office Visit [facility] Physical Therapy Clinic [address] [place] [address] Wendy Torres MD [address] [place] [address] [email or web address], PT 4 [place] [address] 07/05/2025 8:15 AM EST Appointment [address] [address] Todd Breen MD [address] [place] [address], [address] [place] [address] 07/10/2025 10:30 AM EST Office Visit [facility] Physical Therapy [address] [address] Wendy Torres MD [address] [place] [address] [email or web address], PT [address] [place] [address] 07/12/2025 10:30 AM EST Office Visit [facility] Physical Therapy [address] [address] Wendy Torres MD [address] [place] [address] [email or web address], PT [address] [place] [address] 07/16/2025 10:30 AM EST Office Visit [facility] Physical Therapy [address] [address] Wendy Torres MD [address] [place] [address] [email or web address], PT [address] [place] [address] 07/18/2025 10:30 AM EST Office Visit [facility] Physical Therapy [address] [phone] Wendy Torres MD [address] [place] [address] [email or web address], PT 4 [place] [address] 07/24/2025 10:30 AM EST Office Visit [facility] [address] [place] [address] Wendy Torres MD [address] [place] [address] [email or web address], PT 4 [place] [address] 07/26/2025 10:30 AM EST Office Visit [facility] [address] [place] [address] Wendy Torres MD [address] [place] [address] [email or web address], PT [address] [place] [address] 08/08/2025 12:00 PM EST Office Visit [facility] Neurology Clinic [address] [place] [address] Todd Bailey MD [address] [place] [address], [address] [place] [address] 08/28/2025 9:30 AM EST Office Visit [facility] Pulmonology, Allergy and Critical Care Medicine Clinic [address] [place] [address] Srinivas Pemberton MD [address] [place] [address] 09/02/2025 11:00 AM EST Office Visit [facility] Pulmonology, Allergy and Critical [facility] Medicine Clinic [address] [place] [address] Raheem Vaughn MD [address] [place] [address] documented as of this encounter Visit Diagnoses Not on filedocumented in this encounter Care Teams Nurses' Association Counselor Relationship Specialty Start Date End Date Wendy Torres MD [address] [place] [address] PCP - General Family Medicine 05/14/21 Evens Escalante MD [address] [place] [address] Historical LMR Provider 04/24/17 Indy Gaytan MD [address] [place] [address] Orthopedics & Sports Medicine, [facility] [place] [address] Historical LMR Provider 04/24/17 documented as of this encounter Additional Source Comments The information contained in this document represents components of the legal health record. It is not the complete legal health record.[facility]
--- OUTSIDE RECORDS SUMMARY | 2025-06-19 19:58 | XMS_ITS | Encounter Summary ---
Author Organization [facility] Address [address] [facility] [address] [place] [address] Phone Care Team Providers Care Registered Nurse Teacher Name Role Phone Jamila Steele MD Unavailable [email or web address] Gisel Liu MD Unavailable [phone] Evens Escalante MD Unavailable [phone] Indy Gaytan MD Unavailable [phone] Wendy Torres MD Primary Care Provider + Wendy Torres MD Primary Care Provider + Reason for Referral * Physical Therapy (Elective) - Closed Specialty Diagnoses / Procedures Referred By Gamaliel farrar Referred To Contact Physical Therapy Diagnoses Encounter for rehabilitation Samia Meraz NP Phone: tel: fax: mailto:[email or web address] [address] [place] [address] Phone: tel: Referral ID Status Reason Start Date Expiration Date Visits Re quested Visits Authorized [id number] Closed 07/20/2019 01/01/2020 30 30 Encounter Details Date Type Department Care Team (Latest Contact Info) Description 07/05/2019 Transcribe Orders [facility] Physical Therapy Clinic [address] [place] [address] Samia Meraz DIMPLING MACHINE OPERATOR [address] [place] [address] [email or web address] Encounter for rehabilitation (Primary Dx) Social History [...] st Contact Info) Description 07/12/2024 Procedure Pass [facility], [address] [address] 06/26/2025 9:45 AM EST Office Visit [facility] Physical Therapy Clinic [address] [place] [address] Wendy Torres MD [address] [place] [address] [email or web address], PT [address] [place] [address] 07/02/2025 2:15 PM EST Office Visit [facility] Physical Therapy Clinic [address] [place] [address] Wendy Torres MD [address] [place] [address] [email or web address], PT [address] [place] [address] [email or web address] 07/05/2025 8:15 AM EST Appointment [facility], Ct Scan - [address] [address] Todd Breen MD [address] [facility], [address] [place] [address] 07/10/2025 10:30 AM EST Office Visit [facility] Physical Therapy [address] [address] Wendy Torres MD [address] [place] [address] [email or web address], PT 4 [place] [address] 07/12/2025 10:30 AM EST Office Visit [facility] Physical Therapy [address] [address] Wendy Torres MD [address] [place] [address] [email or web address], PT [address] [place] [address] 07/16/2025 10:30 AM EST Office Visit [facility] Physical Therapy [address] [address] Wendy Torres MD [address] [place] [address] [email or web address], PT 4 [place] [address] 07/18/2025 10:30 AM EST Office Visit [facility] Physical Therapy [address] [address] Wendy Torres MD [address] [place] [address] [place] [address] [email or web address], PT 4 [place] [address] 07/24/2025 10:30 AM EST Office Visit [facility] [address] [place] [address] Wendy Torres MD [address] [place] [address] [email or web address], PT [address] [place] [address] 07/26/2025 10:30 AM EST Office Visit [facility] [address] [place] [address] Wendy Torres MD [address] [place] [address] [email or web address], PT [address] [place] [address] 08/08/2025 12:00 PM EST Office Visit [facility] Neurology Clinic [address] [place] [address] Todd Bailey MD [address] [place] [address] 08/28/2025 9:30 AM EST Office Visit [facility] Pulmonology, Allergy and Critical Care Medicine Clinic [address] [place] [address] Srinivas Pemberton MD [address] [place] [address] 09/02/2025 11:00 AM EST Office Visit [facility] Pulmonology, Allergy and Critical Care Medicine Clinic [address] [place] [address] Raheem Vaughn MD [address] [place] [address] documented as of this encounter Procedures Procedure Name Priority Date/Time Associated Diagnosis Comments AMB REFERRAL TO [facility] PHYSICAL THERAPY Routine 07/20/2019 9:18 AM EST Encounter for rehabilitation documented in this encounter Results * Ambulatory referral to [facility] Physical Therapy (07/20/2019 9:18 AM EST) us Samia Meraz DIMPLING MACHINE OPERATOR AMB [facility] REFERRALS Final Result documented in this encounter Visit Diagnoses Diagnosis Encounter for rehabilitation- Primary documented in this encounter Care Teams Registered Nurse Teacher Relationship Specialty Start Date End Date Wendy Torres MD [address] [place] [address] PCP - General Family Medicine 03/17/18 05/13/21 Wendy Torres MD [address] [place] [address] PCP - General Family Medicine 05/14/21 Jamila Steele MD [email or web address] Historical LMR Provider 04/24/1707/11 Gisel Liu MD [address] [facility], [address] [place] [address] Historical LMR Provider 04/24/17 Evens Escalante MD [address], [address] [place] [address] Historical LMR Provider 04/24/17 Indy Gaytan MD [address] [place] [address] Orthopedics & Sports Medicine, [facility] [place] [address] [email or web address] Historical LMR Provider 04/24/17 documented as of this encounter Additional Source Comments The information contained in this document represents components of the legal health record. It is not the complete legal health record.[facility]
--- OUTSIDE RECORDS SUMMARY | 2025-06-19 19:58 | XMS_ITS | Encounter Summary ---
Author Organization [facility] Address [address] [place] [address] Phone Care Team Providers Care Glass Checker Name Role Phone Jamila Steele MD Unavailable [email or web address] Gisel Liu MD Unavailable [phone] Evens Escalante MD Unavailable [phone] Indy Gaytan MD Unavailable [phone] Wendy Torres MD Primary Care Provider + Wendy Torres MD Primary Care Provider + Encounter Details Date Type Department Care Team (Late st Contact Info) Description 06/04/2019 Ancillary Orders [facility], [address] [address] Wendy Torres MD [address] [place] [address] [email or web address] Breast screening Social History Tobacco Use [...] Contact Info) Description 07/12/2024 Procedure Pass [address] [address] 06/26/2025 9:45 AM EST Office Visit [facility] Physical Therapy [address] [address] Wendy Torres MD [address] [place] [address] [email or web address], PT [address] [place] [address] 07/02/2025 2:15 PM EST Office Visit [facility] Physical Therapy [address] [address] Wendy Torres MD [address] [place] [address] [email or web address], PT [address] [place] [address] 07/05/2025 8:15 AM EST Appointment [address] [address] Todd Breen MD [address] [place] [address], [address] [address] 07/10/2025 10:30 AM EST Office Visit [facility] Physical Therapy [address] [address] Wendy Torres MD [address] [place] [address] [email or web address], PT [address] [place], [place] [id number] 07/12/2025 10:30 AM EST Office Visit [facility] Physical Therapy [address] [address] Wendy Torres MD [address] [place] [address] [email or web address], PT 4 [place] [address] 07/16/2025 10:30 AM EST Office Visit [facility] Physical Therapy [address] [address] Wendy Torres MD [address] [place] [address] [email or web address], PT [address] [place] [address] 07/18/2025 10:30 AM EST Office Visit [facility] Physical Therapy [address] [address] Wendy Torres MD [address] [place] [address] [email or web address], PT [address] [place] [address] 07/24/2025 10:30 AM EST Office Visit [facility] Physical Therapy [address] [address] Wendy Torres MD [address] [place] [address] [email or web address], PT [address] [place] [address] 07/26/2025 10:30 AM EST Office Visit [facility] [address] [place] [address] Wendy Torres MD [address] [place] [address] [email or web address], PT [address] [place] [address] 08/08/2025 12:00 PM EST Office Visit [facility] Neurology [address] [address] Todd Bailey MD [address] [place] [address] 08/28/2025 9:30 AM EST Office Visit [facility] Pulmonology, Allergy and Critical Care Medicine Clinic [address] [place] [address] Srinivas Pemberton MD [address] [place] [address] 09/02/2025 11:00 AM EST Office Visit [facility] Pulmonology, Allergy and Critical Care Medicine Clinic [address] [place] [address] Raheem Vaughn MD [address] [place] [address] documented as of this encounter Results * BI MAMMOGRAM SCREENING WITH TOMOSYNTHESIS WITH CAD (BILATERAL) (05/30/2019 7:57 AM EST) Anatomical Region Laterality Modality Breast Left, Breast Right, Breast Bilateral Bila teral Mammography Impressions 05/30/2019 8:10 AM EST No mammographic evidence of malignancy. Recommend routine annual surveillance. BI-RADS CATEGORY: 1 - Negative. DENSITY: There are scattered fibroglandular densities. POS - [id number] Narrative 05/30/2019 8:10 AM EST 54-year-old female [...] unspecified documented in this encounter Care Teams Glass Checker Relationship Specialty Start Date End Date Wendy Torres MD [address] [place] [address] PCP - General Family Medicine 03/17/18 05/13/21 Wendy Torres MD [address] [place] [address] PCP - General Family Medicine 05/14/21 Jamila Steele MD [email or web address] Historical LMR Provider 04/24/1707/11 Gisel Liu MD [address] [place] [address], [address] [place] [address] Historical LMR Provider 04/24/17 Evens Escalante MD [address] [place] [address], [address] [place] [address] [email or web address] Historical LMR Provider 04/24/17 Indy Gaytan MD [address] [place] [address] Orthopedics & Sports Medicine, [place] [address] [email or web address] Historical LMR Provider 04/24/17 documented as of this encounter Additional Source Comments The information contained in this document represents components of the legal health record. It is not the complete legal health record.[facility]
--- OUTSIDE RECORDS SUMMARY | 2025-06-19 19:58 | XMS_ITS | Encounter Summary ---
Author Organization [facility] Address [address] [place] [address] Phone Care Team Providers Care Mosaic Worker Name Role Phone Jamila Steele MD Unavailable [email or web address] Gisel Liu MD Unavailable [phone] Evens Escalante MD Unavailable [phone] Indy Gaytan MD Unavailable [phone] Wendy Torres MD Primary Care Provider + Wendy Torres MD Primary Care Provider + Encounter Details Date Type Department Care Team (Late st Contact Info) Description 04/30/2019 Telephone [facility] [address] [place] [address] Wendy Torres MD [address] [place] [address] [email or web address] Social History Tobacco Use Types Packs/Day Years [...] st Contact Info) Description 07/12/2024 Procedure Pass [address] [address] 06/26/2025 9:45 AM EST Office Visit [facility] Physical Therapy [address] [address] Wendy Torres MD [address] [place] [address] [email or web address], PT [address] [place] [address] 07/02/2025 2:15 PM EST Office Visit [facility] Physical Therapy [address] [address] Wendy Torres MD [address] [place] [address] [email or web address], PT 4 [place] [address] 07/05/2025 8:15 AM EST Appointment [address] [address] Todd Breen MD [address] [place] [address], [facility] [address] [place] [address] 07/10/2025 10:30 AM EST Office Visit [facility] Physical Therapy Clinic [address] [place] [address] Wendy Torres MD [address] [place] [address] [email or web address], PT [address] [place], [place] 1759488 07/12/2025 10:30 AM EST Office Visit [facility] Physical Therapy [address] [address] Wendy Torres MD [address] [place] [address] [email or web address], PT [address] [place] [address] 07/16/2025 10:30 AM EST Office Visit [facility] Physical Therapy [address] [address] Wendy Torres MD [address] [place] [address] [email or web address], PT [address] [place], [place] 5385188 07/18/2025 10:30 AM EST Office Visit [facility] Physical Therapy [address] [address] Wendy Torres MD [address] [place] [address] [email or web address], PT 4 [place] [address] 07/24/2025 10:30 AM EST Office Visit [facility] Physical Therapy [address] [address] Wendy Torres MD [address] [place] [address] [email or web address], PT 4 [place] [address] 07/26/2025 10:30 AM EST Office Visit [facility] [address] [place] [address] Wendy Torres MD [address] [place] [address] [email or web address], PT 4 [place] [address] 08/08/2025 12:00 PM EST Office Visit [facility] Neurology [address] [address] Todd Bailey MD [address] [place] [address] 08/28/2025 9:30 AM EST Office Visit [facility] Pulmonology, Allergy [facility] [address] [place] [address] Srinivas Pemberton MD [address] [place] [address] 09/02/2025 11:00 AM EST Office Visit [facility] Pul[facility]ology[facility] [address] [place] [address] Raheem Vaughn MD [address] [place] [address] documented as of this encounter Visit Diagnoses Not on filedocumented in this encounter Care Teams Mosaic Worker Relationship Specialty Start Date End Date Wendy Torres MD [address] [place] [address] PCP - General Family Medicine 03/17/18 05/13/21 Wendy Torres MD [address] [place] [address] PCP - General Family Medicine 05/14/21 Jamila Steele MD [email or web address] Historical LMR Provider 04/24/1707/11 Gisel Liu MD [address] [place] [address], 2nd [place] [address] Historical LMR Provider 04/24/17 Evens Escalante MD [address] [facility], [address] [place] [address] Historical LMR Provider 04/24/17 Indy Gaytan MD [address] [place] [address] [facility], [place] [address] Historical LMR Provider 04/24/17 documented as of this encounter Additional Source Comments The information contained in this document represents components of the legal health record. It is not the complete legal health record.[facility]
--- OUTSIDE RECORDS SUMMARY | 2025-06-19 19:58 | XMS_ITS | Encounter Summary ---
Author Organization [facility] Address [address] [place] [address] Phone Care Team Providers Care Principal Cloud Architect Name Role Phone Jamila Steele MD Unavailable [email or web address] Gisel Liu MD Unavailable [phone] Evens Escalante MD Unavailable [phone] Indy Gaytan MD Unavailable [phone] Wendy Torres MD Primary Care Provider + Wendy Torres MD Primary Care Provider + Encounter Details Date Type Department Care Team (Late st Contact Info) Description 03/21/2019 Ancillary Orders Virtual Department [address] [place] [address] Wendy Torres MD [address] [place] [address] [email or web address] Breast screening [...] st Contact Info) Description 07/12/2024 Procedure Pass [address] [address] 06/26/2025 9:45 AM EST Office Visit [facility] Physical Therapy [address] [address] Wendy Torres MD [address] [place] [address] [email or web address], PT 4 [place] [address] 07/02/2025 2:15 PM EST Office Visit [facility] Physical Therapy [address] [address] Wendy Torres MD [address] [place] [address] [email or web address], PT 4 [place] [address] 07/05/2025 8:15 AM EST Appointment [address] [address] Todd Breen MD [address] [place] [address], [facility] 301 [place] [address] 07/10/2025 10:30 AM EST Office Visit [facility] Physical Therapy [address] [address] Wendy Torres MD [address] [place] [address] [email or web address], PT 4 [place], [place] [id number] 07/12/2025 10:30 AM EST Office Visit [facility] Physical Therapy [address] [address] Wendy Torres MD [address] [place] [address] [email or web address], PT 4 [place] [address] 07/16/2025 10:30 AM EST Office Visit [facility] Physical Therapy [address] [address] Wendy Torres MD [address] [place] [address] [email or web address], PT 4 [place] [address] 07/18/2025 10:30 AM EST Office Visit [facility] Physical Therapy [address] [address] Wendy Torres MD [address] [place] [address] [email or web address], PT 4 [place], [place] [id number] 07/24/2025 10:30 AM EST Office Visit [facility] Physical Therapy [address] [address] Wendy Torres MD [address] [place] [address] [email or web address], PT 4 [place] [address] 07/26/2025 10:30 AM EST Office Visit [facility] [address] [place] [address] Wendy Torres MD [address] [place] [address] [email or web address], PT 4 [place] [address] 08/08/2025 12:00 PM EST Office Visit [facility] Neurology [address] [address] Todd Bailey MD [address] [place] [address] 08/28/2025 9:30 AM EST Office Visit [facility] Pulmonology, Allergy [facility] Critical [facility] Medicine [facility] [address] [place] [address] Srinivas Pemberton MD [address] [place] [address] 09/02/2025 11:00 AM EST Office Visit [facility] Pulmonology[facility] [address] [place] [address] Raheem Vaughn MD [address] [place] [address] documented as of this encounter Visit Diagnoses Diagnosis Breast screening Breast screening, unspecified documented in this encounter Care Teams Principal Cloud Architect Relationship Specialty Start Date End Date Wendy Torres MD [address] [place] [address] PCP - General Family Medicine 03/17/18 05/13/21 Wendy Torres MD [address] [place] [address] PCP - General Family Medicine 05/14/21 Jamila Steele MD [email or web address] Historical LMR Provider 04/24/1707/11 Gisel Liu MD [address] [place] [address], 2nd [place] [address] Historical LMR Provider 04/24/17 Evens Escalante MD [address] [place] [address], [address] [place] [address] Historical LMR Provider 04/24/17 Indy Gaytan MD [address] [place] [address] [facility], [place] [address] Historical LMR Provider 04/24/17 documented as of this encounter Additional Source Comments The information contained in this document represents components of the legal health record. It is not the complete legal health record.[facility]
--- OUTSIDE RECORDS SUMMARY | 2025-06-19 19:58 | XMS_ITS | Encounter Summary ---
Author Organization [facility] Address [address] [place] [address] Phone Care Team Providers Care Veterinary Assistant Technician Name Role Phone Jamila Steele MD Unavailable [email or web address] Gisel Liu MD Unavailable [phone] Evens Escalante MD Unavailable [phone] Indy Gaytan MD Unavailable [phone] Wendy Torres MD Primary Care Provider + Wendy Torres MD Primary Care Provider + Encounter Details Date Type Department Care Team (Late st Contact Info) Description 03/24/2020 Ancillary Orders Virtual Department [address] [place] [address] Wendy Torres MD [address] [place] [address] [email or web address] Breast screening Social History Tobacco Use [...] st Contact Info) Description 07/12/2024 Procedure Pass [address] [address] 06/26/2025 9:45 AM EST Office Visit [facility] Physical Therapy [address] [address] Wnedy Torres MD [address] [place] [address] [email or web address], PT 4 [place] [address] 07/02/2025 2:15 PM EST Office Visit [facility] Physical Therapy [address] [address] Wendy Torres MD [address] [place] [address] [email or web address], PT 4 [place] [address] 07/05/2025 8:15 AM EST Appointment [address] [address] Todd Breen MD [address] [place] [address], [facility] [address] [place] [address] 07/10/2025 10:30 AM EST Office Visit [facility] Physical Therapy [address] [address] Wendy Torres MD [address] [place] [address] [email or web address], PT 4 [place], [place] 5985488 07/12/2025 10:30 AM EST Office Visit [facility] Physical Therapy [address] [address] Wendy Torres MD [address] [place] [address] [email or web address], PT 4 [place] [address] 07/16/2025 10:30 AM EST Office Visit [facility] Physical Therapy [address] [address] Wendy Torres MD [address] [place] [address] [email or web address], PT 4 [place] [address] 07/18/2025 10:30 AM EST Office Visit [facility] Physical Therapy [address] [address] Wendy Torres MD [address] [place] [address] [email or web address], PT 4 [place], [place] [id number] 07/24/2025 10:30 AM EST Office Visit [facility] Physical Therapy [address] [address] Wendy Torres MD [address] [place] [address] [email or web address], PT 4 [place] [address] 07/26/2025 10:30 AM EST Office Visit [facility] 4 [place] [address] Wendy Torres MD [address] [place] [address] [email or web address], PT 4 [place] [address] 08/08/2025 12:00 PM EST Office Visit [facility] Neurology [address] [address] Todd Bailey MD [address] [place] [address] 08/28/2025 9:30 AM EST Office Visit [facility] Pulmonology, Allergy and Critical Care Medicine Clinic [address] [place] [address] Srinivas Pemberton MD [address] [place] [address] 09/02/2025 11:00 AM EST Office Visit [facility] Pulmonology, Allergy and Critical [facility] Medicine Clinic [address] [place] [address] Raheem Vaughn MD [address] [place] [address] documented as of this encounter Results * [...] unspecified documented in this encounter Care Teams Veterinary Assistant Technician Relationship Specialty Start Date End Date Wendy Torres MD [address] [place] [address] PCP - General Family Medicine 03/17/18 05/13/21 Wendy Torres MD [address] [place] [address] PCP - General Family Medicine 05/14/21 Jamila Steele MD [email or web address] Historical LMR Provider 04/24/1707/11 Gisel Liu MD [address] [place] [address], 2nd [place] [address] Historical LMR Provider 04/24/17 Evens Escalante MD [address] [facility] [place] [address] Historical LMR Provider 04/24/17 Indy Gaytan MD [address] [place] [address] [facility], [place] [address] Historical LMR Provider 04/24/17 documented as of this encounter Additional Source Comments The information contained in this document represents components of the legal health record. It is not the complete legal health record.[facility]
--- OUTSIDE RECORDS SUMMARY | 2025-06-19 19:58 | XMS_ITS | Patient Health Record ---
Author Organization [facility] Address [address] [place] [address] Care Team Providers Care Orthopaedic Nurse Name Role Phone SEAN CRAIG Primary Care Provider Sukh Hall [phone] Allergies Allergen (clinical drug ingredient) Drug/Non Drug Allergy documented on EMR Reaction Allergy Type Onset Date Status fentanyl Fentanyl (uncoded) N/V Allergy A ctive some adhesives (uncoded) Unknown Allergy Active amoxicillin Amoxicillin Unknown Drug Allergy Act ivan amoxicillin / clavulanate Augmentin Unknown Drug Allergy Active Reason For Referral No Information Medications Medication SIG (Take, Route, Frequency, Duration) Notes Start Date End Date Status Gabapentin 500 mg Tablet 1 tablet QHS Once a day Active Omeprazole 20 MG Capsule Delayed Release TAKE 1 CAPSULE BY MOUTH EVERY DAY IN THE MORNING; Duration: 90 Active Vitamin B12 1000 MCG Tablet Extended Release 1 tablet Orally Once a day Active Ranitidine HCl 150 MG Capsule 1 capsule Orally Twice a day; Duration: 30 day(s) 12/06/2018 Active Vitamin D 2000 UNIT Tablet 1 tablet Orally Once a day Active Immunizations Vaccine Route Administration Date Status Comme nts Influenza Unknown 06/20/2018 Administered Social History Tobacco Use: Social History Observation Description Date Details (start date - stop date) Never Smoker NA - NA Social History Drugs/Alcohol: Social Info Question Answer Notes Alcohol Screen Did you have a drink containing alcohol in the past year? 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 [employer] Notes: Nonsmoker; no sig alcohol Nonsmoker; no sig alcohol Problems Problem Type SNOMED Code ICD Code Onset Dates Problem Status W/U Status Risk Notes Problem Screening for malignant neoplasm of colon (089613393) Encounter for screening for malignant neoplasm of colon (Z12.11) Active confirmed Problem Gastroesophageal reflux disease without esophagitis (631498443) Gastroesophageal reflux disease without esophagitis (K21.9) Active confirmed Problem Constipation (79814929) Constipation, unspecified constipation type (K59.00) Active confirmed Problem Atrophic gastritis (59786705) Chronic gastritis without bleeding, unspecified gastritis type (K29.50) Active confirmed Plan Of Treatment Future Test Test Name Order Date COLONOSCOPY 06/20/2018 Insurance Providers Payer Name Payer Address Payer Phone Subscriber Number Group Number Insured Name Patient Relationship to Insured Coverage Start Date Coverage End Date [employer] [address] [place] [address] [id number] RAMOS LOBATO Self - patient is the insured Medical (General) History Medical History History ICD Code Melanoma Denies [place],DM,CVA,Lung disease,renal dise ase Mild sleep apnea--not using CPAP Negative EGD(small hiatal he rnia) and Colonoscopy in 11/2009 at [facility] with Dr. Solorzano---normal esophageal and colon biopsies Vestibiular migraines and Fibromyalgia-- -takes Gabapentin Colonoscopy August of 2018-nonadenomat ous polyps EGD in 08/2018--small hiatal hernia and gastritis, but no esophagitis-- biopsies negative for H. pylori and Lofton's esophagus, Surgical History Surgery Date(Month/Year) Laproscopy - endometreosis 2002 Melanoma--left calf 2009
--- OUTSIDE RECORDS SUMMARY | 2025-06-19 19:58 | XMS_ITS | Encounter Summary ---
Author Organization [facility] Address [address] [place] [address] Phone Care Team Providers Care Packaging Sales Name Role Phone Evens Escalante MD Unavailable [phone] Indy Gaytan MD Unavailable [phone] Wendy Torres MD Primary Care Provider + [...] MRI, CERV SPINE CONTRAST Wendy Torres MD [address] [place] [address] Phone: tel: fax: mailto:[email or web address] Referral ID Status Reason Start Date Expiration Date Visits Re quested Visits Authorized [id number] Closed 12/13/2023 01/11/2024 1 1 Encounter Details Date Type Department Care Team (Late st Contact Info) Description 12/13/2023 Transcribe Orders Virtual Department [address] [place] [address] Wendy Torres MD [address] [place] [address] [email or web address] Cervicalgia (Primary Dx); Disorder of [...] st Contact Info) Description 07/12/2024 Procedure Pass [facility] [address] [place] [address] 06/26/2025 9:45 AM EST Office Visit [facility] Physical Therapy Clinic [address] [place] [address] Wendy Torres MD [address] [place] [address] [email or web address], PT 4 [place] [address] 07/02/2025 2:15 PM EST Office Visit [facility] Physical Therapy Clinic [address] [place] [address] Wendy Torres MD [address] [place] [address] [email or web address], PT 4 [place] [address] 07/05/2025 8:15 AM EST Appointment [facility], [address] [address] Todd Breen MD [address] [place] [address], [address] [address] 07/10/2025 10:30 AM EST Office Visit [facility] Physical Therapy [address] [address] Wendy Torres MD [address] [place] [address] [email or web address], PT [address] [place] [address] 07/12/2025 10:30 AM EST Office Visit [facility] Physical Therapy [address] [address] Wendy Torres MD [address] [place] [address] [email or web address], PT 4 [place] [address] 07/16/2025 10:30 AM EST Office Visit [facility] Physical Therapy [address] [address] Wendy Torres MD [address] [place] [address] [email or web address], PT 4 [place] [address] 07/18/2025 10:30 AM EST Office Visit [facility] Physical Therapy [address] [address] Wendy Torres MD [address] [place] [address] [email or web address], PT 4 [place] [address] 07/24/2025 10:30 AM EST Office Visit [facility] Physical Therapy [address] [address] Wendy Torres MD [address] [place] [address] [email or web address], PT [address] [place] [address] 07/26/2025 10:30 AM EST Office Visit [facility] Physical Therapy [address] [address] Wendy Torres MD [address] [place] [address] [email or web address], PT 4 [place] [address] 08/08/2025 12:00 PM EST Office Visit [facility] Neurology Clinic [address] [place] [address] Todd Bailey MD [address] [place] [address] 08/28/2025 9:30 AM EST Office Visit [facility] Pulmonology, Allergy and Critical Care Medicine Clinic [address] [place] [address] Srinivas Pemberton MD [address] [place] [address] 09/02/2025 11:00 AM EST Office Visit [facility] Pulmonology, Allergy and Critical Care Medicine Clinic [address] [place] [address] Raheem Vaughn MD [address] [place] [address] documented as of this encounter Results * [...] clinician's provided indication for this examination in [facility]: Outside Radiology Order; left side [...] clinician's provided indication for this examination in [facility]:Outside Radiology Order; left side neck [...] intractable documented in this encounter Care Teams Packaging Sales Relationship Specialty Start Date End Date Wendy Torres MD [address] [place] [address] PCP - General Family Medicine 05/14/21 Evens Escalante MD [address] [place] [address], [address] [place] [address] Historical LMR Provider 04/24/17 Indy Gaytan MD [address] [place] [address] [facility], [place] [address] Historical LMR Provider 04/24/17 documented as of this encounter Additional Source Comments The information contained in this document represents components of the legal health record. It is not the complete legal health record.[facility]
== END 2025-06-19 15:52 | disposition home or self-care (01) ==
LOC: HO.HGI 14:57
PROVIDERS: PCP Family Medicine; Visit Provider Nurse Practitioner
DX: K75.81 Nonalcoholic steatohepatitis (NASH) (principal); E66.9 Obesity, unspecified
CPT/HCPCS: 99213